=== PATIENT | female | born 1990 ===

== ENCOUNTER 2023-10-09 22:31 | Emergency (ER) | payer SELFPAY ==
--- OUTSIDE RECORDS SUMMARY | 2023-10-09 22:49 | XMS REPORT | Continuity of Care Document ---
:1990 Author Organization [facility] t Address [address] [place] [address] Care Team Providers Name Role Phone Ava Barba Primary Care Physician [phone] ROSE OSHEA Attending Clinician Unavailable TAD BARROW Attending Clinician Unavailable Pushpa Tad GARAY Attending Clinician [phone] CJ LEOEN Attending Clinician Unavailable CJ LEONE Attending Clinician Unavailable Visit, [facility] Nurse Attending Clinician Unavailable Ashleigh Yee MD Attending Clinician ASHLEIGH YEE Attending Clinician Unavailable ASHLEIGH YEE Attending Clinician Unavailable Corona Jack MD Attending Clinician HAWA ANG Attending Clinician Unavailable Yo Ott MD Attending Clinician Yudelka Campo MD Attending Clinician Nhi Chew MD Attending Clinician Abhijit Perez MD Attending Clinician Rose Oshea CNM Attending Clinician Masoud COUCH Attending Clinician Unavailable Elsy PACMasoud Attending Clinician Doctor Unassigned, [place] Attending Clinician Unavailable [facility] Unavailable Clyde RAMOS, Sonia Rushing Attending Clinician Provider, Marisa Temp Attending Clinician Unavailable CONNOR RODRIGUEZ Attending Clinician Unavailable Connor Rodriguez MD Attending Clinician Ultrasound, Nikimike Attending Clinician Unavailable Pcp, Patient Does Not Have A Attending Clinician [phone] LORNA JOAQUIN Attending Clinician Unavailable Joaquin PAC, Lorna S Attending Clinician BOBBY TREADWELL Attending Clinician Unavailable URBANO ALCARAZ Attending Clinician Unavailable VIDHI JENKINS Attending Clinician Unavailable CONNOR RODRIGUEZ Admitting Clinician Unavailable Ashleigh Yee MD Admitting Clinician ASHLEIGH YEE Admitting Clinician Unavailable Connor Rodriguez MD Admitting Clinician LORNA JOAQUIN Admitting Clinician Unavailable Payers Payer Name Policy Type Policy Number Effective Date Expiration Date [facility] [id number] 2022 MOM CHIP JENNY LOW 00:00:00 [employer]PL MEDICAID ALIEN PENDING 2023 2023 PENDING 00:00:00 00:00:00 FAMILY PLANNING [id number] 2022 [place] 0-100% 00:00:00 [facility] [id number] 2023 2023 EMERGENCY MEDICAID 00:00:00 00:00:00 [place] [facility] [id number] 2012 2013 HEALTH PLAN MOM 00:00:00 00:00:00 CHIP LOW [employer] Problems Condition Condition Condition Status Onset Resolution Last Treating Co mments Source Name Details Category Date Date Treatment Clinician Date 39 weeks 39 weeks Disease Active Unive rs gestation gestation 7-18 ity of of of 00:00: [place] 00 [facility] Branch Positive Positive Disease Active Unive rs GBS test GBS test 7-03 ity of 00:00: [address] Branch GBS (group GBS (group Disease Active U nivers B B 6-09 ity of streptococ streptococ [place] cus[place] UTI cus) UTI 00 Medica l complicati complicati Br anch ng ng BV BV Disease Active Univers (bacterial (bacterial 6-09 it y of vaginosis) vaginosis) [place] Yeast Yeast Disease Active Univers vaginitis vaginitis 6-09 ity of 00:00: [place] [facility] Branch Tubal Tubal Disease Active Univers ligation ligation 5-05 ity of status status 00:00: [place] [facility] Branch Anemia of Anemia of Disease Active Uni vers mother in mother in 4-18 ity of , , [place] antepartum antepartum 00 [facility] Branch Anemia of Anemia of Disease Active Uni vers mother in mother in 4-18 ity of , , 00:[place] antepartum antepartum 00 [facility] Branch Multiparit Multiparit Disease Active U nivers y y 4-14 ity of 00:00: [place] [facility] Branch Alcohol Alcohol Disease Active Overview: Univ ers use use 3-28 Formattin ity of affecting affecting 00:00: [place] of this [place] 00 note [facility] might be Branch different from the original. 3 drinks 3 beers occasiona l weekends with last this past weekend Vaginal Vaginal Disease Active Univers bleeding bleeding 3-27 ity of during during 00:00: [place] , , 00 Me dical antepartum antepartum Br anch 22 weeks 22 weeks Disease Active Unive rs gestation gestation 3-27 ity of of of 00:00: [place] 00 [facility] Branch Trichomona Trichomona Disease Active U nivers s s 3-27 ity of vaginitis vaginitis 00:[place] [facility] [place] BV BV Disease Active Univers (bacterial (bacterial 3-27 it y of vaginosis) vaginosis) [place] [facility] High-risk High-risk Disease Active Uni vers 3-27 ity of in second in second 00:[place] trimester trimester 00 [facility] Overweight Overweight Disease Active U nivers (BMI (BMI 1-17 ity of 25.0-29.9) 25.0-29.9) 00:[place] Obesity Obesity Disease Active Univers affecting affecting 1-17 [place] of [place] [facility] UTI UTI Disease Active 2021-11 Univers (urinary (urinary 2-06 ity of tract tract 00:00: [place] infection) infection) 00 Me dical during during Branch Nausea and Nausea and Disease Active 2021-11 U nivers vomiting vomiting 2-06 ity of during during 00:00: [place] 00 [facility] Subchorion Subchorion Disease Active 2021-11 U nivers ic ic 2-06 ity of hemorrhage hemorrhage 00:00[place] [facility] Subchorion Subchorion Disease Active 2021-11 U nivers ic ic 2-06 ity of hemorrhage hemorrhage [place] Well woman Well woman Disease Active 2015-11 U nivers exam exam 2-23 ity of 00:00: [place] 00 Medical Branch Obese Obese Disease Active 2015-11 Univers 2-23 ity of 00:00: [place] 00 [facility] Branch Irregular Irregular Disease Active 2014-11 Uni vers menstrual menstrual 1-13 ity of cycle cycle 00:00: [place] 00 [facility] Branch ADD ADD Disease Active 2014-11 Univers (attention (attention 1-13 it y of deficit deficit 00:00: [place] disorder) disorder) 00 [facility] Other Other Disease Active 2012-11 Univers general general 0-01 ity of counseling counseling 00:00: [place] and advice and advice 00 Me dical for for Branch contracept contracept clarke clarke management management Presence Presence Disease Active Overview: Un ronnie of of 8-26 Formattin ity of intrauteri intrauteri 00:00: g of this [place] ne ne 00 note Medical contracept contracept might be Branch clarke device clarke device different from the original. Exp. 3 Threatened Threatened Disease Active U nivers 6-12 ity of labor, labor, 00:00: [place] second second 00 Medical trimester trimester Bran ch History of History of Disease Active 2013-0 U nivers pre-eclamp pre-eclamp 4-22 it y of fidel in fidel in 00:00: [place] prior prior 00 Medical , , Br anch currently currently Allergies, Adverse Reactions, Alerts Allergy Allergy Status Severity Reaction(s) Onset Inactive Treating Comm ents Source Name Type Date Date Clinician cefTRIAX Propensi Active one ty to 07-08 Sodium - adverse 00:00: Injectio reaction 00 n to drug Rocephin Propensi Active ty to 12-28 adverse 00:00: reaction 00 to drug CEFTRIAX DRUG Active Swelling Univer s ONE INGREDI 03-10 ity of 00:00: [place] 00 Medical Branch Ceftriax Propensi Active Swelling Univ ers one ty to 03-10 ity of adverse 00:00: [place] reaction 00 [facility] Branch Social History Social Habit Start Date Stop Date Quantity Comments Source ASSERTION 2022-09-07 University 00:00:00 [facility] Gender identity Universit y of [facility] Sexual orientation Univer sity of [facility] Exposure to 2023-03-19 2023-03-29 Not sure [facility] SARS-CoV-2 (event) 00:00:00 09:49:00 [facility] Alcohol intake 2022-10-12 2022-10-12 Current University of 00:00:00 00:00:00 non-drinker of [facility] alcohol [place] (finding) History of Social 2022-10-12 2022-10-12 Univers ity of function 00:00:00 00:00:00 [facility] Tobacco use and 2013-01-03 2013-01-03 Smokeless Universit y of exposure 00:00:00 00:00:00 tobacco non-user [facility] Sex [birth year] Universit y of 00:00:00 00:00:00 [facility] Smoking Status Start Date Stop Date Source Never smoked tobacco [facility] Medications Ordered Filled Start Stop Current Ordering Indication Dosage Frequency Signature Comments Components Source Medication Medication Date Date Medication? Clinician (SIG) Name Name Yes [id number] 1{tbl} Take 1 Univers [id number] 7-19 tablet by ity of fum-folic 00:00: [place] 27 [place] iron- 00 the Medical 1 mg folic morning. Branc h tablet docusate 0 Yes [id number] 200mg Take 2 U nivers 100 mg 7-19 capsules ity of capsule 00:00: by mouth [place] 00 once daily Medical as needed Branch for Constipati on. ferrous 2022-0 Yes [id number] 325mg Take 1 Un ronnie sulfate 325 7-19 tablet by ity of mg (65 mg 00:00: [place] iron) 00 the Medical tablet morning Branch and 1 tablet in the evening. ibuprofen 2022-0 Yes [id number] 600mg Take 1 Univers 600 mg 7-19 tablet by ity of tablet 00:00: mouth [place] 00 every 6 Medical (six) Branch hours as needed (Pain). Take with food or milk. 0 Yes [id number] 1{tbl} Take 1 Univers [id number] 7-19 tablet by ity of fum-folic 00:00: [place] 27 mg iron- 00 the Medical 1 mg folic morning. Branc h tablet docusate 0 Yes [id number] 200mg Take 2 U nivers 100 mg 7-19 capsules ity of capsule 00:00: by mouth [place] 00 once daily Medical as needed Branch for Constipati on. ferrous 0 Yes [id number] 325mg Take 1 Un ronnie sulfate 325 7-19 tablet by ity of mg (65 mg 00:00: [place] iron) 00 the Medical tablet morning Branch and 1 tablet in the evening. ibuprofen 2022-0 Yes [id number] 600mg Take 1 Univers 600 mg 7-19 tablet by ity of tablet 00:00: mouth [place] 00 every 6 Medical (six) Branch hours as needed (Pain). Take with food or milk. 2022-0 Yes [id number] 1{tbl} Take 1 Univers [id number] 7-19 tablet by ity of fum-folic 00:00: [place] 27 mg iron- 00 the Medical 1 mg folic morning. Branc h tablet docusate 0 Yes [id number] 200mg Take 2 U nivers 100 mg 7-19 capsules ity of capsule 00:00: by mouth [place] 00 once daily Medical as needed Branch for Constipati on. ferrous 2022-0 Yes [id number] 325mg Take 1 Un ronnie sulfate 325 7-19 tablet by ity of mg (65 mg 00:00: [place] iron) 00 the Medical tablet morning Branch and 1 tablet in the evening. ibuprofen 2022-0 Yes [id number] 600mg Take 1 Univers 600 mg 7-19 tablet by ity of tablet 00:00: mouth [place] 00 every 6 Medical (six) Branch hours as needed (Pain). Take with food or milk. 2022-0 Yes [id number] 1{tbl} Take 1 Univers [id number] 7-19 tablet by ity of fum-folic 00:00: [place] 27 mg iron- 00 the Medical 1 mg folic morning. Branc h tablet docusate 2022-0 Yes [id number] 200mg Take 2 U nivers 100 mg 7-19 capsules ity of capsule 00:00: by mouth [place] 00 once daily Medical as needed Branch for Constipati on. ferrous 2022-0 Yes [id number] 325mg Take 1 Un ronnie sulfate 325 7-19 tablet by ity of mg (65 mg 00:00: [place] iron) 00 the Medical tablet morning Branch and 1 tablet in the evening. ibuprofen 2022-0 Yes [id number] 600mg Take 1 Univers 600 mg 7-19 tablet by ity of tablet 00:00: mouth [place] 00 every 6 Medical (six) Branch hours as needed (Pain). Take with food or milk. 2022-0 Yes [id number] 1{tbl} Take 1 Univers [id number] 7-19 tablet by ity of fum-folic 00:00: [place] 27 mg iron- 00 the Medical 1 mg folic morning. Branc h tablet docusate 2022-0 Yes [id number] 200mg Take 2 U nivers 100 mg 7-19 capsules ity of capsule 00:00: by mouth [place] 00 once daily Medical as needed Branch for Constipati on. ferrous 2022-0 Yes [id number] 325mg Take 1 Un ronnie sulfate 325 7-19 tablet by ity of mg (65 mg 00:00: [place] iron) 00 the Medical tablet morning Branch and 1 tablet in the evening. ibuprofen 2022-0 Yes [id number] 600mg Take 1 Univers 600 mg 7-19 tablet by ity of tablet 00:00: mouth [place] 00 every 6 Medical (six) Branch hours as needed (Pain). Take with food or milk. 0 Yes [id number] 1{tbl} Take 1 Univers [id number] 7-19 tablet by ity of fum-folic 00:00: [place] 27 mg iron- 00 the Medical 1 mg folic morning. Branc h tablet docusate 0 Yes [id number] 200mg Take 2 U nivers 100 mg 7-19 capsules ity of capsule 00:00: by mouth [place] 00 once daily Medical as needed Branch for Constipati on. ferrous 0 Yes [id number] 325mg Take 1 Un ronnie sulfate 325 7-19 tablet by ity of mg (65 mg 00:00: [place] iron) 00 the Medical tablet morning Branch and 1 tablet in the evening. ibuprofen 0 Yes [id number] 600mg Take 1 Univers 600 mg 7-19 tablet by ity of tablet 00:00: mouth [place] 00 every 6 Medical (six) Branch hours as needed (Pain). Take with food or milk. 0 Yes [id number] 1{tbl} Take 1 Univers [id number] 7-19 tablet by ity of fum-folic 00:00: [place] 27 mg iron- 00 the Medical 1 mg folic morning. Branc h tablet docusate 0 Yes [id number] 200mg Take 2 U nivers 100 mg 7-19 capsules ity of capsule 00:00: by mouth [place] 00 once daily Medical as needed Branch for Constipati on. ferrous 2022-0 Yes [id number] 325mg Take 1 Un ronnie sulfate 325 7-19 tablet by ity of mg (65 mg 00:00: [place] iron) 00 the Medical tablet morning Branch and 1 tablet in the evening. ibuprofen 2022-0 Yes [id number] 600mg Take 1 Univers 600 mg 7-19 tablet by ity of tablet 00:00: mouth [place] 00 every 6 Medical (six) Branch hours as needed (Pain). Take with food or milk. HYDROcodone 0 2022- No [id number] 1{tbl} Take 1 U nivers -acetaminop 7-19 -27 tablet by it y of hen 5-325 00:00: 04:59 mouth [place] mg tablet 00 :00 every 6 Medical (six) Branch hours as needed (Pain scale above 4) for up to 7 days. Do not exceed 3 grams of acetaminop hen in 24 hours. Indication s: acute pain HYDROcodone 2022- No [id number] 1{tbl} Take 1 U nivers -acetaminop 7-19 07-27 tablet by it y of hen 5-325 00:00: 04:59 mouth [place] mg tablet 00 :00 every 6 Medical (six) Branch hours as needed (Pain scale above 4) for up to 7 days. Do not exceed 3 grams of acetaminop hen in 24 hours. Indication s: acute pain HYDROcodone 2022- No [id number] 1{tbl} Take 1 U nivers -acetaminop 7-19 07-27 tablet by it y of hen 5-325 00:00: 04:59 mouth [place] mg tablet 00 :00 every 6 Medical (six) Branch hours as needed (Pain scale above 4) for up to 7 days. Do not exceed 3 grams of acetaminop hen in 24 hours. Indication s: acute pain HYDROcodone 2022- No [id number] 1{tbl} Take 1 U nivers -acetaminop 7-19 07-27 tablet by it y of hen 5-325 00:00: 04:59 mouth [place] mg tablet 00 :00 every 6 Medical (six) Branch hours as needed (Pain scale above 4) for up to 7 days. Do not exceed 3 grams of acetaminop hen in 24 hours. Indication s: acute pain hydrocortis Yes Topical Uni vers one 05-24 (Apply To ity of 1%-nystatin 20:57: Affected [place] -zinc oxide 44 Areas), Medic al ointment PRN, Branch (COMPOUNDED Starting ) on Tue05/24/23 at 1557, Until Discontinu ed, Routine, Dermatitis /Rash hydrocortis Yes Topical Uni vers one 05-24 (Apply To ity of 1%-nystatin 20:57: [place]ffected [place] -zinc oxide 44 Areas), Medic al ointment PRN, Branch (COMPOUNDED Starting ) on Tue05/24/23 at 1557, Until Discontinu ed, Routine, Dermatitis /Rash rho(D) Yes 300ug 300 mcg, Univer s immune 7-18 Intramuscu ity of globulin 15:43: lar, ONCE, [place] (RHOGAM) 40 For 1 Medical syringe 300 dose, Branch mcg Conditiona l, Routine rho(D) 2022-0 Yes 300ug 300 mcg, Univer s immune 7-18 Intramuscu ity of globulin 15:43: lar, ONCE, [place] (RHOGAM) 40 For 1 Medical syringe 300 dose, Branch mcg Conditiona l, Routine HYDROcodone 2022-0 Yes 2{tbl} 2 tablet, Univers -acetaminop 7-18 Oral, ity of hen (NORCO 15:43: Q6HPRN, [place] 5) 5-325 mg 31 Starting Medi gloria tablet 2 on Tue [place] tablet 05/24/23 at 1043, Until Discontinu ed, Routine, Pain (scale 7-10), Alternate with Ibuprofen HYDROcodone 2022-0 Yes 1{tbl} 1 tablet, Univers -acetaminop 7-18 Oral, ity of hen (NORCO 15:43: Q6HPRN, [place] 5) 5-325 mg 31 Starting Medi gloria tablet 1 on Tue [place] tablet 05/24/23 at 1043, Until Discontinu ed, Routine, Pain (scale 4-6), Alternate with Ibuprofen ibuprofen 2022-0 Yes 600mg 600 mg, [facility] ers (IBU) 718 Oral, ity of tablet 600 15:43: Q6HPRN, [place] mg 31 Starting Medical on Tue Branch 05/24/23 at 1043, Until Discontinu ed, Routine, Pain (scale 1-3) diphenhydrA 2022-0 Yes 25mg 25 mg, [facility] MINE 05-24 Slow IV ity of (BENADRYL) 15:43: Push, [place] injection 31 Q6HPRN, Medical 25 mg Starting Branch on Tue05/24/23 at 1043, Until Discontinu ed, Routine, Itching diphenhydrA 2023-0 Yes 25mg 25 mg, [facility] MINE - Oral, ity of (BENADRYL) 15:43: Q6HPRN, [place] tablet 25 31 Starting Medica l mg on Tue Branch 05/24/23 at 1043, Until Discontinu ed, Routine, Sleep, Itching ondansetron 2023-0 Yes 4mg 4 mg, Slow Univers (ZOFRAN 7-18 IV Push, ity of (PF)) 15:43: Q8HPRN, [place] injection 4 31 Starting Medi gloria mg on Tue05/24/23 at 1043, Until Discontinu ed, Routine, Nausea and Vomiting (N/V) bisacodyL 2022-0 Yes 10mg 10 mg, Univer s (DULCOLAX) 7-18 Rectal, ity of suppository 15:43: QDAILYPRN, [place] 10 mg 31 Starting Medical on Tue Branch 05/24/23 at 1043, Until Discontinu ed, Routine, Constipati on simethicone 2022-0 Yes 160mg 160 mg, Un ronnie (GAS RELIEF - Oral, ity of (SIMETHICON 15:43: PC+HSPRN, [place] E)) 31 Starting Medical chewable on Tue tablet 160 05/24/23 at mg 1043, Until Discontinu ed, Routine, Gas docusate 2022-0 Yes 200mg 200 mg, Unive rs (COLACE) - Oral, ity of capsule 200 15:43: QDAILYPRN, [place] mg 31 Starting Medical on Tue Branch 05/24/23 at 1043, Until Discontinu ed, Routine, Constipati on magnesium 2022-0 Yes 30mL 30 mL, Univer s hydroxide 18 Oral, ity of (MILK OF 15:43: QDAILYPRN, [place] MAGNESIA) 31 Starting Medica l 400 mg/5 mL on Tue suspension 05/24/23 at 30 mL 1043, Until Discontinu ed, Routine, Constipati on lactated 2022-0 Yes 1000mL at 125 Unive rs ringers IV 7-18 mL/hr, ity of infusion 15:43: 1,000 mL, [place] 1,000 mL 31 IV Medical Infusion, Branch PRN, 1 dose, Starting on Tue05/24/23 at 1043, Until Discontinu ed, Routine HYDROcodone 2022-0 Yes 2{tbl} 2 tablet, Univers -acetaminop - Oral, ity of hen (NORCO 15:43: Q6HPRN, [place] 5) 5-325 mg 31 Starting Medi gloria tablet 2 on Tue tablet 05/24/23 at 1043, Until Discontinu ed, Routine, Pain (scale 7-10), Alternate with Ibuprofen HYDROcodone 2023-0 Yes 1{tbl} 1 tablet, Univers -acetaminop 05-24 Oral, ity of hen (NORCO 15:43: Q6HPRN, [place] 5) 5-325 mg 31 Starting Medi gloria tablet 1 on [facility] tablet 05/24/23 at 1043, Until Discontinu ed, Routine, Pain (scale 4-6), Alternate with Ibuprofen ibuprofen 2023-0 Yes 600mg 600 mg, Univ ers (IBU) 7-18 Oral, ity of tablet 600 15:43: Q6HPRN, [place] mg 31 Starting Medical on Branch 05/24/23 at 1043, Until Discontinu ed, Routine, Pain (scale 1-3) diphenhydrA 2023-0 Yes 25mg 25 mg, Univ ers MINE 7 Slow IV ity of (BENADRYL) 15:43: Push, [place] injection 31 Q6HPRN, Medical 25 mg Starting Branch on Tue05/24/23 at 1043, Until Discontinu ed, Routine, Itching diphenhydrA 2023-0 Yes 25mg 25 mg, Univ ers MINE 18 Oral, ity of (BENADRYL) 15:43: Q6HPRN, [place] tablet 25 31 Starting Medica l mg on Branch 05/24/23 at 1043, Until Discontinu ed, Routine, Sleep, Itching ondansetron 2023-0 Yes 4mg 4 mg, Slow Univers (ZOFRAN 18 IV Push, ity of (PF)) 15:43: Q8HPRN, [place] injection 4 31 Starting Medi gloria mg on [facility] Branch 05/24/23 at 1043, Until Discontinu ed, Routine, Nausea and Vomiting (N/V) bisacodyL 2023-0 Yes 10mg 10 mg, Univer s (DULCOLAX) 18 Rectal, ity of suppository 15:43: QDAILYPRN, [place] 10 mg 31 Starting Medical on [facility] Branch 05/24/23 at 1043, Until Discontinu ed, Routine, Constipati on simethicone 2023-0 Yes 160mg 160 mg, Un ronnie (GAS RELIEF -18 Oral, ity of (SIMETHICON 15:43: PC+HSPRN, [place] E)) 31 Starting Medical chewable on Tue tablet 160 05/24/23 at mg 1043, Until Discontinu ed, Routine, Gas docusate 3-0 Yes 200mg 200 mg, Unive rs (COLACE) -18 Oral, ity of capsule 200 15:43: QDAILYPRN, [place] mg 31 Starting Medical on Tue Branch 05/24/23 at 1043, Until Discontinu ed, Routine, Constipati on magnesium 2022-0 Yes 30mL 30 mL, Univer s hydroxide 05-24 Oral, ity of (MILK OF 15:43: QDAILYPRN, [place] MAGNESIA) 31 Starting Medica l 400 mg/5 mL on Tue Branch suspension 05/24/23 at 30 mL 1043, Until Discontinu ed, Routine, Constipati on lactated 2022-0 Yes 1000mL at 125 Unive rs ringers IV 7-18 mL/hr, ity of infusion 15:43: 1,000 mL, [place] 1,000 mL 31 IV Medical Infusion, Branch PRN, 1 dose, Starting on Tue05/24/23 at 1043, Until Discontinu ed, Routine oxytocin 2022-0 Yes 600mL/h 600 mL/hr, Univers (PITOCIN) 7-18 IV ity of 30 units in 15:02: Infusion, [place] NS 500 mL 05 PRN, For Medica l IV infusion post Branch delivery uterine atony., Starting on Tue05/24/23 at 1002<br&gt ;Start at 600 mL/hr for 1 hr then 150 mL/hr for 1 hr.
oxytocin 2022-0 Yes 300mL/h 300 mL/hr, Univers (PITOCIN) 7-18 IV ity of 30 units in 15:02: Infusion, [place] NS 500 mL 05 SEE-INSTRU Medi gloria IV infusion CTIONS, Branc h Starting on Tue05/24/[address] at 300 mL/hr for 1 hr then 150 mL/hr for 1 hr. For post delivery uterotonic .
oxytocin 2022-0 Yes 600mL/h 600 mL/hr, Univers (PITOCIN) 7-18 IV ity of 30 units in 15:02: Infusion, [place] NS 500 mL 05 PRN, For Medica l IV infusion post Branch delivery uterine atony., Starting on Tue05/24/23 at 1002<br&gt ;Start at 600 mL/hr for 1 hr then 150 mL/hr for 1 hr.
oxytocin Yes 300mL/h 300 mL/hr, Univers (PITOCIN) 05-24 IV ity of 30 units in 15:02: Infusion, [place] NS 500 mL 05 SEE-INSTRU Medi gloria IV infusion CTIONS, Branc h Starting on Tue05/24/[address] at 300 mL/hr for 1 hr then 150 mL/hr for 1 hr. For post delivery uterotonic .
ePHEDrine 2022- No Intramuscu U nivers injection 05-24 lar, ONCE ity of 14:54: 14:58 INTRA [place] 00 :39 PROCEDURE, Medical Starting Branch on Tue05/24/23 at 0954, Until Tue05/24/23 at 0958, Routine, Intra-op ePHEDrine 2022- No Intramuscu U nivers injection 05-24 lar, ONCE ity of 14:54: 14:58 INTRA [place] 00 :39 PROCEDURE, Medical Starting Branch on Tue05/24/23 at 0954, Until Tue05/24/23 at 0958, Routine, Intra-op ketorolac 2022- No 30mg 30 mg, Unive rs (TORADOL) 05-24 Slow IV ity of injection 14:50: 04:59 [place], PRN, [place] 30 mg 01 :00 1 dose, Medical Starting Branch on Tue05/24/23 at 0950, Until [place] 05/26/23 at 2359, Routine, Pain (scale 4-6) ketorolac 2022- No 30mg 30 mg, Unive rs (TORADOL) 05-24 Slow IV ity of injection 14:50: 04:59 [place], PRN, [place] 30 mg 01 :00 1 dose, Medical Starting Branch on Tue05/24/23 at 0950, Until Tue05/26/23 at 2359, Routine, Pain (scale 4-6) naloxone 2022- No .4mg 0.4 mg, Unive rs (NARCAN) 05-24 Slow IV ity of injection 14:50: 23:14 [place], PRN [place] 0.4 mg 01 :19 - SEE [facility], Starting on Tue05/24/23 at 0950, Until Tue05/26/23 at 1814, Routine, Analgesia Recovery naloxone 2022- No .4mg 0.4 mg, Unive rs (NARCAN) 05-24 Slow IV ity of injection 14:50: 23:14 [place], PRN [place] 0.4 mg 01 :19 - SEE [facility], Starting on Tue05/24/23 at 0950, Until Tue05/26/23 at 1814, Routine, Analgesia Recovery diphenhydrA 2022- No 25mg 25 mg, Uni vers MINE 05-24 Slow IV ity of (BENADRYL) 14:50: 23:55 [place], [place] injection 01 :37 Q4HPRN, Medical 25 mg Starting Branch on Tue05/24/23 at 0950, Until Tue05/25/23 at 1855, Routine, Itching diphenhydrA 2022- No 25mg 25 mg, Uni vers MINE 05-24 Slow IV ity of (BENADRYL) 14:50: 23:55 [place], [place] injection 01 :37 Q4HPRN, Medical 25 mg Starting Branch on Tue05/24/23 at 0950, Until Tue05/25/23 at 1855, Routine, Itching ondansetron 2022- No Slow IV Un ronnie (ZOFRAN 05-24 [place], ONCE ity o f (PF)) 14:49: 14:58 INTRA [place] injection 00 :39 PROCEDURE, Medi gloria Starting Branch on Tue05/24/23 at 0949, Until Tue05/24/23 at 0958, Routine, Intra-op ondansetron 0 2022- No Slow IV Un ronnie (ZOFRAN 7-18 07-18 Push, ONCE ity o f (PF)) 14:49: 14:58 INTRA [place] injection 00 :39 PROCEDURE, [facility] gloria Starting Branch on e 05/24/23 at 0949, Until Tue05/24/23 at 0958, Routine, Intra-op morpHINE PF 2022-2022- No Epidural, Univers (DURAMORPH- 05-24 ONCE INTRA i ty of PF) 14:26: 14:58 PROCEDURE, [place] injection 00 :39 Starting Medica l on Tue Branch 05/24/23 at 0926, Until 05/24/23 at 0958, Routine, Intra-op morpHINE PF 2022-2022- No Epidural, Univers (DURAMORPH- 05-24 ONCE INTRA i ty of PF) 14:26: 14:58 PROCEDURE, [place] injection 00 :39 Starting Medica l on Tue Branch 05/24/23 at 0926, Until e 05/24/23 at 0958, Routine, Intra-op lidocaine-e 2022-0 2022- No Epidural, Univers pinephrine 05-2418 ONCE INTRA it y of (XYLOCAINE 14:18: 14:58 PROCEDURE, [place] W/EPINEPHRI 00 :39 Starting [facility] [place]) 2 on [facility] Branch %-1:200,000 05/24/23 at injection 0918, Until Tue05/24/23 at 0958, Routine, Intra-op lidocaine-e 2022-0 2022- No Epidural, Univers pinephrine 05-2418 ONCE INTRA it y of (XYLOCAINE 14:18: 14:58 PROCEDURE, [place] W/EPINEPHRI 00 :39 Starting [facility] [place]) 2 on [facility] Branch %-1:200,000 05/24/23 at injection 0918, Until 05/24/23 at 0958, Routine, Intra-op lactated 3-0 Yes 1000mL at 125 Unive rs ringers IV 7-18 mL/hr, ity of infusion 14:15: 1,000 mL, [place] 1,000 mL 00 IV Medical Infusion, Branch CONTINUOUS , Starting on e 05/24/23 at 0915, Until Discontinu ed, Routine lactated 3-0 Yes 1000mL at 125 Unive rs ringers IV 7-18 mL/hr, ity of infusion 14:15: 1,000 mL, [place] 1,000 mL 00 IV Medical Infusion, Branch CONTINUOUS , Starting on Tue05/24/23 at 0915, Until Discontinu ed, Routine phenylephri 2022- No Slow IV Un ronnie ne 05-24 Push, ONCE ity of (VAZCULEP) 13:55: 14:58 INTRA [place] injection 00 :39 PROCEDURE, Medi gloria Starting Branch on Tue05/24/23 at 0855, Until Tue05/24/23 at 0958, Routine, Intra-op phenylephri 2022- No Slow IV Un ronnie ne 05-24 Push, ONCE ity of (VAZCULEP) 13:55: 14:58 INTRA [place] injection 00 :39 PROCEDURE, Medi gloria Starting Branch on Tue05/24/23 at 0855, Until Tue05/24/23 at 0958, Routine, Intra-op terbutaline 2022- No Intravenou Univers (BRETHINE) 05-24 s, ONCE ity o f injection 13:49: 14:58 INTRA [place] 00 :39 PROCEDURE, Medical Starting Branch on Tue05/24/23 at 0849, Until Tue05/24/23 at 0958, Routine, Intra-op terbutaline 2022- No Intravenou Univers (BRETHINE) 05-24 s, ONCE ity o f injection 13:49: 14:58 INTRA [place] 00 :39 PROCEDURE, Medical Starting Branch on Tue05/24/23 at 0849, Until Tue05/24/23 at 0958, Routine, Intra-op bupivacaine 2022- No Retrobulba Univers (preserv 05-24 r - Right ity o f free) 13:46: 14:58 Eye, ONCE [place] (MARCAINE 00 :39 INTRA Medical (PF)) 0.75 PROCEDURE, Bra nch % (7.5 Starting mg/mL) on Tue injection 05/24/23 at 0846, Until 05/24/23 at 0958, Routine, Intra-op bupivacaine 2022-0 2022- No Retrobulba Univers (preserv 05-24 r - Right ity o f free) 13:46: 14:58 Eye, ONCE [place] (MARCAINE 00 :39 INTRA Medical (PF)) 0.75 PROCEDURE, Bra nch % (7.5 Starting mg/mL) on Tue injection 05/24/23 at 0846, Until e 05/24/23 at 0958, Routine, Intra-op phenylephri 2022- No Intravenou Univers ne 05-24 s, ity of (VAZCULEP) 13:35: 14:58 CONTINUOUS [place] injection 00 :39 PRN, Medical Starting Branch on Tue05/24/23 at 0835, Until e 05/24/23 at 0958, Routine, Intra-op phenylephri 2022- No Intravenou Univers ne 05-24 s, ity of (VAZCULEP) 13:35: 14:58 CONTINUOUS [place] injection 00 :39 PRN, Medical Starting Branch on Tue05/24/23 at 0835, Until Tue05/24/23 at 0958, Routine, Intra-op FENTanyl PF 2022- No Intratheca Univers (SUBLIMAZE 05-24 l, ONCE ity o f (PF)) 13:34: 14:58 INTRA [place] injection 00 :39 PROCEDURE, Medi gloria Starting Branch on Tue05/24/23 at 0834, Until Tue05/24/23 at 0958, Routine, Intra-op FENTanyl PF 2022- No Intratheca Univers (SUBLIMAZE 05-24 l, ONCE ity o f (PF)) 13:34: 14:58 INTRA [place] injection 00 :39 PROCEDURE, Medi gloria Starting Branch on Tue05/24/23 at 0834, Until Tue05/24/23 at 0958, Routine, Intra-op lidocaine 2022-2022- No Subcutaneo U nivers 2% 05-24 us, ONCE ity of (XYLOCAINE) 13:30: 14:58 INTRA [place] 20 mg/mL (2 00 :39 PROCEDURE, Me dical %) Starting Branch injection on Tue05/24/23 at 0830, Until Tue05/24/23 at 0958, Routine, Intra-op lidocaine 2022- No Subcutaneo U nivers 2% 05-24 us, ONCE ity of (XYLOCAINE) 13:30: 14:58 INTRA [place] 20 mg/mL (2 00 :39 PROCEDURE, Me dical %) Starting Branch injection on Tue05/24/23 at 0830, Until Tue05/24/23 at 0958, Routine, Intra-op lactated 2022- No Intravenou Un ronnie ringers IV 05-24 s, ity of infusion 13:14: 14:58 CONTINUOUS [place] 00 :[place] PRN, Medical Starting Branch on Tue05/24/23 at 0814, Until Tue05/24/23 at 0958, Routine, Intra-op lactated 2022- No Intravenou Un ronnie ringers IV 05-24 s, ity of infusion 13:14: 14:58 CONTINUOUS [place] 00 :39 PRN, Medical Starting Branch on Tue05/24/23 at 0814, Until Tue05/24/23 at 0958, Routine, Intra-op terbutaline No .25mg 0.25 mg, Univers (BRETHINE) 05-24 Subcutaneo it y of injection 08:45: 08:10 us, ONCE, [place] 0.25 mg 00 :00 1 dose, On Medica l [facility] 05/24/23 at 0345, Routine lactated 2022-0 Yes 500mL at 999 Univer s ringers IV 7-18 mL/hr, 500 ity of infusion 08:03: mL, IV [place] 500 mL 58 Infusion, Medical PRN - SEE Branch INSTRUCTIO NS, 1 dose, Starting on Tue05/24/23 at 0303, Until Discontinu ed, Routine lactated 2022-0 Yes 500mL at 999 Univer s ringers IV 7-18 mL/hr, 500 ity of infusion 08:03: mL, IV [place] 500 mL 58 Infusion, Medical PRN - SEE Branch INSTRUCTIO NS, 1 dose, Starting on Tue05/24/23 at 0303, Until Discontinu ed, Routine sodium 2022- No 30mL 30 mL, Univers citrate-cit 7-18 07-18 Oral, ity of sylwia acid 08:03: 13:05 PRE-PROCED [place] (BICITRA) 58 :00 URE ONCE, Medic al 500-334 1 dose, Branch mg/5 mL Starting solution 30 on Tue mL 05/24/23 at 0303, Until Discontinu ed, Routine, Surgery/Pr ocedure oxytocin 2023-0 Yes 2mU/min at 2-40 Uni vers (PITOCIN) 7-18 mL/hr, IV ity o f 30 units in 07:56: Infusion, [place] 500 mL 20 TITRATE, Medica l IV infusion Starting Bran ch on e 05/24/23 at 0256, Until Discontinu ed, RAM[place] oxytocin 2023-0 Yes 2mU/min at 2-40 Uni vers (PITOCIN) 7-18 mL/hr, IV ity o f 30 units in 07:56: Infusion, [place] NS 500 mL 20 TITRATE, Medica l IV infusion Starting Bran ch on e 05/24/23 at 0256, Until Discontinu ed, [place] oxytocin 2023-0 Yes 2mU/min at 2-40 Uni vers (PITOCIN) 7-18 mL/hr, IV ity o f 30 units in 07:56: Infusion, [place] NS 500 mL 20 TITRATE, Medica l IV infusion Starting Bran ch on Tue05/24/23 at 0256, Until Discontinu ed, RAM[place] oxytocin 2023-0 2023- No 2mU/min at 2-40 Un ronnie (PITOCIN) 05-24 07-19 mL/hr, IV ity of 30 units in 07:56: 22:40 Infusion, [place] NS 500 mL 20 :02 TITRATE, Medica l IV infusion Starting Bran ch on Tue05/24/23 at 0256, Until Tue05/25/23 at 1740, RAMONA sodium 2023-0 Yes 30mL 30 mL, Univers citrate-cit 05-24 Oral, ity of sylwia acid 06:53: PRE-PROCED [place] (BICITRA) 29 URE ONCE, Medic al 500-334 1 dose, Branch mg/5 mL Starting solution 30 on Tue mL 05/24/23 at 0153, Until Discontinu ed, Routine, Surgery/Pr ocedure lidocaine 2023-0 Yes 50mL 50 mL, Univer s 1% 7-18 Infiltrati ity of (XYLOCAINE) 06:53: on, PRN - [place] 10 mg/mL (1 29 SEE Medical %) INSTRUCTIO Branch injection NS, 50 mL Starting on Tue05/24/23 at 0153, Until Discontinu ed, Routine, Local anesthesia , For laceration repair only as a local anesthetic as indicated. lidocaine 2023-0 Yes .3mL 0.3 mL, Unive rs 1% (PF) 7-18 Infiltrati ity of (XYLOCAINE) 06:53: on, PRN - [place] injection 29 SEE Medical 0.3 mL INSTRUCTIO Branch NS, Starting on Tue05/24/23 at 0153, Until Discontinu ed, Routine, Local anesthesia , For IV line placement only as a local anesthetic . lactated 2023-0 Yes 500mL at 999 Univer s ringers IV 7-18 mL/hr, 500 ity of infusion 06:53: mL, IV [place] 500 mL 29 Infusion, Medical PRN - SEE Branch INSTRUCTIO NS, Starting on Tue05/24/23 at 0153, Until Discontinu ed, Routine D5W-LR IV 3-0 Yes 1000mL at 1-125 Un ronnie infusion 7-18 mL/hr, IV ity of 1,000 mL 06:53: Infusion, [place] 29 TITRATE, Medical Starting Branch on Tue05/24/23 at 0153, Until Discontinu ed, Routine sodium 2023-0 Yes 30mL 30 mL, Univers citrate-cit 718 Oral, ity of sylwia acid 06:53: PRE-PROCED [place] (BICITRA) 29 URE ONCE, Medic al 500-334 1 dose, Branch mg/5 mL Starting solution 30 on Tue mL 05/24/23 at 0153, Until Discontinu ed, Routine, Surgery/Pr ocedure lidocaine 2023-0 Yes 50mL 50 mL, Univer s 1% 7-18 Infiltrati ity of (XYLOCAINE) 06:53: on, PRN - [place] 10 mg/mL (1 29 SEE Medical %) INSTRUCTIO Branch injection NS, 50 mL Starting on Tue05/24/23 at 0153, Until Discontinu ed, Routine, Local anesthesia , For laceration repair only as a local anesthetic as indicated. lidocaine 2023-0 Yes .3mL 0.3 mL, Unive rs 1% (PF) 7-18 Infiltrati ity of (XYLOCAINE) 06:53: on, PRN - [place] injection 29 SEE Medical 0.3 mL INSTRUCTIO Branch NS, Starting on Tue05/24/23 at 0153, Until Discontinu ed, Routine, Local anesthesia , For IV line placement only as a local anesthetic . lactated 3-0 Yes 500mL at 999 Univer s ringers IV 7-18 mL/hr, 500 ity of infusion 06:53: mL, IV [place] 500 mL 29 Infusion, Medical PRN - SEE Branch INSTRUCTIO NS, Starting on Tue05/24/23 at 0153, Until Discontinu ed, Routine D5W-LR IV 3-0 Yes 1000mL at 1-125 Un ronnie infusion 7-18 mL/hr, IV ity of 1,000 mL 06:53: Infusion, [place] 29 TITRATE, Medical Starting Branch on Tue05/24/23 at 0153, Until Discontinu ed, Routine metroNIDAZO 3-0 Yes [id number] 500mg Take 1 Univers LE 500 mg 6-09 tablet by ity o f tablet 00:00: mouth in [place] [address] the [facility] morning [place] and 1 tablet in the evening. metroNIDAZO 2023-0 Yes [id number] 500mg Take 1 Univers LE 500 mg 6-09 tablet by ity o f tablet 00:00: mouth in [address] morning [place] and 1 tablet in the evening. metroNIDAZO 2023-0 Yes [id number] 500mg Take 1 Univers LE 500 mg 6-09 tablet by ity o f tablet 00:00: mouth in [address] morning [place] and 1 tablet in the evening. metroNIDAZO 2023-0 Yes [id number] 500mg Take 1 Univers LE 500 mg 6-09 tablet by ity o f tablet 00:00: mouth in [address] morning [place] and 1 tablet in the evening. metroNIDAZO 2023-0 Yes [id number] 500mg Take 1 Univers LE 500 mg 6-09 tablet by ity o f tablet 00:00: mouth in [address] morning [place] and 1 tablet in the evening. metroNIDAZO 2023-0 Yes [id number] 500mg Take 1 [facility] LE 500 mg 6-09 tablet by ity o f tablet 00:00: mouth in [place] 00 the Medical morning Branch and 1 tablet in the evening. metroNIDAZO 3-0 Yes [id number] 500mg Take 1 Univers LE 500 mg 6-09 tablet by ity o f tablet 00:00: mouth in [place] 00 the Medical morning Branch and 1 tablet in the evening. metroNIDAZO 2022-0 Yes [id number] 500mg Take 1 Univers LE 500 mg 6-09 tablet by ity o f tablet 00:00: mouth in [place] 00 the Medical morning Branch and 1 tablet in the evening. metroNIDAZO 2022-0 Yes [id number] 500mg Take 1 Univers LE 500 mg 6-09 tablet by ity o f tablet 00:00: mouth in [place] 00 the Medical morning Branch and 1 tablet in the evening. metroNIDAZO 2022-0 Yes [id number] 500mg Take 1 Univers LE 500 mg 6-09 tablet by ity o f tablet 00:00: mouth in [place] 00 the Medical morning Branch and 1 tablet in the evening. metroNIDAZO 2022-0 Yes [id number] 500mg Take 1 Univers LE 500 mg 6-09 tablet by ity o f tablet 00:00: mouth in [place] 00 the Medical morning Branch and 1 tablet in the evening. metroNIDAZO 2022-0 2022- No [id number] 500mg Take 1 Univers LE 500 mg 6-07 14- tablet by ity of tablet 00:00: 00:00 mouth in [place] 00 :00 the Medical morning Branch and 1 tablet in the evening. metroNIDAZO 2022-0 2022- No [id number] 500mg Take 1 Univers LE 500 mg 6-07 14- tablet by ity of tablet 00:00: 00:00 mouth in [place] 00 :00 the Medical morning Branch and 1 tablet in the evening. metroNIDAZO 2022-0 2022- No [id number] 500mg Take 1 Univers LE 500 mg 6-07 14-19 tablet by ity of tablet 00:00: 00:00 mouth in [place] 00 :00 the Medical morning Branch and 1 tablet in the evening. ampicillin 2022-2022- No [id number] 500mg Take 1 Univers 500 mg 6- 06-20 capsule by ity of capsule 00:00: 04:59 mouth 4 [place] 00 :00 (four) Medical times Branch daily for 10 days. ampicillin 2022- No [id number] 500mg Take 1 Univers 500 mg 04-15 capsule by ity of capsule 00:00: 04:59 mouth 4 [place] 00 :00 (four) Medical times Branch daily for 10 days. fluconazole 2022- No [id number] 150mg Take 1 Univers (DIFLUCAN) 04-15-10 tablet by ity of 150 mg 00:00: 04:59 mouth [place] tablet 00 :00 now for 1 Medical dose. Branch fluconazole 2022- No [id number] 150mg Take 1 Univers (DIFLUCAN) 04-15-10 tablet by ity of 150 mg 00:00: 04:59 mouth [place] tablet 00 :00 now for 1 Medical dose. Branch Iron-Vitami 2022- No [id number] 1{tbl} Take 1 Univers n C 4-18 10-16 tablet by ity of (ICAR-C) 00:00: 04:59 mouth in [place] 100-250 mg 00 :00 the Medical Tab morning Branch for 180 days. Iron-Vitami 2022- No [id number] 1{tbl} Take 1 Univers n C 4-18 10-16 tablet by ity of (ICAR-C) 00:00: 04:59 mouth in [place] 100-250 mg 00 :00 the Medical Tab morning Branch for 180 days. Iron-Vitami 2022- No [id number] 1{tbl} Take 1 Univers n C 4-18 10-16 tablet by ity of (ICAR-C) 00:00: 04:59 mouth in [place] 100-250 mg 00 :00 the Medical Tab morning Branch for 180 days. Iron-Vitami 2022- No [id number] 1{tbl} Take 1 Univers n C 4-18 10-16 tablet by ity of (ICAR-C) 00:00: 04:59 mouth in [place] 100-250 mg 00 :00 the Medical Tab morning Branch for 180 days. Iron-Vitami 2022- No [id number] 1{tbl} Take 1 Univers n C 4-18 10-16 tablet by ity of (ICAR-C) 00:00: 04:59 mouth in [place] 100-250 mg 00 :00 the Medical Tab morning Branch for 180 days. Iron-Vitami 2022- No [id number] 1{tbl} Take 1 Univers n C 4-18 10-16 tablet by ity of (ICAR-C) 00:00: 04:59 mouth in [place] 100-250 mg 00 :00 the Medical Tab morning Branch for 180 days. Iron-Vitami No [id number] 1{tbl} Take 1 Univers n C 4-18 10-16 tablet by ity of (ICAR-C) 00:00: 04:59 mouth in [place] 100-250 mg 00 :00 the Medical Tab morning Branch for 180 days. Iron-Vitami No [id number] 1{tbl} Take 1 Univers n C 4-18 10-16 tablet by ity of (ICAR-C) 00:00: 04:59 mouth in [place] 100-250 mg 00 :00 the Medical Tab morning Branch for 180 days. Iron-Vitami No [id number] 1{tbl} Take 1 Univers n C 4-18 10-16 tablet by ity of (ICAR-C) 00:00: 04:59 mouth in [place] 100-250 mg 00 :00 the Medical Tab morning Branch for 180 days. Iron-Vitami No [id number] 1{tbl} Take 1 Univers n C 4-18 10-16 tablet by ity of (ICAR-C) 00:00: 04:59 mouth in [place] 100-250 mg 00 :00 the Medical Tab morning Branch for 180 days. Iron-Vitami No [id number] 1{tbl} Take 1 Univers n C 4-18 10-16 tablet by ity of (ICAR-C) 00:00: 04:59 mouth in [place] 100-250 mg 00 :00 the Medical Tab morning Branch for 180 days. Iron-Vitami No [id number] 1{tbl} Take 1 Univers n C 4-18 10-16 tablet by ity of (ICAR-C) 00:00: 04:59 mouth in [place] 100-250 mg 00 :00 the Medical Tab morning Branch for 180 days. Iron-Vitami No [id number] 1{tbl} Take 1 Univers n C 4-18 10-16 tablet by ity of (ICAR-C) 00:00: 04:59 mouth in [place] 100-250 mg 00 :00 the Medical Tab morning Branch for 180 days. Iron-Vitami 2022- No [id number] 1{tbl} Take 1 Univers n C 4-18 10-16 tablet by ity of (ICAR-C) 00:00: 04:59 mouth in [place] 100-250 mg 00 :00 the Medical Tab morning Branch for 180 days. Iron-Vitami 2022- No [id number] 1{tbl} Take 1 Univers n C 4-18 10-16 tablet by ity of (ICAR-C) 00:00: 04:59 mouth in [place] 100-250 mg 00 :00 the Medical Tab morning Branch for 180 days. Iron-Vitami No [id number] 1{tbl} Take 1 Univers n C 4-18 10-16 tablet by ity of (ICAR-C) 00:00: 04:59 mouth in [place] 100-250 mg 00 :00 the Medical Tab morning Branch for 180 days. Iron-Vitami No [id number] 1{tbl} Take 1 Univers n C 4-18 10-16 tablet by ity of (ICAR-C) 00:00: 04:59 mouth in [place] 100-250 mg 00 :00 the Medical Tab morning Branch for 180 days. Iron-Vitami No [id number] 1{tbl} Take 1 Univers n C 4-18 10-16 tablet by ity of (ICAR-C) 00:00: 04:59 mouth in [place] 100-250 mg 00 :00 the Medical Tab morning Branch for 180 days. Iron-Vitami No [id number] 1{tbl} Take 1 Univers n C 4-18 10-16 tablet by ity of (ICAR-C) 00:00: 04:59 mouth in [place] 100-250 mg 00 :00 the Medical Tab morning Branch for 180 days. Iron-Vitami 2022-2022- No [id number] 1{tbl} Take 1 Univers n C 4-18 10-16 tablet by ity of (ICAR-C) 00:00: 04:59 mouth in [place] 100-250 mg 00 :00 the Medical Tab morning Branch for 180 days. Iron-Vitami 2022-0 2022- No [id number] 1{tbl} Take 1 Univers n C 4-18 07-19 tablet by ity of (ICAR-C) 00:00: 00:00 mouth in [place] 100-250 mg 00 :00 the Medical Tab morning Branch for 180 days. Iron-Vitami 2022-0 2022- No [id number] 1{tbl} Take 1 Univers n C 4-18 07-19 tablet by ity of (ICAR-C) 00:00: 00:00 mouth in [place] 100-250 mg 00 :00 the Medical Tab morning Branch for 180 days. Iron-Vitami 2022-2022- No [id number] 1{tbl} Take 1 Univers n C 4-18 07-19 tablet by ity of (ICAR-C) 00:00: 00:00 mouth in [place] 100-250 mg 00 :00 the Medical Tab morning Branch for 180 days. metroNIDAZO 2022- No 500mg 500 mg, U nivers LE (FLAGYL) 01-31 Oral, ity of tablet 500 11:00: 00:59 Q12H, 4 [place] mg 00 :00 doses, Medical First dose Branch on Tue01/31/23 at 0600, Last dose on Tue02/01/23 at 0800, Routine
Reason for Anti-Infec tive: Documented Infection< br>Documen sathya Infection Site: Pelvic
Duration of Therapy: 7 days metroNIDAZO 3-0 3- No [id number] 500mg Take 1 [facility] LE 500 mg 01-3103 tablet by ity of tablet 00:00: 04:59 mouth [place] 00 :00 every 12 Medical (twelve) Branch hours for 6 days. metroNIDAZO 3-0 3- No [id number] 500mg Take 1 Univers LE 500 mg 01-31-03 tablet by ity of tablet 00:00: 04:59 mouth [place] 00 :00 every 12 Medical (twelve) Branch hours for 6 days. metroNIDAZO 2022- No [id number] 500mg Take 1 [facility] LE 500 mg 01-31 tablet by ity of tablet 00:00: 04:59 mouth [place] 00 :00 every 12 Medical (twelve) Branch hours for 6 days. metroNIDAZO 0 2022- No [id number] 500mg Take 1 Univers LE 500 mg 01-31 tablet by ity of tablet 00:00: 04:59 mouth [place] 00 :00 every 12 Medical (twelve) Branch hours for 6 days. D5W-LR IV Yes 1000mL at 200 Univ ers infusion 3-26 mL/hr, IV ity of 1,000 mL 23:45: Infusion, [place] 00 CONTINUOUS Medical , Starting Branch on [place] 01/30/23 at 1845, Until Discontinu ed, Routine lactated 2022- No 1000mL at 999 Univ ers ringers IV 01-30 mL/hr, ity of infusion 23:45: 00:50 1,000 mL, [place] 1,000 mL 00 :36 IV Medical Infusion, Branch ONCE, 1 dose, On [place] 01/30/23 at 1845, STAT terbutaline 2022- No .25mg 0.25 mg, Univers (BRETHINE) 01-30 Subcutaneo it y of injection 23:45: 23:39 [place], ONCE, [place] 0.25 mg 00 :00 1 dose, On Medica l [place] Branch 01/30/23 at 1845, Routine metroNIDAZO 2022- No 500mg 500 mg, U nivers LE (FLAGYL) 01-30 Oral, ity of tablet 500 23:45: 23:39 ONCE, 1 [place] mg 00 :00 dose, On Medical [place] Branch 01/30/23 at 1845, Routine
Reason for Anti-Infec tive: Documented Infection< br>Documen sathya Infection Site: Pelvic
Duration of Therapy: Other (see Comments) aspirin 81 2022-0 Yes [id number] 81mg Take 1 Univers mg EC 2 9100 tablet by ity of tablet 00:00: mouth in [place] 00 the Medical morning. Branch aspirin 81 3-0 Yes [id number] 81mg Take 1 Univers mg EC 2-28 9100 tablet by ity of tablet 00:00: mouth in [place] the Medical morning. Branch aspirin 81 2023-0 Yes [id number] 81mg Take 1 Univers mg EC 2-28 9100 tablet by ity of tablet 00:00: mouth in [place] 00 the Medical morning. Branch aspirin 81 2023-0 Yes [id number] 81mg Take 1 Univers mg EC 2-28 9100 tablet by ity of tablet 00:00: mouth in [place] 00 the Medical morning. Branch aspirin 81 3-0 Yes [id number] 81mg Take 1 Univers mg EC 2-28 9100 tablet by ity of tablet 00:00: mouth in [place] 00 the Medical morning. Branch aspirin 81 2023-0 Yes [id number] 81mg Take 1 Univers mg EC 2-28 9100 tablet by ity of tablet 00:00: mouth in [place] the Medical morning. Branch aspirin 81 3-0 Yes [id number] 81mg Take 1 Univers mg EC 2-28 9100 tablet by ity of tablet 00:00: mouth in [place] the Medical morning. Branch aspirin 81 3-0 Yes [id number] 81mg Take 1 Univers mg EC 2-28 9100 tablet by ity of tablet 00:00: mouth in [place] the Medical morning. Branch aspirin 81 3-0 Yes [id number] 81mg Take 1 Univers mg EC 2-28 9100 tablet by ity of tablet 00:00: mouth in [place] the Medical morning. Branch aspirin 81 3-0 Yes [id number] 81mg Take 1 Univers mg EC 2-28 9100 tablet by ity of tablet 00:00: mouth in [place] 00 the Medical morning. Branch aspirin 81 3-0 Yes [id number] 81mg Take 1 Univers mg EC 2-28 9100 tablet by ity of tablet 00:00: mouth in [place] 00 the Medical morning. Branch aspirin 81 2023-0 Yes [id number] 81mg Take 1 Univers mg EC 2-28 9100 tablet by ity of tablet 00:00: mouth in [place] 00 the Medical morning. Branch aspirin 81 2023-0 Yes [id number] 81mg Take 1 Univers mg EC 2-28 9100 tablet by ity of tablet 00:00: mouth in [place] 00 the Medical morning. Branch aspirin 81 3-0 Yes [id number] 81mg Take 1 Univers mg EC 2-28 9100 tablet by ity of tablet 00:00: mouth in [place] the Medical morning. Branch aspirin 81 2023-0 Yes [id number] 81mg Take 1 Univers mg EC 2-28 9100 tablet by ity of tablet 00:00: mouth in [place] 00 the Medical morning. Branch aspirin 81 2023-0 Yes [id number] 81mg Take 1 Univers mg EC 2-28 9100 tablet by ity of tablet 00:00: mouth in [place] 00 the Medical morning. Branch aspirin 81 2023-0 Yes [id number] 81mg Take 1 Univers mg EC 2-28 9100 tablet by ity of tablet 00:00: mouth in [place] 00 the Medical morning. Branch aspirin 81 2023-0 Yes [id number] 81mg Take 1 Univers mg EC 2-28 9100 tablet by ity of tablet 00:00: mouth in [place] 00 the Medical morning. Branch aspirin 81 3-0 Yes [id number] 81mg Take 1 Univers mg EC 2-28 9100 tablet by ity of tablet 00:00: mouth in [place] the Medical morning. Branch aspirin 81 3-0 Yes [id number] 81mg Take 1 Univers mg EC 2-28 9100 tablet by ity of tablet 00:00: mouth in [place] the Medical morning. Branch aspirin 81 3-0 Yes [id number] 81mg Take 1 Univers mg EC 2-28 9100 tablet by ity of tablet 00:00: mouth in [place] 00 the Medical morning. Branch aspirin 81 3-0 Yes [id number] 81mg Take 1 Univers mg EC 2-28 9100 tablet by ity of tablet 00:00: mouth in [place] 00 the Medical morning. Branch aspirin 81 2023-0 Yes [id number] 81mg Take 1 Univers mg EC 2-28 9100 tablet by ity of tablet 00:00: mouth in [place] 00 the Medical morning. Branch aspirin 81 2023-0 Yes [id number] 81mg Take 1 Univers mg EC 2-28 9100 tablet by ity of tablet 00:00: mouth in [place] 00 the Medical morning. Branch aspirin 81 2023-0 Yes [id number] 81mg Take 1 Univers mg EC 2-28 9100 tablet by ity of tablet 00:00: mouth in [place] 00 the Medical morning. Branch aspirin 81 3-0 Yes [id number] 81mg Take 1 Univers mg EC 2-28 9100 tablet by ity of tablet 00:00: mouth in [place] 00 the Medical morning. Branch aspirin 81 2023-0 Yes [id number] 81mg Take 1 Univers mg EC 2-28 9100 tablet by ity of tablet 00:00: mouth in [place] 00 the Medical morning. Branch aspirin 81 2023-0 Yes [id number] 81mg Take 1 [facility] mg EC 2-28 9100 tablet by ity of tablet 00:00: mouth in [place] 00 the Medical morning. Branch aspirin 81 3-0 Yes [id number] 81mg Take 1 Univers mg EC 2-28 9100 tablet by ity of tablet 00:00: mouth in [place] 00 the Medical morning. Branch aspirin 81 3-0 Yes [id number] 81mg Take 1 Univers mg EC 2-28 9100 tablet by ity of tablet 00:00: mouth in [place] 00 the Medical morning. Branch aspirin 81 2022-0 Yes [id number] 81mg Take 1 Univers mg EC 2-28 9100 tablet by ity of tablet 00:00: mouth in [place] 00 the Medical morning. Branch aspirin 81 2022-0 Yes [id number] 81mg Take 1 Univers mg EC 2-28 9100 tablet by ity of tablet 00:00: mouth in [place] 00 the Medical morning. Branch aspirin 81 3-0 3- No [id number] 81mg Take 1 Univers mg EC 2-28 - 9100 tablet by ity of tablet 00:00: 00:00 mouth in [place] 00 :00 the Medical morning. Branch aspirin 81 3-0 3- No [id number] 81mg Take 1 Univers mg EC 2-28 - 9100 tablet by ity of tablet 00:00: 00:00 mouth in [place] 00 :00 the Medical morning. Branch aspirin 81 2023-0 3- No [id number] 81mg Take 1 Univers mg EC 2-28 - 9100 tablet by ity of tablet 00:00: 00:00 mouth in [place] 00 :00 the Medical morning. Branch aspirin 81 3-0 Yes [id number] 81mg Take 1 [facility] mg EC 1-17 9100 tablet by [facility] tablet 00:00: mouth in [place] 00 the Medical morning. Branch aspirin 81 2022-0 Yes [id number] 81mg Take 1 [facility] mg EC 1-17 9100 tablet by [facility] of tablet 00:00: mouth in [place] 00 the Medical morning. Branch aspirin 81 2022-0 Yes [id number] 81mg Take 1 [facility] mg EC 1-17 9100 tablet by [facility] tablet 00:00: mouth in [place] 00 the Medical morning. Branch aspirin 81 2022-0 Yes [id number] 81mg Take 1 [facility] mg EC 1-17 9100 tablet by [facility] of tablet 00:00: mouth in [place] 00 the Medical morning. Branch aspirin 81 2022-0 2023- No [id number] 81mg Take 1 [facility] mg EC 1-17 - 9100 tablet by [facility] of tablet 00:00: 00:00 mouth in [place] 00 :00 the Medical morning. Branch intrauterin 2021-11- No 1{IUD} 1 Intra [facility] e device 206 Uterine [facility] of IUD 09:52: 00:00 Device by [place] 57 :00 Intrauteri Medical ne route Branch once now. proMETHazin 2021-11 Yes [id number] 25mg Take 1 [facility] e 25 mg 2-06 tablet by [facility] of tablet 00:00: mouth [place] 00 every 4 Medical (four) Branch hours as needed for Nausea and Vomiting (N/V). proMETHazin 2021-11 Yes [id number] 25mg Take 1 [facility] e 25 mg 2-06 tablet by [facility] of tablet 00:00: mouth [place] 00 every 4 Medical (four) Branch hours as needed for Nausea and Vomiting (N/V). proMETHazin 2021-11 Yes [id number] 25mg Take 1 [facility] e 25 mg 2-06 tablet by [facility] of tablet 00:00: mouth [place] 00 every 4 Medical (four) Branch hours as needed for Nausea and Vomiting (N/V). proMETHazin 2021-11 Yes [id number] 25mg Take 1 [facility] e 25 mg 2-06 tablet by [facility] of tablet 00:00: mouth [place] 00 every 4 Medical (four) Branch hours as needed for Nausea and Vomiting (N/V). proMETHazin 2021-11 Yes [id number] 25mg Take 1 [facility] e 25 mg 2-06 tablet by [facility] of tablet 00:00: mouth [place] 00 every 4 Medical (four) Branch hours as needed for Nausea and Vomiting (N/V). proMETHazin 2021-11 Yes [id number] 25mg Take 1 [facility] e 25 mg 2-06 tablet by ity of tablet 00:00: mouth [place] 00 every 4 Medical (four) Branch hours as needed for Nausea and Vomiting (N/V). proMETHazin 2021-11 Yes [id number] 25mg Take 1 [facility] e 25 mg 2-06 tablet by ity of tablet 00:00: mouth [place] 00 every 4 Medical (four) Branch hours as needed for Nausea and Vomiting (N/V). proMETHazin 2021-11 Yes [id number] 25mg Take 1 [facility] e 25 mg 2-06 tablet by it[facility] of tablet 00:00: mouth [place] 00 every 4 Medical (four) Branch hours as needed for Nausea and Vomiting (N/V). proMETHazin 2021-11 Yes [id number] 25mg Take 1 [facility] e 25 mg 2-06 tablet by [facility] of tablet 00:00: mouth [place] 00 every 4 Medical (four) Branch hours as needed for Nausea and Vomiting (N/V). proMETHazin 2021-11 Yes [id number] 25mg Take 1 [facility] e 25 mg 2-06 tablet by [facility] of tablet 00:00: mouth [place] 00 every 4 Medical (four) Branch hours as needed for Nausea and Vomiting (N/V). proMETHazin 2021-11 Yes [id number] 25mg Take 1 [facility] e 25 mg 2-06 tablet by [facility] of tablet 00:00: mouth [place] 00 every 4 Medical (four) Branch hours as needed for Nausea and Vomiting (N/V). proMETHazin 2021-11 Yes [id number] 25mg Take 1 [facility] e 25 mg 2-06 tablet by [facility] of tablet 00:00: mouth [place] 00 every 4 Medical (four) Branch hours as needed for Nausea and Vomiting (N/V). proMETHazin 2021-11 Yes [id number] 25mg Take 1 [facility] e 25 mg 2-06 tablet by [facility]y of tablet 00:00: mouth [place] 00 every 4 Medical (four) Branch hours as needed for Nausea and Vomiting (N/V). proMETHazin 2021-11 Yes [id number] 25mg Take 1 [facility] e 25 mg 2-06 tablet by [facility] of tablet 00:00: mouth [place] 00 every 4 Medical (four) Branch hours as needed for Nausea and Vomiting (N/V). proMETHazin 2021-11 Yes [id number] 25mg Take 1 [facility] e 25 mg 2-06 tablet by [facility] of tablet 00:00: mouth [place] 00 every 4 Medical (four) Branch hours as needed for Nausea and Vomiting (N/V). proMETHazin 2021-11 Yes [id number] 25mg Take 1 [facility] e 25 mg 2-06 tablet by [facility] of tablet 00:00: mouth [place] 00 every 4 Medical (four) Branch hours as needed for Nausea and Vomiting (N/V). proMETHazin 2021-11 Yes [id number] 25mg Take 1 [facility] e 25 mg 2-06 tablet by [facility] of tablet 00:00: mouth [place] 00 every 4 Medical (four) Branch hours as needed for Nausea and Vomiting (N/V). proMETHazin 2021-11 Yes [id number] 25mg Take 1 [facility] e 25 mg 2-06 tablet by [facility] of tablet 00:00: mouth [place] 00 every 4 Medical (four) Branch hours as needed for Nausea and Vomiting (N/V). proMETHazin 2021-11 Yes [id number] 25mg Take 1 [facility] e 25 mg 2-06 tablet by ity of tablet 00:00: mouth [place] 00 every 4 Medical (four) Branch hours as needed for Nausea and Vomiting (N/V). proMETHazin 2021-11 Yes [id number] 25mg Take 1 [facility] e 25 mg 2-06 tablet by [facility] of tablet 00:00: mouth [place] 00 every 4 Medical (four) Branch hours as needed for Nausea and Vomiting (N/V). proMETHazin 2021-11 Yes [id number] 25mg Take 1 [facility] e 25 mg 2-06 tablet by [facility] of tablet 00:00: mouth [place] 00 every 4 Medical (four) Branch hours as needed for Nausea and Vomiting (N/V). proMETHazin 2021-11 Yes [id number] 25mg Take 1 [facility] e 25 mg 2-06 tablet by [facility] of tablet 00:00: mouth [place] 00 every 4 Medical (four) Branch hours as needed for Nausea and Vomiting (N/V). proMETHazin 2021-11 Yes [id number] 25mg Take 1 [facility] e 25 mg 2-06 tablet by [facility] of tablet 00:00: mouth [place] 00 every 4 Medical (four) Branch hours as needed for Nausea and Vomiting (N/V). proMETHazin 2021-11 Yes [id number] 25mg Take 1 [facility] e 25 mg 2-06 tablet by [facility] of tablet 00:00: mouth [place] 00 every 4 Medical (four) Branch hours as needed for Nausea and Vomiting (N/V). proMETHazin 2021-11 Yes [id number] 25mg Take 1 [facility] e 25 mg 2-06 tablet by [facility] of tablet 00:00: mouth [place] 00 every 4 Medical (four) Branch hours as needed for Nausea and Vomiting (N/V). proMETHazin 2021-11 Yes [id number] 25mg Take 1 [facility] e 25 mg 2-06 tablet by ity of tablet 00:00: mouth [place] 00 every 4 Medical (four) Branch hours as needed for Nausea and Vomiting (N/V). proMETHazin 2021-11 Yes [id number] 25mg Take 1 [facility] e 25 mg 2-06 tablet by ity of tablet 00:00: mouth [place] 00 every 4 Medical (four) Branch hours as needed for Nausea and Vomiting (N/V). proMETHazin 2021-11 Yes [id number] 25mg Take 1 [facility] e 25 mg 2-06 tablet by it[facility] of tablet 00:00: mouth [place] 00 every 4 Medical (four) Branch hours as needed for Nausea and Vomiting (N/V). proMETHazin 2021-11 Yes [id number] 25mg Take 1 [facility] e 25 mg 2-06 tablet by [facility] of tablet 00:00: mouth [place] 00 every 4 Medical (four) Branch hours as needed for Nausea and Vomiting (N/V). proMETHazin 2021-11 Yes [id number] 25mg Take 1 [facility] e 25 mg 2-06 tablet by [facility] of tablet 00:00: mouth [place] 00 every 4 Medical (four) Branch hours as needed for Nausea and Vomiting (N/V). proMETHazin 2021-11 Yes [id number] 25mg Take 1 [facility] e 25 mg 2-06 tablet by [facility] of tablet 00:00: mouth [place] 00 every 4 Medical (four) Branch hours as needed for Nausea and Vomiting (N/V). proMETHazin 2021-11 Yes [id number] 25mg Take 1 [facility] e 25 mg 2-06 tablet by it[facility] of tablet 00:00: mouth [place] 00 every 4 Medical (four) Branch hours as needed for Nausea and Vomiting (N/V). proMETHazin 2021-11 Yes [id number] 25mg Take 1 [facility] e 25 mg 2-06 tablet by ity of tablet 00:00: mouth [place] 00 every 4 Medical (four) Branch hours as needed for Nausea and Vomiting (N/V). proMETHazin 2021-11 Yes [id number] 25mg Take 1 [facility] e 25 mg 2-06 tablet by [facility] of tablet 00:00: mouth [place] 00 every 4 Medical (four) Branch hours as needed for Nausea and Vomiting (N/V). proMETHazin 2021-11 Yes [id number] 25mg Take 1 [facility] e 25 mg 2-06 tablet by [facility] of tablet 00:00: mouth [place] 00 every 4 Medical (four) Branch hours as needed for Nausea and Vomiting (N/V). proMETHazin 2021-11 Yes [id number] 25mg Take 1 [facility] e 25 mg 2-06 tablet by it[facility] of tablet 00:00: mouth [place] 00 every 4 Medical (four) Branch hours as needed for Nausea and Vomiting (N/V). proMETHazin 2021-11 Yes [id number] 25mg Take 1 [facility] e 25 mg 2-06 tablet by [facility] of tablet 00:00: mouth [place] 00 every 4 Medical (four) Branch hours as needed for Nausea and Vomiting (N/V). proMETHazin 2021-11 Yes [id number] 25mg Take 1 [facility] e 25 mg 2-06 tablet by [facility] of tablet 00:00: mouth [place] 00 every 4 Medical (four) Branch hours as needed for Nausea and Vomiting (N/V). proMETHazin 2021-11 Yes [id number] 25mg Take 1 [facility] e 25 mg 2-06 tablet by [facility] of tablet 00:00: mouth [place] 00 every 4 Medical (four) Branch hours as needed for Nausea and Vomiting (N/V). proMETHazin 2021-11 Yes [id number] 25mg Take 1 [facility] e 25 mg 2-06 tablet by ity of tablet 00:00: mouth [place] 00 every 4 Medical (four) Branch hours as needed for Nausea and Vomiting (N/V). proMETHazin 2021-11- No [id number] 25mg Take 1 [facility] e 25 mg 2-06 07-19 tablet by ity of tablet 00:00: 00:00 mouth [place] 00 :00 every 4 Medical (four) Branch hours as needed for Nausea and Vomiting (N/V). proMETHazin 2021-11- No [id number] 25mg Take 1 [facility] e 25 mg 12-13 tablet by ity of tablet 00:00: 00:00 mouth [place] 00 :00 every 4 Medical (four) Branch hours as needed for Nausea and Vomiting (N/V). proMETHazin 2021-11- No [id number] 25mg Take 1 [facility] e 25 mg 12-13 tablet by ity of tablet 00:00: 00:00 mouth [place] 00 :00 every 4 Medical (four) Branch hours as needed for Nausea and Vomiting (N/V). acetaminoph 2021-11- No 1000mg 1,000 mg, Univers en 12-12 Oral, ity of (TYLENOL) 08:30: 07:33 ONCE, 1 [place] :[place] dose, On Medical 1,000 mg [facility] 10/11/22 at 0230, Routine ondansetron 2021-11- No 4mg 4 mg, Slow Univers (ZOFRAN 12-12 IV Push, ity of (PF)) 07:30: 07:33 ONCE, 1 [place] injection 4 00 :00 dose, On Medi gloria mg [facility] 10/11/22 at 0130, [place] amoxicillin 2021-11 No [id number] 500mg Take 1 [facility] 500 mg 12-12 capsule by ity of capsule 00:00: 05:59 mouth in [place] 00 :00 the Medical morning Branch and 1 capsule in the evening. Do all this for 5 days. amoxicillin 2021-11- No [id number] 500mg Take 1 [facility] 500 mg 12-12 capsule by ity of capsule 00:00: 05:59 mouth in [place] 00 :00 the Medical morning Branch and 1 capsule in the evening. Do all this for 5 days. amoxicillin 2021-11- No [id number] 500mg Take 1 [facility] 500 mg 12-12 capsule by ity of capsule 00:00: 05:59 mouth in [place] 00 :00 the Medical morning Branch and 1 capsule in the evening. Do all this for 5 days. Dose 2021-0 No Unknown 05-28 00:00: 00 trazodone 2022-0 No 12mg 50 mg 7-22 tablet 00:00: 00 Zoloft 100 2022-0 No 1mg mg tablet 7-22 00:00: 00 trazodone 2022-0 No 12mg 50 mg 7-22 tablet 00:00: 00 Dose 2022-0 No Unknown 7-22 00:00: 00 trazodone 2022-0 No 12mg 50 mg 7-22 tablet 00:00: 00 Dose 2022-0 No Unknown 7-22 00:00: 00 trazodone 2022-0 No 12mg 50 mg 7-22 tablet 00:00: 00 amoxicillin 2022-0 No 1mg 875 7-19 mg-potassiu 00:00: m 00 clavulanate 125 mg tablet prednisone 2022-0 No mg 20 mg 7-19 tablet 00:00: 00 amoxicillin 2022-0 No 1mg 875 7-19 mg-potassiu 00:00: m 00 clavulanate 125 mg tablet prednisone 2022-0 No mg 20 mg 7-19 tablet 00:00: 00 amoxicillin 2022-0 No 1mg 875 7-19 mg-potassiu 00:00: m 00 clavulanate 125 mg tablet prednisone 2022-0 No mg 20 mg 7-19 tablet 00:00: 00 amoxicillin 2022-0 No 1mg 875 7-19 mg-potassiu 00:00: m 00 clavulanate 125 mg tablet prednisone 2022-0 No mg 20 mg 7-19 tablet 00:00: 00 Zoloft 100 2022-0 No 1mg mg tablet 4-14 00:00: 00 Dose 2022-0 No Unknown 4-14 00:00: 00 Dose 2022-0 No Unknown 4-14 00:00: 00 trazodone 2022-0 No 12mg 50 mg 4-14 tablet 00:00: 00 Zoloft 100 2022-0 No 1mg mg tablet 4-14 00:00: 00 Wellbutrin 2022-0 No 1mg XL 150 mg 4-14 24 hr 00:00: tablet, 00 extended release Wellbutrin 2022-0 No 1mg XL 300 mg 4-14 24 hr 00:00: tablet, 00 extended release trazodone 2022-0 No 12mg 50 mg 4-14 tablet 00:00: 00 Zoloft 100 2022-0 No 1mg mg tablet 4-14 00:00: 00 Wellbutrin 2022-0 No 1mg XL 150 mg 4-14 24 hr 00:00: tablet, 00 extended release Wellbutrin 2022-0 No 1mg XL 300 mg 4-14 24 hr 00:00: tablet, 00 extended release trazodone 2022-0 No 12mg 50 mg 4-14 tablet 00:00: 00 Zoloft 100 2022-0 No 1mg mg tablet 4-14 00:00: 00 Dose 2022-0 No Unknown 4-14 00:00: 00 Dose 2022-0 No Unknown 4-14 00:00: 00 trazodone 2022-0 No 12mg 50 mg 4-14 tablet 00:00: 00 Zoloft 100 2022-0 No 1mg mg tablet 4-14 00:00: 00 Dose 2022-0 No Unknown 4-14 00:00: 00 Dose 2022-0 No Unknown 4-14 00:00: 00 trazodone 2022-0 No 12mg 50 mg 4-14 tablet 00:00: 00 Dose 2022-0 No Unknown 3-15 00:00: 00 Dose 2022-0 No Unknown 3-15 00:00: 00 Dose 2022-0 No Unknown 3-15 00:00: 00 Dose 2022-0 No Unknown 3-15 00:00: 00 Dose 2022-0 No Unknown 3-15 00:00: 00 Dose 2022-0 No Unknown 3-15 00:00: 00 Dose 2022-0 No Unknown 3-15 00:00: 00 Dose 2022-0 No Unknown 3-15 00:00: 00 Dose 2022-0 No Unknown 3-15 00:00: 00 Dose 2022-0 No Unknown 3-15 00:00: 00 Dose 2022-0 No Unknown 3-15 00:00: 00 Dose 2022-0 No Unknown 3-15 00:00: 00 Dose 2022-0 No Unknown 3-15 00:00: 00 Dose 2022-0 No Unknown 3-15 00:00: 00 Dose 2022-0 No Unknown 3-15 00:00: 00 Dose 2022-0 No Unknown 3-15 00:00: 00 Dose 2022-0 No Unknown 3-15 00:00: 00 Dose 2022-0 No Unknown 3-15 00:00: 00 Dose 2022-0 No Unknown 3-15 00:00: 00 Dose 2022-0 No Unknown 3-15 00:00: 00 Dose 2022-0 No Unknown 3-15 00:00: 00 Dose 2022-0 No Unknown 3-15 00:00: 00 Dose 2022-0 No Unknown 3-15 00:00: 00 Dose 2022-0 No Unknown 3-15 00:00: 00 Dose 2022-0 No Unknown 3-15 00:00: 00 Dose 2022-0 No Unknown 3-15 00:00: 00 Dose 2022-0 No Unknown 3-15 00:00: 00 Dose 2022-0 No Unknown 3-15 00:00: 00 Dose 2022-0 No Unknown 3-15 00:00: 00 Dose 2022-0 No Unknown 3-15 00:00: 00 Dose 2022-0 No Unknown 3-15 00:00: 00 Dose 2022-0 No Unknown 3-15 00:00: 00 Dose 2022-0 No Unknown 3-15 00:00: 00 Dose 2022-0 No Unknown 3-15 00:00: 00 Dose 2022-0 No Unknown 3-15 00:00: 00 Dose 2022-0 No Unknown 3-15 00:00: 00 Dose 2022-0 No Unknown 3-15 00:00: 00 Dose 2022-0 No Unknown 3-15 00:00: 00 Dose 2022-0 No Unknown 3-15 00:00: 00 Dose 2022-0 No Unknown 3-15 00:00: 00 Dose 2022-0 No Unknown 3-15 00:00: 00 Dose 2022-0 No Unknown 3-15 00:00: 00 Dose 2022-0 No Unknown 3-15 00:00: 00 Dose 2022-0 No Unknown 3-15 00:00: 00 Dose 2022-0 No Unknown 3-15 00:00: 00 Dose 2022-0 No Unknown 3-15 00:00: 00 Dose 2022-0 No Unknown 3-15 00:00: 00 Dose 2022-0 No Unknown 3-15 00:00: 00 Dose 2022-0 No Unknown 3-15 00:00: 00 Dose 2022-0 No Unknown 3-15 00:00: 00 Dose 2022-0 No Unknown 3-15 00:00: 00 Dose 2022-0 No Unknown 3-15 00:00: 00 Dose 2022-0 No Unknown 3-15 00:00: 00 Dose 2022-0 No Unknown 3-15 00:00: 00 Dose 2022-0 No Unknown 3-15 00:00: 00 Dose 2022-0 No Unknown 3-15 00:00: 00 Dose 2022-0 No Unknown 3-15 00:00: 00 Dose 2022-0 No Unknown 3-15 00:00: 00 Dose 2022-0 No Unknown 3-15 00:00: 00 Dose 2022-0 No Unknown 3-15 00:00: 00 Dose 2022-0 No Unknown 3-15 00:00: 00 Dose 2022-0 No Unknown 3-15 00:00: 00 Dose 2022-0 No Unknown 3-15 00:00: 00 Dose 2022-0 No Unknown 3-15 00:00: 00 Dose 2022-0 No Unknown 3-15 00:00: 00 Dose 2022-0 No Unknown 3-15 00:00: 00 Dose 2022-0 No Unknown 3-15 00:00: 00 Dose 2022-0 No Unknown 3-15 00:00: 00 Dose 2022-0 No Unknown 3-15 00:00: 00 Dose 2022-0 No Unknown 3-15 00:00: 00 Dose 2022-0 No Unknown 3-15 00:00: 00 Dose 2022-0 No Unknown 3-15 00:00: 00 Dose 2022-0 No Unknown 3-15 00:00: 00 Dose 2022-0 No Unknown 3-15 00:00: 00 Dose 2022-0 No Unknown 3-15 00:00: 00 Dose 2022-0 No Unknown 3-15 00:00: 00 Dose 2022-0 No Unknown 3-15 00:00: 00 Dose 2022-0 No Unknown 3-15 00:00: 00 Dose 2022-0 No Unknown 3-15 00:00: 00 Dose 2022-0 No Unknown 3-15 00:00: 00 Dose 2022-0 No Unknown 3-15 00:00: 00 Dose 2022-0 No Unknown 3-15 00:00: 00 Dose 2022-0 No Unknown 3-15 00:00: 00 Dose 2022-0 No Unknown 3-15 00:00: 00 Dose 2022-0 No Unknown 3-15 00:00: 00 Dose 2022-0 No Unknown 3-15 00:00: 00 Dose 2022-0 No Unknown 3-15 00:00: 00 Dose 2022-0 No Unknown 3-15 00:00: 00 Dose 2022-0 No Unknown 3-15 00:00: 00 Dose 2022-0 No Unknown 3-15 00:00: 00 Dose 2022-0 No Unknown 3-15 00:00: 00 Dose 2022-0 No Unknown 3-15 00:00: 00 Dose 2022-0 No Unknown 3-15 00:00: 00 Dose 2022-0 No Unknown 3-15 00:00: 00 Dose 2022-0 No Unknown 3-15 00:00: 00 Dose 2022-0 No Unknown 3-15 00:00: 00 Dose 2022-0 No Unknown 3-15 00:00: 00 Dose 2022-0 No Unknown 3-15 00:00: 00 Dose 2022-0 No Unknown 3-15 00:00: 00 Dose 2022-0 No Unknown 3-15 00:00: 00 Dose 2022-0 No Unknown 3-15 00:00: 00 Dose 2022-0 No Unknown 3-15 00:00: 00 Dose 2022-0 No Unknown 3-15 00:00: 00 Dose 2022-0 No Unknown 3-15 00:00: 00 Dose 2022-0 No Unknown 3-15 00:00: 00 Dose 2022-0 No Unknown 3-15 00:00: 00 Dose 2022-0 No Unknown 3-15 00:00: 00 Dose 2022-0 No Unknown 3-15 00:00: 00 Dose 2022-0 No Unknown 3-15 00:00: 00 Dose 2022-0 No Unknown 3-15 00:00: 00 Dose 2022-0 No Unknown 3-15 00:00: 00 Dose 2022-0 No Unknown 3-15 00:00: 00 Dose 2022-0 No Unknown 3-15 00:00: 00 Dose 2022-0 No Unknown 3-15 00:00: 00 Dose 2022-0 No Unknown 3-15 00:00: 00 Dose 2022-0 No Unknown 3-15 00:00: 00 Dose 2022-0 No Unknown 3-15 00:00: 00 Dose 2022-0 No Unknown 3-15 00:00: 00 Dose 2022-0 No Unknown 3-15 00:00: 00 Dose 2022-0 No Unknown 3-15 00:00: 00 Dose 2022-0 No Unknown 3-15 00:00: 00 Dose 2022-0 No Unknown 3-15 00:00: 00 Dose 2022-0 No Unknown 3-15 00:00: 00 Dose 2022-0 No Unknown 3-15 00:00: 00 Dose 2022-0 No Unknown 3-15 00:00: 00 Dose 2022-0 No Unknown 3-15 00:00: 00 Dose 2022-0 No Unknown 3-15 00:00: 00 Dose 2022-0 No Unknown 3-15 00:00: 00 Dose 2022-0 No Unknown 3-15 00:00: 00 Dose 2022-0 No Unknown 3-15 00:00: 00 Dose 2022-0 No Unknown 3-15 00:00: 00 Dose 2022-0 No Unknown 3-15 00:00: 00 Dose 2022-0 No Unknown 3-15 00:00: 00 Dose 2022-0 No Unknown 3-15 00:00: 00 Dose 2022-0 No Unknown 3-15 00:00: 00 Dose 2022-0 No Unknown 3-15 00:00: 00 Dose 2022-0 No Unknown 3-15 00:00: 00 Dose 2022-0 No Unknown 3-15 00:00: 00 Dose 2022-0 No Unknown 3-15 00:00: 00 Dose 2022-0 No Unknown 3-15 00:00: 00 Dose 2022-0 No Unknown 3-15 00:00: 00 Dose 2022-0 No Unknown 3-15 00:00: 00 Dose 2022-0 No Unknown 3-15 00:00: 00 Dose 2022-0 No Unknown 3-15 00:00: 00 Dose 2022-0 No Unknown 3-15 00:00: 00 Dose 2022-0 No Unknown 3-15 00:00: 00 Dose 2022-0 No Unknown 3-15 00:00: 00 Dose 2022-0 No Unknown 3-15 00:00: 00 Dose 2022-0 No Unknown 3-15 00:00: 00 Dose 2022-0 No Unknown 3-15 00:00: 00 Dose 2022-0 No Unknown 3-15 00:00: 00 Dose 2022-0 No Unknown 3-15 00:00: 00 Dose 2022-0 No Unknown 3-15 00:00: 00 Dose 2022-0 No Unknown 3-15 00:00: 00 Dose 2022-0 No Unknown 3-15 00:00: 00 Dose 2022-0 No Unknown 3-15 00:00: 00 Dose 2022-0 No Unknown 3-15 00:00: 00 Dose 2022-0 No Unknown 3-15 00:00: 00 Dose 2022-0 No Unknown 3-15 00:00: 00 Dose 2022-0 No Unknown 3-15 00:00: 00 Dose 2022-0 No Unknown 3-15 00:00: 00 Dose 2022-0 No Unknown 3-15 00:00: 00 Dose 2022-0 No Unknown 3-15 00:00: 00 Dose 2022-0 No Unknown 3-15 00:00: 00 Dose 2022-0 No Unknown 3-15 00:00: 00 Dose 2022-0 No Unknown 3-15 00:00: 00 Dose 2022-0 No Unknown 3-15 00:00: 00 Dose 2022-0 No Unknown 3-15 00:00: 00 Dose 2022-0 No Unknown 3-15 00:00: 00 Dose 2022-0 No Unknown 3-15 00:00: 00 Dose 2022-0 No Unknown 3-15 00:00: 00 Dose 2022-0 No Unknown 3-15 00:00: 00 Dose 2022-0 No Unknown 3-15 00:00: 00 Dose 2022-0 No Unknown 3-15 00:00: 00 Dose 2022-0 No Unknown 3-15 00:00: 00 Dose 2022-0 No Unknown 3-15 00:00: 00 Dose 2022-0 No Unknown 3-15 00:00: 00 Dose 2022-0 No Unknown 3-15 00:00: 00 Dose 2022-0 No Unknown 3-15 00:00: 00 Dose 2022-0 No Unknown 3-15 00:00: 00 Dose 2022-0 No Unknown 3-15 00:00: 00 Dose 2022-0 No Unknown 3-15 00:00: 00 Dose 2022-0 No Unknown 3-15 00:00: 00 Dose 2022-0 No Unknown 3-15 00:00: 00 Dose 2022-0 No Unknown 3-15 00:00: 00 Dose 2022-0 No Unknown 3-15 00:00: 00 Dose 2022-0 No Unknown 3-15 00:00: 00 Dose 2022-0 No Unknown 3-15 00:00: 00 Dose 2022-0 No Unknown 3-15 00:00: 00 Dose 2022-0 No Unknown 3-15 00:00: 00 Dose 2022-0 No Unknown 3-15 00:00: 00 Dose 2022-0 No Unknown 3-15 00:00: 00 Dose 2022-0 No Unknown 3-15 00:00: 00 Dose 2022-0 No Unknown 3-15 00:00: 00 Dose 2022-0 No Unknown 3-15 00:00: 00 Dose 2022-0 No Unknown 3-15 00:00: 00 Dose 2022-0 No Unknown 3-15 00:00: 00 Dose 2022-0 No Unknown 3-15 00:00: 00 Dose 2022-0 No Unknown 3-15 00:00: 00 Dose 2022-0 No Unknown 3-15 00:00: 00 Dose 2022-0 No Unknown 3-15 00:00: 00 Dose 2022-0 No Unknown 3-15 00:00: 00 Dose 2022-0 No Unknown 3-15 00:00: 00 Dose 2022-0 No Unknown 3-15 00:00: 00 Dose 2022-0 No Unknown 3-15 00:00: 00 Dose 2022-0 No Unknown 3-15 00:00: 00 Dose 2022-0 No Unknown 3-15 00:00: 00 Dose 2022-0 No Unknown 3-15 00:00: 00 Dose 2022-0 No Unknown 3-15 00:00: 00 Dose 2022-0 No Unknown 3-15 00:00: 00 Dose 2022-0 No Unknown 3-15 00:00: 00 Dose 2022-0 No Unknown 3-15 00:00: 00 Dose 2022-0 No Unknown 3-15 00:00: 00 Dose 2022-0 No Unknown 3-15 00:00: 00 Dose 2022-0 No Unknown 3-15 00:00: 00 Dose 2022-0 No Unknown 3-15 00:00: 00 Dose 2022-0 No Unknown 3-15 00:00: 00 Dose 2022-0 No Unknown 3-15 00:00: 00 Dose 2022-0 No Unknown 3-15 00:00: 00 Dose 2022-0 No Unknown 3-15 00:00: 00 Dose 2022-0 No Unknown 3-15 00:00: 00 Dose 2022-0 No Unknown 3-15 00:00: 00 Dose 2022-0 No Unknown 3-15 00:00: 00 Dose 2022-0 No Unknown 3-15 00:00: 00 Dose 2022-0 No Unknown 3-15 00:00: 00 Dose 2022-0 No Unknown 3-15 00:00: 00 Dose 2022-0 No Unknown 3-15 00:00: 00 Dose 2022-0 No Unknown 3-15 00:00: 00 Dose 2022-0 No Unknown 3-15 00:00: 00 Dose 2022-0 No Unknown 3-15 00:00: 00 Dose 2022-0 No Unknown 3-14 00:00: 00 Dose 2022-0 No Unknown 3-14 00:00: 00 Dose 2022-0 No Unknown 3-14 00:00: 00 Dose 2022-0 No Unknown 3-14 00:00: 00 Dose 2022-0 No Unknown 3-14 00:00: 00 Dose 2022-0 No Unknown 3-14 00:00: 00 Dose 2022-0 No Unknown 3-14 00:00: 00 Dose 2022-0 No Unknown 3-14 00:00: 00 Dose 2022-0 No Unknown 3-14 00:00: 00 Dose 2022-0 No Unknown 3-14 00:00: 00 Dose 2022-0 No Unknown 3-14 00:00: 00 Dose 2022-0 No Unknown 3-14 00:00: 00 Dose 2022-0 No Unknown 3-14 00:00: 00 Dose 2022-0 No Unknown 3-14 00:00: 00 Dose 2022-0 No Unknown 3-14 00:00: 00 Dose 2022-0 No Unknown 3-14 00:00: 00 Dose 2022-0 No Unknown 3-14 00:00: 00 Dose 2022-0 No Unknown 3-14 00:00: 00 Dose 2022-0 No Unknown 3-14 00:00: 00 Dose 2022-0 No Unknown 3-14 00:00: 00 Dose 2022-0 No Unknown 3-14 00:00: 00 Dose 2022-0 No Unknown 3-14 00:00: 00 Dose 2022-0 No Unknown 3-14 00:00: 00 Dose 2022-0 No Unknown 3-14 00:00: 00 Dose 2022-0 No Unknown 3-14 00:00: 00 Dose 2022-0 No Unknown 3-14 00:00: 00 Dose 2022-0 No Unknown 3-14 00:00: 00 Dose 2022-0 No Unknown 3-14 00:00: 00 Dose 2022-0 No Unknown 3-14 00:00: 00 Dose 2022-0 No Unknown 3-14 00:00: 00 Dose 2022-0 No Unknown 3-14 00:00: 00 Dose 2022-0 No Unknown 3-14 00:00: 00 Dose 2022-0 No Unknown 3-14 00:00: 00 Dose 2022-0 No Unknown 3-14 00:00: 00 Dose 2022-0 No Unknown 3-14 00:00: 00 Dose 2022-0 No Unknown 3-14 00:00: 00 Dose 2022-0 No Unknown 3-14 00:00: 00 Dose 2022-0 No Unknown 3-14 00:00: 00 Dose 2022-0 No Unknown 3-14 00:00: 00 Dose 2022-0 No Unknown 3-14 00:00: 00 Dose 2022-0 No Unknown 3-14 00:00: 00 Dose 2022-0 No Unknown 3-14 00:00: 00 Dose 2022-0 No Unknown 3-14 00:00: 00 Dose 2022-0 No Unknown 3-14 00:00: 00 Dose 2022-0 No Unknown 3-14 00:00: 00 Dose 2022-0 No Unknown 3-14 00:00: 00 Dose 2022-0 No Unknown 3-14 00:00: 00 Dose 2022-0 No Unknown 3-14 00:00: 00 Dose 2022-0 No Unknown 3-14 00:00: 00 Dose 2022-0 No Unknown 3-14 00:00: 00 Dose 2022-0 No Unknown 3-14 00:00: 00 Dose 2022-0 No Unknown 3-14 00:00: 00 Dose 2022-0 No Unknown 3-14 00:00: 00 Dose 2022-0 No Unknown 3-14 00:00: 00 Dose 2022-0 No Unknown 3-14 00:00: 00 Dose 2022-0 No Unknown 3-14 00:00: 00 Dose 2022-0 No Unknown 3-14 00:00: 00 Dose 2022-0 No Unknown 3-14 00:00: 00 Dose 2022-0 No Unknown 3-14 00:00: 00 Dose 2022-0 No Unknown 3-14 00:00: 00 Dose 2022-0 No Unknown 3-14 00:00: 00 Dose 2022-0 No Unknown 3-14 00:00: 00 Dose 2022-0 No Unknown 3-14 00:00: 00 Dose 2022-0 No Unknown 3-14 00:00: 00 Dose 2022-0 No Unknown 3-14 00:00: 00 Dose 2022-0 No Unknown 3-14 00:00: 00 Dose 2022-0 No Unknown 3-14 00:00: 00 Dose 2022-0 No Unknown 3-14 00:00: 00 Dose 2022-0 No Unknown 3-14 00:00: 00 Dose 2022-0 No Unknown 3-14 00:00: 00 Dose 2022-0 No Unknown 3-14 00:00: 00 Dose 2022-0 No Unknown 3-14 00:00: 00 Dose 2022-0 No Unknown 3-14 00:00: 00 Dose 2022-0 No Unknown 3-14 00:00: 00 Dose 2022-0 No Unknown 3-14 00:00: 00 Dose 2022-0 No Unknown 3-14 00:00: 00 Dose 2022-0 No Unknown 3-14 00:00: 00 Dose 2022-0 No Unknown 3-14 00:00: 00 Dose 2022-0 No Unknown 3-14 00:00: 00 Dose 2022-0 No Unknown 3-14 00:00: 00 Dose 2022-0 No Unknown 3-14 00:00: 00 Dose 2022-0 No Unknown 3-14 00:00: 00 Dose 2022-0 No Unknown 3-14 00:00: 00 Dose 2022-0 No Unknown 3-14 00:00: 00 Dose 2022-0 No Unknown 3-14 00:00: 00 Dose 2022-0 No Unknown 3-14 00:00: 00 Dose 2022-0 No Unknown 3-14 00:00: 00 Dose 2022-0 No Unknown 3-14 00:00: 00 Dose 2022-0 No Unknown 3-14 00:00: 00 Dose 2022-0 No Unknown 3-14 00:00: 00 Dose 2022-0 No Unknown 3-14 00:00: 00 Dose 2022-0 No Unknown 3-14 00:00: 00 Dose 2022-0 No Unknown 3-14 00:00: 00 Dose 2022-0 No Unknown 3-14 00:00: 00 Dose 2022-0 No Unknown 3-14 00:00: 00 Dose 2022-0 No Unknown 3-14 00:00: 00 Dose 2022-0 No Unknown 3-14 00:00: 00 Dose 2022-0 No Unknown 3-14 00:00: 00 Dose 2022-0 No Unknown 3-14 00:00: 00 Dose 2022-0 No Unknown 3-14 00:00: 00 Dose 2022-0 No Unknown 3-14 00:00: 00 Dose 2022-0 No Unknown 3-14 00:00: 00 Dose 2022-0 No Unknown 3-14 00:00: 00 Dose 2022-0 No Unknown 3-14 00:00: 00 Dose 2022-0 No Unknown 3-14 00:00: 00 Dose 2022-0 No Unknown 3-14 00:00: 00 Dose 2022-0 No Unknown 3-14 00:00: 00 Dose 2022-0 No Unknown 3-14 00:00: 00 Dose 2022-0 No Unknown 3-14 00:00: 00 Dose 2022-0 No Unknown 3-14 00:00: 00 Dose 2022-0 No Unknown 3-14 00:00: 00 Dose 2022-0 No Unknown 3-14 00:00: 00 Dose 2022-0 No Unknown 3-14 00:00: 00 Dose 2022-0 No Unknown 3-14 00:00: 00 Dose 2022-0 No Unknown 3-14 00:00: 00 Dose 2022-0 No Unknown 3-14 00:00: 00 Dose 2022-0 No Unknown 3-14 00:00: 00 Dose 2022-0 No Unknown 3-14 00:00: 00 Dose 2022-0 No Unknown 3-14 00:00: 00 Dose 2022-0 No Unknown 3-14 00:00: 00 Dose 2022-0 No Unknown 3-14 00:00: 00 Dose 2022-0 No Unknown 3-14 00:00: 00 Dose 2022-0 No Unknown 3-14 00:00: 00 Dose 2022-0 No Unknown 3-14 00:00: 00 Dose 2022-0 No Unknown 3-14 00:00: 00 Dose 2022-0 No Unknown 3-14 00:00: 00 Dose 2022-0 No Unknown 3-14 00:00: 00 Dose 2022-0 No Unknown 3-14 00:00: 00 Dose 2022-0 No Unknown 3-14 00:00: 00 Dose 2022-0 No Unknown 3-14 00:00: 00 Dose 2022-0 No Unknown 3-14 00:00: 00 Dose 2022-0 No Unknown 3-14 00:00: 00 Dose 2022-0 No Unknown 3-14 00:00: 00 Dose 2022-0 No Unknown 3-14 00:00: 00 Dose 2022-0 No Unknown 3-14 00:00: 00 Dose 2022-0 No Unknown 3-14 00:00: 00 Dose 2022-0 No Unknown 3-14 00:00: 00 Dose 2022-0 No Unknown 3-14 00:00: 00 Dose 2022-0 No Unknown 3-14 00:00: 00 Dose 2022-0 No Unknown 3-14 00:00: 00 Dose 2022-0 No Unknown 3-14 00:00: 00 Dose 2022-0 No Unknown 3-14 00:00: 00 Dose 2022-0 No Unknown 3-14 00:00: 00 Dose 2022-0 No Unknown 3-14 00:00: 00 Dose 2022-0 No Unknown 3-14 00:00: 00 Dose 2022-0 No Unknown 3-14 00:00: 00 Dose 2022-0 No Unknown 3-14 00:00: 00 Dose 2022-0 No Unknown 3-14 00:00: 00 Dose 2022-0 No Unknown 3-14 00:00: 00 Dose 2022-0 No Unknown 3-14 00:00: 00 Dose 2022-0 No Unknown 3-14 00:00: 00 Dose 2022-0 No Unknown 3-14 00:00: 00 Dose 2022-0 No Unknown 3-14 00:00: 00 Dose 2022-0 No Unknown 3-14 00:00: 00 Dose 2022-0 No Unknown 3-14 00:00: 00 Dose 2022-0 No Unknown 3-14 00:00: 00 Dose 2022-0 No Unknown 3-14 00:00: 00 Dose 2022-0 No Unknown 3-14 00:00: 00 Dose 2022-0 No Unknown 3-14 00:00: 00 Dose 2022-0 No Unknown 3-14 00:00: 00 Dose 2022-0 No Unknown 3-14 00:00: 00 Dose 2022-0 No Unknown 3-14 00:00: 00 Dose 2022-0 No Unknown 3-14 00:00: 00 Dose 2022-0 No Unknown 3-14 00:00: 00 Dose 2022-0 No Unknown 3-14 00:00: 00 Dose 2022-0 No Unknown 3-14 00:00: 00 Dose 2022-0 No Unknown 3-14 00:00: 00 Dose 2022-0 No Unknown 3-14 00:00: 00 Dose 2022-0 No Unknown 3-14 00:00: 00 Dose 2022-0 No Unknown 3-14 00:00: 00 Dose 2022-0 No Unknown 3-14 00:00: 00 Dose 2022-0 No Unknown 3-14 00:00: 00 Dose 2022-0 No Unknown 3-14 00:00: 00 Dose 2022-0 No Unknown 3-14 00:00: 00 Dose 2022-0 No Unknown 3-14 00:00: 00 Dose 2022-0 No Unknown 3-14 00:00: 00 Dose 2022-0 No Unknown 3-14 00:00: 00 Dose 2022-0 No Unknown 3-14 00:00: 00 Dose 2022-0 No Unknown 3-14 00:00: 00 Dose 2022-0 No Unknown 3-14 00:00: 00 Wellbutrin 2022-0 No 1mg XL 150 mg 2-17 24 hr 00:00: tablet, 00 extended release Zoloft 100 2022-0 No 1mg mg tablet 2-17 00:00: 00 Wellbutrin 2022-0 No 1mg XL 300 mg 2-17 24 hr 00:00: tablet, 00 extended release trazodone 2022-0 No 12mg 50 mg 2-17 tablet 00:00: 00 Wellbutrin 2022-0 No 1mg XL 150 mg 2-17 24 hr 00:00: tablet, 00 extended release Zoloft 100 2022-0 No 1mg mg tablet 2-17 00:00: 00 Wellbutrin 2022-0 No 1mg XL 300 mg 2-17 24 hr 00:00: tablet, 00 extended release trazodone 2022-0 No 12mg 50 mg 2-17 tablet 00:00: 00 Wellbutrin 2022-0 No 1mg XL 150 mg 2-17 24 hr 00:00: tablet, 00 extended release Zoloft 100 2022-0 No 1mg mg tablet 2-17 00:00: 00 Wellbutrin 2022-0 No 1mg XL 300 mg 2-17 24 hr 00:00: tablet, 00 extended release trazodone 2022-0 No 12mg 50 mg 2-17 tablet 00:00: 00 Wellbutrin 2022-0 No 1mg XL 150 mg 2-17 24 hr 00:00: tablet, 00 extended release Zoloft 100 2022-0 No 1mg mg tablet 2-17 00:00: 00 Wellbutrin 2022-0 No 1mg XL 300 mg 2-17 24 hr 00:00: tablet, 00 extended release trazodone 2022-0 No 12mg 50 mg 2-17 tablet 00:00: 00 Wellbutrin 2022-0 No 1mg XL 150 mg 2-17 24 hr 00:00: tablet, 00 extended release Zoloft 100 2022-0 No 1mg mg tablet 2-17 00:00: 00 Wellbutrin 2022-0 No 1mg XL 300 mg 2-17 24 hr 00:00: tablet, 00 extended release trazodone 2022-0 No 12mg 50 mg 2-17 tablet 00:00: 00 Dose 2022-0 No Unknown 1-20 00:00: 00 Dose 2022-0 No Unknown 1-20 00:00: 00 Dose 2022-0 No Unknown 1-20 00:00: 00 trazodone 2022-0 No 51mg 50 mg 1-20 tablet 00:00: 00 Dose 2022-0 No Unknown 1-20 00:00: 00 Dose 2022-0 No Unknown 1-20 00:00: 00 Dose 2022-0 No Unknown 1-20 00:00: 00 trazodone 2022-0 No 51mg 50 mg 1-20 tablet 00:00: 00 Dose 2022-0 No Unknown 1-20 00:00: 00 Dose 2022-0 No Unknown 1-20 00:00: 00 Dose 2022-0 No Unknown 1-20 00:00: 00 trazodone 2022-0 No 51mg 50 mg 1-20 tablet 00:00: 00 Dose 2022-0 No Unknown 1-20 00:00: 00 Dose 2022-0 No Unknown 1-20 00:00: 00 Dose 2022-0 No Unknown 1-20 00:00: 00 trazodone 2022-0 No 51mg 50 mg 1-20 tablet 00:00: 00 Dose 2022-0 No Unknown 1-20 00:00: 00 Dose 2022-0 No Unknown 1-20 00:00: 00 Dose 2-0 No Unknown 1-20 00:00: 00 trazodone 2022-0 No 51mg 50 mg 1-20 tablet 00:00: 00 bromphenira 2020-1 No 10mg/5 mine-pseudo 2-27 mL ephedrine-D 00:00: M 2 mg-30 00 mg-10 mg/5 mL oral syrup bromphenira 2020-1 No 10mg/5 mine-pseudo 2-27 mL ephedrine-D 00:00: M 2 mg-30 00 mg-10 mg/5 mL oral syrup bromphenira 2020-1 No 10mg/5 mine-pseudo 2-27 mL ephedrine-D 00:00: M 2 mg-30 00 mg-10 mg/5 mL oral syrup bromphenira 2020-1 No 10mg/5 mine-pseudo 2-27 mL ephedrine-D 00:00: M 2 mg-30 00 mg-10 mg/5 mL oral syrup bromphenira 2020-1 No 10mg/5 mine-pseudo 2-27 mL ephedrine-D 00:00: M 2 mg-30 00 mg-10 mg/5 mL oral syrup Zoloft 100 2020-1 No 1mg mg tablet 2 00:00: 00 Wellbutrin 1-1 No 1mg XL 300 mg 2-07 24 hr 00:00: tablet, 00 extended release trazodone 2020-1 No 51mg 50 mg 2-07 tablet 00:00: 00 Zoloft 100 2020-11 No 1mg mg tablet 2- 00:00: 00 Wellbutrin 2020-11 No 1mg XL 300 mg 2-07 24 hr 00:00: tablet, 00 extended release trazodone 2020-11 No 51mg 50 mg 2-07 tablet 00:00: 00 Zoloft 100 2020-11 No 1mg mg tablet 2- 00:00: 00 Wellbutrin 2020-11 No 1mg XL 300 mg 2- 24 hr 00:00: tablet, 00 extended release trazodone 2020-11 No 51mg 50 mg 2- tablet 00:00: 00 Zoloft 100 2020-11 No 1mg mg tablet 2 00:00: 00 Wellbutrin 2020-11 No 1mg XL 300 mg 2- 24 hr 00:00: tablet, 00 extended release trazodone 2020-11 No 51mg 50 mg 2- tablet 00:00: 00 Zoloft 100 2020-11 No 1mg mg tablet 2 00:00: 00 Wellbutrin 2020-11 No 1mg XL 300 mg 2- 24 hr 00:00: tablet, 00 extended release trazodone 2020-11 No 51mg 50 mg 2- tablet 00:00: 00 Wellbutrin 2020-11 No 1mg XL 300 mg 1-09 24 hr 00:00: tablet, 00 extended release Zoloft 100 2020-11 No 1mg mg tablet 1- 00:00: 00 trazodone 2020- No 51mg 50 mg 1-09 tablet 00:00: 00 Wellbutrin 2020-11 No 1mg XL 300 mg 1-09 24 hr 00:00: tablet, 00 extended release Wellbutrin 2020-11 No 1mg XL 300 mg 1- 24 hr 00:00: tablet, 00 extended release Zoloft 100 2020-11 No 1mg mg tablet 11-15 00:00: 00 trazodone 2020- No 51mg 50 mg 1-09 tablet 00:00: 00 Zoloft 100 2020-11 No 1mg mg tablet 1 00:00: 00 trazodone 2020- No 51mg 50 mg 1-09 tablet 00:00: 00 Wellbutrin 2020- No 1mg XL 300 mg 1 24 hr 00:00: tablet, 00 extended release Zoloft 100 2020-11 No 1mg mg tablet 11-15 00:00: 00 trazodone 2020-11 No 51mg 50 mg 11-15 tablet 00:00: 00 Wellbutrin 2020-11 No 1mg XL 300 mg 11-15 24 hr 00:00: tablet, 00 extended release Zoloft 100 2020-11 No 1mg mg tablet 11-15 00:00: 00 trazodone 2020-11 No 51mg 50 mg 11-15 tablet 00:00: 00 cholecalcif 2020-11 No 2(400 joann 0-13 unit) (vitamin 00:00: D3) 10 mcg 00 (400 unit) tablet cholecalcif 2020-11 No 2(400 joann 0-13 unit) (vitamin 00:00: D3) 10 mcg 00 (400 unit) tablet cholecalcif 2020-11 No 2(400 joann 0-13 unit) (vitamin 00:00: D3) 10 mcg 00 (400 unit) tablet cholecalcif 2020-11 No 2(400 joann 0-13 unit) (vitamin 00:00: D3) 10 mcg 00 (400 unit) tablet cholecalcif 2020-11 No 2(400 joann 0-13 unit) (vitamin 00:00: D3) 10 mcg 00 (400 unit) tablet Zoloft 100 2020-11 No 1mg mg tablet 0-11 00:00: 00 Wellbutrin 2020-11 No 1mg XL 300 mg 0-11 24 hr 00:00: tablet, 00 extended release trazodone 2020-11 No 51mg 50 mg 0-11 tablet 00:00: 00 omeprazole 2020-11 No 1mg 40 mg 0-11 capsule,del 00:00: ayed 00 release Zoloft 100 2020-11 No 1mg mg tablet 0-11 00:00: 00 Wellbutrin 2020-11 No 1mg XL 300 mg 0-11 24 hr 00:00: tablet, 00 extended release trazodone 2020-11 No 51mg 50 mg 0-11 tablet 00:00: 00 omeprazole 2020-11 No 1mg 40 mg 0-11 capsule,del 00:00: ayed 00 release Zoloft 100 2021-1 No 1mg mg tablet 0-11 00:00: 00 Wellbutrin 2020-1 No 1mg XL 300 mg 0-11 24 hr 00:00: tablet, 00 extended release trazodone 2020-1 No 51mg 50 mg 0-11 tablet 00:00: 00 omeprazole 2020-1 No 1mg 40 mg 0-11 capsule,del 00:00: ayed 00 release Zoloft 100 2020-1 No 1mg mg tablet 0-11 00:00: 00 Wellbutrin 2020-1 No 1mg XL 300 mg 0-11 24 hr 00:00: tablet, 00 extended release trazodone 2020-1 No 51mg 50 mg 0-11 tablet 00:00: 00 omeprazole 2020-1 No 1mg 40 mg 0-11 capsule,del 00:00: ayed 00 release Zoloft 100 2020-1 No 1mg mg tablet 0-11 00:00: 00 Wellbutrin 2020-1 No 1mg XL 300 mg 0-11 24 hr 00:00: tablet, 00 extended release trazodone 2020-1 No 51mg 50 mg 0-11 tablet 00:00: 00 omeprazole 2020-1 No 1mg 40 mg 0-11 capsule,del 00:00: ayed 00 release ondansetron 2020-1 No 1mg 4 mg 0-07 disintegrat 00:00: ing tablet 00 ondansetron 2020-1 No 1mg 4 mg 0-07 disintegrat 00:00: ing tablet 00 ondansetron 2020-1 No 1mg 4 mg 0-07 disintegrat 00:00: ing tablet 00 ondansetron 2020-1 No 1mg 4 mg 0-07 disintegrat 00:00: ing tablet 00 ondansetron 2020-1 No 1mg 4 mg 0-07 disintegrat 00:00: ing tablet 00 Wellbutrin 1-0 No 1mg XL 300 mg 07-09 24 hr 00:00: tablet, 00 extended release Zoloft 100 1-0 No 1mg mg tablet 07-09 00:00: 00 prazosin 1 1-0 No 12mg mg capsule 07-09 00:00: 00 Wellbutrin 1-0 No 1mg XL 300 mg 07-09 24 hr 00:00: tablet, 00 extended release Zoloft 100 1-0 No 1mg mg tablet 07-09 00:00: 00 prazosin 1 2021-0 No 12mg mg capsule 07-09 00:00: 00 Wellbutrin 2021-0 No 1mg XL 300 mg 07-09 24 hr 00:00: tablet, 00 extended release Zoloft 100 1-0 No 1mg mg tablet 07-09 00:00: 00 prazosin 1 2021-0 No 12mg mg capsule 07-09 00:00: 00 Wellbutrin 2021-0 No 1mg XL 300 mg 07-09 24 hr 00:00: tablet, 00 extended release Zoloft 100 1-0 No 1mg mg tablet 07-09 00:00: 00 prazosin 1 1-0 No 12mg mg capsule 07-09 00:00: 00 Wellbutrin 2021-0 No 1mg XL 300 mg 07-09 24 hr 00:00: tablet, 00 extended release Zoloft 100 1-0 No 1mg mg tablet 07-09 00:00: 00 prazosin 1 1-0 No 12mg mg capsule 07-09 00:00: 00 Zoloft 100 1-0 No 1mg mg tablet 06-15 00:00: 00 Dose 2021-0 No Unknown 06-15 00:00: 00 clonidine 2021-0 No 1mg HCl 0.1 mg 06-15 tablet 00:00: 00 Zoloft 100 1-0 No 1mg mg tablet 06-15 00:00: 00 Wellbutrin 2021-0 No 1mg XL 150 mg 06-15 24 hr 00:00: tablet, 00 extended release clonidine 2021-0 No 1mg HCl 0.1 mg 06-15 tablet 00:00: 00 Zoloft 100 1-0 No 1mg mg tablet 06-15 00:00: 00 Wellbutrin 2021-0 No 1mg XL 150 mg 06-15 24 hr 00:00: tablet, 00 extended release clonidine 2021-0 No 1mg HCl 0.1 mg 06-15 tablet 00:00: 00 Zoloft 100 2021-0 No 1mg mg tablet 06-15 00:00: 00 Dose 2021-0 No Unknown 06-15 00:00: 00 clonidine 2021-0 No 1mg HCl 0.1 mg 06-15 tablet 00:00: 00 Zoloft 100 2021-0 No 1mg mg tablet 8- 00:00: 00 Dose 2021-0 No Unknown 8-09 00:00: 00 clonidine 2021-0 No 1mg HCl 0.1 mg 8-09 tablet 00:00: 00 Zoloft 100 2021-0 No 1mg mg tablet 7-12 00:00: 00 clonidine 2021-0 No 1mg HCl 0.1 mg 7-12 tablet 00:00: 00 Zoloft 100 2021-0 No 1mg mg tablet 7-12 00:00: 00 clonidine 2021-0 No 1mg HCl 0.1 mg 7-12 tablet 00:00: 00 Zoloft 100 2021-0 No 1mg mg tablet 7-12 00:00: 00 clonidine 2021-0 No 1mg HCl 0.1 mg 7-12 tablet 00:00: 00 Zoloft 100 2021-0 No 1mg mg tablet 7-12 00:00: 00 clonidine 2021-0 No 1mg HCl 0.1 mg 7-12 tablet 00:00: 00 Zoloft 100 2021-0 No 1mg mg tablet 7-12 00:00: 00 clonidine 2021-0 No 1mg HCl 0.1 mg 7-12 tablet 00:00: 00 Zoloft 100 2021-0 No 1mg mg tablet 6-14 00:00: 00 hydroxyzine 2021-0 No 51mg HCl 50 mg 6-14 tablet 00:00: 00 Zoloft 100 2021-0 No 1mg mg tablet 6-14 00:00: 00 hydroxyzine 2021-0 No 51mg HCl 50 mg 6-14 tablet 00:00: 00 Zoloft 100 2021-0 No 1mg mg tablet 6-14 00:00: 00 hydroxyzine 2021-0 No 51mg HCl 50 mg 6-14 tablet 00:00: 00 Zoloft 100 2021-0 No 1mg mg tablet 6-14 00:00: 00 hydroxyzine 2021-0 No 51mg HCl 50 mg 6-14 tablet 00:00: 00 Zoloft 100 2021-0 No 1mg mg tablet 6-14 00:00: 00 hydroxyzine 2021-0 No 51mg HCl 50 mg 6-14 tablet 00:00: 00 Dose 2021-0 No Unknown 5-18 00:00: 00 hydroxyzine 2021-0 No 51mg HCl 50 mg 5-18 tablet 00:00: 00 Zoloft 50 2021-0 No 1mg mg tablet 5-18 00:00: 00 hydroxyzine 2021-0 No 51mg HCl 50 mg 5-18 tablet 00:00: 00 Zoloft 50 2021-0 No 1mg mg tablet 5-18 00:00: 00 hydroxyzine 2021-0 No 51mg HCl 50 mg 5-18 tablet 00:00: 00 Dose 2021-0 No Unknown 5-18 00:00: 00 hydroxyzine 2021-0 No 51mg HCl 50 mg 5-18 tablet 00:00: 00 Dose 2021-0 No Unknown 5-18 00:00: 00 hydroxyzine 2021-0 No 51mg HCl 50 mg 5-18 tablet 00:00: 00 hydroxyzine 2021-0 No 51mg HCl 50 mg 4-27 tablet 00:00: 00 thiamine 2021-0 No 1mg HCl 4-27 (vitamin 00:00: B1) 500 mg 00 tablet Dose 1-0 No Unknown 4-27 00:00: 00 hydroxyzine 2021-0 No 51mg HCl 50 mg 4-27 tablet 00:00: 00 thiamine 2021-0 No 1mg HCl 4-27 (vitamin 00:00: B1) 500 mg 00 tablet biotin 1-0 No 1mcg 10,000 mcg 4-27 capsule 00:00: 00 biotin 2021-0 No 1mcg 10,000 mcg 4-27 capsule 00:00: 00 Zoloft 50 2021-0 No 1mg mg tablet 4-27 00:00: 00 hydroxyzine 2021-0 No 51mg HCl 50 mg 4-27 tablet 00:00: 00 thiamine 2021-0 No 1mg HCl 4-27 (vitamin 00:00: B1) 500 mg 00 tablet biotin 1-0 No 1mcg 10,000 mcg 4-27 capsule 00:00: 00 Dose 2021-0 No Unknown 4-27 00:00: 00 hydroxyzine 2021-0 No 51mg HCl 50 mg 4-27 tablet 00:00: 00 thiamine 2021-0 No 1mg HCl 4-27 (vitamin 00:00: B1) 500 mg 00 tablet biotin 2021-0 No 1mcg 10,000 mcg 4-27 capsule 00:00: 00 Dose 1-0 No Unknown 4-27 00:00: 00 hydroxyzine 1-0 No 51mg HCl 50 mg 4-27 tablet 00:00: 00 thiamine 1-0 No 1mg HCl 4-27 (vitamin 00:00: B1) 500 mg 00 tablet biotin 2020-0 No 1mcg 10,000 mcg 4-27 capsule 00:00: 00 Zoloft 50 1-0 No 1mg mg tablet -27 00:00: 00 omeprazole 1-0 No 1mg 40 mg 3-24 capsule,del 00:00: ayed 00 release omeprazole 2021-0 No 1mg 40 mg 3-24 capsule,del 00:00: ayed 00 release omeprazole 2021-0 No 1mg 40 mg 3-24 capsule,del 00:00: ayed 00 release omeprazole 2021-0 No 1mg 40 mg 3-24 capsule,del 00:00: ayed 00 release omeprazole 1-0 No 1mg 40 mg 3-24 capsule,del 00:00: ayed 00 release pantoprazol 2020-0 No 1mg e 40 mg 8-04 tablet,rola 00:00: yed release 00 pantoprazol 2020-0 No 1mg e 40 mg 8-04 tablet,rola 00:00: yed release 00 pantoprazol 2020-0 No 1mg e 40 mg 8-04 tablet,rola 00:00: yed release 00 pantoprazol 2020-0 No 1mg e 40 mg 8-04 tablet,rola 00:00: yed release 00 pantoprazol 2020-0 No 1mg e 40 mg 8-04 tablet,rola 00:00: yed release 00 pantoprazol 2020-0 No 1mg e 40 mg 1-29 tablet,rola 00:00: yed release 00 pantoprazol 2020-0 No 1mg e 40 mg 1-29 tablet,rola 00:00: yed release 00 pantoprazol 2020-0 No 1mg e 40 mg 1-29 tablet,rola 00:00: yed release 00 pantoprazol 2020-0 No 1mg e 40 mg 1-29 tablet,rola 00:00: yed release 00 pantoprazol 2020-0 No 1mg e 40 mg 1-29 tablet,rola 00:00: yed release 00 pantoprazol 2020-0 No 1mg e 40 mg 1-29 tablet,rola 00:00: yed release 00 pantoprazol 2020-0 No 1mg e 40 mg 1-29 tablet,rola 00:00: yed release 00 pantoprazol 2020-0 No 1mg e 40 mg 1-29 tablet,rola 00:00: yed release 00 pantoprazol 2020-0 No 1mg e 40 mg 1-29 tablet,rola 00:00: yed release 00 pantoprazol 2020-0 No 1mg e 40 mg 1-29 tablet,rola 00:00: yed release 00 omeprazole 2019-0 No 1mg 20 mg 3-08 tablet,rola 00:00: yed release 00 omeprazole 2019-0 No 1mg 20 mg 3-08 tablet,rola 00:00: yed release 00 omeprazole 2019-0 No 1mg 20 mg 3-08 tablet,rola 00:00: yed release 00 omeprazole 2019-0 No 1mg 20 mg 3-08 tablet,rola 00:00: yed release 00 omeprazole 2019-0 No 1mg 20 mg 3-08 tablet,rola 00:00: yed release 00 intrauterin 2014-11 Yes 1{IUD} 1 Intra U nivers e device 1-13 Uterine ity of (PARAGARD T 09:27: Device by Leesa verma [id number]) IUD 36 Intrauteri Medi gloria ne route Branch once now. norgestimat 2014-11 Yes [id number] 1{tbl} Take 1 Tab [facility] e-ethinyl 1-13 by mouth ity of estradiol 00:00: daily. [place] ([facility] 00 [facility]-CYCLEN, [facility] 28,) 0.18/0.215/ 0.25 mg-35 mcg (28) tablet norgestimat 2014-11- No [id number] 1{tbl} Take 1 Tab Univers e-ethinyl 1-13 12-06 by mouth ity o f estradiol 00:00: 00:00 daily. [place] ([facility]THO 00 :00 [facility]-CYCLEN, [facility] 28,) 0.18/0.215/ 0.25 mg-35 mcg (28) tablet Immunizations Ordered Filled Date Status Comments Source Immunization Name Immunization Name TDAP 2023-03-29 Completed [facility] 00:00[facility]00 [facility] TDAP 2023-03-29 Completed [facility] 00:00:00 [facility] TDAP 2023-03-29 Completed [facility] 00:00:00 [facility] [place] TDAP 2023-03-29 Completed [facility] 00:00:00 [facility] TDAP 2023-03-29 Completed [facility] 00:00:00 [facility] TDAP 2023-03-29 Completed [facility] 00:00:00 [facility] [place] TDAP 2023-03-29 Completed [facility] 00:00:00 [facility] TDAP 2023-03-29 Completed [facility] 00:00:00 [facility] TDAP 2023-03-29 Completed [facility] 00:00:00 [facility] TDAP 2023-03-29 Completed [facility] 00:00:00 [facility] TDAP 2023-03-29 Completed [facility] 00:00:00 [facility] TDAP 2023-03-29 Completed [facility] 00:00:00 [facility] TDAP 2023-03-29 Completed [facility] 00:00:00 [facility] TDAP 2023-03-29 Completed [facility] 00:00:00 [facility] TDAP 2023-03-29 Completed [facility] 00:00:00 [facility] TDAP 2023-03-29 Completed [facility] 00:00:00 [facility] TDAP 2023-03-29 Completed [facility] 00:00:00 [facility] TDAP 2023-03-29 Completed [facility] 00:00:00 [facility] TDAP 2023-03-29 Completed [facility] 00:00:00 [facility] SARS-COV-2 COVID-19 2021-02-14 Completed Unive rsity of PFIZER VACCINE 00:00:00 [facility] SARS-COV-2 COVID-19 2021-02-14 Completed Unive rsity of PFIZER VACCINE 00:00:00 [facility] SARS-COV-2 COVID-19 2021-02-14 Completed Unive rsity of PFIZER VACCINE 00:00:00 [facility] SARS-COV-2 COVID-19 2021-02-14 Completed Unive rsity of PFIZER VACCINE 00:00:00 [facility] SARS-COV-2 COVID-19 2021-02-14 Completed Unive rsity of PFIZER VACCINE 00:00:00 [facility] SARS-COV-2 COVID-19 2021-02-14 Completed Unive rsity of PFIZER VACCINE 00:00:00 [facility] SARS-COV-2 COVID-19 2021-02-14 Completed Unive rsity of PFIZER VACCINE 00:00:00 [facility] SARS-COV-2 COVID-19 2021-02-14 Completed Unive rsity of PFIZER VACCINE 00:00:00 [facility] SARS-COV-2 COVID-19 2021-02-14 Completed Unive rs[facility] of PFIZER VACCINE 00:00:00 [facility] SARS-COV-2 COVID-19 2021-02-14 Completed Unive rsity of PFIZER VACCINE 00:00:00 [facility] SARS-COV-2 COVID-19 2021-02-14 Completed Unive rsity of PFIZER VACCINE 00:00:00 [facility] SARS-COV-2 COVID-19 2021-02-14 Completed Unive rsity of PFIZER VACCINE 00:00:00 [facility] SARS-COV-2 COVID-19 2021-02-14 Completed Unive rsity of PFIZER VACCINE 00:00:00 [facility] SARS-COV-2 COVID-19 2021-02-14 Completed Unive rsity of PFIZER VACCINE 00:00:00 [facility] SARS-COV-2 COVID-19 2021-02-14 Completed Unive rsity of PFIZER VACCINE 00:00:00 [facility] SARS-COV-2 COVID-19 2021-02-14 Completed Unive rsity of PFIZER VACCINE 00:00:00 [facility] SARS-COV-2 COVID-19 2021-02-14 Completed Unive rsity of PFIZER VACCINE 00:00:00 [facility] SARS-COV-2 COVID-19 2021-02-14 Completed Unive rsity of PFIZER VACCINE 00:00:00 [facility] SARS-COV-2 COVID-19 2021-02-14 Completed Unive rsity of PFIZER VACCINE 00:00:00 [facility] SARS-COV-2 COVID-19 2021-02-14 Completed Unive rsity of PFIZER VACCINE 00:00:00 [facility] SARS-COV-2 COVID-19 2021-02-14 Completed Unive rsity of PFIZER VACCINE 00:00:00 [facility] SARS-COV-2 COVID-19 2021-02-14 Completed Unive rsity of PFIZER VACCINE 00:00:00 [facility] SARS-COV-2 COVID-19 2021-02-14 Completed Unive rsity of PFIZER VACCINE 00:00:00 [facility] SARS-COV-2 COVID-19 2021-02-14 Completed Unive rsity of PFIZER VACCINE 00:00:00 [facility] SARS-COV-2 COVID-19 2021-02-14 Completed Unive rsity of PFIZER VACCINE 00:00:00 [facility] SARS-COV-2 COVID-19 2021-02-14 Completed Unive rsity of PFIZER VACCINE 00:00:00 [facility] SARS-COV-2 COVID-19 2021-02-14 Completed [facility] PFIZER VACCINE 00:00:00 [facility] SARS-COV-2 COVID-19 2021-02-14 Completed [facility] PFIZER VACCINE 00:00:00 [facility] SARS-COV-2 COVID-19 2021-02-14 Completed [facility] PFIZER VACCINE 00:00:00 [facility] SARS-COV-2 COVID-19 2021-02-14 Completed [facility] PFIZER VACCINE 00:00:00 [facility] SARS-COV-2 COVID-19 2021-02-14 Completed [facility] PFIZER VACCINE 00:00:00 [facility] SARS-COV-2 COVID-19 2021-02-14 Completed [facility] PFIZER VACCINE 00:00:00 [facility] SARS-COV-2 COVID-19 2021-02-14 Completed [facility] PFIZER VACCINE 00:00:00 [facility] SARS-COV-2 COVID-19 2021-02-14 Completed [facility] PFIZER VACCINE 00:00:00 [facility] SARS-COV-2 COVID-19 2021-02-14 Completed [facility] PFIZER VACCINE 00:00:00 [facility] SARS-COV-2 COVID-19 2021-02-14 Completed [facility] PFIZER VACCINE 00:00:00 [facility] SARS-COV-2 COVID-19 2021-02-14 Completed [facility] PFIZER VACCINE 00:00:00 [facility] SARS-COV-2 COVID-19 2021-02-14 Completed [facility] PFIZER VACCINE 00:00:00 [facility] SARS-COV-2 COVID-19 2021-02-14 Completed [facility] PFIZER VACCINE 00:00:00 [facility] SARS-COV-2 COVID-19 2021-02-14 Completed [facility] PFIZER VACCINE 00:00:00 [facility] SARS-COV-2 COVID-19 2021-02-14 Completed [facility] PFIZER VACCINE 00:00:00 [facility] SARS-COV-2 COVID-19 2021-02-14 Completed [facility] PFIZER VACCINE 00:00:00 [facility] SARS-COV-2 COVID-19 2021-02-14 Completed [facility] PFIZER VACCINE 00:00:00 [facility] SARS-COV-2 COVID-19 2021-02-14 Completed [facility] PFIZER VACCINE 00:00:00 [facility] SARS-COV-2 COVID-19 2021-02-14 Completed [facility] PFIZER VACCINE 00:00:00 [facility] SARS-COV-2 COVID-19 2021-02-14 Completed [facility] PFIZER VACCINE 00:00:00 [facility] SARS-COV-2 COVID-19 2021-02-14 Completed [facility]ive [facility] of PFIZER VACCINE 00:00:00 [facility] SARS-COV-2 COVID-19 2021-01-24 Completed [facility] of PFIZER VACCINE 00:00:00 [facility] SARS-COV-2 COVID-19 2021-01-24 Completed [facility] of PFIZER VACCINE 00:00:00 [facility] SARS-COV-2 COVID-19 2021-01-24 Completed [facility] of PFIZER VACCINE 00:00:00 [facility] SARS-COV-2 COVID-19 2021-01-24 Completed [facility] of PFIZER VACCINE 00:00:00 [facility] SARS-COV-2 COVID-19 2021-01-24 Completed [facility] of PFIZER VACCINE 00:00:00 [facility] SARS-COV-2 COVID-19 2021-01-24 Completed [facility] of PFIZER VACCINE 00:00:00 [facility] SARS-COV-2 COVID-19 2021-01-24 Completed [facility] of PFIZER VACCINE 00:00:00 [facility] SARS-COV-2 COVID-19 2021-01-24 Completed [facility] of PFIZER VACCINE 00:00:00 [facility] SARS-COV-2 COVID-19 2021-01-24 Completed [facility] of PFIZER VACCINE 00:00:00 [facility] SARS-COV-2 COVID-19 2021-01-24 Completed [facility] of PFIZER VACCINE 00:00:00 [facility] SARS-COV-2 COVID-19 2021-01-24 Completed [facility] of PFIZER VACCINE 00:00:00 [facility] SARS-COV-2 COVID-19 2021-01-24 Completed [facility] of PFIZER VACCINE 00:00:00 [facility] SARS-COV-2 COVID-19 2021-01-24 Completed [facility] of PFIZER VACCINE 00:00:00 [facility] SARS-COV-2 COVID-19 2021-01-24 Completed [facility] of PFIZER VACCINE 00:00:00 [facility] SARS-COV-2 COVID-19 2021-01-24 Completed [facility] of PFIZER VACCINE 00:00:00 [facility] SARS-COV-2 COVID-19 2021-01-24 Completed [facility] of PFIZER VACCINE 00:00:00 [facility] SARS-COV-2 COVID-19 2021-01-24 Completed [facility] of PFIZER VACCINE 00:00:00 [facility] SARS-COV-2 COVID-19 2021-01-24 Completed [facility] of PFIZER VACCINE 00:00:00 [facility] SARS-COV-2 COVID-19 2021-01-24 Completed [facility] of PFIZER VACCINE 00:00:00 [facility] SARS-COV-2 COVID-19 2021-01-24 Completed [facility] of PFIZER VACCINE 00:00:00 [facility] SARS-COV-2 COVID-19 2021-01-24 Completed [facility] of PFIZER VACCINE 00:00:00 [facility] SARS-COV-2 COVID-19 2021-01-24 Completed [facility] of PFIZER VACCINE 00:00:00 [facility] SARS-COV-2 COVID-19 2021-01-24 Completed [facility] of PFIZER VACCINE 00:00:00 [facility] SARS-COV-2 COVID-19 2021-01-24 Completed [facility] of PFIZER VACCINE 00:00:00 [facility] SARS-COV-2 COVID-19 2021-01-24 Completed [facility] of PFIZER VACCINE 00:00:00 [facility] SARS-COV-2 COVID-19 2021-01-24 Completed [facility] of PFIZER VACCINE 00:00:00 [facility] SARS-COV-2 COVID-19 2021-01-24 Completed [facility] of PFIZER VACCINE 00:00:00 [facility] SARS-COV-2 COVID-19 2021-01-24 Completed [facility] of PFIZER VACCINE 00:00:00 [facility] SARS-COV-2 COVID-19 2021-01-24 Completed [facility] of PFIZER VACCINE 00:00:00 [facility] SARS-COV-2 COVID-19 2021-01-24 Completed [facility] of PFIZER VACCINE 00:00:00 [facility] SARS-COV-2 COVID-19 2021-01-24 Completed [facility] of PFIZER VACCINE 00:00:00 [facility] SARS-COV-2 COVID-19 2021-01-24 Completed [facility] of PFIZER VACCINE 00:00:00 [facility] SARS-COV-2 COVID-19 2021-01-24 Completed [facility] of PFIZER VACCINE 00:00:00 [facility] SARS-COV-2 COVID-19 2021-01-24 Completed [facility] of PFIZER VACCINE 00:00:00 [facility] SARS-COV-2 COVID-19 2021-01-24 Completed [facility] of PFIZER VACCINE 00:00:00 [facility] SARS-COV-2 COVID-19 2021-01-24 Completed [facility] PFIZER VACCINE 00:00:00 [facility] SARS-COV-2 COVID-19 2021-01-24 Completed [facility] of PFIZER VACCINE 00:00:00 [facility] SARS-COV-2 COVID-19 2021-01-24 Completed [facility] of PFIZER VACCINE 00:00:00 [facility] SARS-COV-2 COVID-19 2021-01-24 Completed [facility] of PFIZER VACCINE 00:00:00 [facility] SARS-COV-2 COVID-19 2021-01-24 Completed [facility] of PFIZER VACCINE 00:00:00 [facility] SARS-COV-2 COVID-19 2021-01-24 Completed [facility] of PFIZER VACCINE 00:00:00 [facility] SARS-COV-2 COVID-19 2021-01-24 Completed [facility] of PFIZER VACCINE 00:00:00 [facility] SARS-COV-2 COVID-19 2021-01-24 Completed [facility] of PFIZER VACCINE 00:00:00 [facility] SARS-COV-2 COVID-19 2021-01-24 Completed [facility] of PFIZER VACCINE 00:00:00 [facility] SARS-COV-2 COVID-19 2021-01-24 Completed [facility] of PFIZER VACCINE 00:00:00 [facility] SARS-COV-2 COVID-19 2021-01-24 Completed [facility] of PFIZER VACCINE 00:00:00 [facility] SARS-COV-2 COVID-19 2021-01-24 Completed [facility] of PFIZER VACCINE 00:00:00 [facility] Influenza, 2018-09-08 Completed seasonal, inj 00:00:00 Influenza, 2018-09-08 Completed seasonal, inj 00:00:00 Influenza, 2018-09-08 Completed seasonal, inj 00:00:00 Influenza, 2018-09-08 Completed seasonal, inj 00:00:00 Influenza, 2018-09-08 Completed seasonal, inj 00:00:00 TDAP 2013-03-19 Completed [facility] 00:00:00 [facility] TDAP 2013-03-19 Completed University of 00:00:00 [facility] TDAP 2013-03-19 Completed University of 00:00:00 [facility] TDAP 2013-03-19 Completed University [facility] 00:00:00 [facility] TDAP 2013-03-19 Completed University of 00:00:00 [facility] TDAP 2013-03-19 Completed University of 00:00:00 [facility] TDAP 2013-03-19 Completed University of 00:00:00 [facility] TDAP 2013-03-19 Completed [facility] of 00:00:00 [facility] TDAP 2013-03-19 Completed [facility] of 00:00:00 [facility] TDAP 2013-03-19 Completed University of 00:00:00 [facility] TDAP 2013-03-19 Completed [facility] 00:00:00 [facility] TDAP 2013-03-19 Completed University of 00:00:00 [facility] TDAP 2013-03-19 Completed [facility] of 00:00:00 [facility] TDAP 2013-03-19 Completed [facility] of 00:00:00 [facility] TDAP 2013-03-19 Completed [facility] of 00:00:00 [facility] TDAP 2013-03-19 Completed University of 00:00:00 [facility] TDAP 2013-03-19 Completed [facility] of 00:00:00 [facility] TDAP 2013-03-19 Completed [facility] of 00:00:00 [facility] TDAP 2013-03-19 Completed [facility] of 00:00:00 [facility] TDAP 2013-03-19 Completed [facility] of 00:00:00 [facility] TDAP 2013-03-19 Completed [facility] of 00:00:00 [facility] TDAP 2013-03-19 Completed University of 00:00:00 [facility] TDAP 2013-03-19 Completed [facility] of 00:00:00 [facility] TDAP 2013-03-19 Completed University of 00:00:00 [facility] TDAP 2013-03-19 Completed University of 00:00:00 [facility] TDAP 2013-03-19 Completed University of 00:00:00 [facility] TDAP 2013-03-19 Completed University of 00:00:00 [facility] TDAP 2013-03-19 Completed [facility] 00:00:00 [facility] TDAP 2013-03-19 Completed [facility] of 00:00:00 [facility] TDAP 2013-03-19 Completed [facility] of 00:00:00 [facility] TDAP 2013-03-19 Completed [facility] 00:00:00 [facility] TDAP 2013-03-19 Completed [facility] of 00:00:00 [facility] TDAP 2013-03-19 Completed [facility] of 00:00:00 [facility] TDAP 2013-03-19 Completed [facility] of 00:00:00 [facility] TDAP 2013-03-19 Completed [facility] of 00:00:00 [facility] TDAP 2013-03-19 Completed [facility] of 00:00:00 [facility] TDAP 2013-03-19 Completed [facility] of 00:00:00 [facility] TDAP 2013-03-19 Completed [facility] of 00:00:00 [facility] TDAP 2013-03-19 Completed [facility] of 00:00:00 [facility] TDAP 2013-03-19 Completed [facility] of 00:00:00 [facility] TDAP 2013-03-19 Completed [facility] of 00:00:00 [facility] TDAP 2013-03-19 Completed [facility] of 00:00:00 [facility] TDAP 2013-03-19 Completed University of 00:00:00 [facility] TDAP 2013-03-19 Completed University of 00:00:00 [facility] TDAP 2013-03-19 Completed University of 00:00:00 [facility] TDAP 2013-03-19 Completed [facility] of 00:00:00 [facility] TDAP 2013-03-19 Completed [facility] of 00:00:00 [facility] Influenza Virus 2012-10-13 Completed Universit y of Vaccine - Whole 00:00:00 [facility] Influenza Virus 2012-10-13 Completed [facility]it y of Vaccine - Whole 00:00:00 [facility] Influenza Virus 2012-10-13 Completed [facility]it y of Vaccine - Whole 00:00:00 [facility] Influenza Virus 2012-10-13 Completed [facility]it y of Vaccine - Whole 00:00:00 [facility] Influenza Virus 2012-10-13 Completed [facility] of Vaccine - Whole 00:00:00 [facility] Influenza Virus 2012-10-13 Completed [facility]it y of Vaccine - Whole 00:00:00 [facility] Influenza Virus 2012-10-13 Completed [facility] of Vaccine - Whole 00:00:00 [facility] Influenza Virus 2012-10-13 Completed [facility] y of Vaccine - Whole 00:00:00 [facility] Influenza Virus 2012-10-13 Completed [facility] y of Vaccine - Whole 00:00:00 [facility] Influenza Virus 2012-10-13 Completed [facility] y of Vaccine - Whole 00:00:00 [facility] Influenza Virus 2012-10-13 Completed [facility] y of Vaccine - Whole 00:00:00 [facility] Influenza Virus 2012-10-13 Completed [facility] of Vaccine - Whole 00:00:00 [facility] Influenza Virus 2012-10-13 Completed [facility]it y of Vaccine - Whole 00:00:00 [facility] Influenza Virus 2012-10-13 Completed [facility] of Vaccine - Whole 00:00:00 [facility] Influenza Virus 2012-10-13 Completed [facility] of Vaccine - Whole 00:00:00 [facility] Influenza Virus 2012-10-13 Completed [facility] of Vaccine - Whole 00:00:00 [facility] Influenza Virus 2012-10-13 Completed [facility] of Vaccine - Whole 00:00:00 [facility] Influenza Virus 2012-10-13 Completed [facility] y of Vaccine - Whole 00:00:00 [facility] Influenza Virus 2012-10-13 Completed [facility] y of Vaccine - Whole 00:00:00 [facility] Influenza Virus 2012-10-13 Completed [facility] y of Vaccine - Whole 00:00:00 [facility] Influenza Virus 2012-10-13 Completed Universit y of Vaccine - Whole 00:00:00 [facility] Influenza Virus 2012-10-13 Completed [facility] y of Vaccine - Whole 00:00:00 [facility] Influenza Virus 2012-10-13 Completed Universit y of Vaccine - Whole 00:00:00 [facility] Influenza Virus 2012-10-13 Completed [facility] y of Vaccine - Whole 00:00:00 [facility] Influenza Virus 2012-10-13 Completed [facility] of Vaccine - Whole 00:00:00 [facility] Influenza Virus 2012-10-13 Completed [facility] y of Vaccine - Whole 00:00:00 [facility] Influenza Virus 2012-10-13 Completed [facility] y of Vaccine - Whole 00:00:00 [facility] Influenza Virus 2012-10-13 Completed [facility] y of Vaccine - Whole 00:00:00 [facility] Influenza Virus 2012-10-13 Completed [facility] y of Vaccine - Whole 00:00:00 [facility] Influenza Virus 2012-10-13 Completed [facility] y of Vaccine - Whole 00:00:00 [facility] Influenza Virus 2012-10-13 Completed [facility] y of Vaccine - Whole 00:00:00 [facility] Influenza Virus 2012-10-13 Completed [facility] y of Vaccine - Whole 00:00:00 [facility] Influenza Virus 2012-10-13 Completed [facility] y of Vaccine - Whole 00:00:00 [facility] Influenza Virus 2012-10-13 Completed [facility] y of Vaccine - Whole 00:00:00 [facility] Influenza Virus 2012-10-13 Completed [facility] y of Vaccine - Whole 00:00:00 [facility] Influenza Virus 2012-10-13 Completed [facility] y of Vaccine - Whole 00:00:00 [facility] Influenza Virus 2012-10-13 Completed [facility] y of Vaccine - Whole 00:00:00 [facility] Influenza Virus 2012-10-13 Completed Universit y of Vaccine - Whole 00:00:00 [facility] Influenza Virus 2012-10-13 Completed [facility] y of Vaccine - Whole 00:00:00 [facility] Influenza Virus 2012-10-13 Completed Universit y of Vaccine - Whole 00:00:00 [facility] Influenza Virus 2012-10-13 Completed Universit y of Vaccine - Whole 00:00:00 [facility] Influenza Virus 2012-10-13 Completed [facility] y of Vaccine - Whole 00:00:00 [facility] Influenza Virus 2012-10-13 Completed [facility] y of Vaccine - Whole 00:00:00 [facility] Influenza Virus 2012-10-13 Completed [facility] y of Vaccine - Whole 00:00:00 [facility] Influenza Virus 2012-10-13 Completed [facility] y of Vaccine - Whole 00:00:00 [facility] Influenza Virus 2012-10-13 Completed Universit y of Vaccine - Whole 00:00:00 [facility] Influenza Virus 2012-10-13 Completed Universit y of Vaccine - Whole 00:00:00 [facility] Rubella 2012-07-18 Completed University of 00:00:00 [facility] Varicella 2012-07-18 Completed University of (varivax)(chicken 00:00:00 [facility] edical pox) Branch Rubella 2012-07-18 Completed [facility] of 00:00:00 [facility] Varicella 2012-07-18 Completed [facility] (varivax)(chicken 00:00:00 [facility] Rubella 2012-07-18 Completed [facility] 00:00:00 [facility] Varicella 2012-07-18 Completed [facility] (varivax)(chicken 00:00:00 [facility]ox[facility] Rubella 2012-07-18 Completed [facility] 00:00:00 [facility] Varicella 2012-07-18 Completed [facility] of (varivax)(chicken 00:00:00 [facility] pox[facility] Rubella 2012-07-18 Completed [facility] 00:00:00 [facility] Varicella 2012-07-18 Completed [facility] of (varivax)(chicken 00:00:00 [facility] pox[facility] Rubella 2012-07-18 Completed [facility] of 00:00:00 [facility] Rubella 2012-07-18 Completed [facility] of 00:00:00 [facility] Varicella 2012-07-18 Completed [facility] (varivax)(chicken 00:00:00 [facility]ox[facility] Varicella 2012-07-18 Completed [facility] (varivax)(chicken 00:00:00 [facility] pox[facility] Rubella 2012-07-18 Completed [facility] 00:00:00 [facility] Varicella 2012-07-18 Completed [facility] of (varivax)(chicken 00:00:00 [facility] pox[facility] Rubella 2012-07-18 Completed [facility] of 00:00:00 [facility] Varicella 2012-07-18 Completed [facility] of (varivax)(chicken 00:00:00 [facility]ox[facility] Rubella 2012-07-18 Completed [facility] of 00:00:00 [facility] Varicella 2012-07-18 Completed [facility] (varivax)(chicken 00:00:00 [facility] pox[facility] Rubella 2012-07-18 Completed [facility] 00:00:00 [facility] Varicella 2012-07-18 Completed [facility] of (varivax)(chicken 00:00:00 [facility] pox[facility] Rubella 2012-07-18 Completed [facility] 00:00:00 [facility] Varicella 2012-07-18 Completed [facility] (varivax)(chicken 00:00:00 [facility]ox[facility] Rubella 2012-07-18 Completed [facility] 00:00:00 [facility] Varicella 2012-07-18 Completed [facility] of (varivax)(chicken 00:00:00 [facility]ox[facility] Rubella 2012-07-18 Completed [facility] 00:00:00 [facility] Varicella 2012-07-18 Completed [facility] of (varivax)(chicken 00:00:00 [facility]ox[facility] Rubella 2012-07-18 Completed [facility] 00:00:00 [facility] Varicella 2012-07-18 Completed [facility] of (varivax)(chicken 00:00:00 [facility] Rubella 2012-07-18 Completed [facility] 00:00:00 [facility] Varicella 2012-07-18 Completed [facility] of (varivax)(chicken 00:00:00 [facility] Rubella 2012-07-18 Completed [facility] 00:00:00 [facility] Varicella 2012-07-18 Completed [facility] of (varivax)(chicken 00:00:00 [facility] Rubella 2012-07-18 Completed [facility] of 00:00:00 [facility] Varicella 2012-07-18 Completed [facility] of (varivax)(chicken 00:00:00 [facility]ox[facility] Rubella 2012-07-18 Completed [facility] of 00:00:00 [facility] Varicella 2012-07-18 Completed [facility] of (varivax)(chicken 00:00:00 [facility] Rubella 2012-07-18 Completed [facility] of 00:00:00 [facility] Varicella 2012-07-18 Completed [facility] of (varivax)(chicken 00:00:00 [facility] Rubella 2012-07-18 Completed [facility] of 00:00:00 [facility] Varicella 2012-07-18 Completed [facility] of (varivax)(chicken 00:00:00 [facility] Rubella 2012-07-18 Completed [facility] of 00:00:00 [facility] Varicella 2012-07-18 Completed [facility] of (varivax)(chicken 00:00:00 [facility] Rubella 2012-07-18 Completed [facility] of 00:00:00 [facility] Varicella 2012-07-18 Completed [facility] of (varivax)(chicken 00:00:00 [facility] Rubella 2012-07-18 Completed [facility] of 00:00:00 [facility] Varicella 2012-07-18 Completed [facility] of (varivax)(chicken 00:00:00 [facility] Rubella 2012-07-18 Completed [facility] of 00:00:00 [facility] Varicella 2012-07-18 Completed [facility] of (varivax)(chicken 00:00:00 [facility] Rubella 2012-07-18 Completed [facility] of 00:00:00 [facility] Varicella 2012-07-18 Completed [facility] of (varivax)(chicken 00:00:00 [facility] Rubella 2012-07-18 Completed [facility] of 00:00:00 [facility] Varicella 2012-07-18 Completed [facility] of (varivax)(chicken 00:00:00 [facility] Rubella 2012-07-18 Completed [facility] of 00:00:00 [facility] Varicella 2012-07-18 Completed [facility] of (varivax)(chicken 00:00:00 [facility] Rubella 2012-07-18 Completed [facility] of 00:00:00 [facility] Varicella 2012-07-18 Completed [facility] of (varivax)(chicken 00:00:00 [facility] Rubella 2012-07-18 Completed [facility] of 00:00:00 [facility] Varicella 2012-07-18 Completed [facility] of (varivax)(chicken 00:00:00 [facility] Rubella 2012-07-18 Completed [facility] of 00:00:00 [facility] Varicella 2012-07-18 Completed [facility] (varivax)(chicken 00:00:00 [facility] Rubella 2012-07-18 Completed [facility] of 00:00:00 [facility] Varicella 2012-07-18 Completed [facility] (varivax)(chicken 00:00:00 [facility] Rubella 2012-07-18 Completed [facility] of 00:00:00 [facility] Rubella 2012-07-18 Completed [facility] of 00:00:00 [facility] Varicella 2012-07-18 Completed [facility] (varivax)(chicken 00:00:00 [facility] Varicella 2012-07-18 Completed [facility] (varivax)(chicken 00:00:00 [facility] Rubella 2012-07-18 Completed [facility] of 00:00:00 [facility] Varicella 2012-07-18 Completed [facility] of (varivax)(chicken 00:00:00 [facility] Rubella 2012-07-18 Completed [facility] of 00:00:00 [facility] Varicella 2012-07-18 Completed [facility] of (varivax)(chicken 00:00:00 [facility] Rubella 2012-07-18 Completed [facility] of 00:00:00 [facility] Varicella 2012-07-18 Completed [facility] of (varivax)(chicken 00:00:00 [facility] Rubella 2012-07-18 Completed [facility] of 00:00:00 [facility] Varicella 2012-07-18 Completed [facility] of (varivax)(chicken 00:00:00 [facility] Rubella 2012-07-18 Completed [facility] of 00:00:00 [facility] Varicella 2012-07-18 Completed [facility] of (varivax)(chicken 00:00:00 [facility] Rubella 2012-07-18 Completed [facility] of 00:00:00 [facility] Varicella 2012-07-18 Completed [facility] of (varivax)(chicken 00:00:00 [facility] Rubella 2012-07-18 Completed [facility] of 00:00:00 [facility] Varicella 2012-07-18 Completed [facility] of (varivax)(chicken 00:00:00 [facility] Rubella 2012-07-18 Completed [facility] of 00:00:00 [facility] Varicella 2012-07-18 Completed [facility] of (varivax)(chicken 00:00:00 [facility] Rubella 2012-07-18 Completed [facility] of 00:00:00 [facility] Varicella 2012-07-18 Completed [facility] of (varivax)(chicken 00:00:00 [facility] Rubella 2012-07-18 Completed [facility] of 00:00:00 [facility] Varicella 2012-07-18 Completed [facility] of (varivax)(chicken 00:00:00 [facility] Rubella 2012-07-18 Completed [facility] of 00:00:00 [facility] Varicella 2012-07-18 Completed [facility] of (varivax)(chicken 00:00:00 [facility] Rubella 2012-07-18 Completed [facility] of 00:00:00 [facility] Varicella 2012-07-18 Completed [facility] (varivax)(chicken 00:00:00 [facility] Rubella 2012-07-18 Completed [facility] of 00:00:00 [facility] Varicella 2012-07-18 Completed [facility] of (varivax)(chicken 00:00:00 [facility] edical pox) Branch TD, NOS 2002-11-07 Completed [facility] of 00:00:00 [facility] TD, NOS 2002-11-07 Completed [facility] of 00:00:00 [facility] TD, NOS 2002-11-07 Completed [facility] 00:00:00 [facility] TD, NOS 2002-11-07 Completed [facility] of 00:00:00 [facility] TD, NOS 2002-11-07 Completed [facility] 00:00:00 [facility] Td 2002-11-07 Completed [facility] 00:00:00 [facility] TD, NOS 2002-11-07 Completed [facility] 00:00:00 [facility] TD, NOS 2002-11-07 Completed [facility] 00:00:00 [facility] TD, NOS 2002-11-07 Completed [facility] 00:00:00 [facility] TD, NOS 2002-11-07 Completed [facility] 00:00:00 [facility] Td 2002-11-07 Completed [facility] 00:00:00 [facility] Td 2002-11-07 Completed [facility] 00:00:00 [facility] TD, NOS 2002-11-07 Completed [facility] 00:00:00 [facility] TD, NOS 2002-11-07 Completed [facility] 00:00:00 [facility] TD, NOS 2002-11-07 Completed [facility] 00:00:00 [facility] TD, NOS 2002-11-07 Completed [facility] 00:00:00 [facility] TD, NOS 2002-11-07 Completed [facility] 00:00:00 [facility] TD, NOS 2002-11-07 Completed [facility] 00:00:00 [facility] TD, NOS 2002-11-07 Completed [facility] 00:00:00 [facility] TD, NOS 2002-11-07 Completed [facility] 00:00:00 [facility] TD, NOS 2002-11-07 Completed [facility] 00:00:00 [facility] TD, NOS 2002-11-07 Completed [facility] 00:00:00 [facility] TD, NOS 2002-11-07 Completed [facility] 00:00:00 [facility] TD, NOS 2002-11-07 Completed [facility] 00:00:00 [facility] TD, NOS 2002-11-07 Completed [facility] 00:00:00 [facility] TD, NOS 2002-11-07 Completed [facility] 00:00:00 [facility] TD, NOS 2002-11-07 Completed [facility] 00:00:00 [facility] TD, NOS 2002-11-07 Completed [facility] 00:00:00 [facility] TD, NOS 2002-11-07 Completed [facility] 00:00:00 [facility] TD, NOS 2002-11-07 Completed [facility] 00:00:00 [facility] TD, NOS 2002-11-07 Completed [facility] 00:00:00 [facility] TD, NOS 2002-11-07 Completed [facility] 00:00:00 [facility] TD, NOS 2002-11-07 Completed [facility] 00:00:00 [facility] Td 2002-11-07 Completed [facility] 00:00:00 [facility] TD, NOS 2002-11-07 Completed [facility] 00:00:00 [facility] TD, NOS 2002-11-07 Completed [facility] 00:00:00 [facility] TD, NOS 2002-11-07 Completed [facility] 00:00:00 [facility] TD, NOS 2002-11-07 Completed [facility] 00:00:00 [facility] TD, NOS 2002-11-07 Completed [facility] 00:00:00 [facility] TD, NOS 2002-11-07 Completed [facility] 00:00:00 [facility] TD, NOS 2002-11-07 Completed [facility] 00:00:00 [facility] TD, NOS 2002-11-07 Completed [facility] 00:00:00 [facility] TD, NOS 2002-11-07 Completed [facility] 00:00:00 [facility] TD, NOS 2002-11-07 Completed [facility] 00:00:00 [facility] TD, NOS 2002-11-07 Completed [facility] 00:00:00 [facility] TD, NOS 2002-11-07 Completed [facility] 00:00:00 [facility] TD, NOS 2002-11-07 Completed [facility] 00:00:00 [facility] Influenza Virus Unknown Completed Universit y of Vaccine - Whole [facility] ical Branch Rubella Unknown Completed [facility] TD, NOS Unknown Completed [facility] Varicella Unknown Completed [facility] (varivax[facility]chicken [facility] TDAP Unknown Completed [facility] SARS-COV-2 COVID-19 Unknown Completed Unive rsity of PFIZER VACCINE [facility] SARS-COV-2 COVID-19 Unknown Completed Unive rsity of PFIZER VACCINE [facility] TDAP Unknown Completed [facility] Influenza Virus Unknown Completed [facility] of Vaccine - Whole [facility] Rubella Unknown Completed [facility] TD, NOS Unknown Completed [facility] Varicella Unknown Completed [facility] (varivax[facility]icken [facility] TDAP Unknown Completed [facility] SARS-COV-2 COVID-19 Unknown Completed Unive rsity of PFIZER VACCINE [facility] SARS-COV-2 COVID-19 Unknown Completed Unive rsity of PFIZER VACCINE [facility] TDAP Unknown Completed [facility] Influenza Virus Unknown Completed [facility]it [facility] of Vaccine - Whole [facility] Rubella Unknown Completed [facility] TD, NOS Unknown Completed [facility] Varicella Unknown Completed [facility] (varivax[facility]icken [facility] TDAP Unknown Completed [facility] SARS-COV-2 COVID-19 Unknown Completed Unive rsity of PFIZER VACCINE [facility] SARS-COV-2 COVID-19 Unknown Completed Unive rsity of PFIZER VACCINE [facility] TDAP Unknown Completed [facility] Influenza Virus Unknown Completed [facility] Vacc[facility] Whole [facility] Rubella Unknown Completed [facility] TD, NOS Unknown Completed [facility] Varicella Unknown Completed [facility] (varivax[facility]icken [facility] TDAP Unknown Completed [facility] SARS-COV-2 COVID-19 Unknown Completed Unive rsity of PFIZER VACCINE [facility] SARS-COV-2 COVID-19 Unknown Completed Unive rsity of PFIZER VACCINE [facility] TDAP Unknown Completed [facility] Influenza Virus Unknown Completed [facility] Vacc[facility] Whole [facility] Rubella Unknown Completed [facility] TD, NOS Unknown Completed [facility] Varicella Unknown Completed [facility] (varivax[facility]icken [place] [facility] TDAP Unknown Completed [facility] SARS-COV-2 COVID-19 Unknown Completed Unive rsity of PFIZER VACCINE [facility] SARS-COV-2 COVID-19 Unknown Completed Unive rsity of PFIZER VACCINE [facility] Influenza Virus Unknown Completed [facility] of Vaccine - Whole [facility] Rubella Unknown Completed [facility] TD, NOS Unknown Completed [facility] Varicella Unknown Completed [facility] (varivax[facility]icken [facility] TDAP Unknown Completed [facility] SARS-COV-2 COVID-19 Unknown Completed Unive rsity of PFIZER VACCINE [facility] SARS-COV-2 COVID-19 Unknown Completed Unive rsity of PFIZER VACCINE [facility] Influenza Virus Unknown Completed [facility]it y of Vaccine - Whole [facility] Branch Rubella Unknown Completed [facility] TD, NOS Unknown Completed [facility] Varicella Unknown Completed [facility] (varivax[facility]icken [facility] TDAP Unknown Completed [facility] SARS-COV-2 COVID-19 Unknown Completed Unive rsity of PFIZER VACCINE [facility] SARS-COV-2 COVID-19 Unknown Completed Unive rsity of PFIZER VACCINE [facility] Influenza Virus Unknown Completed [facility] y of Vaccine - Whole [facility] Rubella Unknown Completed [facility] TD, NOS Unknown Completed [facility] Varicella Unknown Completed [facility] (varivax[facility]icken [place] [facility] TDAP Unknown Completed [facility] SARS-COV-2 COVID-19 Unknown Completed Unive rsity of PFIZER VACCINE [facility] SARS-COV-2 COVID-19 Unknown Completed Unive rsity of PFIZER VACCINE [facility] Vital Signs Vital Name Observation Time Observation Value Comments Source Systolic blood 2023-06-03 15:39:00 130 mm[Hg] Univer sity of pressure [facility] Diastolic blood 2023-06-03 15:39:00 90 mm[Hg] Unive rsity of pressure [facility] Heart rate 2023-06-03 15:39:00 106 /min [facility] Body temperature 2023-06-03 15:39:00 36.44 Sharri [facility] ersity of [facility] Respiratory rate 2023-06-03 15:39:00 18 /min Univ ersity of [facility] Body height 2023-06-03 15:39:00 157.5 cm [facility] Body weight 2023-06-03 15:39:00 72.576 kg Universi ty of [facility] BMI 2023-06-03 15:39:00 29.26 kg/m2 [facility]i ty of [facility] Systolic blood 2023-05-31 15:16:00 117 mm[Hg] Univer sity of pressure [facility] Diastolic blood 2023-05-31 15:16:00 72 mm[Hg] Unive rsity of pressure [facility] Heart rate 2023-05-31 15:16:00 61 /min [facility]i ty of [facility] Body temperature 2023-05-31 15:16:00 36.56 Sharri [facility] Respiratory rate 2023-05-31 15:16:00 20 /min Univ ersity of [facility] Body height 2023-05-31 15:16:00 157.5 cm [facility]i [facility] of [facility] Body weight 2023-05-31 15:16:00 75.932 kg [facility]i [facility] of [facility] BMI 2023-05-31 15:16:00 30.62 kg/m2 [facility] Systolic blood 2023-05-25 16:39:00 108 mm[Hg] Univer sity of pressure [facility] Diastolic blood 2023-05-25 16:39:00 61 mm[Hg] Unive rsity of pressure [facility] Heart rate 2023-05-25 16:39:00 70 /min [facility] Body temperature 2023-05-25 16:39:00 36.72 Sharri [facility] Respiratory rate 2023-05-25 16:39:00 17 /min Univ ersity of [facility] Oxygen saturation in 2023-05-25 16:39:00 96 /min University of Arterial blood by [facility] Pulse oximetry Branch Body height 2023-05-24 06:56:00 157.5 cm Universi ty of [facility] Body weight 2023-05-24 06:56:00 80.74 kg [facility] BMI 2023-05-24 06:56:00 32.56 kg/m2 [facility] Systolic blood 2023-05-24 15:15:00 105 mm[Hg] Univer sity of pressure [facility] Diastolic blood 2023-05-24 15:15:00 67 mm[Hg] Unive rsity of pressure [facility] Heart rate 2023-05-24 15:15:00 71 /min [facility]i ty of [facility] Respiratory rate 2023-05-24 15:15:00 30 /min Univ ersity of [facility] Oxygen saturation in 2023-05-24 15:15:00 100 /min [facility] of Arterial blood by [facility] Pulse oximetry Branch Body temperature 2023-05-24 14:55:00 36.56 Sharri [facility] ers[facility] of [facility] Body height 2023-05-24 06:56:00 157.5 cm [facility]i ty of [facility] Body weight 2023-05-24 06:56:00 80.74 kg [facility]i ty of [facility] BMI 2023-05-24 06:56:00 32.56 kg/m2 [facility] Systolic blood 2023-05-17 20:47:00 115 mm[Hg] Univer sity of pressure [facility] Diastolic blood 2023-05-17 20:47:00 74 mm[Hg] Unive rsity of pressure [facility] Heart rate 2023-05-17 20:47:00 72 /min [facility] of [facility] Body temperature 2023-05-17 20:47:00 36.78 Sharri [facility] Respiratory rate 2023-05-17 20:47:00 18 /min Univ ersity of [facility] Body height 2023-05-17 20:47:00 160 cm [facility] Body weight 2023-05-17 20:47:00 80.468 kg [facility] of [facility] BMI 2023-05-17 20:47:00 31.42 kg/m2 [facility] of [facility] Systolic blood 2023-05-09 18:40:00 108 mm[Hg] Univer sity of pressure [facility] Diastolic blood 2023-05-09 18:40:00 73 mm[Hg] Unive rsity of pressure [facility] Heart rate 2023-05-09 18:40:00 81 /min [facility] Body temperature 2023-05-09 18:40:00 36.56 Sharri [facility] Respiratory rate 2023-05-09 18:40:00 18 /min Univ ers[facility] of [facility] Body height 2023-05-09 18:40:00 160 cm [facility] Body weight 2023-05-09 18:40:00 78.971 kg [facility] BMI 2023-05-09 18:40:00 30.84 kg/m2 [facility] Systolic blood 2023-05-04 20:02:00 113 mm[Hg] Univer sity of pressure [facility] Diastolic blood 2023-05-04 20:02:00 71 mm[Hg] Unive rsity of pressure [facility] Heart rate 2023-05-04 20:02:00 84 /min [facility] Body temperature 2023-05-04 20:02:00 36.61 Sharri [facility] Respiratory rate 2023-05-04 20:02:00 18 /min Univ ers[facility] of [facility] Body height 2023-05-04 20:02:00 157.5 cm [facility] Body weight 2023-05-04 20:02:00 79.289 kg [facility] BMI 2023-05-04 20:02:00 31.97 kg/m2 [facility] Systolic blood 2023-04-26 20:32:00 96 mm[Hg] Univer sity of pressure [facility] Diastolic blood 2023-04-26 20:32:00 57 mm[Hg] Unive rsity of pressure [facility] Heart rate 2023-04-26 20:32:00 60 /min [facility] Body temperature 2023-04-26 20:32:00 36.5 Sharri [facility] Respiratory rate 2023-04-26 20:32:00 20 /min Univ ers[facility] of [facility] Body height 2023-04-26 20:32:00 157.5 cm [facility] Body weight 2023-04-26 20:32:00 79.652 kg [facility] BMI 2023-04-26 20:32:00 32.12 kg/m2 [facility] Systolic blood 2023-04-12 13:07:00 110 mm[Hg] Univer [facility]ity of pressure [facility] Diastolic blood 2023-04-12 13:07:00 62 mm[Hg] Unive rsity of pressure [facility] Heart rate 2023-04-12 13:07:00 87 /min [facility] Body temperature 2023-04-12 13:07:00 36 Sharri [facility] Respiratory rate 2023-04-12 13:07:00 18 /min Univ [facility] Body height 2023-04-12 13:07:00 157.5 cm [facility] Body weight 2023-04-12 13:07:00 78.881 kg [facility] BMI 2023-04-12 13:07:00 31.81 kg/m2 [facility] Systolic blood 2023-03-29 14:59:00 102 mm[Hg] Univer [facility]ity of pressure [facility] Diastolic blood 2023-03-29 14:59:00 64 mm[Hg] Unive rsity of pressure [facility] Heart rate 2023-03-29 14:59:00 94 /min [facility] Body temperature 2023-03-29 14:59:00 37 Sharri [facility] Respiratory rate 2023-03-29 14:59:00 18 /min Univ [facility] of [facility] Body height 2023-03-29 14:59:00 157.5 cm [facility] Body weight 2023-03-29 14:59:00 77.282 kg [facility] BMI 2023-03-29 14:59:00 31.16 kg/m2 [facility] Systolic blood 2023-03-14 21:49:00 115 mm[Hg] Univer sity of pressure [facility] Diastolic blood 2023-03-14 21:49:00 56 mm[Hg] Unive rsity of pressure [facility] Heart rate 2023-03-14 21:49:00 100 /min [facility] Body temperature 2023-03-14 21:49:00 37.11 Sharri [facility] Respiratory rate 2023-03-14 21:49:00 18 /min Univ [facility] Body weight 2023-03-14 21:49:00 76.658 kg [facility] BMI 2023-03-14 21:49:00 30.91 kg/m2 [facility] Oxygen saturation in 2023-03-14 21:49:00 99 /min University of Arterial blood by [facility] Pulse oximetry Branch Systolic blood 2023-03-11 14:42:00 117 mm[Hg] Univer sity of pressure [facility] Diastolic blood 2023-03-11 14:42:00 66 mm[Hg] Unive rsity of pressure [facility] Heart rate 2023-03-11 14:42:00 105 /min [facility] Body temperature 2023-03-11 14:42:00 36.5 Sharri [facility] Respiratory rate 2023-03-11 14:42:00 20 /min Univ [facility] of [facility] Body height 2023-03-11 14:42:00 157.5 cm [facility] Body weight 2023-03-11 14:42:00 76.658 kg [facility] BMI 2023-03-11 14:42:00 30.91 kg/m2 [facility] Systolic blood 2023-02-18 13:17:00 98 mm[Hg] Univer sity of pressure [facility] Diastolic blood 2023-02-18 13:17:00 55 mm[Hg] Unive rsity of pressure [facility] Heart rate 2023-02-18 13:17:00 92 /min [facility] Body temperature 2023-02-18 13:17:00 36.06 Sharri [facility] Respiratory rate 2023-02-18 13:17:00 18 /min Univ [facility] Body height 2023-02-18 13:17:00 157.5 cm [facility] Body weight 2023-02-18 13:17:00 75.07 kg [facility] BMI 2023-02-18 13:17:00 30.27 kg/m2 [facility] ty of [facility] Systolic blood 2023-02-01 17:59:00 98 mm[Hg] Univer sity of pressure [facility] Diastolic blood 2023-02-01 17:59:00 46 mm[Hg] Unive rsity of pressure [facility] Heart rate 2023-02-01 17:59:00 72 /min [facility] of [facility] Body temperature 2023-02-01 17:59:00 36.61 Sharri [facility] Respiratory rate 2023-02-01 17:59:00 18 /min Univ ersity of [facility] Body height 2023-02-01 17:59:00 157.5 cm [facility] of [facility] Body weight 2023-02-01 17:59:00 75.66 kg [facility]i ty of [facility] BMI 2023-02-01 17:59:00 30.51 kg/m2 [facility] of [facility] Heart rate 2023-01-31 12:45:00 60 /min [facility] of [facility] Body temperature 2023-01-31 12:45:00 36.28 Sharri [facility] Respiratory rate 2023-01-31 12:45:00 19 /min Univ ersity of [facility] Oxygen saturation in 2023-01-31 12:45:00 100 /min [facility] Arterial blood by [facility] Pulse oximetry Branch Systolic blood 2023-01-31 11:22:00 97 mm[Hg] Univer sity of pressure [facility] Diastolic blood 2023-01-31 11:22:00 51 mm[Hg] Unive rsity of pressure [facility] Body weight 2023-01-30 20:52:00 69.854 kg [facility] of [facility] BMI 2023-01-30 20:52:00 28.17 kg/m2 [facility] Systolic blood 2023-01-04 13:55:00 96 mm[Hg] Univer sity of pressure [facility] Diastolic blood 2023-01-04 13:55:00 60 mm[Hg] Unive rsity of pressure [facility] Heart rate 2023-01-04 13:55:00 71 /min [facility] Body temperature 2023-01-04 13:55:00 36.72 Sharri [facility] Respiratory rate 2023-01-04 13:55:00 18 /min Univ [facility] Body height 2023-01-04 13:55:00 157.5 cm [facility] Body weight 2023-01-04 13:55:00 69.899 kg [facility] BMI 2023-01-04 13:55:00 28.19 kg/m2 [facility] Systolic blood 2022-12-07 17:20:00 103 mm[Hg] Univer sity of pressure [facility] Diastolic blood 2022-12-07 17:20:00 54 mm[Hg] Unive rsity of pressure [facility] Heart rate 2022-12-07 17:20:00 84 /min [facility] Body temperature 2022-12-07 17:20:00 37.06 Sharri [facility] Respiratory rate 2022-12-07 17:20:00 16 /min Univ [facility] Body height 2022-12-07 17:20:00 157.5 cm [facility] Body weight 2022-12-07 17:20:00 72.666 kg [facility] BMI 2022-12-07 17:20:00 29.30 kg/m2 [facility] Systolic blood 2022-11-23 16:37:00 102 mm[Hg] Univer sity of pressure [facility] Diastolic blood 2022-11-23 16:37:00 71 mm[Hg] Unive rsity of pressure [facility] Heart rate 2022-11-23 16:37:00 77 /min [facility] Body temperature 2022-11-23 16:37:00 36.94 [facility]ri [facility] Respiratory rate 2022-11-23 16:37:00 16 /min Univ [facility] Body height 2022-11-23 16:37:00 157.5 cm [facility] Body weight 2022-11-23 16:37:00 71.759 kg [facility] BMI 2022-11-23 16:37:00 28.94 kg/m2 [facility] Systolic blood 2022-10-12 15:23:00 93 mm[Hg] Univer sity of pressure [facility] Diastolic blood 2022-10-12 15:23:00 41 mm[Hg] Unive rsity of pressure [facility] Heart rate 2022-10-12 15:23:00 68 /min [facility] Body temperature 2022-10-12 15:23:00 36.78 [facility]ri [facility] Respiratory rate 2022-10-12 15:23:00 16 /min [facility] Body height 2022-10-12 15:23:00 157.5 cm [facility] Body weight 2022-10-12 15:23:00 74.163 kg [facility] BMI 2022-10-12 15:23:00 29.90 kg/m2 [facility] Systolic blood 2022-10-11 06:57:00 103 mm[Hg] Univer sity of pressure [facility] Diastolic blood 2022-10-11 06:57:00 55 mm[Hg] Unive rsity of pressure [facility] Heart rate 2022-10-11 06:57:00 67 /min [facility] Body temperature 2022-10-11 06:57:00 36.61 [facility]ri [facility] Respiratory rate 2022-10-11 06:57:00 18 /min [facility] Body height 2022-10-11 06:57:00 157.5 cm [facility] Body weight 2022-10-11 06:57:00 74.844 kg [facility] BMI 2022-10-11 06:57:00 30.18 kg/m2 [facility] Oxygen saturation in 2022-10-11 06:57:00 100 /min [facility] Arterial blood by [facility] Pulse oximetry Branch BP Systolic 2022-07-21 14:17:00 89 mm[Hg] BP Diastolic 2022-07-21 14:17:00 61 mm[Hg] Weight Measured 2022-07-21 14:17:00 165.20 pounds Height Measured 2022-07-21 14:17:00 61.81 inches Body Temperature 2022-07-21 14:17:00 97.60 degrees Heart Rate 2022-07-21 14:17:00 84.00 /min Respiratory Rate 2022-07-21 14:17:00 BP Systolic 2022-07-08 11:10:00 109 mm[Hg] BP Diastolic 2022-07-08 11:10:00 76 mm[Hg] Weight Measured 2022-07-08 11:10:00 164.40 pounds Height Measured 2022-07-08 11:10:00 61.81 inches Body Temperature 2022-07-08 11:10:00 98.40 degrees Heart Rate 2022-07-08 11:10:00 63.00 /min Respiratory Rate 2022-07-08 11:10:00 18.00 /min BP Systolic 2022-06-25 13:41:00 BP Diastolic 2022-06-25 13:41:00 Weight Measured 2022-06-25 13:41:00 165.40 pounds Height Measured 2022-06-25 13:41:00 61.81 inches Body Temperature 2022-06-25 13:41:00 98.70 degrees Heart Rate 2022-06-25 13:41:00 90.00 /min Respiratory Rate 2022-06-25 13:41:00 BP Systolic 2022-05-24 14:55:00 101 mm[Hg] BP Diastolic 2022-05-24 14:55:00 69 mm[Hg] Weight Measured 2022-05-24 14:55:00 165.80 pounds Height Measured 2022-05-24 14:55:00 61.81 inches Body Temperature 2022-05-24 14:55:00 98.10 degrees Heart Rate 2022-05-24 14:55:00 97.00 /min Respiratory Rate 2022-05-24 14:55:00 17.00 /min BP Systolic 2021-09-25 09:46:00 101 mm[Hg] BP Diastolic 2021-09-25 09:46:00 70 mm[Hg] Weight Measured 2021-09-25 09:46:00 167.20 pounds Height Measured 2021-09-25 09:46:00 61.81 inches Body Temperature 2021-09-25 09:46:00 98.10 degrees Heart Rate 2021-09-25 09:46:00 82.00 /min Respiratory Rate 2021-09-25 09:46:00 16.00 /min BP Systolic 2021-08-15 16:31:00 BP Diastolic 2021-08-15 16:31:00 Weight Measured 2021-08-15 16:31:00 168.00 pounds Height Measured 2021-08-15 16:31:00 61.81 inches Body Temperature 2021-08-15 16:31:00 Heart Rate 2021-08-15 16:31:00 Respiratory Rate 2021-08-15 16:31:00 BP Systolic 2021-07-07 14:44:00 114 mm[Hg] BP Diastolic 2021-07-07 14:44:00 75 mm[Hg] Weight Measured 2021-07-07 14:44:00 170.00 pounds Height Measured 2021-07-07 14:44:00 61.81 inches Body Temperature 2021-07-07 14:44:00 99.00 degrees Heart Rate 2021-07-07 14:44:00 81.00 /min Respiratory Rate 2021-07-07 14:44:00 16.00 /min BP Systolic 2021-03-03 14:01:00 BP Diastolic 2021-03-03 14:01:00 Weight Measured 2021-03-03 14:01:00 167.00 pounds Height Measured 2021-03-03 14:01:00 61.81 inches Body Temperature 2021-03-03 14:01:00 Heart Rate 2021-03-03 14:01:00 Respiratory Rate 2021-03-03 14:01:00 BP Systolic 2021-01-27 10:01:00 90 mm[Hg] BP Diastolic 2021-01-27 10:01:00 60 mm[Hg] Weight Measured 2021-01-27 10:01:00 169.40 pounds Height Measured 2021-01-27 10:01:00 61.81 inches Body Temperature 2021-01-27 10:01:00 98.80 degrees Heart Rate 2021-01-27 10:01:00 66.00 /min Respiratory Rate 2021-01-27 10:01:00 17.00 /min BP Systolic 2021-01-26 09:59:00 92 mm[Hg] BP Diastolic 2021-01-26 09:59:00 57 mm[Hg] Weight Measured 2021-01-26 09:59:00 170.80 pounds Height Measured 2021-01-26 09:59:00 61.81 inches Body Temperature 2021-01-26 09:59:00 98.20 degrees Heart Rate 2021-01-26 09:59:00 69.00 /min Respiratory Rate 2021-01-26 09:59:00 18.00 /min BP Systolic 2019-12-27 16:52:00 113 mm[Hg] BP Diastolic 2019-12-27 16:52:00 73 mm[Hg] Weight Measured 2019-12-27 16:52:00 194.40 pounds Height Measured 2019-12-27 16:52:00 61.50 inches Body Temperature 2019-12-27 16:52:00 98.70 degrees Heart Rate 2019-12-27 16:52:00 95.00 /min Respiratory Rate 2019-12-27 16:52:00 16.00 /min BP Systolic 2019-12-05 10:30:00 104 mm[Hg] BP Diastolic 2019-12-05 10:30:00 72 mm[Hg] Weight Measured 2019-12-05 10:30:00 196.80 pounds Height Measured 2019-12-05 10:30:00 61.50 inches Body Temperature 2019-12-05 10:30:00 98.70 degrees Heart Rate 2019-12-05 10:30:00 81.00 /min Respiratory Rate 2019-12-05 10:30:00 16.00 /min BP Systolic 2019-03-07 10:08:00 92 mm[Hg] BP Diastolic 2019-03-07 10:08:00 64 mm[Hg] Weight Measured 2019-03-07 10:08:00 181.10 pounds Height Measured 2019-03-07 10:08:00 61.50 inches Body Temperature 2019-03-07 10:08:00 98.11 degrees Heart Rate 2019-03-07 10:08:00 67.00 /min Respiratory Rate 2019-03-07 10:08:00 17.00 /min Procedures Procedure Date / Time Performing Clinician Source Performed CBC WITH DIFF 2023-05-25 08:18[facility] 2023-05-25 08:18:00 Vega [facility] VENOUS CORD GAS 2023-05-24 14:15:00 Michelle Mchugh [facility] [place] VENOUS CORD GAS 2023-05-24 14:15:00 Michelle Mchugh [facility] [place] CENTRAL NEURAXIAL BLOCK 2023-05-24 13:07:00 Yo Ott [facility] EXTERNAL CEPHALIC 2023-05-24 [facility]-05-24 13:01:00 [facility] EXTERNAL CEPHALIC 2023-05-24 [facility] 2023-05-24 13:01:00 [facility] CBC WITH DIFF 2023-05-24 08:39:[address] [facility] CBC WITH DIFF 2023-05-24 08:39:[address] [facility] HEPATITIS B SURFACE 2023-05-24 07:07:00 Michelle Mchugh [facility] ANTIGEN [facility] HCV ANTIBODY 2023-05-24 07:07:00 Stephanie [facility] HB ABO GROUPING 2023-05-24 07:07:00 Michelle Mchugh [facility] [place] RHO (D) IMMUNE GLOBULIN 2023-05-24 07:07:00 Maggie [facility] HIV 1/2 AG-AB WITH 2023-05-24 07:07:00 [facility] SYPHILIS IGG/IGM 2023-05-24 07:07:00 Stephanie [facility] HEPATITIS B SURFACE 2023-05-24 07:07:00 Michelle Mcuhgh [facility] ANTIGEN [facility] HCV ANTIBODY 2023-05-24 07:07:00 Stephanie [facility] HB ABO GROUPING 2023-05-24 07:07:00 Michelle Mchugh [facility] [place] RHO (D) IMMUNE GLOBULIN 2023-05-24 07:07:00 Maggie [facility] HIV 1/2 AG-AB WITH 2023-05-24 07:07:00 Stephanie [facility] SYPHILIS IGG/IGM 2023-05-24 07:07:00 Stephanie [facility] POCT URINALYSIS 2023-05-17 20:50:00 Rose Oshea [facility] POCT URINALYSIS 2023-05-09 18:41:00 Rose Oshea [facility] POCT URINALYSIS 2023-05-04 20:05:00 Rose Oshea [facility] POCT URINALYSIS 2023-04-26 00:00:00 Rose Oshea [facility] TDAP VACCINE, >11 YRS, 2023-03-29 15:18:58 Rose Oshea [facility] POCT URINALYSIS 2023-03-29 15:00:00 Rose Oshea [facility] COVID-19 (ID NOW RAPID 2023-03-14 22:33:00 Masoud [facility] TESTING) [facility] ASSIGNMENT OF BENEFITS 2023-03-14 21:58:14 Doctor Unassigned, No [facility] CONSENT/REFUSAL FOR 2023-03-14 21:39:38 Doctor Unassigned, No [facility] DIAGNOSIS AND TREATMENT [facility] POCT MOLECULAR FLU 2023-03-11 15:06:00 Rose Oshea [facility] POCT MOLECULAR STREP 2023-03-11 15:04:00 Rose Oshea Uni [facility] POCT URINALYSIS 2023-03-11 00:00:00 Rose Oshea [facility] 3 HR GLUCOSE TOLERANCE 2023-02-25 15:56:00 [facility] GLUCOSE TOLERANCE 2023-02-25 14:56:00 [facility] TRICHOMONAS AMPLIFIED 2023-02-25 14:23:00 Tad Barrow [facility] 1 HR GLUCOSE TOLERANCE 2023-02-25 13:56:00 [facility] GLUCOSE FASTING 2023-02-25 12:51:00 Sonia Tang [facility] 3 HR GLUCOSE TOLERANCE 2023-02-25 12:51:00 Sonia Tang Un [facility] POCT URINALYSIS 2023-02-18 13:18:00 Rose Oshea [facility] STERILIZATION CONSENT 2023-02-18 05:01:00 Doctor Unassigned, No [facility] POCT URINALYSIS 2023-02-01 17:59:00 Rose Oshea [facility] URINALYSIS 2023-01-30 22:00:00 Connor Rodriguez [place] [facility] ADC CLC OR [facility] ONLY - 2023-01-30 22:00:00 Connor Rodriguez [facility] ASSIGNMENT OF BENEFITS 2023-01-30 20:53:27 Doctor Unassigned, No [facility] EXTERNAL PROVIDER 2023-01-28 05:01:00 Doctor Unassigned, No [facility] SECOND AND THIRD 2023-01-12 15:20:00 Rose Oshea [facility] ULTRASOUND [facility] POCT URINALYSIS 2023-01-04 13:58:00 Rose Oshea [facility] COMP. METABOLIC PANEL 2022-12-07 17:44:00 Rose Oshea [facility] ([id number]) [facility] POCT URINALYSIS 2022-12-07 00:00:00 Rose Oshea [facility] POCT URINALYSIS 2022-11-23 00:00:00 Rose Oshea [facility] POCT TEST 2022-10-12 00:00:00 Rose Oshea [facility] POCT URINALYSIS W/O 2022-10-12 00:00:00 Rose Oshea [facility] SPECIFIC GRAVITY [facility] US FIRST 2022-10-11 08:43:00 Lorna Joaquin [facility] TRIMESTER LESS THAN 14 [facility] WEEKS COMP. METABOLIC PANEL 2022-10-11 07:15:00 Lorna Joaquin [facility] ([id number]) [facility] TOTAL BETA HCG ASSAY 2022-10-11 07:15:[address] [facility] CBC WITH DIFF 2022-10-11 07:15:00 Lorna Joaquin [facility] URINALYSIS 2022-10-11 07:09:00 Lorna Joaquin [facility] POCT TEST 2022-10-11 07:06:00 Lorna Joaquin [facility] NOTICE OF PRIVACY 2022-10-11 06:51:30 Doctor Unassigned, No [facility] PRACTICES Name [facility] CONSENT/REFUSAL FOR 2022-10-11 06:50:38 Doctor Unassigned, No [facility] DIAGNOSIS AND TREATMENT Name [facility] Plan of Care Planned Activity Planned Date Details Comments Source Goal Plan of Care Note [code = 65899-1] Goal Plan of Care Note [code = 46660-1] Goal Plan of Care Note [code = 70589-1] Goal Plan of Care Note [code = 77505-1] Goal Plan of Care Note [code = 07804-4] Goal Plan of Care Note [code = 05956-5] Goal Plan of Care Note [code = 13746-4] Goal Plan of Care Note [code = 66209-1] Goal Plan of Care Note [code = 28801-1] Goal Plan of Care Note [code = 78854-4] Goal Plan of Care Note [code = 62463-6] Goal Plan of Care Note [code = 05818-5] Goal Plan of Care Note [code = 09328-1] Goal Plan of Care Note [code = 57694-7] Goal Plan of Care Note [code = 22172-1] Goal Plan of Care Note [code = 29566-2] Goal Plan of Care Note [code = 15552-5] Goal Plan of Care Note [code = 94161-8] Goal Plan of Care Note [code = 29045-8] Goal Plan of Care Note [code = 53485-6] Goal Plan of Care Note [code = 55948-6] Goal Plan of Care Note [code = 33547-7] Goal Plan of Care Note [code = 71686-5] Goal Plan of Care Note [code = 20484-6] Goal Plan of Care Note [code = 00678-1] Goal Plan of Care Note [code = 30225-8] Goal Plan of Care Note [code = 18302-6] Goal Plan of Care Note [code = 40177-9] Goal Plan of Care Note [code = 14925-9] Goal Plan of Care Note [code = 98604-9] Goal Plan of Care Note [code = 70774-7] Goal Plan of Care Note [code = 77462-2] Goal Plan of Care Note [code = 54379-2] Goal Plan of Care Note [code = 79060-7] Goal Plan of Care Note [code = 77522-5] Goal Plan of Care Note [code = 78252-1] Goal Plan of Care Note [code = 77470-4] Goal Plan of Care Note [code = 77804-0] Goal Plan of Care Note [code = 73715-6] Goal Plan of Care Note [code = 13014-4] Goal Plan of Care Note [code = 23560-8] Goal Plan of Care Note [code = 77868-8] Goal Plan of Care Note [code = 80339-0] Goal Plan of Care Note [code = 31789-0] Goal Plan of Care Note [code = 63610-4] Goal Plan of Care Note [code = 45930-9] Goal Plan of Care Note [code = 98376-7] Goal Plan of Care Note [code = 58473-2] Goal Plan of Care Note [code = 80531-3] Goal Plan of Care Note [code = 47227-8] Goal Plan of Care Note [code = 85738-8] Goal Plan of Care Note [code = 20017-7] Goal Plan of Care Note [code = 39750-4] Goal Plan of Care Note [code = 80253-5] Goal Plan of Care Note [code = 90455-7] Goal Plan of Care Note [code = 53567-6] Goal Plan of Care Note [code = 06447-1] Goal Plan of Care Note [code = 11159-7] Goal Plan of Care Note [code = 63071-4] Goal Plan of Care Note [code = 76124-7] Goal Plan of Care Note [code = 16550-0] Goal Plan of Care Note [code = 30643-6] Goal Plan of Care Note [code = 79387-3] Goal Plan of Care Note [code = 08362-3] Goal Plan of Care Note [code = 69103-4] Goal Plan of Care Note [code = 07050-6] Goal Plan of Care Note [code = 81832-4] Goal Plan of Care Note [code = 65465-9] Goal Plan of Care Note [code = 72757-6] Goal Plan of Care Note [code = 94155-3] Goal Plan of Care Note [code = 50204-6] Goal Plan of Care Note [code = 04795-4] Goal Plan of Care Note [code = 14530-7] Goal Plan of Care Note [code = 32179-2] Goal Plan of Care Note [code = 08769-3] Goal Plan of Care Note [code = 79872-3] Goal Plan of Care Note [code = 45960-6] Goal Plan of Care Note [code = 69067-7] Goal Plan of Care Note [code = 14723-1] Goal Plan of Care Note [code = 39633-3] Goal Plan of Care Note [code = 10060-2] Goal Plan of Care Note [code = 83640-7] Goal Plan of Care Note [code = 11977-0] Goal Plan of Care Note [code = 16222-4] Goal Plan of Care Note [code = 71146-5] Goal Plan of Care Note [code = 33436-6] Goal Plan of Care Note [code = 48148-5] Goal Plan of Care Note [code = 82880-2] Goal Plan of Care Note [code = 03880-1] Goal Plan of Care Note [code = 63196-6] Goal Plan of Care Note [code = 33247-9] Goal Plan of Care Note [code = 34350-7] Goal Plan of Care Note [code = 89604-8] Goal Plan of Care Note [code = 95009-3] Goal Plan of Care Note [code = 89308-7] Goal Plan of Care Note [code = 62228-1] Goal Plan of Care Note [code = 10630-5] Goal Plan of Care Note [code = 92078-3] Goal Plan of Care Note [code = 29310-0] Goal Plan of Care Note [code = 54859-7] Goal Plan of Care Note [code = 30154-1] Goal Plan of Care Note [code = 66483-2] Goal Plan of Care Note [code = 28086-9] Goal Plan of Care Note [code = 36275-0] Goal Plan of Care Note [code = 73860-4] Goal Plan of Care Note [code = 90063-0] Goal Plan of Care Note [code = 65726-7] Goal Plan of Care Note [code = 10096-4] Goal Plan of Care Note [code = 87683-2] Goal Plan of Care Note [code = 61638-6] Goal Plan of Care Note [code = 30504-2] Goal Plan of Care Note [code = 01009-9] Goal Plan of Care Note [code = 34818-8] Goal Plan of Care Note [code = 03367-5] Goal Plan of Care Note [code = 50868-0] Goal Plan of Care Note [code = 31844-3] Goal Plan of Care Note [code = 07027-0] Goal Plan of Care Note [code = 04803-4] Goal Plan of Care Note [code = 89496-9] Goal Plan of Care Note [code = 62402-8] Goal Plan of Care Note [code = 07592-4] Goal Plan of Care Note [code = 88411-6] Goal Plan of Care Note [code = 31383-4] Goal Plan of Care Note [code = 50931-4] Goal Plan of Care Note [code = 64343-1] Goal Plan of Care Note [code = 28791-2] Goal Plan of Care Note [code = 44674-5] Goal Plan of Care Note [code = 94882-9] Goal Plan of Care Note [code = 37320-1] Goal Plan of Care Note [code = 71550-9] Goal Plan of Care Note [code = 09684-9] Goal Plan of Care Note [code = 67886-4] Goal Plan of Care Note [code = 19634-5] Goal Plan of Care Note [code = 34432-2] Goal Plan of Care Note [code = 14538-8] Goal Plan of Care Note [code = 70776-5] Goal Plan of Care Note [code = 65429-3] Goal Plan of Care Note [code = 75470-2] Goal Plan of Care Note [code = 11209-1] Goal Plan of Care Note [code = 34871-4] Goal Plan of Care Note [code = 15079-3] Goal Plan of Care Note [code = 40391-2] Goal Plan of Care Note [code = 42802-8] Goal Plan of Care Note [code = 92119-6] Goal Plan of Care Note [code = 89310-8] Goal Plan of Care Note [code = 03686-9] Goal Plan of Care Note [code = 58252-1] Goal Plan of Care Note [code = 58459-7] Goal Plan of Care Note [code = 99964-7] Goal Plan of Care Note [code = 06382-3] Goal Plan of Care Note [code = 30466-1] Goal Plan of Care Note [code = 44412-9] Goal Plan of Care Note [code = 25239-8] Goal Plan of Care Note [code = 46445-8] Goal Plan of Care Note [code = 48033-3] Goal Plan of Care Note [code = 32645-3] Goal Plan of Care Note [code = 33437-3] Goal Plan of Care Note [code = 57724-5] Goal Plan of Care Note [code = 94850-3] Goal Plan of Care Note [code = 11349-2] Goal Plan of Care Note [code = 99894-2] Goal Plan of Care Note [code = 15342-3] Goal Plan of Care Note [code = 80555-9] Goal Plan of Care Note [code = 59288-5] Goal Plan of Care Note [code = 31601-8] Goal Plan of Care Note [code = 24560-3] Goal Plan of Care Note [code = 42365-5] Goal Plan of Care Note [code = 76844-7] Goal Plan of Care Note [code = 78275-6] Goal Plan of Care Note [code = 04279-6] Goal Plan of Care Note [code = 59535-8] Encounters Start End Encounter Admission Attending Care Care Encounter Source Date/Time Date/Time Type Type Clinicians Facility Department ID 2023-01-31 Outpatient X [facility] CEFERINO [id number] Univers 08:11:27 ity [facility] 2023-07-28 2023-07-28 Outpatient R MARIA ISABEL, [facility] [id number] Univers 14:30:00 14:30:00 ROSE [facility] 2023-06-03 2023-06-03 Outpatient R AKINSIPE, [facility] [id number] Univers 10:30:00 10:57:21 TAD mitchell o f [facility] 2023-06-03 2023-06-03 Routine Akinsipe, [facility] [id number] Univers 10:30:00 10:57:21 Tad Vazquez [facility] 350.1.13.10 ity of Visit REGIONAL 4.2.7.2.686 Cassius as MATERNAL [id number] [facility] ical & CHILD [address] [place] [address] 2023-06-02 2023-06-02 Outpatient R AKINSIPE, [facility] [id number] Univers 11:15:00 11:15:00 TAD mitchell o f [facility] 2023-06-02 2023-06-02 Patient Akinsipe, [facility] 1.2.372.646 [id number] Univers 00:00:00 00:00:00 Secure Msg Tad Vazquez [facility] 350.1.13.10 ity of REGIONAL 4.2.7.2.686 Cassius as MATERNAL [id number] [facility] & CHILD [address] [place] [address] 2023-06-01 2023-06-01 Patient Pushpa [facility] 1.2.407.148 [id number] Univers 00:00:00 00:00:00 Secure Msg Tad Vazquez [facility] 350.1.13.[address]2.7.2.686 Cassius as MATERNAL [id number] [address] 2023-05-24 2023-05-31 Outpatient R CJ LEONE [facility] [id number] Univers 09:30:00 14:42:35 CJ LEONE [facility] 2023-05-31 2023-05-31 Outpatient R PUSHPA [facility] [id number] Univers 10:00:00 10:34:49 TAD mitchell o f [facility] 2023-05-31 2023-05-31 [facility] 1.2 .840.114 [id number] Univers 10:00:00 10:34:49 Visit Tad Barrow [facility] 350.1.13. 10 ity [place] [address]..2.686 Cassius as MATERNAL [id number] [address] 2023-05-23 2023-05-25 Hospital [facility] Yee 1.2.840.114 [id number] Univers 23:38:00 15:39:00 Encounter Ashleigh STERN 350.1.13.10 ity [place] [address].7.2.686 Cassius as [id number] [address] 2023-05-23 2023-05-25 Inpatient P ASHLEIGH YEE [facility] [id number] Univers 23:38:00 15:39:00 ASHLEIGH YEE [facility] 2023-05-25 2023-05-25 Anesthesia HAWA Jack 1.2.840.114 [id number] Univers 06:48:14 06:48:14 Event Corona STERN 350.1.13.10 it y of [facility] 4.2.7.2.686 Cassius as [id number] [facility] [address] 2023-05-24 2023-05-24 Surgery HAWA Leone 1.2.530.718 [id number] Univers 08:05:00 10:24:00 Cj LEENA 350.1.13.10 it y of [facility] 4.2.7.2.686 Cassius as [id number] [facility] [address] 2023-05-24 2023-05-24 Anesthesia Yo Ott 1.2.840 .114 [id number] Univers 08:14:00 09:58:00 Event Yudelka Campo LEENA 350.1.13.10 ity of HOSPITAL .2.7.2.686 Cassius as [id number] [facility] [address] 2023-05-24 2023-05-24 Anesthesia HAWA Chew 1.2.840.114 [id number] Univers 07:41:43 07:41:43 Event Nhi LEENA 350.1.13.10 it y of [facility] 4.2.7.2.686 Cassius as [id number] [facility] [address] 2023-05-24 2023-05-24 Anesthesia HAWA Perez 1.2.840.114 [id number] Univers 07:32:06 07:32:06 Event Abhijit LEENA 350.1.13.10 it y of [facility] 4.2.7.2.686 Cassius as [id number] [facility] [address] 2023-05-17 2023-05-17 Outpatient R PUSHPA [facility] [id number] Univers 15:45:00 16:08:33 TAD mitchell o f [facility] 2023-05-17 2023-05-17 Routine Akindeniz, [facility] 1.2.389.174 [id number] Univers 15:45:00 16:08:33 Tad Vazquez [facility] 350.1.13.10 ity of Visit [employer] 4.2.7.2.686 Cassius as MATERNAL [id number] [facility] ical & CHILD [address] [place] [address] 2023-05-15 2023-05-15 Patient Pushpa, [facility] 1.2.463.752 [id number] Univers 00:00:00 00:00:00 Secure Msg Tad C [facility] 350.1.13.10 ity of REGIONAL 4.2.7.2.686 Cassius as MATERNAL [id number] [facility] & CHILD [address] [place] [address] 2023-05-09 2023-05-09 [facility] [id number] Univers 13:30:00 13:57:03 TAD ity o f [facility] 2023-05-09 2023-05-[address] [facility], [facility] 1.2.860.814 [id number] Univers 13:30:00 13:57:03 Tad C [facility] 350.1.13.10 ity of Visit REGIONAL 4.2.7.2.686 Cassius as MATERNAL [id number] [facility] & [address] 2023-05-09 2023-05-09 Letter [facility] 1.2.362.150 [id number] Univers 00:00:00 00:00:00 (Out) Tad C [facility] 350.1.13.10 ity of REGIONAL 4.2.7.2.686 Cassius as MATERNAL [id number] [facility] & [address] 2023-05-06 2023-05-06 Patient [facility] 1.2.637.079 [id number] Univers 00:00:00 00:00:00 Secure Msg Tad C [facility] 350.1.13.10 ity of REGIONAL 4.2.7.2.686 Cassius as MATERNAL [id number] [facility] & [address] 2023-05-04 2023-05-04 Outpatient R AKINSIPE, [facility] [id number] Univers 15:00:00 15:30:07 TAD ity o [facility] 2023-05-04 2023-05-04 Routine [facility] 1.2.430.450 [id number] Univers 15:00:00 15:30:07 Tad C [facility] 350.1.13.10 ity of Visit REGIONAL 4.2.7.2.686 Cassius as MATERNAL [id number] [facility] & CHILD [address] [place] [address] 2023-04-26 2023-04-26 Routine [facility] 1.2.535.637 [id number] Univers 15:15:00 15:30:00 Tad C [facility] 350.1.13.10 ity of Visit REGIONAL 4.2.7.2.686 Cassius as MATERNAL [id number] [facility] & [address] 2023-04-26 2023-04-26 [facility], [facility] [id number] Univers 15:15:00 15:15:00 TAD ity o f [facility] 2023-04-15 2023-04-15 Telephone [facility] 1.2.840.114 [id number] Univers 00:00:00 00:00:00 Tad C [facility] 350.1.13.10 ity of REGIONAL 4.2.7.2.686 Cassius as MATERNAL [id number] [address] 2023-04-12 2023-04-12 [facility], [facility] [id number] Univers 08:00:00 08:38:07 TAD ity o f [facility] 2023-04-12 2023-04-12 Routine [facility] 1.2.435.983 [id number] Univers 08:00:00 08:38:07 Tad C [facility] 350.1.13.10 ity of Visit REGIONAL 4.2.7.2.686 Cassius as MATERNAL [id number] [address] 2023-03-29 2023-03-29 [id number] Univers 09:45:00 10:40:03 ROSE ity of [facility] 2023-03-29 2023-03-29 [facility] 1.2.840.114 [id number] Univers 09:45:00 10:40:03 Rose A [facility] 350.1.13.10 ity of Visit REGIONAL 4.2.7.2.686 Cassius as MATERNAL [id number] [facility] & CHILD [address] [place] [address] 2023-03-14 2023-03-14 Emergency X Masoud COUCH [facility] ERT [id number] Univers 16:50:00 18:51:00 ity of [facility] 2023-03-14 2023-03-14 Emergency Masoud Couch [facility] 1.2.840.114 [id number] Univers 16:50:00 18:51:00 Rhianna [place] 350.1.13.10 i ty [facility] 4.2.7.2.[place] [id number] [facility] [address] [place] 2023-03-14 2023-03-14 Patient Maria Isabel [facility] 1.2.840.114 [id number] Univers 00:00:00 00:00:00 Secure Msg Rose A ORCHARD PRUNER 350.1.13.10 ity of [employer] 4.2.7.2.686 Cassius as MATERNAL [id number] [facility] & CHILD [address] [place] [address] 2023-03-14 2023-03-14 Orders Doctor HAWA 1.2.840.114 [id number] Univers 00:00:00 00:00:00 Only Unassigned, LEENA 350.1.13.10 ity of [place] [facility] 4.2.7.2.686 Cassius as [phone] [facility] [address] [place] 2023-03-11 2023-03-11 Outpatient R MARIA ISABEL [facility] [id number] Univers 09:30:00 10:22:34 ROSE ity of [facility] 2023-03-11 2023-03-11 [facility]ine [facility] 1.2.840.114 [id number] Univers 09:30:00 10:22:34 Rose A ORCHARD PRUNER 350.1.13.10 ity of Visit [employer] 4.2.7.2.686 Cassius as MATERNAL [phone] [facility] & CHILD [address] [place] [address] 2023-03-10 2023-03-10 Telephone Maria Isabel DCSINAN 1.2.840.114 1 [id number] Univers 00:00:00 00:00:00 Rose A ORCHARD PRUNER 350.1.13.10 i ty of [employer] 4.2.7.2.686 Cassius as MATERNAL [id number] [facility] & CHILD [address] [place] [address] 2023-02-25 2023-02-25 Blurb Writer Lab, Ang-Rmchp [facility] 1.2.840. 114 [id number] Univers 07:45:00 08:26:44 Visit Tad Barrow [facility] 350.1.13. 10 ity of [address]686 [place] as MATERNAL [id number] [facility] & CHILD [address] [place] [address] 2023-02-25 2023-02-25 Outpatient R PUSHPA [facility] [id number] Univers 07:45:00 07:45:00 TAD morataya [facility] 2023-02-24 2023-02-24 Outpatient R PUSHPA [facility] [id number] Univers 08:00:00 08:00:00 TAD morataya [facility] 2023-02-23 2023-02-23 Outpatient R MARIA ISABEL [facility] [id number] Univers 07:45:00 07:45:00 ROSE mitchell [facility] 2023-02-22 2023-02-22 Case [facility] 1.2.840.114 [id number] Univers 00:00:00 00:00:00 Management Sonia Rushing [facility] [employer] 350.1.13.10 ity of [place] [address].7.2.686 Cassius as MATERNAL [id number] [facility] & CHILD [address] [place] [address] 2023-02-22 2023-02-22 James [facility] 1.2.840.114 1 [id number] Univers 00:00:00 00:00:00 Rose Rushing [employer] [employer] 350.1.13.10 i ty of [employer] 42.7.2.686 Cassius as MATERNAL [id number] [facility] & CHILD [address] [place] [address] 2023-02-18 2023-02-18 Outpatient R PUSHPA [facility] [id number] Univers 07:45:00 08:56:21 TAD ity o f [facility] 2023-02-18 2023-02-18 Routine [facility] 1.2.348.362 [id number] Univers 07:45:00 08:56:21 Tad C [facility] [employer] 350.1.13.10 ity of Visit REGIONAL 4.2.7.2.686 [place]ius as MATERNAL [id number] Med ical & CHILD [address] [place] [address] 2023-02-18 2023-02-18 Orders Doctor HAWA 1.2.840.114 [id number] Univers 00:00:00 00:00:00 Only Unassigned, LEENA 350.1.13.10 ity of [place] [facility] 4.2.7.2.686 Cassius as [id number] [address] 2023-02-10 2023-02-10 [facility] [id number] Univers 16:00:00 16:00:00 [facility] 2023-02-08 Outpatient R ABELINOFORMERLY [facility] [id number] Univers 15:15:00 15:15:00 [facility] 2023-02-04 2023-02-04 [facility] [id number] Univers 12:45:00 12:45:00 [facility] 2023-02-04 2023-02-04 Telephone [facility] 1.2.840.114 [id number] Univers 00:00:00 00:00:00 Tad Vazquez [employer] 350.1.13.10 ity of REGIONAL 4.2.7.2.686 [place] as MATERNAL [id number] [facility] & CHILD [address] [place] [address] 2023-02-03 2023-02-03 Patient [facility] 1.2.840.114 [id number] Univers 00:00:00 00:00:00 Secure Msg Rose A [employer] 350.1.13.10 ity of REGIONAL 4.2.7.2.686 [place]ius as MATERNAL [id number] Med ical & CHILD [address] [place] [address] 2023-02-01 2023-02-01 Outpatient R MARIA ISABEL [facility] [id number] Univers 12:45:00 13:32:13 [facility]-01 2023-02-01 Routine Provider, Marisa Jauregui [facility] 1 .2.840.114 [id number] Univers 12:45:00 13:32:13 Rose Oshea [employer] 350.1.13. 10 ity of Visit [employer] 4.2.7.2.686 Cassius as MATERNAL [id number] [facility] & [address] 2023-02-01 2023-02-01 Telephone Maria Isabel [facility] 1.2.840.114 1 [id number] Univers 00:00:00 00:00:00 Rose Rushing [employer] 350.1.13.10 i ty of [employer] 4.2.7.2.686 Cassius as MATERNAL [id number] [facility] & [address] 2023-02-01 2023-02-01 Letter Maria Isabel [facility] 1.2.840.114 [id number] Univers 00:00:00 00:00:00 (Out) Rose Rushing [employer] 350.1.13.10 i ty of [employer] 4.2.7.2.686 Cassius as MATERNAL [id number] [facility] & [address] 2023-01-30 2023-01-31 Outpatient X CONNOR RODRIGUEZ [facility] CEFERINO [id number] Univers 15:54:00 08:10:00 ity [facility] 2023-01-30 2023-01-31 Emergency Connor Rodriguez [facility] 1.2.840.114 10 [id number] Univers 15:54:00 08:10:00 [facility] 350.1.13.10 i [place] 4.2.7.2.686 [id number] [address] 2023-01-28 2023-01-28 Orders Doctor SHAIKH 1.2.840.114 [id number] Univers 00:00:00 00:00:00 Only Unassigned, LEENA 350.1.13.10 ity of [place] [facility] 4.2.7.2.686 Cassius as [id number] [address] 2023-01-13 2023-01-13 Case Maria Isabel [facility] 1.2.840.114 [id number] Univers 00:00:00 00:00:00 Management Rose A [employer] 350.1.13.10 ity of [employer] 4.2.7.2.686 Cassius as MATERNAL [id number] [facility] CHILD [address] [place] [address] 2023-01-12 2023-01-12 Blurb Writer Ultrasound, [facility] 1.2 .840.114 [id number] Univers 09:00:00 09:53:44 Visit Ashleigh Yee [employer] [employer] 350.1.13.10 ity of [employer] 4.2.7.2.686 Cassius as MATERNAL [id number] [facility] & CHILD [address] [place] [address] 2023-01-12 2023-01-12 Outpatient P ASHLEIGH YEE [facility] [id number] Univers 09:00:00 09:00:00 ASHLEIGH YEE [facility] 2023-01-12 2023-01-12 Letter [facility] 1.2.840.114 [id number] Univers 00:00:00 00:00:00 (Out) Rose A [employer] 350.1.13.10 i ty of [employer] 4.2.7.2.686 Cassius as MATERNAL [id number] [facility] & CHILD [address] [place] [address] 2023-01-10 2023-01-10 Patient Maria Isabel [facility] 1.2.840.114 [id number] Univers 00:00:00 00:00:00 Secure Msg Rose A [employer] 350.1.13.10 ity of [employer] 4.7.2.686 Cassius as MATERNAL [id number] [facility] & CHILD [address] [place] [address] 2023-01-04 2023-01-04 Outpatient R MARIA ISABEL [facility] [id number] Univers 07:45:00 08:25:54 ROSE ity [facility] 2023-01-04 2023-01-04 [facility] 1 .2.840.114 [id number] Univers 07:45:00 08:25:54 Rose Oshea [employer] 350.1.13. 10 ity of Visit REGIONAL 4.2.7.2.686 Cassius as MATERNAL [id number] [facility] & [address] 2022-12-07 2022-12-07 [facility] [id number] Univers 10:45:00 11:43:41 ROSE [facility] 2022-12-07 2022-12-07 Routine Provider, [facility] 1 .2.840.114 [id number] Univers 10:45:00 11:43:41 Rose Oshea [employer] 350.1.13. 10 ity of Visit REGIONAL 4.2.7.2.686 [place]ius as MATERNAL [id number] [address] 2022-11-30 2022-11-30 [facility] [id number] Univers 09:30:00 09:30:00 TAD morataya [facility] 2022-11-29 2022-11-29 Outpatient R [facility] [id number] Univers 10:30:00 10[facility]-29 2022-11-29 Telephone [facility] 1.2.840.114 1 [id number] Univers 00:00:00 00:00:00 Rose Rushing [employer] 350.1.13.10 i ty of REGIONAL 4.2.7.2.686 [place]ius as MATERNAL [id number] [address] 2022-11-25 2022-11-25 Out[facility] [id number] Univers 13:00:00 13:00:00 TAD morataya [facility] 2022-11-23 2022-11-23 Outpatient [facility] [id number] Univers 10:45:00 11:26:29 ROSE mitchell [facility] 2022-11-23 2022-11-23 Routine Provider, [email or web address] 1 .2.840.114 [id number] Univers 10:45:00 11:26:29 Rose Oshea [employer] 350.1.13. 10 ity of Visit [employer] 4.2.7.2.686 Cassius as MATERNAL [id number] [facility] & CHILD [address] [place] [address] 2022-11-09 2022-11-09 Outpatient R AKINPE, [facility] [id number] Univers 10:30:00 10:30:00 TAD lerma [facility] 2022-11-09 2022-11-09 Outpatient R AKINSIPE, [facility] [id number] Univers 10:30:00 10:30:00 TAD lerma [facility] 2022-11-05 2022-11-05 Outpatient P [facility] [id number] Univers 08:00:00 08:00:00 ity of [facility] 2022-11-01 2022-11-01 Jluis [facility] 1.2.840.114 [id number] Univers 00:00:00 00:00:00 Rose Rushing [employer] 350.1.13.10 i ty of [employer] 4.2.7.2.686 Cassius as MATERNAL [id number] [facility] & [address] 2022-10-25 2022-10-25 Jluis [facility] 1.2.840.114 [id number] Univers 00:00:00 00:00:00 Rose Rushing [employer] 350.1.13.10 i ty of [employer] 4.2.7.2.686 Cassius as MATERNAL [id number] [facility] & [address] 2022-10-12 2022-10-12 Initial Provider, [email or web address] 1 .2.840.114 [id number] Univers 09:15:00 10:13:15 Rose Oshea [employer] 350.1.13. 10 ity of Visit REGIONAL 4.2.7.2.686 Cassius as MATERNAL [id number] [facility] & CHILD [address] [place] [address] 2022-10-12 2022-10-12 Outpatient R MARIA ISABEL [facility] [id number] Univers 09:15:00 10:13:15 ROSE [facility] 2022-10-12 2022-10-12 Patient Doctor HAWA 1.2.840.114 [id number] Univers 00:00:00 00:00:00 Secure Msg Unassigned, LEENA 350.1.13.10 ity of [place] [facility] 4.2.7.2.686 Cassius as [id number] [facility] [address] [place] 2022-10-12 2022-10-12 Telephone Pcp, [facility] 1.2.328.318 [id number] Univers 00:00:00 00:00:00 Patient [facility]ER 350.1.13.10 it y of Does Not [place] 4.2.[place].2.686 [place] MATERNAL [id number] [facility] & CHILD [address] [place] [address] 2022-10-11 2022-10-11 Emergency X [facility] ERT [id number] Univers 01:01:00 04:19:00 [facility]22-10-11 2022-10-11 Emergency [facility] 1.2.687.051 [id number] Univers 01:01:00 04:19:00 Lorna Contreras [place] 350.1.13.10 i ty [facility] 4.2.7.2.[place] [id number] [facility] [address] [place] 2022-07-21 2022-07-21 Outpatient [id number]- [id number] e326jh-[id number] 00:00:00 00:00:00 Visit q94c-675h 15c-486b-b -c6o4-l32 9l2-q32500 992f62fh7 f56ef5 2022-07-21 2022-07-21 Outpatient [id number]- [id number] e5 413q99-c 00:00:00 00:00:00 Visit h3w0-4923 8p7-5186-o -x295-54w 328-03bc2d t3zlr273v zy756l 2022-06-25 2022-06-25 Outpatient [id number]- [id number] f4 08bbff-f 00:00:00 00:00:00 Visit a113-5t26 424-4f73-b -je32-068 u60-4818qd [id number] m40876 2022-05-25 2022-05-25 Outpatient [id number] 00:00:00 00:00:00 Visit 16e8-4n95 4j0-8i00-w -qs8w-8x5 u0j-9c563w [id number] 3899-07-18 2022-05-24 Outpatient [id number] [id number] 00:00:00 00:00:00 Visit 38b7-1z80 0s7-1b25-d -l43e-l29 59c-d134b1 [id number] 143e49 2021-12-09 2021-12-09 Outpatient Devon TREADWELL [facility] [id number] Univers 00:00:00 00:00:00 BOBBY [id number] [facility] 2021-12-09 2021-12-09 Outpatient Devon TREADWELL [facility] [id number] Univers 00:00:00 00:00:00 BOBBY [facility] 2021-02-14 2021-02-14 Outpatient Devon ALCARAZ [facility] [id number] Univers 16:10:00 14:08:48 URBANO [facility] 2021-01-24 2021-01-24 Outpatient Devon ALCARAZ [facility] [id number] Univers 16:15:00 16:15:00 URBANO [facility] 2013-04-03 2013-04-03 Outpatient Devon [facility] [id number] Univers 17:00:00 18:54:47 VIDHI [facility] Results Test Description Test Time Test Comments Results Result Comments Source SYPHILIS IGG/IGM 2023-05-25 17:31:57 Test Item Value Reference Range Interpretation Comme nts Syphilis IgG/IgM (test code = Non-reactive Non-reactive 41996-0) FELIX (test code = FELIX) Non-reactive - No serologic evidence of T. pallidum infection. Cannot exclude incubating or early syphilis. Submit a second specimen in 2-4 weeks if syphilis is clinically suspected. Equivocal - Further testing to follow. Reactive - Further testing to follow. Lab Interpretation (test code = Normal 23028-6) [id number] 17:31:57 Test Item Value Reference Range Interpretation Comments Syphilis IgG/IgM (test Non-reactive Non-reactive code = 62002-6) FELIX (test code = FELIX) Non-reactive - No serologic evidence of T. pallidum infection. Cannot exclude incubating or early syphilis. Submit a second specimen in 2-4 weeks if syphilis is clinically suspected. Equivocal - Further testing to follow. Reactive - Further testing to follow. Lab Interpretation (test Normal code = 47197-2) [facility] 1/2 AG-AB WITH [id number] 17:42:23 Test Item Value Reference Range Interpretation Comments HIV 0.10 Negative Semi-quantitative (test code = 11209-3) FELIX (test code = Non-reactive for HIV-1 FELIX) antigen and HIV-1/HIV-2 antibodies. ?No laboratory evidence of HIV infection. ?Repeat in 2-4 weeks if acute HIV infection is suspected. [facility] [id number] 17:42:23 Test Item Value Reference Range Interpretation Comments HCV Ab (test code = 36296-5) Negative HCV Semi-Quantitative (test code = 0.01 66069-5) [facility] 1/2 AG-AB WITH [id number] 17:42:23 Test Item Value Reference Range Interpretation Comments HIV 0.10 Negative Semi-quantitative (test code = 77222-6) FELIX (test code = Non-reactive for HIV-1 FELIX) antigen and HIV-1/HIV-2 antibodies. ?No laboratory evidence of HIV infection. ?Repeat in 2-4 weeks if acute HIV infection is suspected. [facility] [id number] 17:42:23 Test Item Value Reference Range Interpretation Comments HCV Ab (test code = 67035-5) Negative HCV Semi-Quantitative (test code = 0.01 76882-3) [facility] (D) IMMUNE [id number] 16:14:34 Test Item Value Reference Range Interpretation Comments RHIG CANDIDATE? No- see comment Patient i s not a (test code = candidate for R hIg- 5188) Patient is Rh Positive.Perfor [facility] at [facility] Laboratory Services - [facility] Blood [address] Free: [phone] A No. [id number] [facility] (D) IMMUNE [id number] 16:14:34 Test Item Value Reference Range Interpretation Comments RHIG CANDIDATE? No- see comment Patient i s not a (test code = candidate for R hIg- 5188) Patient is Rh Positive.Perfor med at [facility] Laboratory Services - [facility] Blood [address] Free: [phone] A No. [id number] [facility] ONLY - SYPHILIS [id number] 15:20:42 Test Item Value Reference Range Interpretation Comments Syphilis IgG/IgM (test Non-reactive Non-reactive code = 79579-9) FELIX (test code = FELIX) Non-reactive - No serologic evidence of T. pallidum infection. Cannot exclude incubating or early syphilis. Submit a second specimen in 2-4 weeks if syphilis is clinically suspected. Equivocal - Further testing to follow. Reactive - Further testing to follow. Lab Interpretation (test Normal code = 81810-6) [facility] ONLY - SYPHILIS [id number] 15:20:42 Test Item Value Reference Range Interpretation Comments Syphilis IgG/IgM (test Non-reactive Non-reactive code = 57800-2) FELIX (test code = FELIX) Non-reactive - No serologic evidence of T. pallidum infection. Cannot exclude incubating or early syphilis. Submit a second specimen in 2-4 weeks if syphilis is clinically suspected. Equivocal - Further testing to follow. Reactive - Further testing to follow. Lab Interpretation (test Normal code = 77575-5) [facility] Cord [id number] 15:02:53 Test Item Value Reference Range Interpretation Comments VENOUS BASE EXCESS, -3.7 mEq/L CORD (test code = 6225421719) VENOUS PH, CORD (test 7.31 7.25-7.45 code = 2072779470) VENOUS PC02, CORD 46 See_Comment [Automate d message] The (test code = system which ge nerated 9512359756) this result tra nsmitted reference range : 27 - 49 mmHg. The refer ence range was not used to interpret this result as normal/abnormal . VENOUS PO2, CORD (test 31 See_Comment [Aut omated message] The code = 7198796972) system [facility] generated this result tra nsmitted reference range : 17 - 41 mmHg. The refer ence range was not used to interpret this result as normal/abnormal . VENOUS BICARBONATE, 23 See_Comment [Automa sathya message] The CORD (test code = system [facility] generated 6768730668) this result tra nsmitted reference range : 12 - 29 mEq/L. The refe rence range was not used to interpret this result as normal/abnormal . [facility] Cord [id number] 15:02:53 Test Item Value Reference Range Interpretation Comments VENOUS BASE EXCESS, -3.7 mEq/L CORD (test code = 3886007736) VENOUS PH, CORD (test 7.31 7.25-7.45 code = 3488166468) VENOUS PC02, CORD 46 See_Comment [Automate d message] The (test code = system which ge nerated 8083583433) this result tra nsmitted reference range : 27 - 49 mmHg. The refer ence range was not used to interpret this result as normal/abnormal . VENOUS PO2, CORD (test 31 See_Comment [Aut omated message] The code = 8621543461) system [facility] generated this result tra nsmitted reference range : 17 - 41 mmHg. The refer ence range was not used to interpret this result as normal/abnormal . VENOUS BICARBONATE, 23 See_Comment [Automa sathya message] The CORD (test code = system [facility] generated 5074784977) this result tra nsmitted reference range : 12 - 29 mEq/L. The refe rence range was not used to interpret this result as normal/abnormal . [facility] Cord [id number] 15:00:27 Test Item Value Reference Range Interpretation Comments BASE EXCESS, CORD -3.8 mEq/L (test code = 2680431306) AC PH, CORD (BEAKER) 7.24 7.18-7.38 (test code = 2069212358) PC02, CORD (test code 59 See_Comment [Auto mated message] The = 8821549929) system which g enerated this result transmit sathya reference range : 32 - 66 mmHg. The refer ence range was not used to interpret this result as normal/abnormal . PO2, CORD (test code 15 See_Comment [Autom ated message] The = ) system which g enerated this result transmit sathya reference range : 10 - 30 mmHg. The refer ence range was not used to interpret this result as normal/abnormal . BICARBONATE, CORD 25 See_Comment [Automate d message] The (test code = system which ge nerated this 0250196711) result transmit sathya reference range : 17 - 27 mEq/L. The refe rence range was not used to interpret this result as normal/abnormal . [facility] [id number] 15:00:27 Test Item Value Reference Range Interpretation Comments BASE EXCESS, CORD -3.8 mEq/L (test code = 9193565168) AC PH, CORD (BEAKER) 7.24 7.18-7.38 (test code = 4577536680) PC02, CORD (test code 59 See_Comment [Auto mated message] The = 0285439291) system which g enerated this result transmit sathya reference range : 32 - 66 mmHg. The refer ence range was not used to interpret this result as normal/abnormal . PO2, CORD (test code 15 See_Comment [Autom ated message] The = ) system which g enerated this result transmit sathya reference range : 10 - 30 mmHg. The refer ence range was not used to interpret this result as normal/abnormal . BICARBONATE, CORD 25 See_Comment [Automate d message] The (test code = system which ge nerated this 1561516771) result transmit sathya reference range : 17 - 27 mEq/L. The refe rence range was not used to interpret this result as normal/abnormal . [facility] [id number] 14:08:49 Test Item Value Reference Range Interpretation Comments HBsAg Semi-Quantitative (test code = 0.08 Negative 5195-3) [facility] [id number] 14:08:49 Test Item Value Reference Range Interpretation Comments HBsAg Semi-Quantitative (test code = 0.08 Negative 5195-3) [facility] WITH [id number] 09:18:40 Test Item Value Reference Range Interpretation Comments WBC (test code = 9.38 See_Comment [Automated 6690-2) message] The sy stem which generated this result transmitted reference range : 4.30 - 11.10 10*3/?L. The reference range was not used to interpret this result as normal/abnormal . RBC (test code = 3.53 See_Comment L [Automated 789-8) message] The sy stem which generated this result transmitted reference range : 3.93 - 5.25 10*6/?L. The reference range was not used to interpret this result as normal/abnormal . HGB (test code = 9.6 g/dL 11.6-15.0 L 718-7) HCT (test code = 28.9 % 35.7-45.2 L 4544-3) MCV (test code = 81.9 fL 80.6-95.5 787-2) MCH (test code = 27.2 pg 25.9-32.8 785-6) MCHC (test code = 33.2 g/dL 31.6-35.1 786-4) RDW-SD (test code = 46.5 fL 39.0-49.9 63217-2) RDW-CV (test code = 15.9 % 12.0-15.5 H 788-0) PLT (test code = 237 See_Comment [Automated 777-3) message] The sy stem which generated this result transmitted reference range : 166 - 358 10*3/ ?L. The reference r manju was not used to interpret this result as normal/abnormal . MPV (test code = 11.9 fL 9.5-12.9 97961-4) NRBC/100 WBC (test 0.0 See_Comment [Automat ed code = 1294250234) message] The system which generated this result transmitted reference range : 0.0 - 10.0 /100 WBCs. The refer ence range was not u sed to interpret th is result as normal/abnormal . NRBC x10^3 (test code See_Comment [Auto mated = 1798165975) message] The s ystem which generated this result transmitted reference range : 10*3/?L. The reference range was not used to interpret this result as normal/abnormal . GRAN MAT (NEUT) % 76.1 % (test code = 770-8) IMM GRAN % (test code 0.40 % = 6007969641) LYMPH % (test code = 17.1 % 736-9) MONO % (test code = 5.8 % 5905-5) EOS % (test code = 0.4 % 713-8) BASO % (test code = 0.2 % 706-2) GRAN MAT x10^3(ANC) 7.14 10*3/uL 1.88-7.09 H (test code = 6601779512) IMM GRAN x10^3 (test 0.04 10*3/uL 0.00-0.06 code = 2218101997) LYMPH x10^3 (test code 1.60 10*3/uL 1.32-3.29 = 731-0) MONO x10^3 (test code 0.54 10*3/uL 0.33-0.92 = 742-7) EOS x10^3 (test code = 0.04 10*3/uL 0.03-0.39 711-2) BASO x10^3 (test code 0.01-0.07 = 704-7) Lab Interpretation Abnormal (test code = 63094-0) [facility] WITH [id number] 09:18:40 Test Item Value Reference Range Interpretation Comments WBC (test code = 9.38 See_Comment [Automated 1190-2) message] The sy stem which generated this result transmitted reference range : 4.30 - 11.10 10*3/?L. The reference range was not used to interpret this result as normal/abnormal . RBC (test code = 3.53 See_Comment L [Automated 110-8) message] The sy stem which generated this result transmitted reference range : 3.93 - 5.25 10*6/?L. The reference range was not used to interpret this result as normal/abnormal . HGB (test code = 9.6 g/dL 11.6-15.0 L 718-7) HCT (test code = 28.9 % 35.7-45.2 L 4544-3) MCV (test code = 81.9 fL 80.6-95.5 787-2) MCH (test code = 27.2 pg 25.9-32.8 785-6) MCHC (test code = 33.2 g/dL 31.6-35.1 786-4) RDW-SD (test code = 46.5 fL 39.0-49.9 18549-9) RDW-CV (test code = 15.9 % 12.0-15.5 H 788-0) PLT (test code = 237 See_Comment [Automated 777-3) message] The sy stem which generated this result transmitted reference range : 166 - 358 10*3/ ?L. The reference r manju was not used to interpret this result as normal/abnormal . MPV (test code = 11.9 fL 9.5-12.9 23088-7) NRBC/100 WBC (test 0.0 See_Comment [Automat ed code = [id number]) message] The system which generated this result transmitted reference range : 0.0 - 10.0 /100 WBCs. The refer ence range was not u sed to interpret th is result as normal/abnormal . NRBC x10^3 (test code See_Comment [Auto mated = [id number]) message] The s ystem which generated this result transmitted reference range : 10*3/?L. The reference range was not used to interpret this result as normal/abnormal . GRAN MAT (NEUT) % 76.1 % (test code = 770-8) IMM GRAN % (test code 0.40 % = 9706970205) LYMPH % (test code = 17.1 % 736-9) MONO % (test code = 5.8 % 5905-5) EOS % (test code = 0.4 % 713-8) BASO % (test code = 0.2 % 706-2) GRAN MAT x10^3(ANC) 7.14 10*3/uL 1.88-7.09 H (test code = 5427962989) IMM GRAN x10^3 (test 0.04 10*3/uL 0.00-0.06 code = 1703617629) LYMPH x10^3 (test code 1.60 10*3/uL 1.32-3.29 = 731-0) MONO x10^3 (test code 0.54 10*3/uL 0.33-0.92 = 742-7) EOS x10^3 (test code = 0.04 10*3/uL 0.03-0.39 711-2) BASO x10^3 (test code 0.01-0.07 = 704-7) Lab Interpretation Abnormal (test code = 99117-7) [facility] [id number] 07:26:00 Test Item Value Reference Range Interpretation Comments ABO & RH (test code = 20) B POSITIVE IAT (test code = 1185) Negative [facility] and Screen - ONCE [id number] 07:26:00 Test Item Value Reference Range Interpretation Comments ABO & RH (test code = 20) B POSITIVE IAT (test code = 1185) Negative [facility] URINALYSIS W SPECIFIC [id number] 20:50:00 Test Item Value Reference Range Interpretation Comments POCT U SP GRAV (test code = 3255) . 1.005-1.025 POCT PH U (test code = 3254) . 5-8 POCT U LEUK EST (test code = 3263) . Negative - Negative POCT U NIT (test code = 3262) . Negative - Negative POCT U PROT (test code = 3259) trace Negative - Negative POCT U GLU (test code = 3256) neg Negative - Negative POCT U KETONE (test code = 3258) . Negative - Negative POCT U UROBILI (test code = 3260) . 0.2-1 POCT U BILI (test code = 3261) . Negative - Negative POCT U BLD (test code = 3257) . Negative - Negative POCT U COLOR (test code = 3266) . POCT U APPEAR (test code = 3267) . [facility] URINALYSIS W SPECIFIC [id number] 18:42:00 Test Item Value Reference Range Interpretation Comments POCT U SP GRAV (test code = 3255) . 1.005-1.025 POCT PH U (test code = 3254) . 5-8 POCT U LEUK EST (test code = 3263) . Negative - Negative POCT U NIT (test code = 3262) . Negative - Negative POCT U PROT (test code = 3259) trace Negative - Negative POCT U GLU (test code = 3256) neg Negative - Negative POCT U KETONE (test code = 3258) . Negative - Negative POCT U UROBILI (test code = 3260) . 0.2-1 POCT U BILI (test code = 3261) . Negative - Negative POCT U BLD (test code = 3257) . Negative - Negative POCT U COLOR (test code = 3266) . POCT U APPEAR (test code = 3267) . [facility] URINALYSIS W SPECIFIC [id number] 18:42:00 Test Item Value Reference Range Interpretation Comments POCT U SP GRAV (test code = 3255) . 1.005-1.025 POCT PH U (test code = 3254) . 5-8 POCT U LEUK EST (test code = 3263) . Negative - Negative POCT U NIT (test code = 3262) . Negative - Negative POCT U PROT (test code = 3259) trace Negative - Negative POCT U GLU (test code = 3256) neg Negative - Negative POCT U KETONE (test code = 3258) . Negative - Negative POCT U UROBILI (test code = 3260) . 0.2-1 POCT U BILI (test code = 3261) . Negative - Negative POCT U BLD (test code = 3257) . Negative - Negative POCT U COLOR (test code = 3266) . POCT U APPEAR (test code = 3267) . [facility] URINALYSIS W SPECIFIC [id number] 20:05:00 Test Item Value Reference Range Interpretation Comments POCT U SP GRAV (test code = 3255) . 1.005-1.025 POCT PH U (test code = 3254) . 5-8 POCT U LEUK EST (test code = 3263) . Negative - Negative POCT U NIT (test code = 3262) . Negative - Negative POCT U PROT (test code = 3259) TRACE Negative - Negative POCT U GLU (test code = 3256) NEG Negative - Negative POCT U KETONE (test code = 3258) . Negative - Negative POCT U UROBILI (test code = 3260) . 0.2-1 POCT U BILI (test code = 3261) . Negative - Negative POCT U BLD (test code = 3257) . Negative - Negative POCT U COLOR (test code = 3266) . POCT U APPEAR (test code = 3267) . [facility] URINALYSIS W SPECIFIC [id number] 20:33:00 Test Item Value Reference Range Interpretation Comments POCT U SP GRAV (test code = . 1.005-1.025 3255) POCT PH U (test code = 3254) . 5-8 POCT U LEUK EST (test code = . Negative - Negative 3263) POCT U NIT (test code = 3262) . Negative - Negative POCT U PROT (test code = 3259) trace Negative - Negative POCT U GLU (test code = 3256) negative Negative - Negative POCT U KETONE (test code = 3258) . Negative - Negative POCT U UROBILI (test code = . 0.2-1 3260) POCT U BILI (test code = 3261) . Negative - Negative POCT U BLD (test code = 3257) . Negative - Negative POCT U COLOR (test code = 3266) . POCT U APPEAR (test code = 3267) . [facility] URINALYSIS W SPECIFIC [id number] 15:00:00 Test Item Value Reference Range Interpretation Comments POCT U SP GRAV (test code = 3255) .. 1.005-1.025 POCT PH U (test code = 3254) 7 mg/dl 5-8 POCT U LEUK EST (test code = Trace Negative - Negative 3263) POCT U NIT (test code = 3262) Neg Negative - Negative POCT U PROT (test code = 3259) Trace Negative - Negative POCT U GLU (test code = 3256) Neg Negative - Negative POCT U KETONE (test code = 3258) None Negative - Negative POCT U UROBILI (test code = 3260) . 0.2-1 POCT U BILI (test code = 3261) . Negative - Negative POCT U BLD (test code = 3257) Neg Negative - Negative POCT U COLOR (test code = 3266) . POCT U APPEAR (test code = 3267) [facility] MOLECULAR [id number] 15:17:52 Test Item Value Reference Range Interpretation Comments POCT Molecular FluA (test code = Negative Negative 68085-5) POCT Molecular FluB (test code = Negative Negative 17076-4) Lab Interpretation (test code = Normal 38757-8) [facility] MOLECULAR [id number] 15:11:49 Test Item Value Reference Range Interpretation Comments POCT Molecular Strep (test code = Negative Negative 27334-2) Lab Interpretation (test code = Normal 76824-8) [facility] URINALYSIS W SPECIFIC [id number] 14:43:00 Test Item Value Reference Range Interpretation Comments POCT U SP GRAV (test code = . 1.005-1.025 3255) POCT PH U (test code = 3254) . 5-8 POCT U LEUK EST (test code = . Negative - Negative 3263) POCT U NIT (test code = 3262) . Negative - Negative POCT U PROT (test code = 3259) trace Negative - Negative POCT U GLU (test code = 3256) negative Negative - Negative POCT U KETONE (test code = 3258) . Negative - Negative POCT U UROBILI (test code = . 0.2-1 3260) POCT U BILI (test code = 3261) . Negative - Negative POCT U BLD (test code = 3257) . Negative - Negative POCT U COLOR (test code = 3266) . POCT U APPEAR (test code = 3267) . [place] [address] HR GLUCOSE TOLERANCE [id number] 05:55:42 Test Item Value Reference Range Interpretation Comments GLUC 1 HR (test code = 2764354269) 224 mg/dL 120-170 H Lab Interpretation (test code = Abnormal 60784-9) [facility] URINALYSIS W SPECIFIC [id number] 13:19:00 Test Item Value Reference Range Interpretation Comments POCT U SP GRAV (test code = 3255) . 1.005-1.025 POCT PH U (test code = 3254) . 5-8 POCT U LEUK EST (test code = 3263) . Negative - Negative POCT U NIT (test code = 3262) . Negative - Negative POCT U PROT (test code = 3259) trace Negative - Negative POCT U GLU (test code = 3256) neg Negative - Negative POCT U KETONE (test code = 3258) . Negative - Negative POCT U UROBILI (test code = 3260) . 0.2-1 POCT U BILI (test code = 3261) . Negative - Negative POCT U BLD (test code = 3257) . Negative - Negative POCT U COLOR (test code = 3266) . POCT U APPEAR (test code = 3267) . [facility] URINALYSIS W SPECIFIC [id number] 18:00:00 Test Item Value Reference Range Interpretation Comments POCT U SP GRAV (test code = 3255) . 1.005-1.025 POCT PH U (test code = 3254) 6 mg/dl 5-8 POCT U LEUK EST (test code = 1+ Negative - Negative 3) POCT U NIT (test code = 3262) Neg Negative - Negative POCT U PROT (test code = 3259) Trace Negative - Negative POCT U GLU (test code = 3256) Neg Negative - Negative POCT U KETONE (test code = 3258) None Negative - Negative POCT U UROBILI (test code = 3260) . 0.2-1 POCT U BILI (test code = 3261) . Negative - Negative POCT U BLD (test code = 3257) Trace Negative - Negative POCT U COLOR (test code = 3266) POCT U APPEAR (test code = 3267) [facility] [id number] 13:59:00 Test Item Value Reference Range Interpretation Comments POCT U SP GRAV (test code = 3255) . 1.005-1.025 POCT PH U (test code = 3254) . 5-8 POCT U LEUK EST (test code = 3263) . Negative - Negative POCT U NIT (test code = 3262) . Negative - Negative POCT U PROT (test code = 3259) Trace Negative - Negative POCT U GLU (test code = 3256) Neg Negative - Negative POCT U KETONE (test code = 3258) . Negative - Negative POCT U UROBILI (test code = 3260) . 0.2-1 POCT U BILI (test code = 3261) . Negative - Negative POCT U BLD (test code = 3257) . Negative - Negative POCT U COLOR (test code = 3266) . POCT U APPEAR (test code = 3267) . [facility] URINALYSIS W SPECIFIC [id number] 17:22:00 Test Item Value Reference Range Interpretation Comments POCT U SP GRAV (test code = . 1.005-1.025 3255) POCT PH U (test code = 3254) . 5-8 POCT U LEUK EST (test code = . Negative - Negative 3263) POCT U NIT (test code = 3262) . Negative - Negative POCT U PROT (test code = 3259) trace Negative - Negative POCT U GLU (test code = 3256) negative Negative - Negative POCT U KETONE (test code = 3258) . Negative - Negative POCT U UROBILI (test code = . 0.2-1 3260) POCT U BILI (test code = 3261) . Negative - Negative POCT U BLD (test code = 3257) . Negative - Negative POCT U COLOR (test code = 3266) . POCT U APPEAR (test code = 3267) . [facility] URINALYSIS W SPECIFIC [id number] 16:56:00 Test Item Value Reference Range Interpretation Comments POCT U SP GRAV (test code = . 1.005-1.025 3255) POCT PH U (test code = 3254) . 5-8 POCT U LEUK EST (test code = . Negative - Negative 3263) POCT U NIT (test code = 3262) . Negative - Negative POCT U PROT (test code = 3259) 1+ Negative - Negative POCT U GLU (test code = 3256) negative Negative - Negative POCT U KETONE (test code = 3258) . Negative - Negative POCT U UROBILI (test code = . 0.2-1 3260) POCT U BILI (test code = 3261) . Negative - Negative POCT U BLD (test code = 3257) . Negative - Negative POCT U COLOR (test code = 3266) . POCT U APPEAR (test code = 3267) . [facility] URINALYSIS W SPECIFIC [id number] 16:56:00 Test Item Value Reference Range Interpretation Comments POCT U SP GRAV (test code = . 1.005-1.025 3255) POCT PH U (test code = 3254) . 5-8 POCT U LEUK EST (test code = . Negative - Negative 3263) POCT U NIT (test code = 3262) . Negative - Negative POCT U PROT (test code = 3259) 1+ Negative - Negative POCT U GLU (test code = 3256) negative Negative - Negative POCT U KETONE (test code = 3258) . Negative - Negative POCT U UROBILI (test code = . 0.2-1 3260) POCT U BILI (test code = 3261) . Negative - Negative POCT U BLD (test code = 3257) . Negative - Negative POCT U COLOR (test code = 3266) . POCT U APPEAR (test code = 3267) . [facility] [id number] 15:29:00 Test Item Value Reference Range Interpretation Comments POCT PREG (test code = 1605) Positive On board controls acceptable with C Yes Line (test code = 3574) POCT PREG LOT # (test code = 3575) POCT PREG TEST DATE (test code = 3576) [facility] URINALYSIS W/O SPECIFIC [id number] 15:29:00 Test Item Value Reference Range Interpretation Comments POCT PH U (test code = 3254) 6 mg/dl 5-8 POCT U LEUK EST (test code = negative Negative - Negative 3263) POCT U NIT (test code = 3262) negative Negative - Negative POCT U PROT (test code = 3259) trace Negative - Negative POCT U GLU (test code = 3256) negative Negative - Negative POCT U KETONE (test code = 3258) negative Negative - Negative POCT U BLD (test code = 3257) trace Negative - Negative [facility] BHCG (QUANTITATIVE)2022-10-11 08:25:45 Test Item Value Reference Range Interpretation Comments BETA HCG (test See_Comment [Automated m essage] code = The system Ingresse [id number]) generated this result transmit sathya reference range : Non- fe male and male patien ts: <5 mIU/mL. The reference range was not used to interpret this result as normal/abnormal . FELIX (test code Gestational Age ? ? = FELIX) ?Range (mIU/mL) 1-10 ?Weeks ?76-78112545-31 Weeks ?91074-20233368-29 Weeks ?0051-18890508-41 Weeks ?6308-705649 Biotin has been reported to cause a negative bias, interpret results relative to patient's use of biotin. [facility]. METABOLIC PANEL (01170)2022-10-11 07:43:03 Test Item Value Reference Range Interpretation Comments NA (test code = 135 mmol/L 135-145 9495948522) K (test code = 4.1 mmol/L 3.5-5.0 0892438743) CL (test code = 105 mmol/L 98-108 5048856168) CO2 TOTAL (test code 23 mmol/L 23-31 = 2162223277) AGAP (test code = 2-16 5242089368) BUN (test code = 8 mg/dL 7-23 9299912793) GLUCOSE (test code = 97 mg/dL 70-110 7299434070) CREATININE (test code 0.52 mg/dL 0.50-1.04 = 0264733816) TOTAL BILI (test code 0.6 mg/dL 0.1-1.1 = 8999964483) CALCIUM (test code = 9.0 mg/dL 8.6-10.6 4515056359) T PROTEIN (test code 7.0 g/dL 6.3-8.2 = 7534532601) ALBUMIN (test code = 4.3 g/dL 3.5-5.0 4388019514) ALK PHOS (test code = 48 U/L 34-122 9111457438) ALTv (test code = 17 U/L 5-35 1742-6) AST(SGOT) (test code 26 U/L 13-40 = 4753960455) eGFR (test code = mL/min/1.73m2 0188563426) FELIX (test code = FELIX) Association of Glomerular Filtration Rate (GFR) and Staging of Kidney Disease* + + +- +| GFR (mL/min/1.73 m2) ?| With Kidney Damage ?| ?Without Kidney Damage+ ------+ ----+ ------+| ?>90 ?| ?Stage one ?| ? Normal ?+ -+ + -+| ?60-89 ?| ?Stage two ?| ? Decreased GFR ? + + +- +| ?30-59 ?| ?Stage three ?| ? Stage three ? + + +- +| ?15-29 ?| ?Stage four ? | ? Stage four ?+ -+ + -+| ?<15 (or dialysis) ? ?| ?Stage five ? | ? Stage five ?+ -+ + -+ *Each stage assumes the associated GFR level has been in effect for at least three months. ?Stages 1 to 5, with or without kidney disease, indicate chronic kidney disease. Notes: Determination of stages one and two (with eGFR >59mL/min/1.73 m2) requires estimation of kidney damage for at least three months as defined by structural or functional abnormalities of the kidney, manifested by either:Pathological abnormalities or Markers of kidney damage (including abnormalities in the composition of the blood or urine or abnormalities in imaging tests). [facility] WITH [id number] 07:25:41 Test Item Value Reference Range Interpretation Comments WBC (test code = See_Comment [Automated 9808-2) message] The sy stem which generated this result transmitted reference range : 4.30 - 11.10 10*3/?L. The reference range was not used to interpret this result as normal/abnormal . RBC (test code = See_Comment L [Automated 716-8) message] The sy stem which generated this result transmitted reference range : 3.93 - 5.25 10*6/?L. The reference range was not used to interpret this result as normal/abnormal . HGB (test code = 11.2 g/dL 11.6-15.0 L 718-7) HCT (test code = 34.0 % 35.7-45.2 L 4544-3) MCV (test code = 89.5 fL 80.6-95.5 787-2) MCH (test code = 29.5 pg 25.9-32.8 785-6) MCHC (test code = 32.9 g/dL 31.6-35.1 786-4) RDW-SD (test code = 47.8 fL 39.0-49.9 25764-8) RDW-CV (test code = 14.5 % 12.0-15.5 788-0) PLT (test code = See_Comment [Automated 777-3) message] The sy stem which generated this result transmitted reference range : 166 - 358 10*3/ ?L. The reference r manju was not used to interpret this result as normal/abnormal . MPV (test code = 10.8 fL 9.5-12.9 47299-3) NRBC/100 WBC (test See_Comment [Automat ed code = 4050618936) message] The system which generated this result transmitted reference range : 0.0 - 10.0 /100 WBCs. The refer ence range was not u sed to interpret th is result as normal/abnormal . NRBC x10^3 (test code See_Comment [Auto mated = 2890946606) message] The s ystem which generated this result transmitted reference range : 10*3/?L. The reference range was not used to interpret this result as normal/abnormal . GRAN MAT (NEUT) % 75.2 % (test code = 770-8) IMM GRAN % (test code 0.30 % = 6364987922) LYMPH % (test code = 18.5 % 736-9) MONO % (test code = 5.1 % 5905-5) EOS % (test code = 0.5 % 713-8) BASO % (test code = 0.4 % 706-2) GRAN MAT x10^3(ANC) 7.58 10*3/uL 1.88-7.09 H (test code = 7586881348) IMM GRAN x10^3 (test 0.03 10*3/uL 0.00-0.06 code = 5621527337) LYMPH x10^3 (test code 1.86 10*3/uL 1.32-3.29 = 731-0) MONO x10^3 (test code 0.51 10*3/uL 0.33-0.92 = 742-7) EOS x10^3 (test code = 0.05 10*3/uL 0.03-0.39 711-2) BASO x10^3 (test code 0.04 10*3/uL 0.01-0.07 = 704-7) Lab Interpretation Abnormal (test code = 64266-2) [id number] Test Item Value Reference Range Interpretation Comments POCT PREG (test code = 1605) positive On board controls acceptable with present C Line (test code = 3574) POCT PREG LOT # (test code = 3575) [id number] POCT PREG TEST DATE (test 02/05/2024 code = 3576) Lab Interpretation (test code = Normal 64889-4) [facility], [id number] 09:48:26 Test Item Value Reference Range Interpretation Comments HCG, QUANTITATIVE <5 MIU/ML SEE BELOW E XPECTED (test code = 2506) VALUES FO R HCG GST.AGE UNITS RANGE GST. AGE UNITS RANGE3 WEEKS DC U/ML 6-71 10 WEEKS M IU/ML 46,509-186,9774 WEEKS MIU/ML 10-750 1 2 WEEKS MIU/ML 27,832-210,6125 WEEKS MIU/ML 217-7,13 8 14 WEEKS MIU/ML 13,950-62,5306 WEEKS MIU/ML 158-31,7 95 15 WEEKS MIU/ML 12,039-70,9717 WEEKS MIU/ML 3,697-16 3,563 16 WEEKS MIU/ML 9,040-56,4518 W EEKS MIU/ML 32,065-1 49,571 17 WEEKS MIU/ML 8,175-55,8689 W EEKS MIU/ML 63,803-1 51,410 18 WEEKS MIU/ML 8,099-58,176MAL ES and NON- FE MALES . . . . . . . . M IU/ML 2-0FTVA-NDWNRBM MILES FEMALES . . . . . . . . . . . . MIU/M L <=7 UNLESS OTHERWIS E INDICATED, ALL TESTING PERFORMED [facility], [facility]. [address] [place] [address] VINNIE LYLES DIRECTOR: SEFERINO ROTH M.D. CLIA NUMBER [id number] CAP ACCREDITATION N O. [id number] HCG, [id number] 00:00:00 Test Item Value Reference Range Interpretation Comments HCG, QUANTITATIVE (test code = <5 MIU/ML 2506) HCG, [id number] 00:00:00 Test Item Value Reference Range Interpretation Comments HCG, QUANTITATIVE (test code = <5 MIU/ML 2506) HCG, [id number] 00:00:00 Test Item Value Reference Range Interpretation Comments HCG, QUANTITATIVE (test code = <5 MIU/ML 2506) HCG, [id number] 00:00:00 Test Item Value Reference Range Interpretation Comments HCG, QUANTITATIVE (test code = <5 MIU/ML 2506) HCG, [id number] 00:00:00 Test Item Value Reference Range Interpretation Comments HCG, QUANTITATIVE (test code = <5 MIU/ML 2506) HCG, [id number] 00:00:00 Test Item Value Reference Range Interpretation Comments HCG, QUANTITATIVE (test code = <5 MIU/ML 2506) CT/NG, NAAT, [id number] 09:51:02 Test Item Value Reference Range Interpretation Comments GONORRHEA, NAAT NEGATIVE NEGATIVE IMPORTA NT NOTICE: SEE (test code = [place] [address]) [email or web address] Note: Assay methodology is nucleic acid amplification b y autocad detailer m ediated amplification ( TMA) utilizing the A ptima Combo 2 Assay. CHLAMYDIA, NAAT NEGATIVE NEGATIVE IMPORTA NT NOTICE: SEE (test code = [place] [address]) [email or web address] Note: Assay methodology is nucleic acid amplification b y autocad detailer m ediated amplification ( TMA) utilizing the A ptima Combo 2 Assay. UNLESS OTHERWISE INDICATED, ALL TESTING PERFORMED [facility] [address] [place] [address] KELSIE DASHA DIRECTOR: SEFERINO ROTH M.D. [place] NUMBER [id number] CAP ACCREDITATION N O. [id number] CT/NG, TMA, [id number] 00:00:00 Test Item Value Reference Range Interpretation Comments GONORRHEA, NAAT (test code = 80406) NEGATIVE CHLAMYDIA, NAAT (test code = 58440) NEGATIVE CT/NG, TMA, [id number] 00:00:00 Test Item Value Reference Range Interpretation Comments GONORRHEA, NAAT (test code = 09137) NEGATIVE CHLAMYDIA, NAAT (test code = 15147) NEGATIVE CT/NG, TMA, [id number] 00:00:00 Test Item Value Reference Range Interpretation Comments GONORRHEA, NAAT (test code = 84847) NEGATIVE CHLAMYDIA, NAAT (test code = 07817) NEGATIVE CT/NG, TMA, [id number] 00:00:00 Test Item Value Reference Range Interpretation Comments GONORRHEA, NAAT (test code = 88081) NEGATIVE CHLAMYDIA, NAAT (test code = 05057) NEGATIVE CT/NG, TMA, [id number] 00:00:00 Test Item Value Reference Range Interpretation Comments GONORRHEA, NAAT (test code = 61542) NEGATIVE CHLAMYDIA, NAAT (test code = 88338) NEGATIVE CT/NG, TMA, [id number] 00:00:00 Test Item Value Reference Range Interpretation Comments GONORRHEA, NAAT (test code = 40599) NEGATIVE CHLAMYDIA, NAAT (test code = 30486) NEGATIVE VAGINAL PATHOGENS DNA [id number] 13:43:08 Test Item Value Reference Range Interpretation Comments KEENAN SPECIES (test code = 32692) NEGATIVE NEGATIVE G. VAGINALIS (test code = ) POSITIVE NEGATIVE A T. VAGINALIS (test code = ) NEGATIVE NEGATIVE HEPATITIS PANEL, [id number] 03:25:22 Test Item Value Reference Range Interpretation Comments HEPATITIS A IgM (test NON-REACTIVE NON-REACTIVE code = 42676) HEPATITIS B CORE IgM NON-REACTIVE NON-REACTIVE (test code = 4644) HEPATITIS B SURF AG NON-REACTIVE NON-REACTIVE (test code = 2739) HEPATITIS C ANTIBODY NON-REACTIVE NON-REACTIVE (test code = 4675) INTERPRETATION (NOTE) Hepatitis A HEPATITIS A: (test code sero logy shows no = 2552) evidence of acu te hepatitis A. INTERPRETATION (NOTE) Hepatitis B HEPATITIS B: (test code sero logy shows no = 12882) evidence of acu te hepatitis B and no indication of exposure to hepatitis B vir us in the previous sahil eight months. INTERPRETATION (NOTE) Hepatitis C HEPATITIS C: (test code sero logy shows no = 42797) evidence of exposure to hepatitisC viru s at this time. I t can take up to 12 months after exposure tothe hepatitis C vir us for antibodies to become detectab le in the blood in certain patient s. HIV 1/2 4TH GEN, RFLX [id number] 03:25:22 Test Item Value Reference Range Interpretation Comments HIV 1/2 4TH GEN, RFLX CONF (test NON-REACTIVE NON-REACTIVE code = 3514) [id number] 02:47:10 Test Item Value Reference Range Interpretation Comments RPR RESULT (test code = NON-REACTIVE NON-REACTIVE 3501) RPR TITER (test code = 3500) NOT INDIC. TITER NOT INDIC. VAGINAL PATHOGENS DNA [id number] 00:00:00 Test Item Value Reference Range Interpretation Comments KEENAN SPECIES (test code = ) NEGATIVE G. VAGINALIS (test code = 27451) POSITIVE T. VAGINALIS (test code = 14730) NEGATIVE VAGINAL PATHOGENS DNA [id number] 00:00:00 Test Item Value Reference Range Interpretation Comments KEENAN SPECIES (test code = ) NEGATIVE G. VAGINALIS (test code = 57536) POSITIVE T. VAGINALIS (test code = 26074) NEGATIVE [id number] 00:00:00 Test Item Value Reference Range Interpretation Comments RPR RESULT (test code = NON-REACTIVE 3501) RPR TITER (test code = 3500) NOT INDIC. TITER [id number] 00:00:00 Test Item Value Reference Range Interpretation Comments RPR RESULT (test code = NON-REACTIVE 3501) RPR TITER (test code = 3500) NOT INDIC. TITER [id number] 00:00:00 Test Item Value Reference Range Interpretation Comments RPR RESULT (test code = NON-REACTIVE 3501) RPR TITER (test code = 3500) NOT INDIC. TITER ACUTE HEPATITIS [id number] 00:00:00 Test Item Value Reference Range Interpretation Comments HEPATITIS A IgM (test code = NON-REACTIVE 17589) HEPATITIS B CORE IgM (test code NON-REACTIVE = 4644) HEPATITIS B SURF AG (test code = NON-REACTIVE 2739) HEPATITIS C ANTIBODY (test code NON-REACTIVE = 4675) INTERPRETATION HEPATITIS A: (NOTE) (test code = 2552) INTERPRETATION HEPATITIS B: (NOTE) (test code = 40428) INTERPRETATION HEPATITIS C: (NOTE) (test code = 97568) ACUTE HEPATITIS [id number] 00:00:00 Test Item Value Reference Range Interpretation Comments HEPATITIS A IgM (test code = NON-REACTIVE 26372) HEPATITIS B CORE IgM (test code NON-REACTIVE = 4644) HEPATITIS B SURF AG (test code = NON-REACTIVE 2739) HEPATITIS C ANTIBODY (test code NON-REACTIVE = 4675) INTERPRETATION HEPATITIS A: (NOTE) (test code = 2552) INTERPRETATION HEPATITIS B: (NOTE) (test code = 16156) INTERPRETATION HEPATITIS C: (NOTE) (test code = 03357) HIV 1/2 4TH GEN, RFLX [id number] 00:00:00 Test Item Value Reference Range Interpretation Comments HIV 1/2 4TH GEN, RFLX CONF (test NON-REACTIVE code = 3514) HIV 1/2 4TH GEN, RFLX [id number] 00:00:00 Test Item Value Reference Range Interpretation Comments HIV 1/2 4TH GEN, RFLX CONF (test NON-REACTIVE code = 3514) VAGINAL PATHOGENS DNA [id number] 00:00:00 Test Item Value Reference Range Interpretation Comments KEENAN SPECIES (test code = ) NEGATIVE G. VAGINALIS (test code = 49712) POSITIVE T. VAGINALIS (test code = 98387) NEGATIVE VAGINAL PATHOGENS DNA [id number] 00:00:00 Test Item Value Reference Range Interpretation Comments KEENAN SPECIES (test code = ) NEGATIVE G. VAGINALIS (test code = 05889) POSITIVE T. VAGINALIS (test code = 40690) NEGATIVE [id number] 00:00:00 Test Item Value Reference Range Interpretation Comments RPR RESULT (test code = NON-REACTIVE 3501) RPR TITER (test code = 3500) NOT INDIC. TITER [id number] 00:00:00 Test Item Value Reference Range Interpretation Comments RPR RESULT (test code = NON-REACTIVE 3501) RPR TITER (test code = 3500) NOT INDIC. TITER [id number] 00:00:00 Test Item Value Reference Range Interpretation Comments RPR RESULT (test code = NON-REACTIVE 3501) RPR TITER (test code = 3500) NOT INDIC. TITER ACUTE HEPATITIS [id number] 00:00:00 Test Item Value Reference Range Interpretation Comments HEPATITIS A IgM (test code = NON-REACTIVE 08170) HEPATITIS B CORE IgM (test code NON-REACTIVE = 4644) HEPATITIS B SURF AG (test code = NON-REACTIVE 2739) HEPATITIS C ANTIBODY (test code NON-REACTIVE = 4675) INTERPRETATION HEPATITIS A: (NOTE) (test code = 2552) INTERPRETATION HEPATITIS B: (NOTE) (test code = 75749) INTERPRETATION HEPATITIS C: (NOTE) (test code = 44871) ACUTE HEPATITIS [id number] 00:00:00 Test Item Value Reference Range Interpretation Comments HEPATITIS A IgM (test code = NON-REACTIVE 63522) HEPATITIS B CORE IgM (test code NON-REACTIVE = 4644) HEPATITIS B SURF AG (test code = NON-REACTIVE 2739) HEPATITIS C ANTIBODY (test code NON-REACTIVE = 4675) INTERPRETATION HEPATITIS A: (NOTE) (test code = 2552) INTERPRETATION HEPATITIS B: (NOTE) (test code = 21559) INTERPRETATION HEPATITIS C: (NOTE) (test code = 71911) HIV 1/2 4TH GEN, RFLX [id number] 00:00:00 Test Item Value Reference Range Interpretation Comments HIV 1/2 4TH GEN, RFLX CONF (test NON-REACTIVE code = 3514) HIV 1/2 4TH GEN, RFLX [id number] 00:00:00 Test Item Value Reference Range Interpretation Comments HIV 1/2 4TH GEN, RFLX CONF (test NON-REACTIVE code = 3514) VAGINAL PATHOGENS DNA [id number] 00:00:00 Test Item Value Reference Range Interpretation Comments KEENAN SPECIES (test code = 33151) NEGATIVE G. VAGINALIS (test code = 95120) POSITIVE T. VAGINALIS (test code = 01809) NEGATIVE VAGINAL PATHOGENS DNA [id number] 00:00:00 Test Item Value Reference Range Interpretation Comments KEENAN SPECIES (test code = 55070) NEGATIVE G. VAGINALIS (test code = ) POSITIVE T. VAGINALIS (test code = 08123) NEGATIVE [id number] 00:00:00 Test Item Value Reference Range Interpretation Comments RPR RESULT (test code = NON-REACTIVE 3501) RPR TITER (test code = 3500) NOT INDIC. TITER [id number] 00:00:00 Test Item Value Reference Range Interpretation Comments RPR RESULT (test code = NON-REACTIVE 3501) RPR TITER (test code = 3500) NOT INDIC. TITER [id number] 00:00:00 Test Item Value Reference Range Interpretation Comments RPR RESULT (test code = NON-REACTIVE 3501) RPR TITER (test code = 3500) NOT INDIC. TITER ACUTE HEPATITIS [id number] 00:00:00 Test Item Value Reference Range Interpretation Comments HEPATITIS A IgM (test code = NON-REACTIVE 83473) HEPATITIS B CORE IgM (test code NON-REACTIVE = 4644) HEPATITIS B SURF AG (test code = NON-REACTIVE 2739) HEPATITIS C ANTIBODY (test code NON-REACTIVE = 4675) INTERPRETATION HEPATITIS A: (NOTE) (test code = 2552) INTERPRETATION HEPATITIS B: (NOTE) (test code = 73130) INTERPRETATION HEPATITIS C: (NOTE) (test code = 58408) ACUTE HEPATITIS [id number] 00:00:00 Test Item Value Reference Range Interpretation Comments HEPATITIS A IgM (test code = NON-REACTIVE 20750) HEPATITIS B CORE IgM (test code NON-REACTIVE = 4644) HEPATITIS B SURF AG (test code = NON-REACTIVE 2739) HEPATITIS C ANTIBODY (test code NON-REACTIVE = 4675) INTERPRETATION HEPATITIS A: (NOTE) (test code = 2552) INTERPRETATION HEPATITIS B: (NOTE) (test code = 30000) INTERPRETATION HEPATITIS C: (NOTE) (test code = 39032) HIV 1/2 4TH GEN, RFLX [id number] 00:00:00 Test Item Value Reference Range Interpretation Comments HIV 1/2 4TH GEN, RFLX CONF (test NON-REACTIVE code = 3514) HIV 1/2 4TH GEN, RFLX [id number] 00:00:00 Test Item Value Reference Range Interpretation Comments HIV 1/2 4TH GEN, RFLX CONF (test NON-REACTIVE code = 3514) COMPREHENSIVE METABOLIC [id number] 00:00:00 Test Item Value Reference Range Interpretation Comments GLUCOSE (test code = 2217) 95 MG/DL BUN (test code = 2208) 9 MG/DL CREATININE (test code = 2214) 0.77 MG/DL eGFR AMER. (test code 118 ML/MIN/1.73 = 46874) eGFR NON- AMER. (test 102 ML/MIN/1.73 code = 31270) CALC BUN/CREAT (test code = 12 RATIO 2235) SODIUM (test code = 2231) 136 MEQ/L POTASSIUM (test code = 2228) 4.3 MEQ/L CHLORIDE (test code = 2215) 98 MEQ/L CARBON DIOXIDE (test code = 25 MEQ/L 220) CALCIUM (test code = 2209) 9.9 MG/DL PROTEIN, TOTAL (test code = 7.4 G/DL 222) ALBUMIN (test code = 2201) 4.5 G/DL CALC GLOBULIN (test code = 2.9 G/DL 2240) CALC A/G RATIO (test code = 1.6 RATIO 2234) BILIRUBIN, TOTAL (test code = 0.6 MG/DL 220) ALKALINE PHOSPHATASE (test 77 U/L code = 2204) AST (test code = 2218) 22 U/L ALT (test code = 2219) 22 U/L COMPREHENSIVE METABOLIC [id number] 00:00:00 Test Item Value Reference Range Interpretation Comments GLUCOSE (test code = 2217) 95 MG/DL BUN (test code = 2208) 9 MG/DL CREATININE (test code = 2214) 0.77 MG/DL eGFR AMER. (test code 118 ML/MIN/1.73 = 14165) eGFR NON- AMER. (test 102 ML/MIN/1.73 code = 30149) CALC BUN/CREAT (test code = 12 RATIO 2235) SODIUM (test code = 2231) 136 MEQ/L POTASSIUM (test code = 2228) 4.3 MEQ/L CHLORIDE (test code = 2215) 98 MEQ/L CARBON DIOXIDE (test code = 25 MEQ/L 2206) CALCIUM (test code = 2209) 9.9 MG/DL PROTEIN, TOTAL (test code = 7.4 G/DL 2228) ALBUMIN (test code = 2201) 4.5 G/DL CALC GLOBULIN (test code = 2.9 G/DL 2240) CALC A/G RATIO (test code = 1.6 RATIO 2234) BILIRUBIN, TOTAL (test code = 0.6 MG/DL 2206) ALKALINE PHOSPHATASE (test 77 U/L code = 2204) AST (test code = 2218) 22 U/L ALT (test code = 2219) 22 U/L LIPID [id number] 00:00:00 Test Item Value Reference Range Interpretation Comments CHOLESTEROL (test code = 2210) 194 MG/DL TRIGLYCERIDES (test code = 2232) 250 MG/DL HDL CHOLESTEROL (test code = 2220) 55 MG/DL CALC LDL CHOL (test code = 2237) 103 MG/DL RISK RATIO LDL/HDL (test code = 1.87 RATIO 2238) LIPID [id number] 00:00:00 Test Item Value Reference Range Interpretation Comments CHOLESTEROL (test code = 2210) 194 MG/DL TRIGLYCERIDES (test code = 2232) 250 MG/DL HDL CHOLESTEROL (test code = 2220) 55 MG/DL CALC LDL CHOL (test code = 2237) 103 MG/DL RISK RATIO LDL/HDL (test code = 1.87 RATIO 2238) [id number] 00:00:00 Test Item Value Reference Range Interpretation Comments TSH, THIRD GENERATION (test code 1.790 UIU/ML = 2821) [id number] 00:00:00 Test Item Value Reference Range Interpretation Comments TSH, THIRD GENERATION (test code 1.790 UIU/ML = 2821) [id number] 00:00:00 Test Item Value Reference Range Interpretation Comments TSH, THIRD GENERATION (test code 1.790 UIU/ML = 2821) VITAMIN D, 25 [id number] 00:00:00 Test Item Value Reference Range Interpretation Comments VITAMIN D, 25 OH (test code = 4958) 29 NG/ML VITAMIN D, 25 [id number] 00:00:00 Test Item Value Reference Range Interpretation Comments VITAMIN D, 25 OH (test code = 4958) 29 NG/ML CBC W/AUTO [id number] 00:00:00 Test Item Value Reference Range Interpretation Comments WBC (test code = 1001) 7.3 K/UL RBC (test code = 1002) 4.13 M/UL HEMOGLOBIN (test code = 1003) 12.1 G/DL HEMATOCRIT (test code = 1004) 35.7 % MCV (test code = 1005) 86.4 fL MCH (test code = 1006) 29.3 PG MCHC (test code = 1007) 33.9 G/DL RDW (test code = 1038) 13.7 % NEUTROPHILS (test code = 1008) 68.6 % LYMPHOCYTES (test code = 1010) 23.4 % MONOCYTES (test code = 1011) 5.9 % EOSINOPHILS (test code = 1012) 1.6 % BASOPHILS (test code = 1013) 0.4 % IMMATURE GRANULOCYTES (test 0.1 % code = 1036) NUCLEATED RBCS (test code = 0.0 /100WBC'S 1065) PLATELET COUNT (test code = 314 K/UL 1015) ABSOLUTE NEUTROPHILS (test code 5.03 K/UL = 1066) ABSOLUTE LYMPHOCYTES (test code 1.72 K/UL = 1067) ABSOLUTE MONOCYTES (test code = 0.43 K/UL 1068) ABSOLUTE EOSINOPHILS (test code 0.12 K/UL = 1040) ABSOLUTE BASOPHILS (test code = 0.03 K/UL 1069) ABS IMMATURE GRANULOCYTES (test 0.01 K/UL code = 1020) ABS NUCLEATED RBCS (test code = 0.00 K/UL 40404) CBC W/AUTO [id number] 00:00:00 Test Item Value Reference Range Interpretation Comments WBC (test code = 1001) 7.3 K/UL RBC (test code = 1002) 4.13 M/UL HEMOGLOBIN (test code = 1003) 12.1 G/DL HEMATOCRIT (test code = 1004) 35.7 % MCV (test code = 1005) 86.4 fL MCH (test code = 1006) 29.3 PG MCHC (test code = 1007) 33.9 G/DL RDW (test code = 1038) 13.7 % NEUTROPHILS (test code = 1008) 68.6 % LYMPHOCYTES (test code = 1010) 23.4 % MONOCYTES (test code = 1011) 5.9 % EOSINOPHILS (test code = 1012) 1.6 % BASOPHILS (test code = 1013) 0.4 % IMMATURE GRANULOCYTES (test 0.1 % code = 1036) NUCLEATED RBCS (test code = 0.0 /100WBC'S 1065) PLATELET COUNT (test code = 314 K/UL 1015) ABSOLUTE NEUTROPHILS (test code 5.03 K/UL = 1066) ABSOLUTE LYMPHOCYTES (test code 1.72 K/UL = 1067) ABSOLUTE MONOCYTES (test code = 0.43 K/UL 1068) ABSOLUTE EOSINOPHILS (test code 0.12 K/UL = 1040) ABSOLUTE BASOPHILS (test code = 0.03 K/UL 1069) ABS IMMATURE GRANULOCYTES (test 0.01 K/UL code = 1020) ABS NUCLEATED RBCS (test code = 0.00 K/UL 41726) CBC W/AUTO [id number] 00:00:00 Test Item Value Reference Range Interpretation Comments WBC (test code = 1001) 7.3 K/UL RBC (test code = 1002) 4.13 M/UL HEMOGLOBIN (test code = 1003) 12.1 G/DL HEMATOCRIT (test code = 1004) 35.7 % MCV (test code = 1005) 86.4 fL MCH (test code = 1006) 29.3 PG MCHC (test code = 1007) 33.9 G/DL RDW (test code = 1038) 13.7 % NEUTROPHILS (test code = 1008) 68.6 % LYMPHOCYTES (test code = 1010) 23.4 % MONOCYTES (test code = 1011) 5.9 % EOSINOPHILS (test code = 1012) 1.6 % BASOPHILS (test code = 1013) 0.4 % IMMATURE GRANULOCYTES (test 0.1 % code = 1036) NUCLEATED RBCS (test code = 0.0 /100WBC'S 1065) PLATELET COUNT (test code = 314 K/UL 1015) ABSOLUTE NEUTROPHILS (test code 5.03 K/UL = 1066) ABSOLUTE LYMPHOCYTES (test code 1.72 K/UL = 1067) ABSOLUTE MONOCYTES (test code = 0.43 K/UL 1068) ABSOLUTE EOSINOPHILS (test code 0.12 K/UL = 1040) ABSOLUTE BASOPHILS (test code = 0.03 K/UL 1069) ABS IMMATURE GRANULOCYTES (test 0.01 K/UL code = 1020) ABS NUCLEATED RBCS (test code = 0.00 K/UL 24402) COMPREHENSIVE METABOLIC [id number] 00:00:00 Test Item Value Reference Range Interpretation Comments GLUCOSE (test code = 2217) 95 MG/DL BUN (test code = 2208) 9 MG/DL CREATININE (test code = 2214) 0.77 MG/DL eGFR AMER. (test code 118 ML/MIN/1.73 = 29197) eGFR NON- AMER. (test 102 ML/MIN/1.73 code = 96868) CALC BUN/CREAT (test code = 12 RATIO 2235) SODIUM (test code = 2231) 136 MEQ/L POTASSIUM (test code = 2228) 4.3 MEQ/L CHLORIDE (test code = 2215) 98 MEQ/L CARBON DIOXIDE (test code = 25 MEQ/L 220) CALCIUM (test code = 2209) 9.9 MG/DL PROTEIN, TOTAL (test code = 7.4 G/DL 2228) ALBUMIN (test code = 2201) 4.5 G/DL CALC GLOBULIN (test code = 2.9 G/DL 2240) CALC A/G RATIO (test code = 1.6 RATIO 223) BILIRUBIN, TOTAL (test code = 0.6 MG/DL 2206) ALKALINE PHOSPHATASE (test 77 U/L code = 2204) AST (test code = 2218) 22 U/L ALT (test code = 2219) 22 U/L COMPREHENSIVE METABOLIC [id number] 00:00:00 Test Item Value Reference Range Interpretation Comments GLUCOSE (test code = 2217) 95 MG/DL BUN (test code = 2208) 9 MG/DL CREATININE (test code = 2214) 0.77 MG/DL eGFR AMER. (test code 118 ML/MIN/1.73 = 49248) eGFR NON- AMER. (test 102 ML/MIN/1.73 code = 03303) CALC BUN/CREAT (test code = 12 RATIO 2235) SODIUM (test code = 2231) 136 MEQ/L POTASSIUM (test code = 2228) 4.3 MEQ/L CHLORIDE (test code = 2215) 98 MEQ/L CARBON DIOXIDE (test code = 25 MEQ/L 2206) CALCIUM (test code = 2209) 9.9 MG/DL PROTEIN, TOTAL (test code = 7.4 G/DL 2228) ALBUMIN (test code = 2201) 4.5 G/DL CALC GLOBULIN (test code = 2.9 G/DL 2240) CALC A/G RATIO (test code = 1.6 RATIO 2234) BILIRUBIN, TOTAL (test code = 0.6 MG/DL 7) ALKALINE PHOSPHATASE (test 77 U/L code = 2204) AST (test code = 2218) 22 U/L ALT (test code = 2219) 22 U/L LIPID [id number] 00:00:00 Test Item Value Reference Range Interpretation Comments CHOLESTEROL (test code = 2210) 194 MG/DL TRIGLYCERIDES (test code = 2232) 250 MG/DL HDL CHOLESTEROL (test code = 2220) 55 MG/DL CALC LDL CHOL (test code = 2237) 103 MG/DL RISK RATIO LDL/HDL (test code = 1.87 RATIO 2238) LIPID [id number] 00:00:00 Test Item Value Reference Range Interpretation Comments CHOLESTEROL (test code = 2210) 194 MG/DL TRIGLYCERIDES (test code = 2232) 250 MG/DL HDL CHOLESTEROL (test code = 2220) 55 MG/DL CALC LDL CHOL (test code = 2237) 103 MG/DL RISK RATIO LDL/HDL (test code = 1.87 RATIO 2238) [id number] 00:00:00 Test Item Value Reference Range Interpretation Comments TSH, THIRD GENERATION (test code 1.790 UIU/ML = 2821) [id number] 00:00:00 Test Item Value Reference Range Interpretation Comments TSH, THIRD GENERATION (test code 1.790 UIU/ML = 2821) [id number] 00:00:00 Test Item Value Reference Range Interpretation Comments TSH, THIRD GENERATION (test code 1.790 UIU/ML = 2821) VITAMIN D, 25 [id number] 00:00:00 Test Item Value Reference Range Interpretation Comments VITAMIN D, 25 OH (test code = 4958) 29 NG/ML VITAMIN D, 25 [id number] 00:00:00 Test Item Value Reference Range Interpretation Comments VITAMIN D, 25 OH (test code = 4958) 29 NG/ML CBC W/AUTO [id number] 00:00:00 Test Item Value Reference Range Interpretation Comments WBC (test code = 1001) 7.3 K/UL RBC (test code = 1002) 4.13 M/UL HEMOGLOBIN (test code = 1003) 12.1 G/DL HEMATOCRIT (test code = 1004) 35.7 % MCV (test code = 1005) 86.4 fL MCH (test code = 1006) 29.3 PG MCHC (test code = 1007) 33.9 G/DL RDW (test code = 1038) 13.7 % NEUTROPHILS (test code = 1008) 68.6 % LYMPHOCYTES (test code = 1010) 23.4 % MONOCYTES (test code = 1011) 5.9 % EOSINOPHILS (test code = 1012) 1.6 % BASOPHILS (test code = 1013) 0.4 % IMMATURE GRANULOCYTES (test 0.1 % code = 1036) NUCLEATED RBCS (test code = 0.0 /100WBC'S 1065) PLATELET COUNT (test code = 314 K/UL 1015) ABSOLUTE NEUTROPHILS (test code 5.03 K/UL = 1066) ABSOLUTE LYMPHOCYTES (test code 1.72 K/UL = 1067) ABSOLUTE MONOCYTES (test code = 0.43 K/UL 1068) ABSOLUTE EOSINOPHILS (test code 0.12 K/UL = 1040) ABSOLUTE BASOPHILS (test code = 0.03 K/UL 1069) ABS IMMATURE GRANULOCYTES (test 0.01 K/UL code = 1020) ABS NUCLEATED RBCS (test code = 0.00 K/UL 48098) CBC W/AUTO [id number] 00:00:00 Test Item Value Reference Range Interpretation Comments WBC (test code = 1001) 7.3 K/UL RBC (test code = 1002) 4.13 M/UL HEMOGLOBIN (test code = 1003) 12.1 G/DL HEMATOCRIT (test code = 1004) 35.7 % MCV (test code = 1005) 86.4 fL MCH (test code = 1006) 29.3 PG MCHC (test code = 1007) 33.9 G/DL RDW (test code = 1038) 13.7 % NEUTROPHILS (test code = 1008) 68.6 % LYMPHOCYTES (test code = 1010) 23.4 % MONOCYTES (test code = 1011) 5.9 % EOSINOPHILS (test code = 1012) 1.6 % BASOPHILS (test code = 1013) 0.4 % IMMATURE GRANULOCYTES (test 0.1 % code = 1036) NUCLEATED RBCS (test code = 0.0 /100WBC'S 1065) PLATELET COUNT (test code = 314 K/UL 1015) ABSOLUTE NEUTROPHILS (test code 5.03 K/UL = 1066) ABSOLUTE LYMPHOCYTES (test code 1.72 K/UL = 1067) ABSOLUTE MONOCYTES (test code = 0.43 K/UL 1068) ABSOLUTE EOSINOPHILS (test code 0.12 K/UL = 1040) ABSOLUTE BASOPHILS (test code = 0.03 K/UL 1069) ABS IMMATURE GRANULOCYTES (test 0.01 K/UL code = 1020) ABS NUCLEATED RBCS (test code = 0.00 K/UL 44823) CBC W/AUTO [id number] 00:00:00 Test Item Value Reference Range Interpretation Comments WBC (test code = 1001) 7.3 K/UL RBC (test code = 1002) 4.13 M/UL HEMOGLOBIN (test code = 1003) 12.1 G/DL HEMATOCRIT (test code = 1004) 35.7 % MCV (test code = 1005) 86.4 fL MCH (test code = 1006) 29.3 PG MCHC (test code = 1007) 33.9 G/DL RDW (test code = 1038) 13.7 % NEUTROPHILS (test code = 1008) 68.6 % LYMPHOCYTES (test code = 1010) 23.4 % MONOCYTES (test code = 1011) 5.9 % EOSINOPHILS (test code = 1012) 1.6 % BASOPHILS (test code = 1013) 0.4 % IMMATURE GRANULOCYTES (test 0.1 % code = 1036) NUCLEATED RBCS (test code = 0.0 /100WBC'S 1065) PLATELET COUNT (test code = 314 K/UL 1015) ABSOLUTE NEUTROPHILS (test code 5.03 K/UL = 1066) ABSOLUTE LYMPHOCYTES (test code 1.72 K/UL = 1067) ABSOLUTE MONOCYTES (test code = 0.43 K/UL 1068) ABSOLUTE EOSINOPHILS (test code 0.12 K/UL = 1040) ABSOLUTE BASOPHILS (test code = 0.03 K/UL 1069) ABS IMMATURE GRANULOCYTES (test 0.01 K/UL code = 1020) ABS NUCLEATED RBCS (test code = 0.00 K/UL 22923) COMPREHENSIVE METABOLIC [id number] 00:00:00 Test Item Value Reference Range Interpretation Comments GLUCOSE (test code = 2217) 95 MG/DL BUN (test code = 2208) 9 MG/DL CREATININE (test code = 2214) 0.77 MG/DL eGFR AMER. (test code 118 ML/MIN/1.73 = 86583) eGFR NON- AMER. (test 102 ML/MIN/1.73 code = 10472) CALC BUN/CREAT (test code = 12 RATIO 2235) SODIUM (test code = 2231) 136 MEQ/L POTASSIUM (test code = 2228) 4.3 MEQ/L CHLORIDE (test code = 2215) 98 MEQ/L CARBON DIOXIDE (test code = 25 MEQ/L 220) CALCIUM (test code = 2209) 9.9 MG/DL PROTEIN, TOTAL (test code = 7.4 G/DL 2228) ALBUMIN (test code = 2201) 4.5 G/DL CALC GLOBULIN (test code = 2.9 G/DL 2240) CALC A/G RATIO (test code = 1.6 RATIO 2234) BILIRUBIN, TOTAL (test code = 0.6 MG/DL 2206) ALKALINE PHOSPHATASE (test 77 U/L code = 2204) AST (test code = 2218) 22 U/L ALT (test code = 2219) 22 U/L COMPREHENSIVE METABOLIC [id number] 00:00:00 Test Item Value Reference Range Interpretation Comments GLUCOSE (test code = 2217) 95 MG/DL BUN (test code = 2208) 9 MG/DL CREATININE (test code = 2214) 0.77 MG/DL eGFR AMER. (test code 118 ML/MIN/1.73 = 86233) eGFR NON- AMER. (test 102 ML/MIN/1.73 code = 55282) CALC BUN/CREAT (test code = 12 RATIO 223) SODIUM (test code = 2231) 136 MEQ/L POTASSIUM (test code = 2228) 4.3 MEQ/L CHLORIDE (test code = 2215) 98 MEQ/L CARBON DIOXIDE (test code = 25 MEQ/L 220) CALCIUM (test code = 2209) 9.9 MG/DL PROTEIN, TOTAL (test code = 7.4 G/DL 2228) ALBUMIN (test code = 2201) 4.5 G/DL CALC GLOBULIN (test code = 2.9 G/DL 2240) CALC A/G RATIO (test code = 1.6 RATIO 2234) BILIRUBIN, TOTAL (test code = 0.6 MG/DL 2206) ALKALINE PHOSPHATASE (test 77 U/L code = 2204) AST (test code = 2218) 22 U/L ALT (test code = 2219) 22 U/L LIPID [id number] 00:00:00 Test Item Value Reference Range Interpretation Comments CHOLESTEROL (test code = 2210) 194 MG/DL TRIGLYCERIDES (test code = 2232) 250 MG/DL HDL CHOLESTEROL (test code = 2220) 55 MG/DL CALC LDL CHOL (test code = 2237) 103 MG/DL RISK RATIO LDL/HDL (test code = 1.87 RATIO 2238) LIPID [id number] 00:00:00 Test Item Value Reference Range Interpretation Comments CHOLESTEROL (test code = 2210) 194 MG/DL TRIGLYCERIDES (test code = 2232) 250 MG/DL HDL CHOLESTEROL (test code = 2220) 55 MG/DL CALC LDL CHOL (test code = 2237) 103 MG/DL RISK RATIO LDL/HDL (test code = 1.87 RATIO 2238) [id number] 00:00:00 Test Item Value Reference Range Interpretation Comments TSH, THIRD GENERATION (test code 1.790 UIU/ML = 2821) [id number] 00:00:00 Test Item Value Reference Range Interpretation Comments TSH, THIRD GENERATION (test code 1.790 UIU/ML = 2821) [id number] 00:00:00 Test Item Value Reference Range Interpretation Comments TSH, THIRD GENERATION (test code 1.790 UIU/ML = 2821) VITAMIN D, 25 [id number] 00:00:00 Test Item Value Reference Range Interpretation Comments VITAMIN D, 25 OH (test code = 4958) 29 NG/ML VITAMIN D, 25 [id number] 00:00:00 Test Item Value Reference Range Interpretation Comments VITAMIN D, 25 OH (test code = 4958) 29 NG/ML CBC W/AUTO [id number] 00:00:00 Test Item Value Reference Range Interpretation Comments WBC (test code = 1001) 7.3 K/UL RBC (test code = 1002) 4.13 M/UL HEMOGLOBIN (test code = 1003) 12.1 G/DL HEMATOCRIT (test code = 1004) 35.7 % MCV (test code = 1005) 86.4 fL MCH (test code = 1006) 29.3 PG MCHC (test code = 1007) 33.9 G/DL RDW (test code = 1038) 13.7 % NEUTROPHILS (test code = 1008) 68.6 % LYMPHOCYTES (test code = 1010) 23.4 % MONOCYTES (test code = 1011) 5.9 % EOSINOPHILS (test code = 1012) 1.6 % BASOPHILS (test code = 1013) 0.4 % IMMATURE GRANULOCYTES (test 0.1 % code = 1036) NUCLEATED RBCS (test code = 0.0 /100WBC'S 1065) PLATELET COUNT (test code = 314 K/UL 1015) ABSOLUTE NEUTROPHILS (test code 5.03 K/UL = 1066) ABSOLUTE LYMPHOCYTES (test code 1.72 K/UL = 1067) ABSOLUTE MONOCYTES (test code = 0.43 K/UL 1068) ABSOLUTE EOSINOPHILS (test code 0.12 K/UL = 1040) ABSOLUTE BASOPHILS (test code = 0.03 K/UL 1069) ABS IMMATURE GRANULOCYTES (test 0.01 K/UL code = 1020) ABS NUCLEATED RBCS (test code = 0.00 K/UL 95610) CBC W/AUTO [id number] 00:00:00 Test Item Value Reference Range Interpretation Comments WBC (test code = 1001) 7.3 K/UL RBC (test code = 1002) 4.13 M/UL HEMOGLOBIN (test code = 1003) 12.1 G/DL HEMATOCRIT (test code = 1004) 35.7 % MCV (test code = 1005) 86.4 fL MCH (test code = 1006) 29.3 PG MCHC (test code = 1007) 33.9 G/DL RDW (test code = 1038) 13.7 % NEUTROPHILS (test code = 1008) 68.6 % LYMPHOCYTES (test code = 1010) 23.4 % MONOCYTES (test code = 1011) 5.9 % EOSINOPHILS (test code = 1012) 1.6 % BASOPHILS (test code = 1013) 0.4 % IMMATURE GRANULOCYTES (test 0.1 % code = 1036) NUCLEATED RBCS (test code = 0.0 /100WBC'S 1065) PLATELET COUNT (test code = 314 K/UL 1015) ABSOLUTE NEUTROPHILS (test code 5.03 K/UL = 1066) ABSOLUTE LYMPHOCYTES (test code 1.72 K/UL = 1067) ABSOLUTE MONOCYTES (test code = 0.43 K/UL 1068) ABSOLUTE EOSINOPHILS (test code 0.12 K/UL = 1040) ABSOLUTE BASOPHILS (test code = 0.03 K/UL 1069) ABS IMMATURE GRANULOCYTES (test 0.01 K/UL code = 1020) ABS NUCLEATED RBCS (test code = 0.00 K/UL 76427) CBC W/AUTO [id number] 00:00:00 Test Item Value Reference Range Interpretation Comments WBC (test code = 1001) 7.3 K/UL RBC (test code = 1002) 4.13 M/UL HEMOGLOBIN (test code = 1003) 12.1 G/DL HEMATOCRIT (test code = 1004) 35.7 % MCV (test code = 1005) 86.4 fL MCH (test code = 1006) 29.3 PG MCHC (test code = 1007) 33.9 G/DL RDW (test code = 1038) 13.7 % NEUTROPHILS (test code = 1008) 68.6 % LYMPHOCYTES (test code = 1010) 23.4 % MONOCYTES (test code = 1011) 5.9 % EOSINOPHILS (test code = 1012) 1.6 % BASOPHILS (test code = 1013) 0.4 % IMMATURE GRANULOCYTES (test 0.1 % code = 1036) NUCLEATED RBCS (test code = 0.0 /100WBC'S 1065) PLATELET COUNT (test code = 314 K/UL 1015) ABSOLUTE NEUTROPHILS (test code 5.03 K/UL = 1066) ABSOLUTE LYMPHOCYTES (test code 1.72 K/UL = 1067) ABSOLUTE MONOCYTES (test code = 0.43 K/UL 1068) ABSOLUTE EOSINOPHILS (test code 0.12 K/UL = 1040) ABSOLUTE BASOPHILS (test code = 0.03 K/UL 1069) ABS IMMATURE GRANULOCYTES (test 0.01 K/UL code = 1020) ABS NUCLEATED RBCS (test code = 0.00 K/UL 36691) COMPREHENSIVE METABOLIC [id number] 00:00:00 Test Item Value Reference Range Interpretation Comments GLUCOSE (test code = 2217) 95 MG/DL BUN (test code = 2208) 9 MG/DL CREATININE (test code = 2214) 0.77 MG/DL eGFR AMER. (test code 118 ML/MIN/1.73 = 61273) eGFR NON- AMER. (test 102 ML/MIN/1.73 code = 72258) CALC BUN/CREAT (test code = 12 RATIO 2235) SODIUM (test code = 2231) 136 MEQ/L POTASSIUM (test code = 2228) 4.3 MEQ/L CHLORIDE (test code = 2215) 98 MEQ/L CARBON DIOXIDE (test code = 25 MEQ/L 2205) CALCIUM (test code = 2209) 9.9 MG/DL PROTEIN, TOTAL (test code = 7.4 G/DL 2228) ALBUMIN (test code = 2201) 4.5 G/DL CALC GLOBULIN (test code = 2.9 G/DL 2239) CALC A/G RATIO (test code = 1.6 RATIO 2233) BILIRUBIN, TOTAL (test code = 0.6 MG/DL 2206) ALKALINE PHOSPHATASE (test 77 U/L code = 2204) AST (test code = 2218) 22 U/L ALT (test code = 2219) 22 U/L LIPID [id number] 00:00:00 Test Item Value Reference Range Interpretation Comments CHOLESTEROL (test code = 2210) 194 MG/DL TRIGLYCERIDES (test code = 2232) 250 MG/DL HDL CHOLESTEROL (test code = 2220) 55 MG/DL CALC LDL CHOL (test code = 2237) 103 MG/DL RISK RATIO LDL/HDL (test code = 1.87 RATIO 2238) [id number] 00:00:00 Test Item Value Reference Range Interpretation Comments TSH, THIRD GENERATION (test code 1.790 UIU/ML = 2821) [id number] 00:00:00 Test Item Value Reference Range Interpretation Comments TSH, THIRD GENERATION (test code 1.790 UIU/ML = 2821) VITAMIN D, 25 [id number] 00:00:00 Test Item Value Reference Range Interpretation Comments VITAMIN D, 25 OH (test code = 4958) 29 NG/ML CBC W/AUTO [id number] 00:00:00 Test Item Value Reference Range Interpretation Comments WBC (test code = 1001) 7.3 K/UL RBC (test code = 1002) 4.13 M/UL HEMOGLOBIN (test code = 1003) 12.1 G/DL HEMATOCRIT (test code = 1004) 35.7 % MCV (test code = 1005) 86.4 fL MCH (test code = 1006) 29.3 PG MCHC (test code = 1007) 33.9 G/DL RDW (test code = 1038) 13.7 % NEUTROPHILS (test code = 1008) 68.6 % LYMPHOCYTES (test code = 1010) 23.4 % MONOCYTES (test code = 1011) 5.9 % EOSINOPHILS (test code = 1012) 1.6 % BASOPHILS (test code = 1013) 0.4 % IMMATURE GRANULOCYTES (test 0.1 % code = 1036) NUCLEATED RBCS (test code = 0.0 /100WBC'S 1065) PLATELET COUNT (test code = 314 K/UL 1015) ABSOLUTE NEUTROPHILS (test code 5.03 K/UL = 1066) ABSOLUTE LYMPHOCYTES (test code 1.72 K/UL = 1067) ABSOLUTE MONOCYTES (test code = 0.43 K/UL 1068) ABSOLUTE EOSINOPHILS (test code 0.12 K/UL = 1040) ABSOLUTE BASOPHILS (test code = 0.03 K/UL 1069) ABS IMMATURE GRANULOCYTES (test 0.01 K/UL code = 1020) ABS NUCLEATED RBCS (test code = 0.00 K/UL 15375) CBC W/AUTO [id number] 00:00:00 Test Item Value Reference Range Interpretation Comments WBC (test code = 1001) 7.3 K/UL RBC (test code = 1002) 4.13 M/UL HEMOGLOBIN (test code = 1003) 12.1 G/DL HEMATOCRIT (test code = 1004) 35.7 % MCV (test code = 1005) 86.4 fL MCH (test code = 1006) 29.3 PG MCHC (test code = 1007) 33.9 G/DL RDW (test code = 1038) 13.7 % NEUTROPHILS (test code = 1008) 68.6 % LYMPHOCYTES (test code = 1010) 23.4 % MONOCYTES (test code = 1011) 5.9 % EOSINOPHILS (test code = 1012) 1.6 % BASOPHILS (test code = 1013) 0.4 % IMMATURE GRANULOCYTES (test 0.1 % code = 1036) NUCLEATED RBCS (test code = 0.0 /100WBC'S 1065) PLATELET COUNT (test code = 314 K/UL 1015) ABSOLUTE NEUTROPHILS (test code 5.03 K/UL = 1066) ABSOLUTE LYMPHOCYTES (test code 1.72 K/UL = 1067) ABSOLUTE MONOCYTES (test code = 0.43 K/UL 1068) ABSOLUTE EOSINOPHILS (test code 0.12 K/UL = 1040) ABSOLUTE BASOPHILS (test code = 0.03 K/UL 1069) ABS IMMATURE GRANULOCYTES (test 0.01 K/UL code = 1020) ABS NUCLEATED RBCS (test code = 0.00 K/UL 88484) COMPREHENSIVE METABOLIC [id number] 00:00:00 Test Item Value Reference Range Interpretation Comments GLUCOSE (test code = 2217) 95 MG/DL BUN (test code = 2208) 9 MG/DL CREATININE (test code = 2214) 0.77 MG/DL eGFR AMER. (test code 118 ML/MIN/1.73 = 61739) eGFR NON- AMER. (test 102 ML/MIN/1.73 code = 03425) CALC BUN/CREAT (test code = 12 RATIO 2235) SODIUM (test code = 2231) 136 MEQ/L POTASSIUM (test code = 2228) 4.3 MEQ/L CHLORIDE (test code = 2215) 98 MEQ/L CARBON DIOXIDE (test code = 25 MEQ/L 2205) CALCIUM (test code = 2209) 9.9 MG/DL PROTEIN, TOTAL (test code = 7.4 G/DL 222) ALBUMIN (test code = 2201) 4.5 G/DL CALC GLOBULIN (test code = 2.9 G/DL 2240) CALC A/G RATIO (test code = 1.6 RATIO 2234) BILIRUBIN, TOTAL (test code = 0.6 MG/DL 220) ALKALINE PHOSPHATASE (test 77 U/L code = 2204) AST (test code = 2218) 22 U/L ALT (test code = 2219) 22 U/L COMPREHENSIVE METABOLIC [id number] 00:00:00 Test Item Value Reference Range Interpretation Comments GLUCOSE (test code = 2217) 95 MG/DL BUN (test code = 2208) 9 MG/DL CREATININE (test code = 2214) 0.77 MG/DL eGFR AMER. (test code 118 ML/MIN/1.73 = 73558) eGFR NON- AMER. (test 102 ML/MIN/1.73 code = 67400) CALC BUN/CREAT (test code = 12 RATIO 2235) SODIUM (test code = 2231) 136 MEQ/L POTASSIUM (test code = 2228) 4.3 MEQ/L CHLORIDE (test code = 2215) 98 MEQ/L CARBON DIOXIDE (test code = 25 MEQ/L 2205) CALCIUM (test code = 2209) 9.9 MG/DL PROTEIN, TOTAL (test code = 7.4 G/DL 2228) ALBUMIN (test code = 2201) 4.5 G/DL CALC GLOBULIN (test code = 2.9 G/DL 2239) CALC A/G RATIO (test code = 1.6 RATIO 4) BILIRUBIN, TOTAL (test code = 0.6 MG/DL 2206) ALKALINE PHOSPHATASE (test 77 U/L code = 2204) AST (test code = 2218) 22 U/L ALT (test code = 2219) 22 U/L LIPID [id number] 00:00:00 Test Item Value Reference Range Interpretation Comments CHOLESTEROL (test code = 2210) 194 MG/DL TRIGLYCERIDES (test code = 2232) 250 MG/DL HDL CHOLESTEROL (test code = 2220) 55 MG/DL CALC LDL CHOL (test code = 2237) 103 MG/DL RISK RATIO LDL/HDL (test code = 1.87 RATIO 2238) LIPID [id number] 00:00:00 Test Item Value Reference Range Interpretation Comments CHOLESTEROL (test code = 2210) 194 MG/DL TRIGLYCERIDES (test code = 2232) 250 MG/DL HDL CHOLESTEROL (test code = 2220) 55 MG/DL CALC LDL CHOL (test code = 2237) 103 MG/DL RISK RATIO LDL/HDL (test code = 1.87 RATIO 2238) [id number] 00:00:00 Test Item Value Reference Range Interpretation Comments TSH, THIRD GENERATION (test code 1.790 UIU/ML = 2821) [id number] 00:00:00 Test Item Value Reference Range Interpretation Comments TSH, THIRD GENERATION (test code 1.790 UIU/ML = 2821) [id number] 00:00:00 Test Item Value Reference Range Interpretation Comments TSH, THIRD GENERATION (test code 1.790 UIU/ML = 2821) VITAMIN D, 25 [id number] 00:00:00 Test Item Value Reference Range Interpretation Comments VITAMIN D, 25 OH (test code = 4958) 29 NG/ML VITAMIN D, 25 [id number] 00:00:00 Test Item Value Reference Range Interpretation Comments VITAMIN D, 25 OH (test code = 4958) 29 NG/ML CBC W/AUTO [id number] 00:00:00 Test Item Value Reference Range Interpretation Comments WBC (test code = 1001) 7.3 K/UL RBC (test code = 1002) 4.13 M/UL HEMOGLOBIN (test code = 1003) 12.1 G/DL HEMATOCRIT (test code = 1004) 35.7 % MCV (test code = 1005) 86.4 fL MCH (test code = 1006) 29.3 PG MCHC (test code = 1007) 33.9 G/DL RDW (test code = 1038) 13.7 % NEUTROPHILS (test code = 1008) 68.6 % LYMPHOCYTES (test code = 1010) 23.4 % MONOCYTES (test code = 1011) 5.9 % EOSINOPHILS (test code = 1012) 1.6 % BASOPHILS (test code = 1013) 0.4 % IMMATURE GRANULOCYTES (test 0.1 % code = 1036) NUCLEATED RBCS (test code = 0.0 /100WBC'S 1065) PLATELET COUNT (test code = 314 K/UL 1015) ABSOLUTE NEUTROPHILS (test code 5.03 K/UL = 1066) ABSOLUTE LYMPHOCYTES (test code 1.72 K/UL = 1067) ABSOLUTE MONOCYTES (test code = 0.43 K/UL 1068) ABSOLUTE EOSINOPHILS (test code 0.12 K/UL = 1040) ABSOLUTE BASOPHILS (test code = 0.03 K/UL 1069) ABS IMMATURE GRANULOCYTES (test 0.01 K/UL code = 1020) ABS NUCLEATED RBCS (test code = 0.00 K/UL 87337) CBC W/AUTO [id number] 00:00:00 Test Item Value Reference Range Interpretation Comments WBC (test code = 1001) 7.3 K/UL RBC (test code = 1002) 4.13 M/UL HEMOGLOBIN (test code = 1003) 12.1 G/DL HEMATOCRIT (test code = 1004) 35.7 % MCV (test code = 1005) 86.4 fL MCH (test code = 1006) 29.3 PG MCHC (test code = 1007) 33.9 G/DL RDW (test code = 1038) 13.7 % NEUTROPHILS (test code = 1008) 68.6 % LYMPHOCYTES (test code = 1010) 23.4 % MONOCYTES (test code = 1011) 5.9 % EOSINOPHILS (test code = 1012) 1.6 % BASOPHILS (test code = 1013) 0.4 % IMMATURE GRANULOCYTES (test 0.1 % code = 1036) NUCLEATED RBCS (test code = 0.0 /100WBC'S 1065) PLATELET COUNT (test code = 314 K/UL 1015) ABSOLUTE NEUTROPHILS (test code 5.03 K/UL = 1066) ABSOLUTE LYMPHOCYTES (test code 1.72 K/UL = 1067) ABSOLUTE MONOCYTES (test code = 0.43 K/UL 1068) ABSOLUTE EOSINOPHILS (test code 0.12 K/UL = 1040) ABSOLUTE BASOPHILS (test code = 0.03 K/UL 1069) ABS IMMATURE GRANULOCYTES (test 0.01 K/UL code = 1020) ABS NUCLEATED RBCS (test code = 0.00 K/UL 67831) CBC W/AUTO [id number] 00:00:00 Test Item Value Reference Range Interpretation Comments WBC (test code = 1001) 7.3 K/UL RBC (test code = 1002) 4.13 M/UL HEMOGLOBIN (test code = 1003) 12.1 G/DL HEMATOCRIT (test code = 1004) 35.7 % MCV (test code = 1005) 86.4 fL MCH (test code = 1006) 29.3 PG MCHC (test code = 1007) 33.9 G/DL RDW (test code = 1038) 13.7 % NEUTROPHILS (test code = 1008) 68.6 % LYMPHOCYTES (test code = 1010) 23.4 % MONOCYTES (test code = 1011) 5.9 % EOSINOPHILS (test code = 1012) 1.6 % BASOPHILS (test code = 1013) 0.4 % IMMATURE GRANULOCYTES (test 0.1 % code = 1036) NUCLEATED RBCS (test code = 0.0 /100WBC'S 1065) PLATELET COUNT (test code = 314 K/UL 1015) ABSOLUTE NEUTROPHILS (test code 5.03 K/UL = 1066) ABSOLUTE LYMPHOCYTES (test code 1.72 K/UL = 1067) ABSOLUTE MONOCYTES (test code = 0.43 K/UL 1068) ABSOLUTE EOSINOPHILS (test code 0.12 K/UL = 1040) ABSOLUTE BASOPHILS (test code = 0.03 K/UL 1069) ABS IMMATURE GRANULOCYTES (test 0.01 K/UL code = 1020) ABS NUCLEATED RBCS (test code = 0.00 K/UL 91568) COMPREHENSIVE METABOLIC [id number] 00:00:00 Test Item Value Reference Range Interpretation Comments GLUCOSE (test code = 2217) 91 MG/DL BUN (test code = 2208) 11 MG/DL CREATININE (test code = 2214) 0.71 MG/DL eGFR AMER. (test code 131 ML/MIN/1.73 = 58224) eGFR NON- AMER. (test 113 ML/MIN/1.73 code = 37998) CALC BUN/CREAT (test code = 15 RATIO 2235) SODIUM (test code = 2231) 137 MEQ/L POTASSIUM (test code = 2228) 4.6 MEQ/L CHLORIDE (test code = 2215) 99 MEQ/L CARBON DIOXIDE (test code = 24 MEQ/L 2206) CALCIUM (test code = 2209) 10.2 MG/DL PROTEIN, TOTAL (test code = 7.5 G/DL 2228) ALBUMIN (test code = 2201) 4.5 G/DL CALC GLOBULIN (test code = 3.0 G/DL 2240) CALC A/G RATIO (test code = 1.5 RATIO 2234) BILIRUBIN, TOTAL (test code = 0.5 MG/DL 2206) ALKALINE PHOSPHATASE (test 81 U/L code = 2204) AST (test code = 2218) 25 U/L ALT (test code = 2219) 20 U/L COMPREHENSIVE METABOLIC [id number] 00:00:00 Test Item Value Reference Range Interpretation Comments GLUCOSE (test code = 2217) 91 MG/DL BUN (test code = 2208) 11 MG/DL CREATININE (test code = 2214) 0.71 MG/DL eGFR AMER. (test code 131 ML/MIN/1.73 = 10773) eGFR NON- AMER. (test 113 ML/MIN/1.73 code = 74431) CALC BUN/CREAT (test code = 15 RATIO 2235) SODIUM (test code = 2231) 137 MEQ/L POTASSIUM (test code = 2228) 4.6 MEQ/L CHLORIDE (test code = 2215) 99 MEQ/L CARBON DIOXIDE (test code = 24 MEQ/L 2205) CALCIUM (test code = 220) 10.2 MG/DL PROTEIN, TOTAL (test code = 7.5 G/DL 2228) ALBUMIN (test code = 2201) 4.5 G/DL CALC GLOBULIN (test code = 3.0 G/DL 2239) CALC A/G RATIO (test code = 1.5 RATIO 2234) BILIRUBIN, TOTAL (test code = 0.5 MG/DL 2206) ALKALINE PHOSPHATASE (test 81 U/L code = 220) AST (test code = 2218) 25 U/L ALT (test code = 2219) 20 U/L VITAMIN D, 25 [id number] 00:00:00 Test Item Value Reference Range Interpretation Comments VITAMIN D, 25 OH (test code = 4958) 42 NG/ML VITAMIN D, 25 [id number] 00:00:00 Test Item Value Reference Range Interpretation Comments VITAMIN D, 25 OH (test code = 4958) 42 NG/ML COMPREHENSIVE METABOLIC [id number] 00:00:00 Test Item Value Reference Range Interpretation Comments GLUCOSE (test code = 7) 91 MG/DL BUN (test code = 2208) 11 MG/DL CREATININE (test code = 2214) 0.71 MG/DL eGFR AMER. (test code 131 ML/MIN/1.73 = 46638) eGFR NON- AMER. (test 113 ML/MIN/1.73 code = 10347) CALC BUN/CREAT (test code = 15 RATIO 2235) SODIUM (test code = 2231) 137 MEQ/L POTASSIUM (test code = 2228) 4.6 MEQ/L CHLORIDE (test code = 2215) 99 MEQ/L CARBON DIOXIDE (test code = 24 MEQ/L 2205) CALCIUM (test code = 2209) 10.2 MG/DL PROTEIN, TOTAL (test code = 7.5 G/DL 2228) ALBUMIN (test code = 2201) 4.5 G/DL CALC GLOBULIN (test code = 3.0 G/DL 2239) CALC A/G RATIO (test code = 1.5 RATIO 2234) BILIRUBIN, TOTAL (test code = 0.5 MG/DL 2206) ALKALINE PHOSPHATASE (test 81 U/L code = 2204) AST (test code = 2218) 25 U/L ALT (test code = 2219) 20 U/L COMPREHENSIVE METABOLIC [id number] 00:00:00 Test Item Value Reference Range Interpretation Comments GLUCOSE (test code = 2217) 91 MG/DL BUN (test code = 2208) 11 MG/DL CREATININE (test code = 2214) 0.71 MG/DL eGFR AMER. (test code 131 ML/MIN/1.73 = 09277) eGFR NON- AMER. (test 113 ML/MIN/1.73 code = 89984) CALC BUN/CREAT (test code = 15 RATIO 2235) SODIUM (test code = 2231) 137 MEQ/L POTASSIUM (test code = 2228) 4.6 MEQ/L CHLORIDE (test code = 2215) 99 MEQ/L CARBON DIOXIDE (test code = 24 MEQ/L 2205) CALCIUM (test code = 2209) 10.2 MG/DL PROTEIN, TOTAL (test code = 7.5 G/DL 222) ALBUMIN (test code = 2201) 4.5 G/DL CALC GLOBULIN (test code = 3.0 G/DL 2240) CALC A/G RATIO (test code = 1.5 RATIO 2234) BILIRUBIN, TOTAL (test code = 0.5 MG/DL 2206) ALKALINE PHOSPHATASE (test 81 U/L code = 2204) AST (test code = 2218) 25 U/L ALT (test code = 2219) 20 U/L VITAMIN D, 25 [id number] 00:00:00 Test Item Value Reference Range Interpretation Comments VITAMIN D, 25 OH (test code = 4958) 42 NG/ML VITAMIN D, 25 [id number] 00:00:00 Test Item Value Reference Range Interpretation Comments VITAMIN D, 25 OH (test code = 4958) 42 NG/ML COMPREHENSIVE METABOLIC [id number] 00:00:00 Test Item Value Reference Range Interpretation Comments GLUCOSE (test code = 2217) 91 MG/DL BUN (test code = 2208) 11 MG/DL CREATININE (test code = 2214) 0.71 MG/DL eGFR AMER. (test code 131 ML/MIN/1.73 = 10155) eGFR NON- AMER. (test 113 ML/MIN/1.73 code = 84535) CALC BUN/CREAT (test code = 15 RATIO 2235) SODIUM (test code = 2231) 137 MEQ/L POTASSIUM (test code = 2228) 4.6 MEQ/L CHLORIDE (test code = 2215) 99 MEQ/L CARBON DIOXIDE (test code = 24 MEQ/L 220) CALCIUM (test code = 2209) 10.2 MG/DL PROTEIN, TOTAL (test code = 7.5 G/DL 222) ALBUMIN (test code = 2201) 4.5 G/DL CALC GLOBULIN (test code = 3.0 G/DL 2240) CALC A/G RATIO (test code = 1.5 RATIO 2234) BILIRUBIN, TOTAL (test code = 0.5 MG/DL 2206) ALKALINE PHOSPHATASE (test 81 U/L code = 2204) AST (test code = 2218) 25 U/L ALT (test code = 2219) 20 U/L COMPREHENSIVE METABOLIC [id number] 00:00:00 Test Item Value Reference Range Interpretation Comments GLUCOSE (test code = 2217) 91 MG/DL BUN (test code = 2208) 11 MG/DL CREATININE (test code = 2214) 0.71 MG/DL eGFR AMER. (test code 131 ML/MIN/1.73 = 12992) eGFR NON- AMER. (test 113 ML/MIN/1.73 code = 76507) CALC BUN/CREAT (test code = 15 RATIO 2235) SODIUM (test code = 2231) 137 MEQ/L POTASSIUM (test code = 2228) 4.6 MEQ/L CHLORIDE (test code = 2215) 99 MEQ/L CARBON DIOXIDE (test code = 24 MEQ/L 2205) CALCIUM (test code = 2209) 10.2 MG/DL PROTEIN, TOTAL (test code = 7.5 G/DL 2228) ALBUMIN (test code = 2201) 4.5 G/DL CALC GLOBULIN (test code = 3.0 G/DL 2240) CALC A/G RATIO (test code = 1.5 RATIO 2234) BILIRUBIN, TOTAL (test code = 0.5 MG/DL 7) ALKALINE PHOSPHATASE (test 81 U/L code = 2204) AST (test code = 2218) 25 U/L ALT (test code = 2219) 20 U/L VITAMIN D, 25 [id number] 00:00:00 Test Item Value Reference Range Interpretation Comments VITAMIN D, 25 OH (test code = 4958) 42 NG/ML VITAMIN D, 25 [id number] 00:00:00 Test Item Value Reference Range Interpretation Comments VITAMIN D, 25 OH (test code = 4958) 42 NG/ML COMPREHENSIVE METABOLIC [id number] 00:00:00 Test Item Value Reference Range Interpretation Comments GLUCOSE (test code = 2217) 91 MG/DL BUN (test code = 2208) 11 MG/DL CREATININE (test code = 2214) 0.71 MG/DL eGFR AMER. (test code 131 ML/MIN/1.73 = 35724) eGFR NON- AMER. (test 113 ML/MIN/1.73 code = 97500) CALC BUN/CREAT (test code = 15 RATIO 2235) SODIUM (test code = 2231) 137 MEQ/L POTASSIUM (test code = 2228) 4.6 MEQ/L CHLORIDE (test code = 2215) 99 MEQ/L CARBON DIOXIDE (test code = 24 MEQ/L 2205) CALCIUM (test code = 2209) 10.2 MG/DL PROTEIN, TOTAL (test code = 7.5 G/DL 2228) ALBUMIN (test code = 2201) 4.5 G/DL CALC GLOBULIN (test code = 3.0 G/DL 2240) CALC A/G RATIO (test code = 1.5 RATIO 2234) BILIRUBIN, TOTAL (test code = 0.5 MG/DL 2206) ALKALINE PHOSPHATASE (test 81 U/L code = 2204) AST (test code = 2218) 25 U/L ALT (test code = 2219) 20 U/L VITAMIN D, 25 [id number] 00:00:00 Test Item Value Reference Range Interpretation Comments VITAMIN D, 25 OH (test code = 4958) 42 NG/ML COMPREHENSIVE METABOLIC [id number] 00:00:00 Test Item Value Reference Range Interpretation Comments GLUCOSE (test code = 2217) 91 MG/DL BUN (test code = 2208) 11 MG/DL CREATININE (test code = 2214) 0.71 MG/DL eGFR AMER. (test code 131 ML/MIN/1.73 = 81765) eGFR NON- AMER. (test 113 ML/MIN/1.73 code = 48302) CALC BUN/CREAT (test code = 15 RATIO 2235) SODIUM (test code = 2231) 137 MEQ/L POTASSIUM (test code = 2228) 4.6 MEQ/L CHLORIDE (test code = 2215) 99 MEQ/L CARBON DIOXIDE (test code = 24 MEQ/L 2205) CALCIUM (test code = 2209) 10.2 MG/DL PROTEIN, TOTAL (test code = 7.5 G/DL 222) ALBUMIN (test code = 2201) 4.5 G/DL CALC GLOBULIN (test code = 3.0 G/DL 2240) CALC A/G RATIO (test code = 1.5 RATIO 2234) BILIRUBIN, TOTAL (test code = 0.5 MG/DL 2206) ALKALINE PHOSPHATASE (test 81 U/L code = 2204) AST (test code = 2218) 25 U/L ALT (test code = 2219) 20 U/L COMPREHENSIVE METABOLIC [id number] 00:00:00 Test Item Value Reference Range Interpretation Comments GLUCOSE (test code = 2217) 91 MG/DL BUN (test code = 2208) 11 MG/DL CREATININE (test code = 2214) 0.71 MG/DL eGFR AMER. (test code 131 ML/MIN/1.73 = 11272) eGFR NON- AMER. (test 113 ML/MIN/1.73 code = 01129) CALC BUN/CREAT (test code = 15 RATIO 2235) SODIUM (test code = 2231) 137 MEQ/L POTASSIUM (test code = 2228) 4.6 MEQ/L CHLORIDE (test code = 2215) 99 MEQ/L CARBON DIOXIDE (test code = 24 MEQ/L 2205) CALCIUM (test code = 2209) 10.2 MG/DL PROTEIN, TOTAL (test code = 7.5 G/DL 2228) ALBUMIN (test code = 2201) 4.5 G/DL CALC GLOBULIN (test code = 3.0 G/DL 2240) CALC A/G RATIO (test code = 1.5 RATIO 2234) BILIRUBIN, TOTAL (test code = 0.5 MG/DL 7) ALKALINE PHOSPHATASE (test 81 U/L code = 2204) AST (test code = 2218) 25 U/L ALT (test code = 2219) 20 U/L VITAMIN D, 25 [id number] 00:00:00 Test Item Value Reference Range Interpretation Comments VITAMIN D, 25 OH (test code = 4958) 42 NG/ML VITAMIN D, 25 [id number] 00:00:00 Test Item Value Reference Range Interpretation Comments VITAMIN D, 25 OH (test code = 4958) 42 NG/ML PAP TEST, THINPREP, [id number] 00:00:00 Test Item Value Reference Range Interpretation Comments SOURCE: (test code = Cervical/Endocervical 8001) SLIDES: (test code = 1 8011) LMP: (test code = 8021) 01/03/2021 SPECIMEN ADEQUACY: (test (NOTE) code = 29058) INTERPRETATION: (test NILM/NO EPITH. code = 93032) ABNORMALITY;SEE BELOW BURRER MARKER AXLE: (test Yamilet Phillips, [place] code = 8101) (ASCP) LOCATION: (test code = (NOTE) 44492) CPT: (test code = 8140) (NOTE) PAP TEST, THINPREP, [id number] 00:00:00 Test Item Value Reference Range Interpretation Comments SOURCE: (test code = Cervical/Endocervical 8001) SLIDES: (test code = 1 8011) LMP: (test code = 8021) 01/03/2021 SPECIMEN ADEQUACY: (test (NOTE) code = 60128) INTERPRETATION: (test NILM/NO EPITH. code = 97231) ABNORMALITY;SEE BELOW BURRER MARKER AXLE: (test Yamilet Phillips, CT code = 8101) (ASCP) LOCATION: (test code = (NOTE) 07723) CPT: (test code = 8140) (NOTE) HPV HIGH RISK WITH GENOTYPE, [id number] 00:00:00 Test Item Value Reference Range Interpretation Comments HPV HIGH RISK INTERP (test code = NEGATIVE 24044) HPV 16 (test code = 91170) NEGATIVE HPV 18 (test code = 62251) NEGATIVE HPV, HR, OTHER GENOTYPES (test code NEGATIVE = 66473) HPV HIGH RISK WITH GENOTYPE, [id number] 00:00:00 Test Item Value Reference Range Interpretation Comments HPV HIGH RISK INTERP (test code = NEGATIVE 47407) HPV 16 (test code = 55957) NEGATIVE HPV 18 (test code = 04607) NEGATIVE HPV, HR, OTHER GENOTYPES (test code NEGATIVE = 50193) PAP TEST, THINPREP, [id number] 00:00:00 Test Item Value Reference Range Interpretation Comments SOURCE: (test code = Cervical/Endocervical 8001) SLIDES: (test code = 1 8011) LMP: (test code = 8021) 01/03/2021 SPECIMEN ADEQUACY: (test (NOTE) code = 50124) INTERPRETATION: (test NILM/NO EPITH. code = 00009) ABNORMALITY;SEE BELOW BURRER MARKER AXLE: (test Yamilet Phillips, CT code = 8101) (ASCP) LOCATION: (test code = (NOTE) 96622) CPT: (test code = 8140) (NOTE) PAP TEST, THINPREP, [id number] 00:00:00 Test Item Value Reference Range Interpretation Comments SOURCE: (test code = Cervical/Endocervical 800) SLIDES: (test code = 1 801) LMP: (test code = 8021) 01/03/2021 SPECIMEN ADEQUACY: (test (NOTE) code = 63575) INTERPRETATION: (test NILM/NO EPITH. code = 64940) ABNORMALITY;SEE BELOW BURRER MARKER AXLE: (test Yamilet Alan, CT code = 8101) (ASCP) LOCATION: (test code = (NOTE) 59648) CPT: (test code = 8140) (NOTE) HPV HIGH RISK WITH GENOTYPE, [id number] 00:00:00 Test Item Value Reference Range Interpretation Comments HPV HIGH RISK INTERP (test code = NEGATIVE 14480) HPV 16 (test code = 82343) NEGATIVE HPV 18 (test code = 08375) NEGATIVE HPV, HR, OTHER GENOTYPES (test code NEGATIVE = 38978) HPV HIGH RISK WITH GENOTYPE, [id number] 00:00:00 Test Item Value Reference Range Interpretation Comments HPV HIGH RISK INTERP (test code = NEGATIVE 51774) HPV 16 (test code = 60823) NEGATIVE HPV 18 (test code = 96038) NEGATIVE HPV, HR, OTHER GENOTYPES (test code NEGATIVE = 12690) PAP TEST, THINPREP, [id number] 00:00:00 Test Item Value Reference Range Interpretation Comments SOURCE: (test code = Cervical/Endocervical 8001) SLIDES: (test code = 1 8011) LMP: (test code = 8021) 01/03/2021 SPECIMEN ADEQUACY: (test (NOTE) code = 70171) INTERPRETATION: (test NILM/NO EPITH. code = 84423) ABNORMALITY;SEE BELOW BURRER MARKER AXLE: (test Yamilet Phillips, CT code = 8101) (ASCP) LOCATION: (test code = (NOTE) 38724) CPT: (test code = 8140) (NOTE) PAP TEST, THINPREP, [id number] 00:00:00 Test Item Value Reference Range Interpretation Comments SOURCE: (test code = Cervical/Endocervical 8001) SLIDES: (test code = 1 8011) LMP: (test code = 8021) 01/03/2021 SPECIMEN ADEQUACY: (test (NOTE) code = 71645) INTERPRETATION: (test NILM/NO EPITH. code = 04285) ABNORMALITY;SEE BELOW BURRER MARKER AXLE: (test Yamilet Phillips, CT code = 8101) (ASCP) LOCATION: (test code = (NOTE) 71631) CPT: (test code = 8140) (NOTE) HPV HIGH RISK WITH GENOTYPE, [id number] 00:00:00 Test Item Value Reference Range Interpretation Comments HPV HIGH RISK INTERP (test code = NEGATIVE 77896) HPV 16 (test code = 91962) NEGATIVE HPV 18 (test code = 98837) NEGATIVE HPV, HR, OTHER GENOTYPES (test code NEGATIVE = 96708) HPV HIGH RISK WITH GENOTYPE, [id number] 00:00:00 Test Item Value Reference Range Interpretation Comments HPV HIGH RISK INTERP (test code = NEGATIVE 93566) HPV 16 (test code = 88599) NEGATIVE HPV 18 (test code = 80187) NEGATIVE HPV, HR, OTHER GENOTYPES (test code NEGATIVE = 86202) PAP TEST, THINPREP, [id number] 00:00:00 Test Item Value Reference Range Interpretation Comments SOURCE: (test code = Cervical/Endocervical 8001) SLIDES: (test code = 1 8011) LMP: (test code = 8021) 01/03/2021 SPECIMEN ADEQUACY: (test (NOTE) code = 65691) INTERPRETATION: (test NILM/NO EPITH. code = 61848) ABNORMALITY;SEE BELOW BURRER MARKER AXLE: (test Yamilet Phillips, CT code = 8101) (ASCP) LOCATION: (test code = (NOTE) 12965) CPT: (test code = 8140) (NOTE) HPV HIGH RISK WITH GENOTYPE, [id number] 00:00:00 Test Item Value Reference Range Interpretation Comments HPV HIGH RISK INTERP (test code = NEGATIVE 44678) HPV 16 (test code = 07276) NEGATIVE HPV 18 (test code = 09219) NEGATIVE HPV, HR, OTHER GENOTYPES (test code NEGATIVE = 49357) PAP TEST, THINPREP, [id number] 00:00:00 Test Item Value Reference Range Interpretation Comments SOURCE: (test code = Cervical/Endocervical 8001) SLIDES: (test code = 1 8011) LMP: (test code = 8021) 01/03/2021 SPECIMEN ADEQUACY: (test (NOTE) code = 63846) INTERPRETATION: (test NILM/NO EPITH. code = 95801) ABNORMALITY;SEE BELOW BURRER MARKER AXLE: (test Yamiletabbey [place], [place] code = 8101) (ASCP) LOCATION: (test code = (NOTE) 82200) CPT: (test code = 8140) (NOTE) PAP TEST, THINPREP, [id number] 00:00:00 Test Item Value Reference Range Interpretation Comments SOURCE: (test code = Cervical/Endocervical 8001) SLIDES: (test code = 1 8011) LMP: (test code = 8021) 01/03/2021 SPECIMEN ADEQUACY: (test (NOTE) code = 40685) INTERPRETATION: (test NILM/NO EPITH. code = 59164) ABNORMALITY;SEE BELOW BURRER MARKER AXLE: (test Yamilet [place], [place] code = 8101) (ASCP) LOCATION: (test code = (NOTE) 21310) CPT: (test code = 8140) (NOTE) HPV HIGH RISK WITH GENOTYPE, [id number] 00:00:00 Test Item Value Reference Range Interpretation Comments HPV HIGH RISK INTERP (test code = NEGATIVE 32046) HPV 16 (test code = 33203) NEGATIVE HPV 18 (test code = 42282) NEGATIVE HPV, HR, OTHER GENOTYPES (test code NEGATIVE = 34547) HPV HIGH RISK WITH GENOTYPE, [id number] 00:00:00 Test Item Value Reference Range Interpretation Comments HPV HIGH RISK INTERP (test code = NEGATIVE 57893) HPV 16 (test code = 83942) NEGATIVE HPV 18 (test code = 37521) NEGATIVE HPV, HR, OTHER GENOTYPES (test code NEGATIVE = 69613) CBC W/AUTO [id number] 00:00:00 Test Item Value Reference Range Interpretation Comments WBC (test code = 1001) 7.6 K/UL RBC (test code = 1002) 4.38 M/UL HEMOGLOBIN (test code = 1003) 12.9 G/DL HEMATOCRIT (test code = 1004) 38.4 % MCV (test code = 1005) 87.7 fL MCH (test code = 1006) 29.5 PG MCHC (test code = 1007) 33.6 G/DL RDW (test code = 1038) 12.7 % NEUTROPHILS (test code = 1008) 68.2 % LYMPHOCYTES (test code = 1010) 24.6 % MONOCYTES (test code = 1011) 5.4 % EOSINOPHILS (test code = 1012) 1.3 % BASOPHILS (test code = 1013) 0.5 % PLATELET COUNT (test code = 1015) 329 K/UL CBC W/AUTO [id number] 00:00:00 Test Item Value Reference Range Interpretation Comments WBC (test code = 1001) 7.6 K/UL RBC (test code = 1002) 4.38 M/UL HEMOGLOBIN (test code = 1003) 12.9 G/DL HEMATOCRIT (test code = 1004) 38.4 % MCV (test code = 1005) 87.7 fL MCH (test code = 1006) 29.5 PG MCHC (test code = 1007) 33.6 G/DL RDW (test code = 1038) 12.7 % NEUTROPHILS (test code = 1008) 68.2 % LYMPHOCYTES (test code = 1010) 24.6 % MONOCYTES (test code = 1011) 5.4 % EOSINOPHILS (test code = 1012) 1.3 % BASOPHILS (test code = 1013) 0.5 % PLATELET COUNT (test code = 1015) 329 K/UL CBC W/AUTO [id number] 00:00:00 Test Item Value Reference Range Interpretation Comments WBC (test code = 1001) 7.6 K/UL RBC (test code = 1002) 4.38 M/UL HEMOGLOBIN (test code = 1003) 12.9 G/DL HEMATOCRIT (test code = 1004) 38.4 % MCV (test code = 1005) 87.7 fL MCH (test code = 1006) 29.5 PG MCHC (test code = 1007) 33.6 G/DL RDW (test code = 1038) 12.7 % NEUTROPHILS (test code = 1008) 68.2 % LYMPHOCYTES (test code = 1010) 24.6 % MONOCYTES (test code = 1011) 5.4 % EOSINOPHILS (test code = 1012) 1.3 % BASOPHILS (test code = 1013) 0.5 % PLATELET COUNT (test code = 1015) 329 K/UL COMPREHENSIVE METABOLIC [id number] 00:00:00 Test Item Value Reference Range Interpretation Comments GLUCOSE (test code = 2217) 95 MG/DL BUN (test code = 2208) 10 MG/DL CREATININE (test code = 2214) 0.71 MG/DL eGFR AMER. (test code 131 ML/MIN/1.73 = 61822) eGFR NON- AMER. (test 113 ML/MIN/1.73 code = 84904) CALC BUN/CREAT (test code = 14 RATIO 2235) SODIUM (test code = 2231) 138 MEQ/L POTASSIUM (test code = 2228) 4.4 MEQ/L CHLORIDE (test code = 2215) 102 MEQ/L CARBON DIOXIDE (test code = 27 MEQ/L 2206) CALCIUM (test code = 2209) 9.9 MG/DL PROTEIN, TOTAL (test code = 7.6 G/DL 2228) ALBUMIN (test code = 2201) 4.4 G/DL CALC GLOBULIN (test code = 3.2 G/DL 2240) CALC A/G RATIO (test code = 1.4 RATIO 2234) BILIRUBIN, TOTAL (test code = 0.8 MG/DL 2206) ALKALINE PHOSPHATASE (test 78 U/L code = 2204) AST (test code = 2218) 19 U/L ALT (test code = 2219) 20 U/L COMPREHENSIVE METABOLIC [id number] 00:00:00 Test Item Value Reference Range Interpretation Comments GLUCOSE (test code = 2217) 95 MG/DL BUN (test code = 2208) 10 MG/DL CREATININE (test code = 2214) 0.71 MG/DL eGFR AMER. (test code 131 ML/MIN/1.73 = 36155) eGFR NON- AMER. (test 113 ML/MIN/1.73 code = 15213) CALC BUN/CREAT (test code = 14 RATIO 2235) SODIUM (test code = 2231) 138 MEQ/L POTASSIUM (test code = 2228) 4.4 MEQ/L CHLORIDE (test code = 2215) 102 MEQ/L CARBON DIOXIDE (test code = 27 MEQ/L 2205) CALCIUM (test code = 2209) 9.9 MG/DL PROTEIN, TOTAL (test code = 7.6 G/DL 2228) ALBUMIN (test code = 2201) 4.4 G/DL CALC GLOBULIN (test code = 3.2 G/DL 2239) CALC A/G RATIO (test code = 1.4 RATIO 2233) BILIRUBIN, TOTAL (test code = 0.8 MG/DL 2206) ALKALINE PHOSPHATASE (test 78 U/L code = 220) AST (test code = 2218) 19 U/L ALT (test code = 2219) 20 U/L [id number] 00:00:00 Test Item Value Reference Range Interpretation Comments TSH, THIRD GENERATION (test code 2.590 UIU/ML = 2821) [id number] 00:00:00 Test Item Value Reference Range Interpretation Comments TSH, THIRD GENERATION (test code 2.590 UIU/ML = 2821) [id number] 00:00:00 Test Item Value Reference Range Interpretation Comments TSH, THIRD GENERATION (test code 2.590 UIU/ML = 2821) VITAMIN D, 25 [id number] 00:00:00 Test Item Value Reference Range Interpretation Comments VITAMIN D, 25 OH (test code = 4958) 29 NG/ML VITAMIN D, 25 [id number] 00:00:00 Test Item Value Reference Range Interpretation Comments VITAMIN D, 25 OH (test code = 4958) 29 NG/ML VITAMIN [id number] 00:00:00 Test Item Value Reference Range Interpretation Comments VITAMIN B-12 (test code = 2840) 873 PG/ML VITAMIN [id number] 00:00:00 Test Item Value Reference Range Interpretation Comments VITAMIN B-12 (test code = 2840) 873 PG/ML VITAMIN [id number] 00:00:00 Test Item Value Reference Range Interpretation Comments VITAMIN B-12 (test code = 2840) 873 PG/ML CBC W/AUTO [id number] 00:00:00 Test Item Value Reference Range Interpretation Comments WBC (test code = 1001) 7.6 K/UL RBC (test code = 1002) 4.38 M/UL HEMOGLOBIN (test code = 1003) 12.9 G/DL HEMATOCRIT (test code = 1004) 38.4 % MCV (test code = 1005) 87.7 fL MCH (test code = 1006) 29.5 PG MCHC (test code = 1007) 33.6 G/DL RDW (test code = 1038) 12.7 % NEUTROPHILS (test code = 1008) 68.2 % LYMPHOCYTES (test code = 1010) 24.6 % MONOCYTES (test code = 1011) 5.4 % EOSINOPHILS (test code = 1012) 1.3 % BASOPHILS (test code = 1013) 0.5 % PLATELET COUNT (test code = 1015) 329 K/UL CBC W/AUTO [id number] 00:00:00 Test Item Value Reference Range Interpretation Comments WBC (test code = 1001) 7.6 K/UL RBC (test code = 1002) 4.38 M/UL HEMOGLOBIN (test code = 1003) 12.9 G/DL HEMATOCRIT (test code = 1004) 38.4 % MCV (test code = 1005) 87.7 fL MCH (test code = 1006) 29.5 PG MCHC (test code = 1007) 33.6 G/DL RDW (test code = 1038) 12.7 % NEUTROPHILS (test code = 1008) 68.2 % LYMPHOCYTES (test code = 1010) 24.6 % MONOCYTES (test code = 1011) 5.4 % EOSINOPHILS (test code = 1012) 1.3 % BASOPHILS (test code = 1013) 0.5 % PLATELET COUNT (test code = 1015) 329 K/UL CBC W/AUTO [id number] 00:00:00 Test Item Value Reference Range Interpretation Comments WBC (test code = 1001) 7.6 K/UL RBC (test code = 1002) 4.38 M/UL HEMOGLOBIN (test code = 1003) 12.9 G/DL HEMATOCRIT (test code = 1004) 38.4 % MCV (test code = 1005) 87.7 fL MCH (test code = 1006) 29.5 PG MCHC (test code = 1007) 33.6 G/DL RDW (test code = 1038) 12.7 % NEUTROPHILS (test code = 1008) 68.2 % LYMPHOCYTES (test code = 1010) 24.6 % MONOCYTES (test code = 1011) 5.4 % EOSINOPHILS (test code = 1012) 1.3 % BASOPHILS (test code = 1013) 0.5 % PLATELET COUNT (test code = 1015) 329 K/UL COMPREHENSIVE METABOLIC [id number] 00:00:00 Test Item Value Reference Range Interpretation Comments GLUCOSE (test code = 2217) 95 MG/DL BUN (test code = 2208) 10 MG/DL CREATININE (test code = 2214) 0.71 MG/DL eGFR AMER. (test code 131 ML/MIN/1.73 = 65168) eGFR NON- AMER. (test 113 ML/MIN/1.73 code = 00589) CALC BUN/CREAT (test code = 14 RATIO 2235) SODIUM (test code = 2231) 138 MEQ/L POTASSIUM (test code = 2228) 4.4 MEQ/L CHLORIDE (test code = 2215) 102 MEQ/L CARBON DIOXIDE (test code = 27 MEQ/L 2205) CALCIUM (test code = 2209) 9.9 MG/DL PROTEIN, TOTAL (test code = 7.6 G/DL 222) ALBUMIN (test code = 2201) 4.4 G/DL CALC GLOBULIN (test code = 3.2 G/DL 2240) CALC A/G RATIO (test code = 1.4 RATIO 2234) BILIRUBIN, TOTAL (test code = 0.8 MG/DL 220) ALKALINE PHOSPHATASE (test 78 U/L code = 2204) AST (test code = 2218) 19 U/L ALT (test code = 2219) 20 U/L COMPREHENSIVE METABOLIC [id number] 00:00:00 Test Item Value Reference Range Interpretation Comments GLUCOSE (test code = 2217) 95 MG/DL BUN (test code = 2208) 10 MG/DL CREATININE (test code = 2214) 0.71 MG/DL eGFR AMER. (test code 131 ML/MIN/1.73 = 97783) eGFR NON- AMER. (test 113 ML/MIN/1.73 code = 47592) CALC BUN/CREAT (test code = 14 RATIO 2235) SODIUM (test code = 2231) 138 MEQ/L POTASSIUM (test code = 2228) 4.4 MEQ/L CHLORIDE (test code = 2215) 102 MEQ/L CARBON DIOXIDE (test code = 27 MEQ/L 2205) CALCIUM (test code = 2209) 9.9 MG/DL PROTEIN, TOTAL (test code = 7.6 G/DL 2228) ALBUMIN (test code = 2201) 4.4 G/DL CALC GLOBULIN (test code = 3.2 G/DL 2239) CALC A/G RATIO (test code = 1.4 RATIO 2233) BILIRUBIN, TOTAL (test code = 0.8 MG/DL 2206) ALKALINE PHOSPHATASE (test 78 U/L code = 220) AST (test code = 2218) 19 U/L ALT (test code = 2219) 20 U/L [id number] 00:00:00 Test Item Value Reference Range Interpretation Comments TSH, THIRD GENERATION (test code 2.590 UIU/ML = 2821) [id number] 00:00:00 Test Item Value Reference Range Interpretation Comments TSH, THIRD GENERATION (test code 2.590 UIU/ML = 2821) [id number] 00:00:00 Test Item Value Reference Range Interpretation Comments TSH, THIRD GENERATION (test code 2.590 UIU/ML = 2821) VITAMIN D, 25 [id number] 00:00:00 Test Item Value Reference Range Interpretation Comments VITAMIN D, 25 OH (test code = 4958) 29 NG/ML VITAMIN D, 25 [id number] 00:00:00 Test Item Value Reference Range Interpretation Comments VITAMIN D, 25 OH (test code = 4958) 29 NG/ML VITAMIN [id number] 00:00:00 Test Item Value Reference Range Interpretation Comments VITAMIN B-12 (test code = 2840) 873 PG/ML VITAMIN [id number] 00:00:00 Test Item Value Reference Range Interpretation Comments VITAMIN B-12 (test code = 2840) 873 PG/ML VITAMIN [id number] 00:00:00 Test Item Value Reference Range Interpretation Comments VITAMIN B-12 (test code = 2840) 873 PG/ML CBC W/AUTO [id number] 00:00:00 Test Item Value Reference Range Interpretation Comments WBC (test code = 1001) 7.6 K/UL RBC (test code = 1002) 4.38 M/UL HEMOGLOBIN (test code = 1003) 12.9 G/DL HEMATOCRIT (test code = 1004) 38.4 % MCV (test code = 1005) 87.7 fL MCH (test code = 1006) 29.5 PG MCHC (test code = 1007) 33.6 G/DL RDW (test code = 1038) 12.7 % NEUTROPHILS (test code = 1008) 68.2 % LYMPHOCYTES (test code = 1010) 24.6 % MONOCYTES (test code = 1011) 5.4 % EOSINOPHILS (test code = 1012) 1.3 % BASOPHILS (test code = 1013) 0.5 % PLATELET COUNT (test code = 1015) 329 K/UL CBC W/AUTO [id number] 00:00:00 Test Item Value Reference Range Interpretation Comments WBC (test code = 1001) 7.6 K/UL RBC (test code = 1002) 4.38 M/UL HEMOGLOBIN (test code = 1003) 12.9 G/DL HEMATOCRIT (test code = 1004) 38.4 % MCV (test code = 1005) 87.7 fL MCH (test code = 1006) 29.5 PG MCHC (test code = 1007) 33.6 G/DL RDW (test code = 1038) 12.7 % NEUTROPHILS (test code = 1008) 68.2 % LYMPHOCYTES (test code = 1010) 24.6 % MONOCYTES (test code = 1011) 5.4 % EOSINOPHILS (test code = 1012) 1.3 % BASOPHILS (test code = 1013) 0.5 % PLATELET COUNT (test code = 1015) 329 K/UL CBC W/AUTO [id number] 00:00:00 Test Item Value Reference Range Interpretation Comments WBC (test code = 1001) 7.6 K/UL RBC (test code = 1002) 4.38 M/UL HEMOGLOBIN (test code = 1003) 12.9 G/DL HEMATOCRIT (test code = 1004) 38.4 % MCV (test code = 1005) 87.7 fL MCH (test code = 1006) 29.5 PG MCHC (test code = 1007) 33.6 G/DL RDW (test code = 1038) 12.7 % NEUTROPHILS (test code = 1008) 68.2 % LYMPHOCYTES (test code = 1010) 24.6 % MONOCYTES (test code = 1011) 5.4 % EOSINOPHILS (test code = 1012) 1.3 % BASOPHILS (test code = 1013) 0.5 % PLATELET COUNT (test code = 1015) 329 K/UL COMPREHENSIVE METABOLIC [id number] 00:00:00 Test Item Value Reference Range Interpretation Comments GLUCOSE (test code = 2217) 95 MG/DL BUN (test code = 2208) 10 MG/DL CREATININE (test code = 2214) 0.71 MG/DL eGFR AMER. (test code 131 ML/MIN/1.73 = 38875) eGFR NON- AMER. (test 113 ML/MIN/1.73 code = 47677) CALC BUN/CREAT (test code = 14 RATIO 2235) SODIUM (test code = 2231) 138 MEQ/L POTASSIUM (test code = 2228) 4.4 MEQ/L CHLORIDE (test code = 2215) 102 MEQ/L CARBON DIOXIDE (test code = 27 MEQ/L 2205) CALCIUM (test code = 2209) 9.9 MG/DL PROTEIN, TOTAL (test code = 7.6 G/DL 2228) ALBUMIN (test code = 2201) 4.4 G/DL CALC GLOBULIN (test code = 3.2 G/DL 2240) CALC A/G RATIO (test code = 1.4 RATIO 2234) BILIRUBIN, TOTAL (test code = 0.8 MG/DL 2206) ALKALINE PHOSPHATASE (test 78 U/L code = 2204) AST (test code = 2218) 19 U/L ALT (test code = 2219) 20 U/L COMPREHENSIVE METABOLIC [id number] 00:00:00 Test Item Value Reference Range Interpretation Comments GLUCOSE (test code = 2217) 95 MG/DL BUN (test code = 2208) 10 MG/DL CREATININE (test code = 2214) 0.71 MG/DL eGFR AMER. (test code 131 ML/MIN/1.73 = 76911) eGFR NON- AMER. (test 113 ML/MIN/1.73 code = 99069) CALC BUN/CREAT (test code = 14 RATIO 2235) SODIUM (test code = 2231) 138 MEQ/L POTASSIUM (test code = 2228) 4.4 MEQ/L CHLORIDE (test code = 2215) 102 MEQ/L CARBON DIOXIDE (test code = 27 MEQ/L 2205) CALCIUM (test code = 2209) 9.9 MG/DL PROTEIN, TOTAL (test code = 7.6 G/DL 2228) ALBUMIN (test code = 2201) 4.4 G/DL CALC GLOBULIN (test code = 3.2 G/DL 2239) CALC A/G RATIO (test code = 1.4 RATIO 2233) BILIRUBIN, TOTAL (test code = 0.8 MG/DL 2206) ALKALINE PHOSPHATASE (test 78 U/L code = 2204) AST (test code = 2218) 19 U/L ALT (test code = 2219) 20 U/L [id number] 00:00:00 Test Item Value Reference Range Interpretation Comments TSH, THIRD GENERATION (test code 2.590 UIU/ML = 2821) [id number] 00:00:00 Test Item Value Reference Range Interpretation Comments TSH, THIRD GENERATION (test code 2.590 UIU/ML = 2821) [id number] 00:00:00 Test Item Value Reference Range Interpretation Comments TSH, THIRD GENERATION (test code 2.590 UIU/ML = 2821) VITAMIN D, 25 [id number] 00:00:00 Test Item Value Reference Range Interpretation Comments VITAMIN D, 25 OH (test code = 4958) 29 NG/ML VITAMIN D, 25 [id number] 00:00:00 Test Item Value Reference Range Interpretation Comments VITAMIN D, 25 OH (test code = 4958) 29 NG/ML VITAMIN [id number] 00:00:00 Test Item Value Reference Range Interpretation Comments VITAMIN B-12 (test code = 2840) 873 PG/ML VITAMIN [id number] 00:00:00 Test Item Value Reference Range Interpretation Comments VITAMIN B-12 (test code = 2840) 873 PG/ML VITAMIN [id number] 00:00:00 Test Item Value Reference Range Interpretation Comments VITAMIN B-12 (test code = 2840) 873 PG/ML CBC W/AUTO [id number] 00:00:00 Test Item Value Reference Range Interpretation Comments WBC (test code = 1001) 7.6 K/UL RBC (test code = 1002) 4.38 M/UL HEMOGLOBIN (test code = 1003) 12.9 G/DL HEMATOCRIT (test code = 1004) 38.4 % MCV (test code = 1005) 87.7 fL MCH (test code = 1006) 29.5 PG MCHC (test code = 1007) 33.6 G/DL RDW (test code = 1038) 12.7 % NEUTROPHILS (test code = 1008) 68.2 % LYMPHOCYTES (test code = 1010) 24.6 % MONOCYTES (test code = 1011) 5.4 % EOSINOPHILS (test code = 1012) 1.3 % BASOPHILS (test code = 1013) 0.5 % PLATELET COUNT (test code = 1015) 329 K/UL CBC W/AUTO [id number] 00:00:00 Test Item Value Reference Range Interpretation Comments WBC (test code = 1001) 7.6 K/UL RBC (test code = 1002) 4.38 M/UL HEMOGLOBIN (test code = 1003) 12.9 G/DL HEMATOCRIT (test code = 1004) 38.4 % MCV (test code = 1005) 87.7 fL MCH (test code = 1006) 29.5 PG MCHC (test code = 1007) 33.6 G/DL RDW (test code = 1038) 12.7 % NEUTROPHILS (test code = 1008) 68.2 % LYMPHOCYTES (test code = 1010) 24.6 % MONOCYTES (test code = 1011) 5.4 % EOSINOPHILS (test code = 1012) 1.3 % BASOPHILS (test code = 1013) 0.5 % PLATELET COUNT (test code = 1015) 329 K/UL COMPREHENSIVE METABOLIC [id number] 00:00:00 Test Item Value Reference Range Interpretation Comments GLUCOSE (test code = 2217) 95 MG/DL BUN (test code = 2208) 10 MG/DL CREATININE (test code = 2214) 0.71 MG/DL eGFR AMER. (test code 131 ML/MIN/1.73 = 34295) eGFR NON- AMER. (test 113 ML/MIN/1.73 code = 69717) CALC BUN/CREAT (test code = 14 RATIO 2235) SODIUM (test code = 2231) 138 MEQ/L POTASSIUM (test code = 2228) 4.4 MEQ/L CHLORIDE (test code = 2215) 102 MEQ/L CARBON DIOXIDE (test code = 27 MEQ/L 2205) CALCIUM (test code = 2209) 9.9 MG/DL PROTEIN, TOTAL (test code = 7.6 G/DL 2228) ALBUMIN (test code = 2201) 4.4 G/DL CALC GLOBULIN (test code = 3.2 G/DL 2239) CALC A/G RATIO (test code = 1.4 RATIO 2233) BILIRUBIN, TOTAL (test code = 0.8 MG/DL 2206) ALKALINE PHOSPHATASE (test 78 U/L code = 2204) AST (test code = 2218) 19 U/L ALT (test code = 2219) 20 U/L [id number] 00:00:00 Test Item Value Reference Range Interpretation Comments TSH, THIRD GENERATION (test code 2.590 UIU/ML = 2821) [id number] 00:00:00 Test Item Value Reference Range Interpretation Comments TSH, THIRD GENERATION (test code 2.590 UIU/ML = 2821) VITAMIN D, 25 [id number] 00:00:00 Test Item Value Reference Range Interpretation Comments VITAMIN D, 25 OH (test code = 4958) 29 NG/ML VITAMIN [id number] 00:00:00 Test Item Value Reference Range Interpretation Comments VITAMIN B-12 (test code = 2840) 873 PG/ML VITAMIN [id number] 00:00:00 Test Item Value Reference Range Interpretation Comments VITAMIN B-12 (test code = 2840) 873 PG/ML CBC W/AUTO [id number] 00:00:00 Test Item Value Reference Range Interpretation Comments WBC (test code = 1001) 7.6 K/UL RBC (test code = 1002) 4.38 M/UL HEMOGLOBIN (test code = 1003) 12.9 G/DL HEMATOCRIT (test code = 1004) 38.4 % MCV (test code = 1005) 87.7 fL MCH (test code = 1006) 29.5 PG MCHC (test code = 1007) 33.6 G/DL RDW (test code = 1038) 12.7 % NEUTROPHILS (test code = 1008) 68.2 % LYMPHOCYTES (test code = 1010) 24.6 % MONOCYTES (test code = 1011) 5.4 % EOSINOPHILS (test code = 1012) 1.3 % BASOPHILS (test code = 1013) 0.5 % PLATELET COUNT (test code = 1015) 329 K/UL CBC W/AUTO [id number] 00:00:00 Test Item Value Reference Range Interpretation Comments WBC (test code = 1001) 7.6 K/UL RBC (test code = 1002) 4.38 M/UL HEMOGLOBIN (test code = 1003) 12.9 G/DL HEMATOCRIT (test code = 1004) 38.4 % MCV (test code = 1005) 87.7 fL MCH (test code = 1006) 29.5 PG MCHC (test code = 1007) 33.6 G/DL RDW (test code = 1038) 12.7 % NEUTROPHILS (test code = 1008) 68.2 % LYMPHOCYTES (test code = 1010) 24.6 % MONOCYTES (test code = 1011) 5.4 % EOSINOPHILS (test code = 1012) 1.3 % BASOPHILS (test code = 1013) 0.5 % PLATELET COUNT (test code = 1015) 329 K/UL CBC W/AUTO [id number] 00:00:00 Test Item Value Reference Range Interpretation Comments WBC (test code = 1001) 7.6 K/UL RBC (test code = 1002) 4.38 M/UL HEMOGLOBIN (test code = 1003) 12.9 G/DL HEMATOCRIT (test code = 1004) 38.4 % MCV (test code = 1005) 87.7 fL MCH (test code = 1006) 29.5 PG MCHC (test code = 1007) 33.6 G/DL RDW (test code = 1038) 12.7 % NEUTROPHILS (test code = 1008) 68.2 % LYMPHOCYTES (test code = 1010) 24.6 % MONOCYTES (test code = 1011) 5.4 % EOSINOPHILS (test code = 1012) 1.3 % BASOPHILS (test code = 1013) 0.5 % PLATELET COUNT (test code = 1015) 329 K/UL COMPREHENSIVE METABOLIC [id number] 00:00:00 Test Item Value Reference Range Interpretation Comments GLUCOSE (test code = 2217) 95 MG/DL BUN (test code = 2208) 10 MG/DL CREATININE (test code = 2214) 0.71 MG/DL eGFR AMER. (test code 131 ML/MIN/1.73 = 84715) eGFR NON- AMER. (test 113 ML/MIN/1.73 code = 34017) CALC BUN/CREAT (test code = 14 RATIO 2235) SODIUM (test code = 2231) 138 MEQ/L POTASSIUM (test code = 2228) 4.4 MEQ/L CHLORIDE (test code = 2215) 102 MEQ/L CARBON DIOXIDE (test code = 27 MEQ/L 2205) CALCIUM (test code = 2209) 9.9 MG/DL PROTEIN, TOTAL (test code = 7.6 G/DL 2228) ALBUMIN (test code = 2201) 4.4 G/DL CALC GLOBULIN (test code = 3.2 G/DL 2240) CALC A/G RATIO (test code = 1.4 RATIO 2234) BILIRUBIN, TOTAL (test code = 0.8 MG/DL 2206) ALKALINE PHOSPHATASE (test 78 U/L code = 2204) AST (test code = 2218) 19 U/L ALT (test code = 2219) 20 U/L COMPREHENSIVE METABOLIC [id number] 00:00:00 Test Item Value Reference Range Interpretation Comments GLUCOSE (test code = 2217) 95 MG/DL BUN (test code = 2208) 10 MG/DL CREATININE (test code = 2214) 0.71 MG/DL eGFR AMER. (test code 131 ML/MIN/1.73 = 41425) eGFR NON- AMER. (test 113 ML/MIN/1.73 code = 75633) CALC BUN/CREAT (test code = 14 RATIO 2235) SODIUM (test code = 2231) 138 MEQ/L POTASSIUM (test code = 2228) 4.4 MEQ/L CHLORIDE (test code = 2215) 102 MEQ/L CARBON DIOXIDE (test code = 27 MEQ/L 220) CALCIUM (test code = 2209) 9.9 MG/DL PROTEIN, TOTAL (test code = 7.6 G/DL 2228) ALBUMIN (test code = 2201) 4.4 G/DL CALC GLOBULIN (test code = 3.2 G/DL 2240) CALC A/G RATIO (test code = 1.4 RATIO 2234) BILIRUBIN, TOTAL (test code = 0.8 MG/DL 2206) ALKALINE PHOSPHATASE (test 78 U/L code = 2204) AST (test code = 2218) 19 U/L ALT (test code = 2219) 20 U/L [id number] 00:00:00 Test Item Value Reference Range Interpretation Comments TSH, THIRD GENERATION (test code 2.590 UIU/ML = 2821) [id number] 00:00:00 Test Item Value Reference Range Interpretation Comments TSH, THIRD GENERATION (test code 2.590 UIU/ML = 2821) [id number] 00:00:00 Test Item Value Reference Range Interpretation Comments TSH, THIRD GENERATION (test code 2.590 UIU/ML = 2821) VITAMIN D, 25 [id number] 00:00:00 Test Item Value Reference Range Interpretation Comments VITAMIN D, 25 OH (test code = 4958) 29 NG/ML VITAMIN D, 25 [id number] 00:00:00 Test Item Value Reference Range Interpretation Comments VITAMIN D, 25 OH (test code = 4958) 29 NG/ML VITAMIN [id number] 00:00:00 Test Item Value Reference Range Interpretation Comments VITAMIN B-12 (test code = 2840) 873 PG/ML VITAMIN [id number] 00:00:00 Test Item Value Reference Range Interpretation Comments VITAMIN B-12 (test code = 2840) 873 PG/ML VITAMIN [id number] 00:00:00 Test Item Value Reference Range Interpretation Comments VITAMIN B-12 (test code = 2840) 873 PG/ML CULTURE, [id number] 00:00:00 Test Item Value Reference Range Interpretation Comments CULTURE, URINE (test SPECIMEN NUMBER: code = 55976) [id number] CULTURE, [id number] 00:00:00 Test Item Value Reference Range Interpretation Comments CULTURE, URINE (test SPECIMEN NUMBER: code = 07605) [id number] CULTURE, [id number] 00:00:00 Test Item Value Reference Range Interpretation Comments CULTURE, URINE (test SPECIMEN NUMBER: code = 11661) [id number] CULTURE, [id number] 00:00:00 Test Item Value Reference Range Interpretation Comments CULTURE, URINE (test SPECIMEN NUMBER: code = 17815) [id number] CULTURE, [id number] 00:00:00 Test Item Value Reference Range Interpretation Comments CULTURE, URINE (test SPECIMEN NUMBER: code = 69053) [id number] CULTURE, [id number] 00:00:00 Test Item Value Reference Range Interpretation Comments CULTURE, URINE (test SPECIMEN NUMBER: code = 28656) [id number] CULTURE, [id number] 00:00:00 Test Item Value Reference Range Interpretation Comments CULTURE, URINE (test SPECIMEN NUMBER: code = 54062) [id number] CULTURE, [id number] 00:00:00 Test Item Value Reference Range Interpretation Comments CULTURE, URINE (test SPECIMEN NUMBER: code = 96390) [id number] CULTURE, [id number] 00:00:00 Test Item Value Reference Range Interpretation Comments CULTURE, URINE (test SPECIMEN NUMBER: code = 46315) [id number] HIV AB/AG COMBO RFLX [id number] 00:00:00 Test Item Value Reference Range Interpretation Comments HIV 1/2 4TH GEN, RFLX CONF (test NON-REACTIVE code = 3514) HIV AB/AG COMBO RFLX [id number] 00:00:00 Test Item Value Reference Range Interpretation Comments HIV 1/2 4TH GEN, RFLX CONF (test NON-REACTIVE code = 3514) [id number] 00:00:00 Test Item Value Reference Range Interpretation Comments RPR RESULT (test code = NON-REACTIVE 3501) RPR TITER (test code = 3500) NOT INDIC. TITER [id number] 00:00:00 Test Item Value Reference Range Interpretation Comments RPR RESULT (test code = NON-REACTIVE 3501) RPR TITER (test code = 3500) NOT INDIC. TITER [id number] 00:00:00 Test Item Value Reference Range Interpretation Comments RPR RESULT (test code = NON-REACTIVE 3501) RPR TITER (test code = 3500) NOT INDIC. TITER HEPATITIS PROFILE (A,B,C)2020-01-03 00:00:00 Test Item Value Reference Range Interpretation Comments HEPATITIS A TOTAL AB (test code REACTIVE = 2725) HEPATITIS B SURF AG (test code = NON-REACTIVE 2739) HEP B CORE TOTAL AB (test code = NON-REACTIVE 9) HEPATITIS B SURFACE AB (test REACTIVE code = 2737) HEPATITIS C ANTIBODY (test code NON-REACTIVE = 4675) INTERPRETATION HEPATITIS A: (NOTE) (test code = 2552) INTERPRETATION HEPATITIS B: (NOTE) (test code = 81568) INTERPRETATION HEPATITIS C: (NOTE) (test code = 41230) HEPATITIS PROFILE (A,B,C)2020-01-03 00:00:00 Test Item Value Reference Range Interpretation Comments HEPATITIS A TOTAL AB (test code REACTIVE = 2725) HEPATITIS B SURF AG (test code = NON-REACTIVE 2739) HEP B CORE TOTAL AB (test code = NON-REACTIVE 2729) HEPATITIS B SURFACE AB (test REACTIVE code = 2737) HEPATITIS C ANTIBODY (test code NON-REACTIVE = 4675) INTERPRETATION HEPATITIS A: (NOTE) (test code = 2552) INTERPRETATION HEPATITIS B: (NOTE) (test code = 28209) INTERPRETATION HEPATITIS C: (NOTE) (test code = 72126) CHLAMYDIA, AMPLIFIED, [id number] 00:00:00 Test Item Value Reference Range Interpretation Comments CHLAMYDIA, TMA (test code = 83046) NEGATIVE CHLAMYDIA, AMPLIFIED, [id number] 00:00:00 Test Item Value Reference Range Interpretation Comments CHLAMYDIA, TMA (test code = 14170) NEGATIVE GC, AMPLIFIED, [id number] 00:00:00 Test Item Value Reference Range Interpretation Comments GONORRHEA, TMA (test code = 34111) NEGATIVE GC, AMPLIFIED, [id number] 00:00:00 Test Item Value Reference Range Interpretation Comments GONORRHEA, TMA (test code = 68566) NEGATIVE TRICHOMONAS, URINE, [id number] 00:00:00 Test Item Value Reference Range Interpretation Comments TRICHOMONAS, URINE, AMP (test code = NEGATIVE 37727) TRICHOMONAS, URINE, [id number] 00:00:00 Test Item Value Reference Range Interpretation Comments TRICHOMONAS, URINE, AMP (test code = NEGATIVE 86374) HEPATITIS A IgM [REFLEX]2020-01-03 00:00:00 Test Item Value Reference Range Interpretation Comments HEPATITIS A IgM (test code = NON-REACTIVE 2727) HIV AB/AG COMBO RFLX [id number] 00:00:00 Test Item Value Reference Range Interpretation Comments HIV 1/2 4TH GEN, RFLX CONF (test NON-REACTIVE code = 3514) HIV AB/AG COMBO RFLX [id number] 00:00:00 Test Item Value Reference Range Interpretation Comments HIV 1/2 4TH GEN, RFLX CONF (test NON-REACTIVE code = 3514) [id number] 00:00:00 Test Item Value Reference Range Interpretation Comments RPR RESULT (test code = NON-REACTIVE 3501) RPR TITER (test code = 3500) NOT INDIC. TITER [id number] 00:00:00 Test Item Value Reference Range Interpretation Comments RPR RESULT (test code = NON-REACTIVE 3501) RPR TITER (test code = 3500) NOT INDIC. TITER [id number] 00:00:00 Test Item Value Reference Range Interpretation Comments RPR RESULT (test code = NON-REACTIVE 3501) RPR TITER (test code = 3500) NOT INDIC. TITER HEPATITIS PROFILE (A,B,C)2020-01-03 00:00:00 Test Item Value Reference Range Interpretation Comments HEPATITIS A TOTAL AB (test code REACTIVE = 2725) HEPATITIS B SURF AG (test code = NON-REACTIVE 2739) HEP B CORE TOTAL AB (test code = NON-REACTIVE 2729) HEPATITIS B SURFACE AB (test REACTIVE code = 2737) HEPATITIS C ANTIBODY (test code NON-REACTIVE = 4675) INTERPRETATION HEPATITIS A: (NOTE) (test code = 2552) INTERPRETATION HEPATITIS B: (NOTE) (test code = 18860) INTERPRETATION HEPATITIS C: (NOTE) (test code = 75469) HEPATITIS PROFILE (A,B,C)2020-01-03 00:00:00 Test Item Value Reference Range Interpretation Comments HEPATITIS A TOTAL AB (test code REACTIVE = 2725) HEPATITIS B SURF AG (test code = NON-REACTIVE 2739) HEP B CORE TOTAL AB (test code = NON-REACTIVE 2729) HEPATITIS B SURFACE AB (test REACTIVE code = 2737) HEPATITIS C ANTIBODY (test code NON-REACTIVE = 4675) INTERPRETATION HEPATITIS A: (NOTE) (test code = 2552) INTERPRETATION HEPATITIS B: (NOTE) (test code = 51364) INTERPRETATION HEPATITIS C: (NOTE) (test code = 59796) CHLAMYDIA, AMPLIFIED, [id number] 00:00:00 Test Item Value Reference Range Interpretation Comments CHLAMYDIA, TMA (test code = 42599) NEGATIVE CHLAMYDIA, AMPLIFIED, [id number] 00:00:00 Test Item Value Reference Range Interpretation Comments CHLAMYDIA, TMA (test code = 97029) NEGATIVE GC, AMPLIFIED, [id number] 00:00:00 Test Item Value Reference Range Interpretation Comments GONORRHEA, TMA (test code = 54609) NEGATIVE GC, AMPLIFIED, [id number] 00:00:00 Test Item Value Reference Range Interpretation Comments GONORRHEA, TMA (test code = 59529) NEGATIVE TRICHOMONAS, URINE, [id number] 00:00:00 Test Item Value Reference Range Interpretation Comments TRICHOMONAS, URINE, AMP (test code = NEGATIVE 53012) TRICHOMONAS, URINE, [id number] 00:00:00 Test Item Value Reference Range Interpretation Comments TRICHOMONAS, URINE, AMP (test code = NEGATIVE 22714) HEPATITIS A IgM [REFLEX]2020-01-03 00:00:00 Test Item Value Reference Range Interpretation Comments HEPATITIS A IgM (test code = NON-REACTIVE 2727) HIV AB/AG COMBO RFLX [id number] 00:00:00 Test Item Value Reference Range Interpretation Comments HIV 1/2 4TH GEN, RFLX CONF (test NON-REACTIVE code = 3514) HIV AB/AG COMBO RFLX [id number] 00:00:00 Test Item Value Reference Range Interpretation Comments HIV 1/2 4TH GEN, RFLX CONF (test NON-REACTIVE code = 3514) [id number] 00:00:00 Test Item Value Reference Range Interpretation Comments RPR RESULT (test code = NON-REACTIVE 3501) RPR TITER (test code = 3500) NOT INDIC. TITER [id number] 00:00:00 Test Item Value Reference Range Interpretation Comments RPR RESULT (test code = NON-REACTIVE 3501) RPR TITER (test code = 3500) NOT INDIC. TITER [id number] 00:00:00 Test Item Value Reference Range Interpretation Comments RPR RESULT (test code = NON-REACTIVE 3501) RPR TITER (test code = 3500) NOT INDIC. TITER HEPATITIS PROFILE (A,B,C)2020-01-03 00:00:00 Test Item Value Reference Range Interpretation Comments HEPATITIS A TOTAL AB (test code REACTIVE = 2725) HEPATITIS B SURF AG (test code = NON-REACTIVE 2739) HEP B CORE TOTAL AB (test code = NON-REACTIVE 2729) HEPATITIS B SURFACE AB (test REACTIVE code = 2737) HEPATITIS C ANTIBODY (test code NON-REACTIVE = 4675) INTERPRETATION HEPATITIS A: (NOTE) (test code = 2552) INTERPRETATION HEPATITIS B: (NOTE) (test code = 55757) INTERPRETATION HEPATITIS C: (NOTE) (test code = 19703) HEPATITIS PROFILE (A,B,C)2020-01-03 00:00:00 Test Item Value Reference Range Interpretation Comments HEPATITIS A TOTAL AB (test code REACTIVE = 2725) HEPATITIS B SURF AG (test code = NON-REACTIVE 2738) HEP B CORE TOTAL AB (test code = NON-REACTIVE 2728) HEPATITIS B SURFACE AB (test REACTIVE code = 2737) HEPATITIS C ANTIBODY (test code NON-REACTIVE = 4675) INTERPRETATION HEPATITIS A: (NOTE) (test code = 2552) INTERPRETATION HEPATITIS B: (NOTE) (test code = 76940) INTERPRETATION HEPATITIS C: (NOTE) (test code = 75766) CHLAMYDIA, AMPLIFIED, [id number] 00:00:00 Test Item Value Reference Range Interpretation Comments CHLAMYDIA, TMA (test code = 32052) NEGATIVE CHLAMYDIA, AMPLIFIED, [id number] 00:00:00 Test Item Value Reference Range Interpretation Comments CHLAMYDIA, TMA (test code = 12536) NEGATIVE GC, AMPLIFIED, [id number] 00:00:00 Test Item Value Reference Range Interpretation Comments GONORRHEA, TMA (test code = 10468) NEGATIVE GC, AMPLIFIED, [id number] 00:00:00 Test Item Value Reference Range Interpretation Comments GONORRHEA, TMA (test code = 95292) NEGATIVE TRICHOMONAS, URINE, [id number] 00:00:00 Test Item Value Reference Range Interpretation Comments TRICHOMONAS, URINE, AMP (test code = NEGATIVE 76397) TRICHOMONAS, URINE, [id number] 00:00:00 Test Item Value Reference Range Interpretation Comments TRICHOMONAS, URINE, AMP (test code = NEGATIVE 01162) HEPATITIS A IgM [REFLEX]2020-01-03 00:00:00 Test Item Value Reference Range Interpretation Comments HEPATITIS A IgM (test code = NON-REACTIVE 2727) HIV AB/AG COMBO RFLX [id number] 00:00:00 Test Item Value Reference Range Interpretation Comments HIV 1/2 4TH GEN, RFLX CONF (test NON-REACTIVE code = 3514) [id number] 00:00:00 Test Item Value Reference Range Interpretation Comments RPR RESULT (test code = NON-REACTIVE 3501) RPR TITER (test code = 3500) NOT INDIC. TITER [id number] 00:00:00 Test Item Value Reference Range Interpretation Comments RPR RESULT (test code = NON-REACTIVE 3501) RPR TITER (test code = 3500) NOT INDIC. TITER HEPATITIS PROFILE (A,B,C)2020-01-03 00:00:00 Test Item Value Reference Range Interpretation Comments HEPATITIS A TOTAL AB (test code REACTIVE = 2725) HEPATITIS B SURF AG (test code = NON-REACTIVE 9) HEP B CORE TOTAL AB (test code = NON-REACTIVE 9) HEPATITIS B SURFACE AB (test REACTIVE code = 2737) HEPATITIS C ANTIBODY (test code NON-REACTIVE = 4675) INTERPRETATION HEPATITIS A: (NOTE) (test code = 2552) INTERPRETATION HEPATITIS B: (NOTE) (test code = 11647) INTERPRETATION HEPATITIS C: (NOTE) (test code = 36750) CHLAMYDIA, AMPLIFIED, [id number] 00:00:00 Test Item Value Reference Range Interpretation Comments CHLAMYDIA, TMA (test code = 48370) NEGATIVE GC, AMPLIFIED, [id number] 00:00:00 Test Item Value Reference Range Interpretation Comments GONORRHEA, TMA (test code = 97340) NEGATIVE TRICHOMONAS, URINE, [id number] 00:00:00 Test Item Value Reference Range Interpretation Comments TRICHOMONAS, URINE, AMP (test code = NEGATIVE 60514) HEPATITIS A IgM [REFLEX]2020-01-03 00:00:00 Test Item Value Reference Range Interpretation Comments HEPATITIS A IgM (test code = NON-REACTIVE 2727) HIV AB/AG COMBO RFLX [id number] 00:00:00 Test Item Value Reference Range Interpretation Comments HIV 1/2 4TH GEN, RFLX CONF (test NON-REACTIVE code = 3514) HIV AB/AG COMBO RFLX [id number] 00:00:00 Test Item Value Reference Range Interpretation Comments HIV 1/2 4TH GEN, RFLX CONF (test NON-REACTIVE code = 3514) [id number] 00:00:00 Test Item Value Reference Range Interpretation Comments RPR RESULT (test code = NON-REACTIVE 3501) RPR TITER (test code = 3500) NOT INDIC. TITER [id number] 00:00:00 Test Item Value Reference Range Interpretation Comments RPR RESULT (test code = NON-REACTIVE 3501) RPR TITER (test code = 3500) NOT INDIC. TITER [id number] 00:00:00 Test Item Value Reference Range Interpretation Comments RPR RESULT (test code = NON-REACTIVE 3501) RPR TITER (test code = 3500) NOT INDIC. TITER HEPATITIS PROFILE (A,B,C)2020-01-03 00:00:00 Test Item Value Reference Range Interpretation Comments HEPATITIS A TOTAL AB (test code REACTIVE = 2725) HEPATITIS B SURF AG (test code = NON-REACTIVE 2739) HEP B CORE TOTAL AB (test code = NON-REACTIVE 2729) HEPATITIS B SURFACE AB (test REACTIVE code = 2737) HEPATITIS C ANTIBODY (test code NON-REACTIVE = 4675) INTERPRETATION HEPATITIS A: (NOTE) (test code = 2552) INTERPRETATION HEPATITIS B: (NOTE) (test code = 02129) INTERPRETATION HEPATITIS C: (NOTE) (test code = 74983) HEPATITIS PROFILE (A,B,C)2020-01-03 00:00:00 Test Item Value Reference Range Interpretation Comments HEPATITIS A TOTAL AB (test code REACTIVE = 2725) HEPATITIS B SURF AG (test code = NON-REACTIVE 2739) HEP B CORE TOTAL AB (test code = NON-REACTIVE 2729) HEPATITIS B SURFACE AB (test REACTIVE code = 2737) HEPATITIS C ANTIBODY (test code NON-REACTIVE = 4675) INTERPRETATION HEPATITIS A: (NOTE) (test code = 2552) INTERPRETATION HEPATITIS B: (NOTE) (test code = 10297) INTERPRETATION HEPATITIS C: (NOTE) (test code = 33115) CHLAMYDIA, AMPLIFIED, [id number] 00:00:00 Test Item Value Reference Range Interpretation Comments CHLAMYDIA, TMA (test code = 32084) NEGATIVE CHLAMYDIA, AMPLIFIED, [id number] 00:00:00 Test Item Value Reference Range Interpretation Comments CHLAMYDIA, TMA (test code = 78770) NEGATIVE GC, AMPLIFIED, [id number] 00:00:00 Test Item Value Reference Range Interpretation Comments GONORRHEA, TMA (test code = 32797) NEGATIVE GC, AMPLIFIED, [id number] 00:00:00 Test Item Value Reference Range Interpretation Comments GONORRHEA, TMA (test code = 08214) NEGATIVE TRICHOMONAS, URINE, [id number] 00:00:00 Test Item Value Reference Range Interpretation Comments TRICHOMONAS, URINE, AMP (test code = NEGATIVE 16257) TRICHOMONAS, URINE, [id number] 00:00:00 Test Item Value Reference Range Interpretation Comments TRICHOMONAS, URINE, AMP (test code = NEGATIVE 74709) HEPATITIS A IgM [REFLEX]2020-01-03 00:00:00 Test Item Value Reference Range Interpretation Comments HEPATITIS A IgM (test code = NON-REACTIVE 434) COMPREHENSIVE METABOLIC [id number] 00:00:00 Test Item Value Reference Range Interpretation Comments GLUCOSE (test code = 2217) 108 MG/DL BUN (test code = 2208) 9 MG/DL CREATININE (test code = 2214) 0.63 MG/DL eGFR AMER. (test code 139 ML/MIN/1.73 = 14080) eGFR NON- AMER. (test 120 ML/MIN/1.73 code = 61954) CALC BUN/CREAT (test code = 14 RATIO 2235) SODIUM (test code = 2231) 141 MEQ/L POTASSIUM (test code = 2228) 4.5 MEQ/L CHLORIDE (test code = 2215) 103 MEQ/L CARBON DIOXIDE (test code = 25 MEQ/L 2205) CALCIUM (test code = 2209) 9.6 MG/DL PROTEIN, TOTAL (test code = 7.6 G/DL 2228) ALBUMIN (test code = 2201) 4.4 G/DL CALC GLOBULIN (test code = 3.2 G/DL 2240) CALC A/G RATIO (test code = 1.4 RATIO 2234) BILIRUBIN, TOTAL (test code = 0.4 MG/DL 220) ALKALINE PHOSPHATASE (test 96 U/L code = 2204) AST (test code = 2218) 130 U/L ALT (test code = 2219) 167 U/L COMPREHENSIVE METABOLIC [id number] 00:00:00 Test Item Value Reference Range Interpretation Comments GLUCOSE (test code = 2217) 108 MG/DL BUN (test code = 2208) 9 MG/DL CREATININE (test code = 2214) 0.63 MG/DL eGFR AMER. (test code 139 ML/MIN/1.73 = 30589) eGFR NON- AMER. (test 120 ML/MIN/1.73 code = 08296) CALC BUN/CREAT (test code = 14 RATIO 2235) SODIUM (test code = 2231) 141 MEQ/L POTASSIUM (test code = 2228) 4.5 MEQ/L CHLORIDE (test code = 2215) 103 MEQ/L CARBON DIOXIDE (test code = 25 MEQ/L 2206) CALCIUM (test code = 2209) 9.6 MG/DL PROTEIN, TOTAL (test code = 7.6 G/DL 2228) ALBUMIN (test code = 2201) 4.4 G/DL CALC GLOBULIN (test code = 3.2 G/DL 2240) CALC A/G RATIO (test code = 1.4 RATIO 2234) BILIRUBIN, TOTAL (test code = 0.4 MG/DL 2206) ALKALINE PHOSPHATASE (test 96 U/L code = 220) AST (test code = 2218) 130 U/L ALT (test code = 2219) 167 U/L COMPREHENSIVE METABOLIC [id number] 00:00:00 Test Item Value Reference Range Interpretation Comments GLUCOSE (test code = 2217) 108 MG/DL BUN (test code = 2208) 9 MG/DL CREATININE (test code = 2214) 0.63 MG/DL eGFR AMER. (test code 139 ML/MIN/1.73 = 63263) eGFR NON- AMER. (test 120 ML/MIN/1.73 code = 65943) CALC BUN/CREAT (test code = 14 RATIO 2235) SODIUM (test code = 2231) 141 MEQ/L POTASSIUM (test code = 2228) 4.5 MEQ/L CHLORIDE (test code = 2215) 103 MEQ/L CARBON DIOXIDE (test code = 25 MEQ/L 2206) CALCIUM (test code = 2209) 9.6 MG/DL PROTEIN, TOTAL (test code = 7.6 G/DL 2228) ALBUMIN (test code = 2201) 4.4 G/DL CALC GLOBULIN (test code = 3.2 G/DL 2240) CALC A/G RATIO (test code = 1.4 RATIO 2234) BILIRUBIN, TOTAL (test code = 0.4 MG/DL 2206) ALKALINE PHOSPHATASE (test 96 U/L code = 2204) AST (test code = 2218) 130 U/L ALT (test code = 2219) 167 U/L COMPREHENSIVE METABOLIC [id number] 00:00:00 Test Item Value Reference Range Interpretation Comments GLUCOSE (test code = 2217) 108 MG/DL BUN (test code = 2208) 9 MG/DL CREATININE (test code = 2214) 0.63 MG/DL eGFR AMER. (test code 139 ML/MIN/1.73 = 64666) eGFR NON- AMER. (test 120 ML/MIN/1.73 code = 98061) CALC BUN/CREAT (test code = 14 RATIO 2235) SODIUM (test code = 2231) 141 MEQ/L POTASSIUM (test code = 2228) 4.5 MEQ/L CHLORIDE (test code = 2215) 103 MEQ/L CARBON DIOXIDE (test code = 25 MEQ/L 2205) CALCIUM (test code = 2209) 9.6 MG/DL PROTEIN, TOTAL (test code = 7.6 G/DL 2228) ALBUMIN (test code = 2201) 4.4 G/DL CALC GLOBULIN (test code = 3.2 G/DL 2239) CALC A/G RATIO (test code = 1.4 RATIO 2233) BILIRUBIN, TOTAL (test code = 0.4 MG/DL 2206) ALKALINE PHOSPHATASE (test 96 U/L code = 2204) AST (test code = 2218) 130 U/L ALT (test code = 2219) 167 U/L COMPREHENSIVE METABOLIC [id number] 00:00:00 Test Item Value Reference Range Interpretation Comments GLUCOSE (test code = 2217) 108 MG/DL BUN (test code = 2208) 9 MG/DL CREATININE (test code = 2214) 0.63 MG/DL eGFR AMER. (test code 139 ML/MIN/1.73 = 83831) eGFR NON- AMER. (test 120 ML/MIN/1.73 code = 29873) CALC BUN/CREAT (test code = 14 RATIO 2235) SODIUM (test code = 2231) 141 MEQ/L POTASSIUM (test code = 2228) 4.5 MEQ/L CHLORIDE (test code = 2215) 103 MEQ/L CARBON DIOXIDE (test code = 25 MEQ/L 220) CALCIUM (test code = 2209) 9.6 MG/DL PROTEIN, TOTAL (test code = 7.6 G/DL 2228) ALBUMIN (test code = 2201) 4.4 G/DL CALC GLOBULIN (test code = 3.2 G/DL 2240) CALC A/G RATIO (test code = 1.4 RATIO 2234) BILIRUBIN, TOTAL (test code = 0.4 MG/DL 2206) ALKALINE PHOSPHATASE (test 96 U/L code = 2204) AST (test code = 2218) 130 U/L ALT (test code = 2219) 167 U/L COMPREHENSIVE METABOLIC [id number] 00:00:00 Test Item Value Reference Range Interpretation Comments GLUCOSE (test code = 2217) 108 MG/DL BUN (test code = 2208) 9 MG/DL CREATININE (test code = 2214) 0.63 MG/DL eGFR AMER. (test code 139 ML/MIN/1.73 = 55330) eGFR NON- AMER. (test 120 ML/MIN/1.73 code = 15209) CALC BUN/CREAT (test code = 14 RATIO 2235) SODIUM (test code = 2231) 141 MEQ/L POTASSIUM (test code = 2228) 4.5 MEQ/L CHLORIDE (test code = 2215) 103 MEQ/L CARBON DIOXIDE (test code = 25 MEQ/L 2205) CALCIUM (test code = 2209) 9.6 MG/DL PROTEIN, TOTAL (test code = 7.6 G/DL 2228) ALBUMIN (test code = 2201) 4.4 G/DL CALC GLOBULIN (test code = 3.2 G/DL 2240) CALC A/G RATIO (test code = 1.4 RATIO 2234) BILIRUBIN, TOTAL (test code = 0.4 MG/DL 2206) ALKALINE PHOSPHATASE (test 96 U/L code = 2204) AST (test code = 2218) 130 U/L ALT (test code = 2219) 167 U/L COMPREHENSIVE METABOLIC [id number] 00:00:00 Test Item Value Reference Range Interpretation Comments GLUCOSE (test code = 2217) 108 MG/DL BUN (test code = 2208) 9 MG/DL CREATININE (test code = 2214) 0.63 MG/DL eGFR AMER. (test code 139 ML/MIN/1.73 = 72058) eGFR NON- AMER. (test 120 ML/MIN/1.73 code = 01674) CALC BUN/CREAT (test code = 14 RATIO 2235) SODIUM (test code = 2231) 141 MEQ/L POTASSIUM (test code = 2228) 4.5 MEQ/L CHLORIDE (test code = 2215) 103 MEQ/L CARBON DIOXIDE (test code = 25 MEQ/L 2205) CALCIUM (test code = 2209) 9.6 MG/DL PROTEIN, TOTAL (test code = 7.6 G/DL 222) ALBUMIN (test code = 2201) 4.4 G/DL CALC GLOBULIN (test code = 3.2 G/DL 2240) CALC A/G RATIO (test code = 1.4 RATIO 2234) BILIRUBIN, TOTAL (test code = 0.4 MG/DL 2206) ALKALINE PHOSPHATASE (test 96 U/L code = 2204) AST (test code = 2218) 130 U/L ALT (test code = 2219) 167 U/L COMPREHENSIVE METABOLIC [id number] 00:00:00 Test Item Value Reference Range Interpretation Comments GLUCOSE (test code = 2217) 108 MG/DL BUN (test code = 2208) 9 MG/DL CREATININE (test code = 2214) 0.63 MG/DL eGFR AMER. (test code 139 ML/MIN/1.73 = 55210) eGFR NON- AMER. (test 120 ML/MIN/1.73 code = 61432) CALC BUN/CREAT (test code = 14 RATIO 2235) SODIUM (test code = 2231) 141 MEQ/L POTASSIUM (test code = 2228) 4.5 MEQ/L CHLORIDE (test code = 2215) 103 MEQ/L CARBON DIOXIDE (test code = 25 MEQ/L 2205) CALCIUM (test code = 2209) 9.6 MG/DL PROTEIN, TOTAL (test code = 7.6 G/DL 2228) ALBUMIN (test code = 2201) 4.4 G/DL CALC GLOBULIN (test code = 3.2 G/DL 2240) CALC A/G RATIO (test code = 1.4 RATIO 2234) BILIRUBIN, TOTAL (test code = 0.4 MG/DL 2206) ALKALINE PHOSPHATASE (test 96 U/L code = 2204) AST (test code = 2218) 130 U/L ALT (test code = 2219) 167 U/L COMPREHENSIVE METABOLIC [id number] 00:00:00 Test Item Value Reference Range Interpretation Comments GLUCOSE (test code = 2217) 108 MG/DL BUN (test code = 2208) 9 MG/DL CREATININE (test code = 2214) 0.63 MG/DL eGFR AMER. (test code 139 ML/MIN/1.73 = 40865) eGFR NON- AMER. (test 120 ML/MIN/1.73 code = 66413) CALC BUN/CREAT (test code = 14 RATIO 2235) SODIUM (test code = 2231) 141 MEQ/L POTASSIUM (test code = 2228) 4.5 MEQ/L CHLORIDE (test code = 2215) 103 MEQ/L CARBON DIOXIDE (test code = 25 MEQ/L 2205) CALCIUM (test code = 2209) 9.6 MG/DL PROTEIN, TOTAL (test code = 7.6 G/DL 2228) ALBUMIN (test code = 2201) 4.4 G/DL CALC GLOBULIN (test code = 3.2 G/DL 2240) CALC A/G RATIO (test code = 1.4 RATIO 223) BILIRUBIN, TOTAL (test code = 0.4 MG/DL 2206) ALKALINE PHOSPHATASE (test 96 U/L code = 2204) AST (test code = 2218) 130 U/L ALT (test code = 2219) 167 U/L COMPREHENSIVE METABOLIC [id number] 00:00:00 Test Item Value Reference Range Interpretation Comments GLUCOSE (test code = 2217) 106 MG/DL BUN (test code = 2208) 11 MG/DL CREATININE (test code = 2214) 0.64 MG/DL eGFR AMER. (test code 139 ML/MIN/1.73 = 20276) eGFR NON- AMER. (test 120 ML/MIN/1.73 code = 01265) CALC BUN/CREAT (test code = 17 RATIO 2235) SODIUM (test code = 2231) 138 MEQ/L POTASSIUM (test code = 2228) 4.3 MEQ/L CHLORIDE (test code = 2215) 101 MEQ/L CARBON DIOXIDE (test code = 26 MEQ/L 220) CALCIUM (test code = 2209) 9.7 MG/DL PROTEIN, TOTAL (test code = 7.5 G/DL 2228) ALBUMIN (test code = 2201) 4.5 G/DL CALC GLOBULIN (test code = 3.0 G/DL 2240) CALC A/G RATIO (test code = 1.5 RATIO 2234) BILIRUBIN, TOTAL (test code = 0.6 MG/DL 2207) ALKALINE PHOSPHATASE (test 81 U/L code = 2204) AST (test code = 2218) 56 U/L ALT (test code = 2219) 90 U/L COMPREHENSIVE METABOLIC [id number] 00:00:00 Test Item Value Reference Range Interpretation Comments GLUCOSE (test code = 2217) 106 MG/DL BUN (test code = 2208) 11 MG/DL CREATININE (test code = 2214) 0.64 MG/DL eGFR AMER. (test code 139 ML/MIN/1.73 = 37164) eGFR NON- AMER. (test 120 ML/MIN/1.73 code = 68631) CALC BUN/CREAT (test code = 17 RATIO 2235) SODIUM (test code = 2231) 138 MEQ/L POTASSIUM (test code = 2228) 4.3 MEQ/L CHLORIDE (test code = 2215) 101 MEQ/L CARBON DIOXIDE (test code = 26 MEQ/L 2205) CALCIUM (test code = 2209) 9.7 MG/DL PROTEIN, TOTAL (test code = 7.5 G/DL 9) ALBUMIN (test code = 2201) 4.5 G/DL CALC GLOBULIN (test code = 3.0 G/DL 2240) CALC A/G RATIO (test code = 1.5 RATIO 2234) BILIRUBIN, TOTAL (test code = 0.6 MG/DL 2207) ALKALINE PHOSPHATASE (test 81 U/L code = 2204) AST (test code = 2218) 56 U/L ALT (test code = 2219) 90 U/L COMPREHENSIVE METABOLIC [id number] 00:00:00 Test Item Value Reference Range Interpretation Comments GLUCOSE (test code = 2217) 106 MG/DL BUN (test code = 2208) 11 MG/DL CREATININE (test code = 2214) 0.64 MG/DL eGFR AMER. (test code 139 ML/MIN/1.73 = 33351) eGFR NON- AMER. (test 120 ML/MIN/1.73 code = 24454) CALC BUN/CREAT (test code = 17 RATIO 2235) SODIUM (test code = 2231) 138 MEQ/L POTASSIUM (test code = 2228) 4.3 MEQ/L CHLORIDE (test code = 2215) 101 MEQ/L CARBON DIOXIDE (test code = 26 MEQ/L 220) CALCIUM (test code = 2209) 9.7 MG/DL PROTEIN, TOTAL (test code = 7.5 G/DL 2228) ALBUMIN (test code = 2201) 4.5 G/DL CALC GLOBULIN (test code = 3.0 G/DL 2240) CALC A/G RATIO (test code = 1.5 RATIO 2234) BILIRUBIN, TOTAL (test code = 0.6 MG/DL 2206) ALKALINE PHOSPHATASE (test 81 U/L code = 2204) AST (test code = 2218) 56 U/L ALT (test code = 2219) 90 U/L COMPREHENSIVE METABOLIC [id number] 00:00:00 Test Item Value Reference Range Interpretation Comments GLUCOSE (test code = 2217) 106 MG/DL BUN (test code = 2208) 11 MG/DL CREATININE (test code = 2214) 0.64 MG/DL eGFR AMER. (test code 139 ML/MIN/1.73 = 82096) eGFR NON- AMER. (test 120 ML/MIN/1.73 code = 59667) CALC BUN/CREAT (test code = 17 RATIO 2235) SODIUM (test code = 2231) 138 MEQ/L POTASSIUM (test code = 2228) 4.3 MEQ/L CHLORIDE (test code = 2215) 101 MEQ/L CARBON DIOXIDE (test code = 26 MEQ/L 2205) CALCIUM (test code = 2209) 9.7 MG/DL PROTEIN, TOTAL (test code = 7.5 G/DL 2228) ALBUMIN (test code = 2201) 4.5 G/DL CALC GLOBULIN (test code = 3.0 G/DL 2240) CALC A/G RATIO (test code = 1.5 RATIO 2234) BILIRUBIN, TOTAL (test code = 0.6 MG/DL 2206) ALKALINE PHOSPHATASE (test 81 U/L code = 2204) AST (test code = 2218) 56 U/L ALT (test code = 2219) 90 U/L COMPREHENSIVE METABOLIC [id number] 00:00:00 Test Item Value Reference Range Interpretation Comments GLUCOSE (test code = 2217) 106 MG/DL BUN (test code = 2208) 11 MG/DL CREATININE (test code = 2214) 0.64 MG/DL eGFR AMER. (test code 139 ML/MIN/1.73 = 72667) eGFR NON- AMER. (test 120 ML/MIN/1.73 code = 37065) CALC BUN/CREAT (test code = 17 RATIO 2235) SODIUM (test code = 2231) 138 MEQ/L POTASSIUM (test code = 2228) 4.3 MEQ/L CHLORIDE (test code = 2215) 101 MEQ/L CARBON DIOXIDE (test code = 26 MEQ/L 2206) CALCIUM (test code = 2209) 9.7 MG/DL PROTEIN, TOTAL (test code = 7.5 G/DL 2228) ALBUMIN (test code = 2201) 4.5 G/DL CALC GLOBULIN (test code = 3.0 G/DL 2240) CALC A/G RATIO (test code = 1.5 RATIO 2234) BILIRUBIN, TOTAL (test code = 0.6 MG/DL 2206) ALKALINE PHOSPHATASE (test 81 U/L code = 2204) AST (test code = 2218) 56 U/L ALT (test code = 2219) 90 U/L COMPREHENSIVE METABOLIC [id number] 00:00:00 Test Item Value Reference Range Interpretation Comments GLUCOSE (test code = 2217) 106 MG/DL BUN (test code = 2208) 11 MG/DL CREATININE (test code = 2214) 0.64 MG/DL eGFR AMER. (test code 139 ML/MIN/1.73 = 44413) eGFR NON- AMER. (test 120 ML/MIN/1.73 code = 94275) CALC BUN/CREAT (test code = 17 RATIO 2235) SODIUM (test code = 2231) 138 MEQ/L POTASSIUM (test code = 2228) 4.3 MEQ/L CHLORIDE (test code = 2215) 101 MEQ/L CARBON DIOXIDE (test code = 26 MEQ/L 2206) CALCIUM (test code = 2209) 9.7 MG/DL PROTEIN, TOTAL (test code = 7.5 G/DL 2228) ALBUMIN (test code = 2201) 4.5 G/DL CALC GLOBULIN (test code = 3.0 G/DL 2240) CALC A/G RATIO (test code = 1.5 RATIO 2234) BILIRUBIN, TOTAL (test code = 0.6 MG/DL 2206) ALKALINE PHOSPHATASE (test 81 U/L code = 2204) AST (test code = 2218) 56 U/L ALT (test code = 2219) 90 U/L COMPREHENSIVE METABOLIC [id number] 00:00:00 Test Item Value Reference Range Interpretation Comments GLUCOSE (test code = 2217) 106 MG/DL BUN (test code = 2208) 11 MG/DL CREATININE (test code = 2214) 0.64 MG/DL eGFR AMER. (test code 139 ML/MIN/1.73 = 49305) eGFR NON- AMER. (test 120 ML/MIN/1.73 code = 67002) CALC BUN/CREAT (test code = 17 RATIO 2235) SODIUM (test code = 2231) 138 MEQ/L POTASSIUM (test code = 2228) 4.3 MEQ/L CHLORIDE (test code = 2215) 101 MEQ/L CARBON DIOXIDE (test code = 26 MEQ/L 2206) CALCIUM (test code = 2209) 9.7 MG/DL PROTEIN, TOTAL (test code = 7.5 G/DL 2228) ALBUMIN (test code = 2201) 4.5 G/DL CALC GLOBULIN (test code = 3.0 G/DL 2240) CALC A/G RATIO (test code = 1.5 RATIO 2234) BILIRUBIN, TOTAL (test code = 0.6 MG/DL 2206) ALKALINE PHOSPHATASE (test 81 U/L code = 2204) AST (test code = 2218) 56 U/L ALT (test code = 2219) 90 U/L COMPREHENSIVE METABOLIC [id number] 00:00:00 Test Item Value Reference Range Interpretation Comments GLUCOSE (test code = 2217) 106 MG/DL BUN (test code = 2208) 11 MG/DL CREATININE (test code = 2214) 0.64 MG/DL eGFR AMER. (test code 139 ML/MIN/1.73 = 74329) eGFR NON- AMER. (test 120 ML/MIN/1.73 code = 39911) CALC BUN/CREAT (test code = 17 RATIO 2235) SODIUM (test code = 2231) 138 MEQ/L POTASSIUM (test code = 2228) 4.3 MEQ/L CHLORIDE (test code = 2215) 101 MEQ/L CARBON DIOXIDE (test code = 26 MEQ/L 2206) CALCIUM (test code = 2209) 9.7 MG/DL PROTEIN, TOTAL (test code = 7.5 G/DL 222) ALBUMIN (test code = 2201) 4.5 G/DL CALC GLOBULIN (test code = 3.0 G/DL 2240) CALC A/G RATIO (test code = 1.5 RATIO 2234) BILIRUBIN, TOTAL (test code = 0.6 MG/DL 220) ALKALINE PHOSPHATASE (test 81 U/L code = 2204) AST (test code = 2218) 56 U/L ALT (test code = 2219) 90 U/L COMPREHENSIVE METABOLIC [id number] 00:00:00 Test Item Value Reference Range Interpretation Comments GLUCOSE (test code = 2217) 106 MG/DL BUN (test code = 2208) 11 MG/DL CREATININE (test code = 2214) 0.64 MG/DL eGFR AMER. (test code 139 ML/MIN/1.73 = 76793) eGFR NON- AMER. (test 120 ML/MIN/1.73 code = 57314) CALC BUN/CREAT (test code = 17 RATIO 2235) SODIUM (test code = 2231) 138 MEQ/L POTASSIUM (test code = 2228) 4.3 MEQ/L CHLORIDE (test code = 2215) 101 MEQ/L CARBON DIOXIDE (test code = 26 MEQ/L 2205) CALCIUM (test code = 2209) 9.7 MG/DL PROTEIN, TOTAL (test code = 7.5 G/DL 2228) ALBUMIN (test code = 2201) 4.5 G/DL CALC GLOBULIN (test code = 3.0 G/DL 2240) CALC A/G RATIO (test code = 1.5 RATIO 2234) BILIRUBIN, TOTAL (test code = 0.6 MG/DL 2207) ALKALINE PHOSPHATASE (test 81 U/L code = 2204) AST (test code = 2218) 56 U/L ALT (test code = 2219) 90 U/L LIPID [id number] 00:00:00 Test Item Value Reference Range Interpretation Comments CHOLESTEROL (test code = 2210) 163 MG/DL TRIGLYCERIDES (test code = 2232) 124 MG/DL HDL CHOLESTEROL (test code = 2220) 54 MG/DL CALC LDL CHOL (test code = 2237) 84 MG/DL RISK RATIO LDL/HDL (test code = 1.56 RATIO 2238) LIPID [id number] 00:00:00 Test Item Value Reference Range Interpretation Comments CHOLESTEROL (test code = 2210) 163 MG/DL TRIGLYCERIDES (test code = 2232) 124 MG/DL HDL CHOLESTEROL (test code = 2220) 54 MG/DL CALC LDL CHOL (test code = 2237) 84 MG/DL RISK RATIO LDL/HDL (test code = 1.56 RATIO 2238) COMPREHENSIVE METABOLIC [id number] 00:00:00 Test Item Value Reference Range Interpretation Comments GLUCOSE (test code = 2217) 98 MG/DL BUN (test code = 2208) 11 MG/DL CREATININE (test code = 2214) 0.57 MG/DL eGFR AMER. (test code 144 ML/MIN/1.73 = 05662) eGFR NON- AMER. (test 124 ML/MIN/1.73 code = 33256) CALC BUN/CREAT (test code = 19 RATIO 2235) SODIUM (test code = 2231) 138 MEQ/L POTASSIUM (test code = 2228) 4.9 MEQ/L CHLORIDE (test code = 2215) 101 MEQ/L CARBON DIOXIDE (test code = 26 MEQ/L 2206) CALCIUM (test code = 2209) 9.7 MG/DL PROTEIN, TOTAL (test code = 7.6 G/DL 2228) ALBUMIN (test code = 2201) 4.7 G/DL CALC GLOBULIN (test code = 2.9 G/DL 2240) CALC A/G RATIO (test code = 1.6 RATIO 2234) BILIRUBIN, TOTAL (test code = 0.4 MG/DL 2206) ALKALINE PHOSPHATASE (test 91 U/L code = 2204) AST (test code = 2218) 72 U/L ALT (test code = 2219) 115 U/L COMPREHENSIVE METABOLIC [id number] 00:00:00 Test Item Value Reference Range Interpretation Comments GLUCOSE (test code = 2217) 98 MG/DL BUN (test code = 2208) 11 MG/DL CREATININE (test code = 2214) 0.57 MG/DL eGFR AMER. (test code 144 ML/MIN/1.73 = 43780) eGFR NON- AMER. (test 124 ML/MIN/1.73 code = 05233) CALC BUN/CREAT (test code = 19 RATIO 2235) SODIUM (test code = 2231) 138 MEQ/L POTASSIUM (test code = 2228) 4.9 MEQ/L CHLORIDE (test code = 2215) 101 MEQ/L CARBON DIOXIDE (test code = 26 MEQ/L 2205) CALCIUM (test code = 2209) 9.7 MG/DL PROTEIN, TOTAL (test code = 7.6 G/DL 2228) ALBUMIN (test code = 2201) 4.7 G/DL CALC GLOBULIN (test code = 2.9 G/DL 2239) CALC A/G RATIO (test code = 1.6 RATIO 2233) BILIRUBIN, TOTAL (test code = 0.4 MG/DL 2206) ALKALINE PHOSPHATASE (test 91 U/L code = 2204) AST (test code = 2218) 72 U/L ALT (test code = 2219) 115 U/L [id number] 00:00:00 Test Item Value Reference Range Interpretation Comments TSH, THIRD GENERATION (test code 1.090 UIU/ML = 2821) [id number] 00:00:00 Test Item Value Reference Range Interpretation Comments TSH, THIRD GENERATION (test code 1.090 UIU/ML = 2821) [id number] 00:00:00 Test Item Value Reference Range Interpretation Comments TSH, THIRD GENERATION (test code 1.090 UIU/ML = 2821) [id number] 00:00:00 Test Item Value Reference Range Interpretation Comments GGT (test code = 2216) 46 U/L [id number] 00:00:00 Test Item Value Reference Range Interpretation Comments GGT (test code = 2216) 46 U/L LIPID [id number] 00:00:00 Test Item Value Reference Range Interpretation Comments CHOLESTEROL (test code = 2210) 163 MG/DL TRIGLYCERIDES (test code = 2232) 124 MG/DL HDL CHOLESTEROL (test code = 2220) 54 MG/DL CALC LDL CHOL (test code = 2237) 84 MG/DL RISK RATIO LDL/HDL (test code = 1.56 RATIO 2238) LIPID [id number] 00:00:00 Test Item Value Reference Range Interpretation Comments CHOLESTEROL (test code = 2210) 163 MG/DL TRIGLYCERIDES (test code = 2232) 124 MG/DL HDL CHOLESTEROL (test code = 2220) 54 MG/DL CALC LDL CHOL (test code = 2237) 84 MG/DL RISK RATIO LDL/HDL (test code = 1.56 RATIO 2238) COMPREHENSIVE METABOLIC [id number] 00:00:00 Test Item Value Reference Range Interpretation Comments GLUCOSE (test code = 2217) 98 MG/DL BUN (test code = 2208) 11 MG/DL CREATININE (test code = 2214) 0.57 MG/DL eGFR AMER. (test code 144 ML/MIN/1.73 = 08389) eGFR NON- AMER. (test 124 ML/MIN/1.73 code = 00473) CALC BUN/CREAT (test code = 19 RATIO 2235) SODIUM (test code = 2231) 138 MEQ/L POTASSIUM (test code = 2228) 4.9 MEQ/L CHLORIDE (test code = 2215) 101 MEQ/L CARBON DIOXIDE (test code = 26 MEQ/L 220) CALCIUM (test code = 2209) 9.7 MG/DL PROTEIN, TOTAL (test code = 7.6 G/DL 2228) ALBUMIN (test code = 2201) 4.7 G/DL CALC GLOBULIN (test code = 2.9 G/DL 0) CALC A/G RATIO (test code = 1.6 RATIO 4) BILIRUBIN, TOTAL (test code = 0.4 MG/DL 2206) ALKALINE PHOSPHATASE (test 91 U/L code = 2204) AST (test code = 2218) 72 U/L ALT (test code = 2219) 115 U/L COMPREHENSIVE METABOLIC [id number] 00:00:00 Test Item Value Reference Range Interpretation Comments GLUCOSE (test code = 2217) 98 MG/DL BUN (test code = 2208) 11 MG/DL CREATININE (test code = 2214) 0.57 MG/DL eGFR AMER. (test code 144 ML/MIN/1.73 = 51795) eGFR NON- AMER. (test 124 ML/MIN/1.73 code = 77805) CALC BUN/CREAT (test code = 19 RATIO 2235) SODIUM (test code = 2231) 138 MEQ/L POTASSIUM (test code = 2228) 4.9 MEQ/L CHLORIDE (test code = 2215) 101 MEQ/L CARBON DIOXIDE (test code = 26 MEQ/L 2206) CALCIUM (test code = 2209) 9.7 MG/DL PROTEIN, TOTAL (test code = 7.6 G/DL 2228) ALBUMIN (test code = 2201) 4.7 G/DL CALC GLOBULIN (test code = 2.9 G/DL 2240) CALC A/G RATIO (test code = 1.6 RATIO 2234) BILIRUBIN, TOTAL (test code = 0.4 MG/DL 2206) ALKALINE PHOSPHATASE (test 91 U/L code = 2204) AST (test code = 2218) 72 U/L ALT (test code = 2219) 115 U/L [id number] 00:00:00 Test Item Value Reference Range Interpretation Comments TSH, THIRD GENERATION (test code 1.090 UIU/ML = 2821) [id number] 00:00:00 Test Item Value Reference Range Interpretation Comments TSH, THIRD GENERATION (test code 1.090 UIU/ML = 2821) [id number] 00:00:00 Test Item Value Reference Range Interpretation Comments TSH, THIRD GENERATION (test code 1.090 UIU/ML = 2821) [id number] 00:00:00 Test Item Value Reference Range Interpretation Comments GGT (test code = 2216) 46 U/L [id number] 00:00:00 Test Item Value Reference Range Interpretation Comments GGT (test code = 2216) 46 U/L LIPID [id number] 00:00:00 Test Item Value Reference Range Interpretation Comments CHOLESTEROL (test code = 2210) 163 MG/DL TRIGLYCERIDES (test code = 2232) 124 MG/DL HDL CHOLESTEROL (test code = 2220) 54 MG/DL CALC LDL CHOL (test code = 2237) 84 MG/DL RISK RATIO LDL/HDL (test code = 1.56 RATIO 2238) LIPID [id number] 00:00:00 Test Item Value Reference Range Interpretation Comments CHOLESTEROL (test code = 2210) 163 MG/DL TRIGLYCERIDES (test code = 2232) 124 MG/DL HDL CHOLESTEROL (test code = 2220) 54 MG/DL CALC LDL CHOL (test code = 2237) 84 MG/DL RISK RATIO LDL/HDL (test code = 1.56 RATIO 2238) COMPREHENSIVE METABOLIC [id number] 00:00:00 Test Item Value Reference Range Interpretation Comments GLUCOSE (test code = 2217) 98 MG/DL BUN (test code = 2208) 11 MG/DL CREATININE (test code = 2214) 0.57 MG/DL eGFR AMER. (test code 144 ML/MIN/1.73 = 14463) eGFR NON- AMER. (test 124 ML/MIN/1.73 code = 44640) CALC BUN/CREAT (test code = 19 RATIO 2235) SODIUM (test code = 2231) 138 MEQ/L POTASSIUM (test code = 2228) 4.9 MEQ/L CHLORIDE (test code = 2215) 101 MEQ/L CARBON DIOXIDE (test code = 26 MEQ/L 220) CALCIUM (test code = 2209) 9.7 MG/DL PROTEIN, TOTAL (test code = 7.6 G/DL 2228) ALBUMIN (test code = 2201) 4.7 G/DL CALC GLOBULIN (test code = 2.9 G/DL 2240) CALC A/G RATIO (test code = 1.6 RATIO 2234) BILIRUBIN, TOTAL (test code = 0.4 MG/DL 2206) ALKALINE PHOSPHATASE (test 91 U/L code = 2204) AST (test code = 2218) 72 U/L ALT (test code = 2219) 115 U/L COMPREHENSIVE METABOLIC [id number] 00:00:00 Test Item Value Reference Range Interpretation Comments GLUCOSE (test code = 2217) 98 MG/DL BUN (test code = 2208) 11 MG/DL CREATININE (test code = 2214) 0.57 MG/DL eGFR AMER. (test code 144 ML/MIN/1.73 = 08684) eGFR NON- AMER. (test 124 ML/MIN/1.73 code = 84861) CALC BUN/CREAT (test code = 19 RATIO 2235) SODIUM (test code = 2231) 138 MEQ/L POTASSIUM (test code = 2228) 4.9 MEQ/L CHLORIDE (test code = 2215) 101 MEQ/L CARBON DIOXIDE (test code = 26 MEQ/L 2206) CALCIUM (test code = 2209) 9.7 MG/DL PROTEIN, TOTAL (test code = 7.6 G/DL 2228) ALBUMIN (test code = 2201) 4.7 G/DL CALC GLOBULIN (test code = 2.9 G/DL 2240) CALC A/G RATIO (test code = 1.6 RATIO 2234) BILIRUBIN, TOTAL (test code = 0.4 MG/DL 2206) ALKALINE PHOSPHATASE (test 91 U/L code = 2204) AST (test code = 2218) 72 U/L ALT (test code = 2219) 115 U/L [id number] 00:00:00 Test Item Value Reference Range Interpretation Comments TSH, THIRD GENERATION (test code 1.090 UIU/ML = 2821) LIPID [id number] 00:00:00 Test Item Value Reference Range Interpretation Comments CHOLESTEROL (test code = 2210) 163 MG/DL TRIGLYCERIDES (test code = 2232) 124 MG/DL HDL CHOLESTEROL (test code = 2220) 54 MG/DL CALC LDL CHOL (test code = 2237) 84 MG/DL RISK RATIO LDL/HDL (test code = 1.56 RATIO 2238) [id number] 00:00:00 Test Item Value Reference Range Interpretation Comments TSH, THIRD GENERATION (test code 1.090 UIU/ML = 2821) [id number] 00:00:00 Test Item Value Reference Range Interpretation Comments TSH, THIRD GENERATION (test code 1.090 UIU/ML = 2821) [id number] 00:00:00 Test Item Value Reference Range Interpretation Comments GGT (test code = 2216) 46 U/L [id number] 00:00:00 Test Item Value Reference Range Interpretation Comments GGT (test code = 2216) 46 U/L COMPREHENSIVE METABOLIC [id number] 00:00:00 Test Item Value Reference Range Interpretation Comments GLUCOSE (test code = 2217) 98 MG/DL BUN (test code = 2208) 11 MG/DL CREATININE (test code = 2214) 0.57 MG/DL eGFR AMER. (test code 144 ML/MIN/1.73 = 59814) eGFR NON- AMER. (test 124 ML/MIN/1.73 code = 98236) CALC BUN/CREAT (test code = 19 RATIO 2235) SODIUM (test code = 2231) 138 MEQ/L POTASSIUM (test code = 2228) 4.9 MEQ/L CHLORIDE (test code = 2215) 101 MEQ/L CARBON DIOXIDE (test code = 26 MEQ/L 2205) CALCIUM (test code = 2209) 9.7 MG/DL PROTEIN, TOTAL (test code = 7.6 G/DL 2228) ALBUMIN (test code = 2201) 4.7 G/DL CALC GLOBULIN (test code = 2.9 G/DL 224) CALC A/G RATIO (test code = 1.6 RATIO 2234) BILIRUBIN, TOTAL (test code = 0.4 MG/DL 2206) ALKALINE PHOSPHATASE (test 91 U/L code = 2204) AST (test code = 2218) 72 U/L ALT (test code = 2219) 115 U/L [id number] 00:00:00 Test Item Value Reference Range Interpretation Comments TSH, THIRD GENERATION (test code 1.090 UIU/ML = 2821) [id number] 00:00:00 Test Item Value Reference Range Interpretation Comments TSH, THIRD GENERATION (test code 1.090 UIU/ML = 2821) [id number] 00:00:00 Test Item Value Reference Range Interpretation Comments GGT (test code = 2216) 46 U/L LIPID [id number] 00:00:00 Test Item Value Reference Range Interpretation Comments CHOLESTEROL (test code = 2210) 163 MG/DL TRIGLYCERIDES (test code = 2232) 124 MG/DL HDL CHOLESTEROL (test code = 2220) 54 MG/DL CALC LDL CHOL (test code = 2237) 84 MG/DL RISK RATIO LDL/HDL (test code = 1.56 RATIO 2238) LIPID [id number] 00:00:00 Test Item Value Reference Range Interpretation Comments CHOLESTEROL (test code = 2210) 163 MG/DL TRIGLYCERIDES (test code = 2232) 124 MG/DL HDL CHOLESTEROL (test code = 2220) 54 MG/DL CALC LDL CHOL (test code = 2237) 84 MG/DL RISK RATIO LDL/HDL (test code = 1.56 RATIO 2238) COMPREHENSIVE METABOLIC [id number] 00:00:00 Test Item Value Reference Range Interpretation Comments GLUCOSE (test code = 2217) 98 MG/DL BUN (test code = 2208) 11 MG/DL CREATININE (test code = 2214) 0.57 MG/DL eGFR AMER. (test code 144 ML/MIN/1.73 = 42430) eGFR NON- AMER. (test 124 ML/MIN/1.73 code = 64237) CALC BUN/CREAT (test code = 19 RATIO 2235) SODIUM (test code = 2231) 138 MEQ/L POTASSIUM (test code = 2228) 4.9 MEQ/L CHLORIDE (test code = 2215) 101 MEQ/L CARBON DIOXIDE (test code = 26 MEQ/L 220) CALCIUM (test code = 2209) 9.7 MG/DL PROTEIN, TOTAL (test code = 7.6 G/DL 222) ALBUMIN (test code = 2201) 4.7 G/DL CALC GLOBULIN (test code = 2.9 G/DL 2240) CALC A/G RATIO (test code = 1.6 RATIO 2234) BILIRUBIN, TOTAL (test code = 0.4 MG/DL 2206) ALKALINE PHOSPHATASE (test 91 U/L code = 2204) AST (test code = 2218) 72 U/L ALT (test code = 2219) 115 U/L COMPREHENSIVE METABOLIC [id number] 00:00:00 Test Item Value Reference Range Interpretation Comments GLUCOSE (test code = 2217) 98 MG/DL BUN (test code = 2208) 11 MG/DL CREATININE (test code = 2214) 0.57 MG/DL eGFR AMER. (test code 144 ML/MIN/1.73 = 20745) eGFR NON- AMER. (test 124 ML/MIN/1.73 code = 19788) CALC BUN/CREAT (test code = 19 RATIO 2235) SODIUM (test code = 2231) 138 MEQ/L POTASSIUM (test code = 2228) 4.9 MEQ/L CHLORIDE (test code = 2215) 101 MEQ/L CARBON DIOXIDE (test code = 26 MEQ/L 2205) CALCIUM (test code = 2209) 9.7 MG/DL PROTEIN, TOTAL (test code = 7.6 G/DL 2228) ALBUMIN (test code = 2201) 4.7 G/DL CALC GLOBULIN (test code = 2.9 G/DL 2240) CALC A/G RATIO (test code = 1.6 RATIO 2234) BILIRUBIN, TOTAL (test code = 0.4 MG/DL 2206) ALKALINE PHOSPHATASE (test 91 U/L code = 2204) AST (test code = 2218) 72 U/L ALT (test code = 2219) 115 U/L [id number] 00:00:00 Test Item Value Reference Range Interpretation Comments TSH, THIRD GENERATION (test code 1.090 UIU/ML = 2821) [id number] 00:00:00 Test Item Value Reference Range Interpretation Comments TSH, THIRD GENERATION (test code 1.090 UIU/ML = 2821) [id number] 00:00:00 Test Item Value Reference Range Interpretation Comments TSH, THIRD GENERATION (test code 1.090 UIU/ML = 2821) [id number] 00:00:00 Test Item Value Reference Range Interpretation Comments GGT (test code = 2216) 46 U/L [id number] 00:00:00 Test Item Value Reference Range Interpretation Comments GGT (test code = 2216) 46 U/L [id number] 00:00:00 Test Item Value Reference Range Interpretation Comments GGT (test code = 2216) 64 U/L [id number] 00:00:00 Test Item Value Reference Range Interpretation Comments GGT (test code = 2216) 64 U/L ACUTE HEPATITIS [id number] 00:00:00 Test Item Value Reference Range Interpretation Comments HEPATITIS A IgM (test code = NON-REACTIVE 46658) HEPATITIS B CORE IgM (test code NON-REACTIVE = 4644) HEPATITIS B SURF AG (test code = NON-REACTIVE 2739) HEPATITIS C ANTIBODY (test code NON-REACTIVE = 4675) HCV INDEX (test code = 32956) 0.12 INTERPRETATION HEPATITIS A: (NOTE) (test code = 2552) INTERPRETATION HEPATITIS B: (NOTE) (test code = 49561) INTERPRETATION HEPATITIS C: (NOTE) (test code = 19562) ACUTE HEPATITIS [id number] 00:00:00 Test Item Value Reference Range Interpretation Comments HEPATITIS A IgM (test code = NON-REACTIVE 33612) HEPATITIS B CORE IgM (test code NON-REACTIVE = 4644) HEPATITIS B SURF AG (test code = NON-REACTIVE 2739) HEPATITIS C ANTIBODY (test code NON-REACTIVE = 4675) HCV INDEX (test code = 47200) 0.12 INTERPRETATION HEPATITIS A: (NOTE) (test code = 2552) INTERPRETATION HEPATITIS B: (NOTE) (test code = 34472) INTERPRETATION HEPATITIS C: (NOTE) (test code = 83789) COMPREHENSIVE METABOLIC [id number] 00:00:00 Test Item Value Reference Range Interpretation Comments GLUCOSE (test code = 2217) 109 MG/DL BUN (test code = 2208) 10 MG/DL CREATININE (test code = 2214) 0.63 MG/DL eGFR AMER. (test code 140 ML/MIN/1.73 = 02280) eGFR NON- AMER. (test 120 ML/MIN/1.73 code = 64600) CALC BUN/CREAT (test code = 16 RATIO 2235) SODIUM (test code = 2231) 140 MEQ/L POTASSIUM (test code = 2228) 4.4 MEQ/L CHLORIDE (test code = 2215) 101 MEQ/L CARBON DIOXIDE (test code = 27 MEQ/L 220) CALCIUM (test code = 2209) 9.8 MG/DL PROTEIN, TOTAL (test code = 7.7 G/DL 2228) ALBUMIN (test code = 2201) 4.5 G/DL CALC GLOBULIN (test code = 3.2 G/DL 2240) CALC A/G RATIO (test code = 1.4 RATIO 223) BILIRUBIN, TOTAL (test code = 0.5 MG/DL 2206) ALKALINE PHOSPHATASE (test 87 U/L code = 2204) AST (test code = 2218) 97 U/L ALT (test code = 2219) 134 U/L COMPREHENSIVE METABOLIC [id number] 00:00:00 Test Item Value Reference Range Interpretation Comments GLUCOSE (test code = 2217) 109 MG/DL BUN (test code = 2208) 10 MG/DL CREATININE (test code = 2214) 0.63 MG/DL eGFR AMER. (test code 140 ML/MIN/1.73 = 20119) eGFR NON- AMER. (test 120 ML/MIN/1.73 code = 02496) CALC BUN/CREAT (test code = 16 RATIO 2235) SODIUM (test code = 2231) 140 MEQ/L POTASSIUM (test code = 2228) 4.4 MEQ/L CHLORIDE (test code = 2215) 101 MEQ/L CARBON DIOXIDE (test code = 27 MEQ/L 2206) CALCIUM (test code = 2209) 9.8 MG/DL PROTEIN, TOTAL (test code = 7.7 G/DL 222) ALBUMIN (test code = 2201) 4.5 G/DL CALC GLOBULIN (test code = 3.2 G/DL 2240) CALC A/G RATIO (test code = 1.4 RATIO 2234) BILIRUBIN, TOTAL (test code = 0.5 MG/DL 2207) ALKALINE PHOSPHATASE (test 87 U/L code = 2204) AST (test code = 2218) 97 U/L ALT (test code = 2219) 134 U/L CBC W/AUTO [id number] 00:00:00 Test Item Value Reference Range Interpretation Comments WBC (test code = 1001) 6.2 K/UL RBC (test code = 1002) 4.26 M/UL HEMOGLOBIN (test code = 1003) 13.0 G/DL HEMATOCRIT (test code = 1004) 37.9 % MCV (test code = 1005) 89.0 fL MCH (test code = 1006) 30.5 PG MCHC (test code = 1007) 34.3 G/DL RDW (test code = 1038) 12.7 % NEUTROPHILS (test code = 1008) 64.6 % LYMPHOCYTES (test code = 1010) 26.5 % MONOCYTES (test code = 1011) 6.6 % EOSINOPHILS (test code = 1012) 1.8 % BASOPHILS (test code = 1013) 0.5 % PLATELET COUNT (test code = 1015) 307 K/UL CBC W/AUTO [id number] 00:00:00 Test Item Value Reference Range Interpretation Comments WBC (test code = 1001) 6.2 K/UL RBC (test code = 1002) 4.26 M/UL HEMOGLOBIN (test code = 1003) 13.0 G/DL HEMATOCRIT (test code = 1004) 37.9 % MCV (test code = 1005) 89.0 fL MCH (test code = 1006) 30.5 PG MCHC (test code = 1007) 34.3 G/DL RDW (test code = 1038) 12.7 % NEUTROPHILS (test code = 1008) 64.6 % LYMPHOCYTES (test code = 1010) 26.5 % MONOCYTES (test code = 1011) 6.6 % EOSINOPHILS (test code = 1012) 1.8 % BASOPHILS (test code = 1013) 0.5 % PLATELET COUNT (test code = 1015) 307 K/UL CBC W/AUTO [id number] 00:00:00 Test Item Value Reference Range Interpretation Comments WBC (test code = 1001) 6.2 K/UL RBC (test code = 1002) 4.26 M/UL HEMOGLOBIN (test code = 1003) 13.0 G/DL HEMATOCRIT (test code = 1004) 37.9 % MCV (test code = 1005) 89.0 fL MCH (test code = 1006) 30.5 PG MCHC (test code = 1007) 34.3 G/DL RDW (test code = 1038) 12.7 % NEUTROPHILS (test code = 1008) 64.6 % LYMPHOCYTES (test code = 1010) 26.5 % MONOCYTES (test code = 1011) 6.6 % EOSINOPHILS (test code = 1012) 1.8 % BASOPHILS (test code = 1013) 0.5 % PLATELET COUNT (test code = 1015) 307 K/UL [id number] 00:00:00 Test Item Value Reference Range Interpretation Comments GGT (test code = 2216) 64 U/L [id number] 00:00:00 Test Item Value Reference Range Interpretation Comments GGT (test code = 2216) 64 U/L ACUTE HEPATITIS [id number] 00:00:00 Test Item Value Reference Range Interpretation Comments HEPATITIS A IgM (test code = NON-REACTIVE 72868) HEPATITIS B CORE IgM (test code NON-REACTIVE = 4644) HEPATITIS B SURF AG (test code = NON-REACTIVE 2739) HEPATITIS C ANTIBODY (test code NON-REACTIVE = 4675) HCV INDEX (test code = 64917) 0.12 INTERPRETATION HEPATITIS A: (NOTE) (test code = 2552) INTERPRETATION HEPATITIS B: (NOTE) (test code = 13596) INTERPRETATION HEPATITIS C: (NOTE) (test code = 66796) ACUTE HEPATITIS [id number] 00:00:00 Test Item Value Reference Range Interpretation Comments HEPATITIS A IgM (test code = NON-REACTIVE 97096) HEPATITIS B CORE IgM (test code NON-REACTIVE = 4644) HEPATITIS B SURF AG (test code = NON-REACTIVE 2739) HEPATITIS C ANTIBODY (test code NON-REACTIVE = 4675) HCV INDEX (test code = 46062) 0.12 INTERPRETATION HEPATITIS A: (NOTE) (test code = 2552) INTERPRETATION HEPATITIS B: (NOTE) (test code = 87052) INTERPRETATION HEPATITIS C: (NOTE) (test code = 63821) COMPREHENSIVE METABOLIC [id number] 00:00:00 Test Item Value Reference Range Interpretation Comments GLUCOSE (test code = 2217) 109 MG/DL BUN (test code = 2208) 10 MG/DL CREATININE (test code = 2214) 0.63 MG/DL eGFR AMER. (test code 140 ML/MIN/1.73 = 45182) eGFR NON- AMER. (test 120 ML/MIN/1.73 code = 80946) CALC BUN/CREAT (test code = 16 RATIO 2235) SODIUM (test code = 2231) 140 MEQ/L POTASSIUM (test code = 2228) 4.4 MEQ/L CHLORIDE (test code = 2215) 101 MEQ/L CARBON DIOXIDE (test code = 27 MEQ/L 220) CALCIUM (test code = 2209) 9.8 MG/DL PROTEIN, TOTAL (test code = 7.7 G/DL 2228) ALBUMIN (test code = 2201) 4.5 G/DL CALC GLOBULIN (test code = 3.2 G/DL 2240) CALC A/G RATIO (test code = 1.4 RATIO 2234) BILIRUBIN, TOTAL (test code = 0.5 MG/DL 2206) ALKALINE PHOSPHATASE (test 87 U/L code = 2204) AST (test code = 2218) 97 U/L ALT (test code = 2219) 134 U/L COMPREHENSIVE METABOLIC [id number] 00:00:00 Test Item Value Reference Range Interpretation Comments GLUCOSE (test code = 2217) 109 MG/DL BUN (test code = 2208) 10 MG/DL CREATININE (test code = 2214) 0.63 MG/DL eGFR AMER. (test code 140 ML/MIN/1.73 = 61213) eGFR NON- AMER. (test 120 ML/MIN/1.73 code = 10366) CALC BUN/CREAT (test code = 16 RATIO 2235) SODIUM (test code = 2231) 140 MEQ/L POTASSIUM (test code = 2228) 4.4 MEQ/L CHLORIDE (test code = 2215) 101 MEQ/L CARBON DIOXIDE (test code = 27 MEQ/L 2206) CALCIUM (test code = 2209) 9.8 MG/DL PROTEIN, TOTAL (test code = 7.7 G/DL 2228) ALBUMIN (test code = 2201) 4.5 G/DL CALC GLOBULIN (test code = 3.2 G/DL 2240) CALC A/G RATIO (test code = 1.4 RATIO 2234) BILIRUBIN, TOTAL (test code = 0.5 MG/DL 2206) ALKALINE PHOSPHATASE (test 87 U/L code = 2204) AST (test code = 2218) 97 U/L ALT (test code = 2219) 134 U/L CBC W/AUTO [id number] 00:00:00 Test Item Value Reference Range Interpretation Comments WBC (test code = 1001) 6.2 K/UL RBC (test code = 1002) 4.26 M/UL HEMOGLOBIN (test code = 1003) 13.0 G/DL HEMATOCRIT (test code = 1004) 37.9 % MCV (test code = 1005) 89.0 fL MCH (test code = 1006) 30.5 PG MCHC (test code = 1007) 34.3 G/DL RDW (test code = 1038) 12.7 % NEUTROPHILS (test code = 1008) 64.6 % LYMPHOCYTES (test code = 1010) 26.5 % MONOCYTES (test code = 1011) 6.6 % EOSINOPHILS (test code = 1012) 1.8 % BASOPHILS (test code = 1013) 0.5 % PLATELET COUNT (test code = 1015) 307 K/UL CBC W/AUTO [id number] 00:00:00 Test Item Value Reference Range Interpretation Comments WBC (test code = 1001) 6.2 K/UL RBC (test code = 1002) 4.26 M/UL HEMOGLOBIN (test code = 1003) 13.0 G/DL HEMATOCRIT (test code = 1004) 37.9 % MCV (test code = 1005) 89.0 fL MCH (test code = 1006) 30.5 PG MCHC (test code = 1007) 34.3 G/DL RDW (test code = 1038) 12.7 % NEUTROPHILS (test code = 1008) 64.6 % LYMPHOCYTES (test code = 1010) 26.5 % MONOCYTES (test code = 1011) 6.6 % EOSINOPHILS (test code = 1012) 1.8 % BASOPHILS (test code = 1013) 0.5 % PLATELET COUNT (test code = 1015) 307 K/UL CBC W/AUTO [id number] 00:00:00 Test Item Value Reference Range Interpretation Comments WBC (test code = 1001) 6.2 K/UL RBC (test code = 1002) 4.26 M/UL HEMOGLOBIN (test code = 1003) 13.0 G/DL HEMATOCRIT (test code = 1004) 37.9 % MCV (test code = 1005) 89.0 fL MCH (test code = 1006) 30.5 PG MCHC (test code = 1007) 34.3 G/DL RDW (test code = 1038) 12.7 % NEUTROPHILS (test code = 1008) 64.6 % LYMPHOCYTES (test code = 1010) 26.5 % MONOCYTES (test code = 1011) 6.6 % EOSINOPHILS (test code = 1012) 1.8 % BASOPHILS (test code = 1013) 0.5 % PLATELET COUNT (test code = 1015) 307 K/UL [id number] 00:00:00 Test Item Value Reference Range Interpretation Comments GGT (test code = 2216) 64 U/L [id number] 00:00:00 Test Item Value Reference Range Interpretation Comments GGT (test code = 2216) 64 U/L ACUTE HEPATITIS [id number] 00:00:00 Test Item Value Reference Range Interpretation Comments HEPATITIS A IgM (test code = NON-REACTIVE 43372) HEPATITIS B CORE IgM (test code NON-REACTIVE = 4644) HEPATITIS B SURF AG (test code = NON-REACTIVE 2739) HEPATITIS C ANTIBODY (test code NON-REACTIVE = 4675) HCV INDEX (test code = 96232) 0.12 INTERPRETATION HEPATITIS A: (NOTE) (test code = 2552) INTERPRETATION HEPATITIS B: (NOTE) (test code = 91682) INTERPRETATION HEPATITIS C: (NOTE) (test code = 22180) ACUTE HEPATITIS [id number] 00:00:00 Test Item Value Reference Range Interpretation Comments HEPATITIS A IgM (test code = NON-REACTIVE 06595) HEPATITIS B CORE IgM (test code NON-REACTIVE = 4644) HEPATITIS B SURF AG (test code = NON-REACTIVE 2739) HEPATITIS C ANTIBODY (test code NON-REACTIVE = 4675) HCV INDEX (test code = 81220) 0.12 INTERPRETATION HEPATITIS A: (NOTE) (test code = 2552) INTERPRETATION HEPATITIS B: (NOTE) (test code = 01370) INTERPRETATION HEPATITIS C: (NOTE) (test code = 51847) COMPREHENSIVE METABOLIC [id number] 00:00:00 Test Item Value Reference Range Interpretation Comments GLUCOSE (test code = 2217) 109 MG/DL BUN (test code = 2208) 10 MG/DL CREATININE (test code = 2214) 0.63 MG/DL eGFR AMER. (test code 140 ML/MIN/1.73 = 46591) eGFR NON- AMER. (test 120 ML/MIN/1.73 code = 44134) CALC BUN/CREAT (test code = 16 RATIO 2235) SODIUM (test code = 2231) 140 MEQ/L POTASSIUM (test code = 2228) 4.4 MEQ/L CHLORIDE (test code = 2215) 101 MEQ/L CARBON DIOXIDE (test code = 27 MEQ/L 220) CALCIUM (test code = 2209) 9.8 MG/DL PROTEIN, TOTAL (test code = 7.7 G/DL 2228) ALBUMIN (test code = 2201) 4.5 G/DL CALC GLOBULIN (test code = 3.2 G/DL 2239) CALC A/G RATIO (test code = 1.4 RATIO 2234) BILIRUBIN, TOTAL (test code = 0.5 MG/DL 2206) ALKALINE PHOSPHATASE (test 87 U/L code = 2204) AST (test code = 2218) 97 U/L ALT (test code = 2219) 134 U/L COMPREHENSIVE METABOLIC [id number] 00:00:00 Test Item Value Reference Range Interpretation Comments GLUCOSE (test code = 2217) 109 MG/DL BUN (test code = 2208) 10 MG/DL CREATININE (test code = 2214) 0.63 MG/DL eGFR AMER. (test code 140 ML/MIN/1.73 = 32399) eGFR NON- AMER. (test 120 ML/MIN/1.73 code = 25405) CALC BUN/CREAT (test code = 16 RATIO 2235) SODIUM (test code = 2231) 140 MEQ/L POTASSIUM (test code = 2228) 4.4 MEQ/L CHLORIDE (test code = 2215) 101 MEQ/L CARBON DIOXIDE (test code = 27 MEQ/L 2206) CALCIUM (test code = 2209) 9.8 MG/DL PROTEIN, TOTAL (test code = 7.7 G/DL 2228) ALBUMIN (test code = 2201) 4.5 G/DL CALC GLOBULIN (test code = 3.2 G/DL 2240) CALC A/G RATIO (test code = 1.4 RATIO 2234) BILIRUBIN, TOTAL (test code = 0.5 MG/DL 2207) ALKALINE PHOSPHATASE (test 87 U/L code = 2204) AST (test code = 2218) 97 U/L ALT (test code = 2219) 134 U/L CBC W/AUTO [id number] 00:00:00 Test Item Value Reference Range Interpretation Comments WBC (test code = 1001) 6.2 K/UL RBC (test code = 1002) 4.26 M/UL HEMOGLOBIN (test code = 1003) 13.0 G/DL HEMATOCRIT (test code = 1004) 37.9 % MCV (test code = 1005) 89.0 fL MCH (test code = 1006) 30.5 PG MCHC (test code = 1007) 34.3 G/DL RDW (test code = 1038) 12.7 % NEUTROPHILS (test code = 1008) 64.6 % LYMPHOCYTES (test code = 1010) 26.5 % MONOCYTES (test code = 1011) 6.6 % EOSINOPHILS (test code = 1012) 1.8 % BASOPHILS (test code = 1013) 0.5 % PLATELET COUNT (test code = 1015) 307 K/UL CBC W/AUTO [id number] 00:00:00 Test Item Value Reference Range Interpretation Comments WBC (test code = 1001) 6.2 K/UL RBC (test code = 1002) 4.26 M/UL HEMOGLOBIN (test code = 1003) 13.0 G/DL HEMATOCRIT (test code = 1004) 37.9 % MCV (test code = 1005) 89.0 fL MCH (test code = 1006) 30.5 PG MCHC (test code = 1007) 34.3 G/DL RDW (test code = 1038) 12.7 % NEUTROPHILS (test code = 1008) 64.6 % LYMPHOCYTES (test code = 1010) 26.5 % MONOCYTES (test code = 1011) 6.6 % EOSINOPHILS (test code = 1012) 1.8 % BASOPHILS (test code = 1013) 0.5 % PLATELET COUNT (test code = 1015) 307 K/UL CBC W/AUTO [id number] 00:00:00 Test Item Value Reference Range Interpretation Comments WBC (test code = 1001) 6.2 K/UL RBC (test code = 1002) 4.26 M/UL HEMOGLOBIN (test code = 1003) 13.0 G/DL HEMATOCRIT (test code = 1004) 37.9 % MCV (test code = 1005) 89.0 fL MCH (test code = 1006) 30.5 PG MCHC (test code = 1007) 34.3 G/DL RDW (test code = 1038) 12.7 % NEUTROPHILS (test code = 1008) 64.6 % LYMPHOCYTES (test code = 1010) 26.5 % MONOCYTES (test code = 1011) 6.6 % EOSINOPHILS (test code = 1012) 1.8 % BASOPHILS (test code = 1013) 0.5 % PLATELET COUNT (test code = 1015) 307 K/UL [id number] 00:00:00 Test Item Value Reference Range Interpretation Comments GGT (test code = 2216) 64 U/L ACUTE HEPATITIS [id number] 00:00:00 Test Item Value Reference Range Interpretation Comments HEPATITIS A IgM (test code = NON-REACTIVE 67971) HEPATITIS B CORE IgM (test code NON-REACTIVE = 4644) HEPATITIS B SURF AG (test code = NON-REACTIVE 6929) HEPATITIS C ANTIBODY (test code NON-REACTIVE = 4675) HCV INDEX (test code = 26662) 0.12 INTERPRETATION HEPATITIS A: (NOTE) (test code = 2552) INTERPRETATION HEPATITIS B: (NOTE) (test code = 02096) INTERPRETATION HEPATITIS C: (NOTE) (test code = 43535) COMPREHENSIVE METABOLIC [id number] 00:00:00 Test Item Value Reference Range Interpretation Comments GLUCOSE (test code = 2217) 109 MG/DL BUN (test code = 2208) 10 MG/DL CREATININE (test code = 2214) 0.63 MG/DL eGFR AMER. (test code 140 ML/MIN/1.73 = 49249) eGFR NON- AMER. (test 120 ML/MIN/1.73 code = 09374) CALC BUN/CREAT (test code = 16 RATIO 2235) SODIUM (test code = 2231) 140 MEQ/L POTASSIUM (test code = 2228) 4.4 MEQ/L CHLORIDE (test code = 2215) 101 MEQ/L CARBON DIOXIDE (test code = 27 MEQ/L 2205) CALCIUM (test code = 2209) 9.8 MG/DL PROTEIN, TOTAL (test code = 7.7 G/DL 2228) ALBUMIN (test code = 2201) 4.5 G/DL CALC GLOBULIN (test code = 3.2 G/DL 2239) CALC A/G RATIO (test code = 1.4 RATIO 2233) BILIRUBIN, TOTAL (test code = 0.5 MG/DL 2206) ALKALINE PHOSPHATASE (test 87 U/L code = 2204) AST (test code = 2218) 97 U/L ALT (test code = 2219) 134 U/L CBC W/AUTO [id number] 00:00:00 Test Item Value Reference Range Interpretation Comments WBC (test code = 1001) 6.2 K/UL RBC (test code = 1002) 4.26 M/UL HEMOGLOBIN (test code = 1003) 13.0 G/DL HEMATOCRIT (test code = 1004) 37.9 % MCV (test code = 1005) 89.0 fL MCH (test code = 1006) 30.5 PG MCHC (test code = 1007) 34.3 G/DL RDW (test code = 1038) 12.7 % NEUTROPHILS (test code = 1008) 64.6 % LYMPHOCYTES (test code = 1010) 26.5 % MONOCYTES (test code = 1011) 6.6 % EOSINOPHILS (test code = 1012) 1.8 % BASOPHILS (test code = 1013) 0.5 % PLATELET COUNT (test code = 1015) 307 K/UL CBC W/AUTO [id number] 00:00:00 Test Item Value Reference Range Interpretation Comments WBC (test code = 1001) 6.2 K/UL RBC (test code = 1002) 4.26 M/UL HEMOGLOBIN (test code = 1003) 13.0 G/DL HEMATOCRIT (test code = 1004) 37.9 % MCV (test code = 1005) 89.0 fL MCH (test code = 1006) 30.5 PG MCHC (test code = 1007) 34.3 G/DL RDW (test code = 1038) 12.7 % NEUTROPHILS (test code = 1008) 64.6 % LYMPHOCYTES (test code = 1010) 26.5 % MONOCYTES (test code = 1011) 6.6 % EOSINOPHILS (test code = 1012) 1.8 % BASOPHILS (test code = 1013) 0.5 % PLATELET COUNT (test code = 1015) 307 K/UL [id number] 00:00:00 Test Item Value Reference Range Interpretation Comments GGT (test code = 2216) 64 U/L [id number] 00:00:00 Test Item Value Reference Range Interpretation Comments GGT (test code = 2216) 64 U/L ACUTE HEPATITIS [id number] 00:00:00 Test Item Value Reference Range Interpretation Comments HEPATITIS A IgM (test code = NON-REACTIVE 13576) HEPATITIS B CORE IgM (test code NON-REACTIVE = 4644) HEPATITIS B SURF AG (test code = NON-REACTIVE 2739) HEPATITIS C ANTIBODY (test code NON-REACTIVE = 4675) HCV INDEX (test code = 34100) 0.12 INTERPRETATION HEPATITIS A: (NOTE) (test code = 2552) INTERPRETATION HEPATITIS B: (NOTE) (test code = 56007) INTERPRETATION HEPATITIS C: (NOTE) (test code = 01266) ACUTE HEPATITIS [id number] 00:00:00 Test Item Value Reference Range Interpretation Comments HEPATITIS A IgM (test code = NON-REACTIVE 80610) HEPATITIS B CORE IgM (test code NON-REACTIVE = 4644) HEPATITIS B SURF AG (test code = NON-REACTIVE 2739) HEPATITIS C ANTIBODY (test code NON-REACTIVE = 4675) HCV INDEX (test code = 20930) 0.12 INTERPRETATION HEPATITIS A: (NOTE) (test code = 2552) INTERPRETATION HEPATITIS B: (NOTE) (test code = 92750) INTERPRETATION HEPATITIS C: (NOTE) (test code = 95055) COMPREHENSIVE METABOLIC [id number] 00:00:00 Test Item Value Reference Range Interpretation Comments GLUCOSE (test code = 2217) 109 MG/DL BUN (test code = 2208) 10 MG/DL CREATININE (test code = 2214) 0.63 MG/DL eGFR AMER. (test code 140 ML/MIN/1.73 = 80136) eGFR NON- AMER. (test 120 ML/MIN/1.73 code = 78267) CALC BUN/CREAT (test code = 16 RATIO 2235) SODIUM (test code = 2231) 140 MEQ/L POTASSIUM (test code = 2228) 4.4 MEQ/L CHLORIDE (test code = 2215) 101 MEQ/L CARBON DIOXIDE (test code = 27 MEQ/L 220) CALCIUM (test code = 2209) 9.8 MG/DL PROTEIN, TOTAL (test code = 7.7 G/DL 2228) ALBUMIN (test code = 2201) 4.5 G/DL CALC GLOBULIN (test code = 3.2 G/DL 2240) CALC A/G RATIO (test code = 1.4 RATIO 2234) BILIRUBIN, TOTAL (test code = 0.5 MG/DL 2206) ALKALINE PHOSPHATASE (test 87 U/L code = 2204) AST (test code = 2218) 97 U/L ALT (test code = 2219) 134 U/L COMPREHENSIVE METABOLIC [id number] 00:00:00 Test Item Value Reference Range Interpretation Comments GLUCOSE (test code = 2217) 109 MG/DL BUN (test code = 2208) 10 MG/DL CREATININE (test code = 2214) 0.63 MG/DL eGFR AMER. (test code 140 ML/MIN/1.73 = 41393) eGFR NON- AMER. (test 120 ML/MIN/1.73 code = 97771) CALC BUN/CREAT (test code = 16 RATIO 2235) SODIUM (test code = 2231) 140 MEQ/L POTASSIUM (test code = 2228) 4.4 MEQ/L CHLORIDE (test code = 2215) 101 MEQ/L CARBON DIOXIDE (test code = 27 MEQ/L 2205) CALCIUM (test code = 2209) 9.8 MG/DL PROTEIN, TOTAL (test code = 7.7 G/DL 2228) ALBUMIN (test code = 2201) 4.5 G/DL CALC GLOBULIN (test code = 3.2 G/DL 2240) CALC A/G RATIO (test code = 1.4 RATIO 2234) BILIRUBIN, TOTAL (test code = 0.5 MG/DL 2206) ALKALINE PHOSPHATASE (test 87 U/L code = 2204) AST (test code = 2218) 97 U/L ALT (test code = 2219) 134 U/L CBC W/AUTO [id number] 00:00:00 Test Item Value Reference Range Interpretation Comments WBC (test code = 1001) 6.2 K/UL RBC (test code = 1002) 4.26 M/UL HEMOGLOBIN (test code = 1003) 13.0 G/DL HEMATOCRIT (test code = 1004) 37.9 % MCV (test code = 1005) 89.0 fL MCH (test code = 1006) 30.5 PG MCHC (test code = 1007) 34.3 G/DL RDW (test code = 1038) 12.7 % NEUTROPHILS (test code = 1008) 64.6 % LYMPHOCYTES (test code = 1010) 26.5 % MONOCYTES (test code = 1011) 6.6 % EOSINOPHILS (test code = 1012) 1.8 % BASOPHILS (test code = 1013) 0.5 % PLATELET COUNT (test code = 1015) 307 K/UL CBC W/AUTO [id number] 00:00:00 Test Item Value Reference Range Interpretation Comments WBC (test code = 1001) 6.2 K/UL RBC (test code = 1002) 4.26 M/UL HEMOGLOBIN (test code = 1003) 13.0 G/DL HEMATOCRIT (test code = 1004) 37.9 % MCV (test code = 1005) 89.0 fL MCH (test code = 1006) 30.5 PG MCHC (test code = 1007) 34.3 G/DL RDW (test code = 1038) 12.7 % NEUTROPHILS (test code = 1008) 64.6 % LYMPHOCYTES (test code = 1010) 26.5 % MONOCYTES (test code = 1011) 6.6 % EOSINOPHILS (test code = 1012) 1.8 % BASOPHILS (test code = 1013) 0.5 % PLATELET COUNT (test code = 1015) 307 K/UL CBC W/AUTO [id number] 00:00:00 Test Item Value Reference Range Interpretation Comments WBC (test code = 1001) 6.2 K/UL RBC (test code = 1002) 4.26 M/UL HEMOGLOBIN (test code = 1003) 13.0 G/DL HEMATOCRIT (test code = 1004) 37.9 % MCV (test code = 1005) 89.0 fL MCH (test code = 1006) 30.5 PG MCHC (test code = 1007) 34.3 G/DL RDW (test code = 1038) 12.7 % NEUTROPHILS (test code = 1008) 64.6 % LYMPHOCYTES (test code = 1010) 26.5 % MONOCYTES (test code = 1011) 6.6 % EOSINOPHILS (test code = 1012) 1.8 % BASOPHILS (test code = 1013) 0.5 % PLATELET COUNT (test code = 1015) 307 K/UL URINALYSIS W/REFLEX [id number] 00:00:00 Test Item Value Reference Range Interpretation Comments COLOR (test code = 1501) YELLOW APPEARANCE (test code = 1502) TURBID SPECIFIC GRAVITY (test code = 1.025 1503) LEUKOCYTE ESTERASE (test code = NEGATIVE 1504) NITRITE (test code = 1505) NEGATIVE pH (test code = 1506) 5.0 PROTEIN (test code = 1507) NEGATIVE GLUCOSE (test code = 1508) NEGATIVE KETONES (test code = 1509) NEGATIVE UROBILINOGEN (test code = 1510) <2.0 MG/DL BILIRUBIN (test code = 1511) NEGATIVE OCCULT BLOOD (test code = 1512) TRACE WHITE BLOOD CELLS (test code = /HPF 1513) RED BLOOD CELLS (test code = 1514) 0-2 /HPF EPITHELIAL CELLS (test code = 0-5 /HPF 94204) URINALYSIS W/REFLEX [id number] 00:00:00 Test Item Value Reference Range Interpretation Comments COLOR (test code = 1501) YELLOW APPEARANCE (test code = 1502) TURBID SPECIFIC GRAVITY (test code = 1.025 1503) LEUKOCYTE ESTERASE (test code = NEGATIVE 1504) NITRITE (test code = 1505) NEGATIVE pH (test code = 1506) 5.0 PROTEIN (test code = 1507) NEGATIVE GLUCOSE (test code = 1508) NEGATIVE KETONES (test code = 1509) NEGATIVE UROBILINOGEN (test code = 1510) <2.0 MG/DL BILIRUBIN (test code = 1511) NEGATIVE OCCULT BLOOD (test code = 1512) TRACE WHITE BLOOD CELLS (test code = /HPF 1513) RED BLOOD CELLS (test code = 1514) 0-2 /HPF EPITHELIAL CELLS (test code = 0-5 /HPF 87276) URINALYSIS W/REFLEX [id number] 00:00:00 Test Item Value Reference Range Interpretation Comments COLOR (test code = 1501) YELLOW APPEARANCE (test code = 1502) TURBID SPECIFIC GRAVITY (test code = 1.025 1503) LEUKOCYTE ESTERASE (test code = NEGATIVE 1504) NITRITE (test code = 1505) NEGATIVE pH (test code = 1506) 5.0 PROTEIN (test code = 1507) NEGATIVE GLUCOSE (test code = 1508) NEGATIVE KETONES (test code = 1509) NEGATIVE UROBILINOGEN (test code = 1510) <2.0 MG/DL BILIRUBIN (test code = 1511) NEGATIVE OCCULT BLOOD (test code = 1512) TRACE WHITE BLOOD CELLS (test code = /HPF 1513) RED BLOOD CELLS (test code = 1514) 0-2 /HPF EPITHELIAL CELLS (test code = 0-5 /HPF 60380) URINALYSIS W/REFLEX [id number] 00:00:00 Test Item Value Reference Range Interpretation Comments COLOR (test code = 1501) YELLOW APPEARANCE (test code = 1502) TURBID SPECIFIC GRAVITY (test code = 1.025 1503) LEUKOCYTE ESTERASE (test code = NEGATIVE 1504) NITRITE (test code = 1505) NEGATIVE pH (test code = 1506) 5.0 PROTEIN (test code = 1507) NEGATIVE GLUCOSE (test code = 1508) NEGATIVE KETONES (test code = 1509) NEGATIVE UROBILINOGEN (test code = 1510) <2.0 MG/DL BILIRUBIN (test code = 1511) NEGATIVE OCCULT BLOOD (test code = 1512) TRACE WHITE BLOOD CELLS (test code = /HPF 1513) RED BLOOD CELLS (test code = 1514) 0-2 /HPF EPITHELIAL CELLS (test code = 0-5 /HPF 74083) URINALYSIS W/REFLEX [id number] 00:00:00 Test Item Value Reference Range Interpretation Comments COLOR (test code = 1501) YELLOW APPEARANCE (test code = 1502) TURBID SPECIFIC GRAVITY (test code = 1.025 1503) LEUKOCYTE ESTERASE (test code = NEGATIVE 1504) NITRITE (test code = 1505) NEGATIVE pH (test code = 1506) 5.0 PROTEIN (test code = 1507) NEGATIVE GLUCOSE (test code = 1508) NEGATIVE KETONES (test code = 1509) NEGATIVE UROBILINOGEN (test code = 1510) <2.0 MG/DL BILIRUBIN (test code = 1511) NEGATIVE OCCULT BLOOD (test code = 1512) TRACE WHITE BLOOD CELLS (test code = /HPF 1513) RED BLOOD CELLS (test code = 1514) 0-2 /HPF EPITHELIAL CELLS (test code = 0-5 /HPF 45881) URINALYSIS W/REFLEX [id number] 00:00:00 Test Item Value Reference Range Interpretation Comments COLOR (test code = 1501) YELLOW APPEARANCE (test code = 1502) TURBID SPECIFIC GRAVITY (test code = 1.025 1503) LEUKOCYTE ESTERASE (test code = NEGATIVE 1504) NITRITE (test code = 1505) NEGATIVE pH (test code = 1506) 5.0 PROTEIN (test code = 1507) NEGATIVE GLUCOSE (test code = 1508) NEGATIVE KETONES (test code = 1509) NEGATIVE UROBILINOGEN (test code = 1510) <2.0 MG/DL BILIRUBIN (test code = 1511) NEGATIVE OCCULT BLOOD (test code = 1512) TRACE WHITE BLOOD CELLS (test code = /HPF 1513) RED BLOOD CELLS (test code = 1514) 0-2 /HPF EPITHELIAL CELLS (test code = 0-5 /HPF 99815) URINALYSIS W/REFLEX [id number] 00:00:00 Test Item Value Reference Range Interpretation Comments COLOR (test code = 1501) YELLOW APPEARANCE (test code = 1502) TURBID SPECIFIC GRAVITY (test code = 1.025 1503) LEUKOCYTE ESTERASE (test code = NEGATIVE 1504) NITRITE (test code = 1505) NEGATIVE pH (test code = 1506) 5.0 PROTEIN (test code = 1507) NEGATIVE GLUCOSE (test code = 1508) NEGATIVE KETONES (test code = 1509) NEGATIVE UROBILINOGEN (test code = 1510) <2.0 MG/DL BILIRUBIN (test code = 1511) NEGATIVE OCCULT BLOOD (test code = 1512) TRACE WHITE BLOOD CELLS (test code = /HPF 1513) RED BLOOD CELLS (test code = 1514) 0-2 /HPF EPITHELIAL CELLS (test code = 0-5 /HPF [id number]) URINALYSIS W/REFLEX [id number] 00:00:00 Test Item Value Reference Range Interpretation Comments COLOR (test code = 1501) YELLOW APPEARANCE (test code = 1502) TURBID SPECIFIC GRAVITY (test code = 1.025 1503) LEUKOCYTE ESTERASE (test code = NEGATIVE 1504) NITRITE (test code = 1505) NEGATIVE pH (test code = 1506) 5.0 PROTEIN (test code = 1507) NEGATIVE GLUCOSE (test code = 1508) NEGATIVE KETONES (test code = 1509) NEGATIVE UROBILINOGEN (test code = 1510) <2.0 MG/DL BILIRUBIN (test code = 1511) NEGATIVE OCCULT BLOOD (test code = 1512) TRACE WHITE BLOOD CELLS (test code = /HPF 1513) RED BLOOD CELLS (test code = 1514) 0-2 /HPF EPITHELIAL CELLS (test code = 0-5 /HPF [id number]) URINALYSIS W/REFLEX [id number] 00:00:00 Test Item Value Reference Range Interpretation Comments COLOR (test code = 1501) YELLOW APPEARANCE (test code = 1502) TURBID SPECIFIC GRAVITY (test code = 1.025 1503) LEUKOCYTE ESTERASE (test code = NEGATIVE 1504) NITRITE (test code = 1505) NEGATIVE pH (test code = 1506) 5.0 PROTEIN (test code = 1507) NEGATIVE GLUCOSE (test code = 1508) NEGATIVE KETONES (test code = 1509) NEGATIVE UROBILINOGEN (test code = 1510) <2.0 MG/DL BILIRUBIN (test code = 1511) NEGATIVE OCCULT BLOOD (test code = 1512) TRACE WHITE BLOOD CELLS (test code = /HPF 1513) RED BLOOD CELLS (test code = 1514) 0-2 /HPF EPITHELIAL CELLS (test code = 0-5 /HPF 53556) CBC W/AUTO [id number] 00:00:00 Test Item Value Reference Range Interpretation Comments WBC (test code = 1001) 10.3 K/UL RBC (test code = 1002) 4.22 M/UL HEMOGLOBIN (test code = 1003) 13.2 G/DL HEMATOCRIT (test code = 1004) 37.5 % MCV (test code = 1005) 88.9 fL MCH (test code = 1006) 31.3 PG MCHC (test code = 1007) 35.2 G/DL RDW (test code = 1038) 12.9 % NEUTROPHILS (test code = 1008) 64.9 % LYMPHOCYTES (test code = 1010) 25.8 % MONOCYTES (test code = 1011) 7.8 % EOSINOPHILS (test code = 1012) 1.0 % BASOPHILS (test code = 1013) 0.5 % PLATELET COUNT (test code = 1015) 329 K/UL CBC W/AUTO [id number] 00:00:00 Test Item Value Reference Range Interpretation Comments WBC (test code = 1001) 10.3 K/UL RBC (test code = 1002) 4.22 M/UL HEMOGLOBIN (test code = 1003) 13.2 G/DL HEMATOCRIT (test code = 1004) 37.5 % MCV (test code = 1005) 88.9 fL MCH (test code = 1006) 31.3 PG MCHC (test code = 1007) 35.2 G/DL RDW (test code = 1038) 12.9 % NEUTROPHILS (test code = 1008) 64.9 % LYMPHOCYTES (test code = 1010) 25.8 % MONOCYTES (test code = 1011) 7.8 % EOSINOPHILS (test code = 1012) 1.0 % BASOPHILS (test code = 1013) 0.5 % PLATELET COUNT (test code = 1015) 329 K/UL CBC W/AUTO [id number] 00:00:00 Test Item Value Reference Range Interpretation Comments WBC (test code = 1001) 10.3 K/UL RBC (test code = 1002) 4.22 M/UL HEMOGLOBIN (test code = 1003) 13.2 G/DL HEMATOCRIT (test code = 1004) 37.5 % MCV (test code = 1005) 88.9 fL MCH (test code = 1006) 31.3 PG MCHC (test code = 1007) 35.2 G/DL RDW (test code = 1038) 12.9 % NEUTROPHILS (test code = 1008) 64.9 % LYMPHOCYTES (test code = 1010) 25.8 % MONOCYTES (test code = 1011) 7.8 % EOSINOPHILS (test code = 1012) 1.0 % BASOPHILS (test code = 1013) 0.5 % PLATELET COUNT (test code = 1015) 329 K/UL COMPREHENSIVE METABOLIC [id number] 00:00:00 Test Item Value Reference Range Interpretation Comments GLUCOSE (test code = 2217) 85 MG/DL BUN (test code = 2208) 9 MG/DL CREATININE (test code = 2214) 0.57 MG/DL eGFR AMER. (test code 144 ML/MIN/1.73 = 51487) eGFR NON- AMER. (test 124 ML/MIN/1.73 code = 39611) CALC BUN/CREAT (test code = 16 RATIO 2235) SODIUM (test code = 2231) 141 MEQ/L POTASSIUM (test code = 2228) 4.7 MEQ/L CHLORIDE (test code = 2215) 104 MEQ/L CARBON DIOXIDE (test code = 22 MEQ/L 220) CALCIUM (test code = 2209) 9.8 MG/DL PROTEIN, TOTAL (test code = 7.8 G/DL 2228) ALBUMIN (test code = 2201) 4.7 G/DL CALC GLOBULIN (test code = 3.1 G/DL 2240) CALC A/G RATIO (test code = 1.5 RATIO 2234) BILIRUBIN, TOTAL (test code = 0.3 MG/DL 2206) ALKALINE PHOSPHATASE (test 106 U/L code = 2204) AST (test code = 2218) 100 U/L ALT (test code = 2219) 135 U/L COMPREHENSIVE METABOLIC [id number] 00:00:00 Test Item Value Reference Range Interpretation Comments GLUCOSE (test code = 2217) 85 MG/DL BUN (test code = 2208) 9 MG/DL CREATININE (test code = 2214) 0.57 MG/DL eGFR AMER. (test code 144 ML/MIN/1.73 = 86427) eGFR NON- AMER. (test 124 ML/MIN/1.73 code = 27133) CALC BUN/CREAT (test code = 16 RATIO 2235) SODIUM (test code = 2231) 141 MEQ/L POTASSIUM (test code = 2228) 4.7 MEQ/L CHLORIDE (test code = 2215) 104 MEQ/L CARBON DIOXIDE (test code = 22 MEQ/L 2205) CALCIUM (test code = 2209) 9.8 MG/DL PROTEIN, TOTAL (test code = 7.8 G/DL 2228) ALBUMIN (test code = 2201) 4.7 G/DL CALC GLOBULIN (test code = 3.1 G/DL 2240) CALC A/G RATIO (test code = 1.5 RATIO 2234) BILIRUBIN, TOTAL (test code = 0.3 MG/DL 2206) ALKALINE PHOSPHATASE (test 106 U/L code = 2204) AST (test code = 2218) 100 U/L ALT (test code = 2219) 135 U/L [id number] 00:00:00 Test Item Value Reference Range Interpretation Comments AMYLASE (test code = 2205) 47 U/L [id number] 00:00:00 Test Item Value Reference Range Interpretation Comments AMYLASE (test code = 2205) 47 U/L [id number] 00:00:00 Test Item Value Reference Range Interpretation Comments LIPASE (test code = 2057) 33 U/L [id number] 00:00:00 Test Item Value Reference Range Interpretation Comments LIPASE (test code = 2057) 33 U/L [id number] 00:00:00 Test Item Value Reference Range Interpretation Comments LIPASE (test code = 2057) 33 U/L CBC W/AUTO [id number] 00:00:00 Test Item Value Reference Range Interpretation Comments WBC (test code = 1001) 10.3 K/UL RBC (test code = 1002) 4.22 M/UL HEMOGLOBIN (test code = 1003) 13.2 G/DL HEMATOCRIT (test code = 1004) 37.5 % MCV (test code = 1005) 88.9 fL MCH (test code = 1006) 31.3 PG MCHC (test code = 1007) 35.2 G/DL RDW (test code = 1038) 12.9 % NEUTROPHILS (test code = 1008) 64.9 % LYMPHOCYTES (test code = 1010) 25.8 % MONOCYTES (test code = 1011) 7.8 % EOSINOPHILS (test code = 1012) 1.0 % BASOPHILS (test code = 1013) 0.5 % PLATELET COUNT (test code = 1015) 329 K/UL CBC W/AUTO [id number] 00:00:00 Test Item Value Reference Range Interpretation Comments WBC (test code = 1001) 10.3 K/UL RBC (test code = 1002) 4.22 M/UL HEMOGLOBIN (test code = 1003) 13.2 G/DL HEMATOCRIT (test code = 1004) 37.5 % MCV (test code = 1005) 88.9 fL MCH (test code = 1006) 31.3 PG MCHC (test code = 1007) 35.2 G/DL RDW (test code = 1038) 12.9 % NEUTROPHILS (test code = 1008) 64.9 % LYMPHOCYTES (test code = 1010) 25.8 % MONOCYTES (test code = 1011) 7.8 % EOSINOPHILS (test code = 1012) 1.0 % BASOPHILS (test code = 1013) 0.5 % PLATELET COUNT (test code = 1015) 329 K/UL CBC W/AUTO [id number] 00:00:00 Test Item Value Reference Range Interpretation Comments WBC (test code = 1001) 10.3 K/UL RBC (test code = 1002) 4.22 M/UL HEMOGLOBIN (test code = 1003) 13.2 G/DL HEMATOCRIT (test code = 1004) 37.5 % MCV (test code = 1005) 88.9 fL MCH (test code = 1006) 31.3 PG MCHC (test code = 1007) 35.2 G/DL RDW (test code = 1038) 12.9 % NEUTROPHILS (test code = 1008) 64.9 % LYMPHOCYTES (test code = 1010) 25.8 % MONOCYTES (test code = 1011) 7.8 % EOSINOPHILS (test code = 1012) 1.0 % BASOPHILS (test code = 1013) 0.5 % PLATELET COUNT (test code = 1015) 329 K/UL COMPREHENSIVE METABOLIC [id number] 00:00:00 Test Item Value Reference Range Interpretation Comments GLUCOSE (test code = 2217) 85 MG/DL BUN (test code = 2208) 9 MG/DL CREATININE (test code = 2214) 0.57 MG/DL eGFR AMER. (test code 144 ML/MIN/1.73 = 45725) eGFR NON- AMER. (test 124 ML/MIN/1.73 code = 78026) CALC BUN/CREAT (test code = 16 RATIO 2235) SODIUM (test code = 2231) 141 MEQ/L POTASSIUM (test code = 2228) 4.7 MEQ/L CHLORIDE (test code = 2215) 104 MEQ/L CARBON DIOXIDE (test code = 22 MEQ/L 2205) CALCIUM (test code = 2209) 9.8 MG/DL PROTEIN, TOTAL (test code = 7.8 G/DL 2228) ALBUMIN (test code = 2201) 4.7 G/DL CALC GLOBULIN (test code = 3.1 G/DL 2240) CALC A/G RATIO (test code = 1.5 RATIO 2234) BILIRUBIN, TOTAL (test code = 0.3 MG/DL 2206) ALKALINE PHOSPHATASE (test 106 U/L code = 2204) AST (test code = 2218) 100 U/L ALT (test code = 2219) 135 U/L COMPREHENSIVE METABOLIC [id number] 00:00:00 Test Item Value Reference Range Interpretation Comments GLUCOSE (test code = 2217) 85 MG/DL BUN (test code = 2208) 9 MG/DL CREATININE (test code = 2214) 0.57 MG/DL eGFR AMER. (test code 144 ML/MIN/1.73 = 89499) eGFR NON- AMER. (test 124 ML/MIN/1.73 code = 81377) CALC BUN/CREAT (test code = 16 RATIO 2235) SODIUM (test code = 2231) 141 MEQ/L POTASSIUM (test code = 2228) 4.7 MEQ/L CHLORIDE (test code = 2215) 104 MEQ/L CARBON DIOXIDE (test code = 22 MEQ/L 2205) CALCIUM (test code = 2209) 9.8 MG/DL PROTEIN, TOTAL (test code = 7.8 G/DL 2228) ALBUMIN (test code = 2201) 4.7 G/DL CALC GLOBULIN (test code = 3.1 G/DL 2239) CALC A/G RATIO (test code = 1.5 RATIO 2233) BILIRUBIN, TOTAL (test code = 0.3 MG/DL 2206) ALKALINE PHOSPHATASE (test 106 U/L code = 2204) AST (test code = 2218) 100 U/L ALT (test code = 2219) 135 U/L [id number] 00:00:00 Test Item Value Reference Range Interpretation Comments AMYLASE (test code = 2205) 47 U/L [id number] 00:00:00 Test Item Value Reference Range Interpretation Comments AMYLASE (test code = 2205) 47 U/L [id number] 00:00:00 Test Item Value Reference Range Interpretation Comments LIPASE (test code = 2057) 33 U/L [id number] 00:00:00 Test Item Value Reference Range Interpretation Comments LIPASE (test code = 2057) 33 U/L [id number] 00:00:00 Test Item Value Reference Range Interpretation Comments LIPASE (test code = 2057) 33 U/L CBC W/AUTO [id number] 00:00:00 Test Item Value Reference Range Interpretation Comments WBC (test code = 1001) 10.3 K/UL RBC (test code = 1002) 4.22 M/UL HEMOGLOBIN (test code = 1003) 13.2 G/DL HEMATOCRIT (test code = 1004) 37.5 % MCV (test code = 1005) 88.9 fL MCH (test code = 1006) 31.3 PG MCHC (test code = 1007) 35.2 G/DL RDW (test code = 1038) 12.9 % NEUTROPHILS (test code = 1008) 64.9 % LYMPHOCYTES (test code = 1010) 25.8 % MONOCYTES (test code = 1011) 7.8 % EOSINOPHILS (test code = 1012) 1.0 % BASOPHILS (test code = 1013) 0.5 % PLATELET COUNT (test code = 1015) 329 K/UL CBC W/AUTO [id number] 00:00:00 Test Item Value Reference Range Interpretation Comments WBC (test code = 1001) 10.3 K/UL RBC (test code = 1002) 4.22 M/UL HEMOGLOBIN (test code = 1003) 13.2 G/DL HEMATOCRIT (test code = 1004) 37.5 % MCV (test code = 1005) 88.9 fL MCH (test code = 1006) 31.3 PG MCHC (test code = 1007) 35.2 G/DL RDW (test code = 1038) 12.9 % NEUTROPHILS (test code = 1008) 64.9 % LYMPHOCYTES (test code = 1010) 25.8 % MONOCYTES (test code = 1011) 7.8 % EOSINOPHILS (test code = 1012) 1.0 % BASOPHILS (test code = 1013) 0.5 % PLATELET COUNT (test code = 1015) 329 K/UL CBC W/AUTO [id number] 00:00:00 Test Item Value Reference Range Interpretation Comments WBC (test code = 1001) 10.3 K/UL RBC (test code = 1002) 4.22 M/UL HEMOGLOBIN (test code = 1003) 13.2 G/DL HEMATOCRIT (test code = 1004) 37.5 % MCV (test code = 1005) 88.9 fL MCH (test code = 1006) 31.3 PG MCHC (test code = 1007) 35.2 G/DL RDW (test code = 1038) 12.9 % NEUTROPHILS (test code = 1008) 64.9 % LYMPHOCYTES (test code = 1010) 25.8 % MONOCYTES (test code = 1011) 7.8 % EOSINOPHILS (test code = 1012) 1.0 % BASOPHILS (test code = 1013) 0.5 % PLATELET COUNT (test code = 1015) 329 K/UL COMPREHENSIVE METABOLIC [id number] 00:00:00 Test Item Value Reference Range Interpretation Comments GLUCOSE (test code = 2217) 85 MG/DL BUN (test code = 2208) 9 MG/DL CREATININE (test code = 2214) 0.57 MG/DL eGFR AMER. (test code 144 ML/MIN/1.73 = 62534) eGFR NON- AMER. (test 124 ML/MIN/1.73 code = 89962) CALC BUN/CREAT (test code = 16 RATIO 2235) SODIUM (test code = 2231) 141 MEQ/L POTASSIUM (test code = 2228) 4.7 MEQ/L CHLORIDE (test code = 2215) 104 MEQ/L CARBON DIOXIDE (test code = 22 MEQ/L 2206) CALCIUM (test code = 2209) 9.8 MG/DL PROTEIN, TOTAL (test code = 7.8 G/DL 2228) ALBUMIN (test code = 2201) 4.7 G/DL CALC GLOBULIN (test code = 3.1 G/DL 2240) CALC A/G RATIO (test code = 1.5 RATIO 4) BILIRUBIN, TOTAL (test code = 0.3 MG/DL 2206) ALKALINE PHOSPHATASE (test 106 U/L code = 2204) AST (test code = 2218) 100 U/L ALT (test code = 2219) 135 U/L COMPREHENSIVE METABOLIC [id number] 00:00:00 Test Item Value Reference Range Interpretation Comments GLUCOSE (test code = 2217) 85 MG/DL BUN (test code = 2208) 9 MG/DL CREATININE (test code = 2214) 0.57 MG/DL eGFR AMER. (test code 144 ML/MIN/1.73 = 86069) eGFR NON- AMER. (test 124 ML/MIN/1.73 code = 31646) CALC BUN/CREAT (test code = 16 RATIO 2235) SODIUM (test code = 2231) 141 MEQ/L POTASSIUM (test code = 2228) 4.7 MEQ/L CHLORIDE (test code = 2215) 104 MEQ/L CARBON DIOXIDE (test code = 22 MEQ/L 2205) CALCIUM (test code = 2209) 9.8 MG/DL PROTEIN, TOTAL (test code = 7.8 G/DL 2228) ALBUMIN (test code = 2201) 4.7 G/DL CALC GLOBULIN (test code = 3.1 G/DL 2239) CALC A/G RATIO (test code = 1.5 RATIO 2233) BILIRUBIN, TOTAL (test code = 0.3 MG/DL 2206) ALKALINE PHOSPHATASE (test 106 U/L code = 2204) AST (test code = 2218) 100 U/L ALT (test code = 2219) 135 U/L [id number] 00:00:00 Test Item Value Reference Range Interpretation Comments AMYLASE (test code = 2205) 47 U/L [id number] 00:00:00 Test Item Value Reference Range Interpretation Comments AMYLASE (test code = 2204) 47 U/L [id number] 00:00:00 Test Item Value Reference Range Interpretation Comments LIPASE (test code = 2057) 33 U/L [id number] 00:00:00 Test Item Value Reference Range Interpretation Comments LIPASE (test code = 2057) 33 U/L [id number] 00:00:00 Test Item Value Reference Range Interpretation Comments LIPASE (test code = 2057) 33 U/L CBC W/AUTO [id number] 00:00:00 Test Item Value Reference Range Interpretation Comments WBC (test code = 1001) 10.3 K/UL RBC (test code = 1002) 4.22 M/UL HEMOGLOBIN (test code = 1003) 13.2 G/DL HEMATOCRIT (test code = 1004) 37.5 % MCV (test code = 1005) 88.9 fL MCH (test code = 1006) 31.3 PG MCHC (test code = 1007) 35.2 G/DL RDW (test code = 1038) 12.9 % NEUTROPHILS (test code = 1008) 64.9 % LYMPHOCYTES (test code = 1010) 25.8 % MONOCYTES (test code = 1011) 7.8 % EOSINOPHILS (test code = 1012) 1.0 % BASOPHILS (test code = 1013) 0.5 % PLATELET COUNT (test code = 1015) 329 K/UL CBC W/AUTO [id number] 00:00:00 Test Item Value Reference Range Interpretation Comments WBC (test code = 1001) 10.3 K/UL RBC (test code = 1002) 4.22 M/UL HEMOGLOBIN (test code = 1003) 13.2 G/DL HEMATOCRIT (test code = 1004) 37.5 % MCV (test code = 1005) 88.9 fL MCH (test code = 1006) 31.3 PG MCHC (test code = 1007) 35.2 G/DL RDW (test code = 1038) 12.9 % NEUTROPHILS (test code = 1008) 64.9 % LYMPHOCYTES (test code = 1010) 25.8 % MONOCYTES (test code = 1011) 7.8 % EOSINOPHILS (test code = 1012) 1.0 % BASOPHILS (test code = 1013) 0.5 % PLATELET COUNT (test code = 1015) 329 K/UL COMPREHENSIVE METABOLIC [id number] 00:00:00 Test Item Value Reference Range Interpretation Comments GLUCOSE (test code = 2217) 85 MG/DL BUN (test code = 2208) 9 MG/DL CREATININE (test code = 2214) 0.57 MG/DL eGFR AMER. (test code 144 ML/MIN/1.73 = 52997) eGFR NON- AMER. (test 124 ML/MIN/1.73 code = 99550) CALC BUN/CREAT (test code = 16 RATIO 2235) SODIUM (test code = 2231) 141 MEQ/L POTASSIUM (test code = 2228) 4.7 MEQ/L CHLORIDE (test code = 2215) 104 MEQ/L CARBON DIOXIDE (test code = 22 MEQ/L 2205) CALCIUM (test code = 2209) 9.8 MG/DL PROTEIN, TOTAL (test code = 7.8 G/DL 2228) ALBUMIN (test code = 2201) 4.7 G/DL CALC GLOBULIN (test code = 3.1 G/DL 2240) CALC A/G RATIO (test code = 1.5 RATIO 2234) BILIRUBIN, TOTAL (test code = 0.3 MG/DL 2206) ALKALINE PHOSPHATASE (test 106 U/L code = 2204) AST (test code = 2218) 100 U/L ALT (test code = 2219) 135 U/L [id number] 00:00:00 Test Item Value Reference Range Interpretation Comments AMYLASE (test code = 2205) 47 U/L [id number] 00:00:00 Test Item Value Reference Range Interpretation Comments LIPASE (test code = 2057) 33 U/L [id number] 00:00:00 Test Item Value Reference Range Interpretation Comments LIPASE (test code = 2057) 33 U/L CBC W/AUTO [id number] 00:00:00 Test Item Value Reference Range Interpretation Comments WBC (test code = 1001) 10.3 K/UL RBC (test code = 1002) 4.22 M/UL HEMOGLOBIN (test code = 1003) 13.2 G/DL HEMATOCRIT (test code = 1004) 37.5 % MCV (test code = 1005) 88.9 fL MCH (test code = 1006) 31.3 PG MCHC (test code = 1007) 35.2 G/DL RDW (test code = 1038) 12.9 % NEUTROPHILS (test code = 1008) 64.9 % LYMPHOCYTES (test code = 1010) 25.8 % MONOCYTES (test code = 1011) 7.8 % EOSINOPHILS (test code = 1012) 1.0 % BASOPHILS (test code = 1013) 0.5 % PLATELET COUNT (test code = 1015) 329 K/UL CBC W/AUTO [id number] 00:00:00 Test Item Value Reference Range Interpretation Comments WBC (test code = 1001) 10.3 K/UL RBC (test code = 1002) 4.22 M/UL HEMOGLOBIN (test code = 1003) 13.2 G/DL HEMATOCRIT (test code = 1004) 37.5 % MCV (test code = 1005) 88.9 fL MCH (test code = 1006) 31.3 PG MCHC (test code = 1007) 35.2 G/DL RDW (test code = 1038) 12.9 % NEUTROPHILS (test code = 1008) 64.9 % LYMPHOCYTES (test code = 1010) 25.8 % MONOCYTES (test code = 1011) 7.8 % EOSINOPHILS (test code = 1012) 1.0 % BASOPHILS (test code = 1013) 0.5 % PLATELET COUNT (test code = 1015) 329 K/UL CBC W/AUTO [id number] 00:00:00 Test Item Value Reference Range Interpretation Comments WBC (test code = 1001) 10.3 K/UL RBC (test code = 1002) 4.22 M/UL HEMOGLOBIN (test code = 1003) 13.2 G/DL HEMATOCRIT (test code = 1004) 37.5 % MCV (test code = 1005) 88.9 fL MCH (test code = 1006) 31.3 PG MCHC (test code = 1007) 35.2 G/DL RDW (test code = 1038) 12.9 % NEUTROPHILS (test code = 1008) 64.9 % LYMPHOCYTES (test code = 1010) 25.8 % MONOCYTES (test code = 1011) 7.8 % EOSINOPHILS (test code = 1012) 1.0 % BASOPHILS (test code = 1013) 0.5 % PLATELET COUNT (test code = 1015) 329 K/UL COMPREHENSIVE METABOLIC [id number] 00:00:00 Test Item Value Reference Range Interpretation Comments GLUCOSE (test code = 2217) 85 MG/DL BUN (test code = 2208) 9 MG/DL CREATININE (test code = 2214) 0.57 MG/DL eGFR AMER. (test code 144 ML/MIN/1.73 = 53104) eGFR NON- AMER. (test 124 ML/MIN/1.73 code = 24896) CALC BUN/CREAT (test code = 16 RATIO 2235) SODIUM (test code = 2231) 141 MEQ/L POTASSIUM (test code = 2228) 4.7 MEQ/L CHLORIDE (test code = 2215) 104 MEQ/L CARBON DIOXIDE (test code = 22 MEQ/L 220) CALCIUM (test code = 2209) 9.8 MG/DL PROTEIN, TOTAL (test code = 7.8 G/DL 2228) ALBUMIN (test code = 2201) 4.7 G/DL CALC GLOBULIN (test code = 3.1 G/DL 2240) CALC A/G RATIO (test code = 1.5 RATIO 2234) BILIRUBIN, TOTAL (test code = 0.3 MG/DL 2206) ALKALINE PHOSPHATASE (test 106 U/L code = 2204) AST (test code = 2218) 100 U/L ALT (test code = 2219) 135 U/L COMPREHENSIVE METABOLIC [id number] 00:00:00 Test Item Value Reference Range Interpretation Comments GLUCOSE (test code = 2217) 85 MG/DL BUN (test code = 2208) 9 MG/DL CREATININE (test code = 2214) 0.57 MG/DL eGFR AMER. (test code 144 ML/MIN/1.73 = 70150) eGFR NON- AMER. (test 124 ML/MIN/1.73 code = 04861) CALC BUN/CREAT (test code = 16 RATIO 2235) SODIUM (test code = 2231) 141 MEQ/L POTASSIUM (test code = 2228) 4.7 MEQ/L CHLORIDE (test code = 2215) 104 MEQ/L CARBON DIOXIDE (test code = 22 MEQ/L 2205) CALCIUM (test code = 2209) 9.8 MG/DL PROTEIN, TOTAL (test code = 7.8 G/DL 2228) ALBUMIN (test code = 2201) 4.7 G/DL CALC GLOBULIN (test code = 3.1 G/DL 2239) CALC A/G RATIO (test code = 1.5 RATIO 2233) BILIRUBIN, TOTAL (test code = 0.3 MG/DL 2206) ALKALINE PHOSPHATASE (test 106 U/L code = 2204) AST (test code = 2218) 100 U/L ALT (test code = 2219) 135 U/L [id number] 00:00:00 Test Item Value Reference Range Interpretation Comments AMYLASE (test code = 2205) 47 U/L [id number] 00:00:00 Test Item Value Reference Range Interpretation Comments AMYLASE (test code = 2205) 47 U/L [id number] 00:00:00 Test Item Value Reference Range Interpretation Comments LIPASE (test code = 2057) 33 U/L [id number] 00:00:00 Test Item Value Reference Range Interpretation Comments LIPASE (test code = 8) 33 U/L [id number] 00:00:00 Test Item Value Reference Range Interpretation Comments LIPASE (test code = 8) 33 U/L PAP TEST, THINPREP, [id number] 00:00:00 Test Item Value Reference Range Interpretation Comments SOURCE: (test code = Cervical/Endocervical 8001) SLIDES: (test code = 1 8011) LMP: (test code = 2018-09-02 8021) SPECIMEN ADEQUACY: (NOTE) (test code = 83744) INTERPRETATION: (test NO EPITHELIAL code = 87392) ABNORMALITY SEE BELOW BURRER MARKER AXLE: Daria Donahue, (test code = 8101) CT(ASCP) LOCATION: (test code (NOTE) = 33091) CPT: (test code = (NOTE) 8140) PAP TEST, THINPREP, [id number] 00:00:00 Test Item Value Reference Range Interpretation Comments SOURCE: (test code = Cervical/Endocervical 8001) SLIDES: (test code = 1 8011) LMP: (test code = 2018-09-02 8021) SPECIMEN ADEQUACY: (NOTE) (test code = 73314) INTERPRETATION: (test NO EPITHELIAL code = 18299) ABNORMALITY SEE BELOW BURRER MARKER AXLE: Daria Donahue, (test code = 8101) CT(ASCP) LOCATION: (test code (NOTE) = 99906) CPT: (test code = (NOTE) 8140) HPV HIGH RISK WITH GENOTYPE, [id number] 00:00:00 Test Item Value Reference Range Interpretation Comments HPV HIGH RISK INTERP (test code = NEGATIVE 76824) HPV 16 (test code = 46688) NEGATIVE HPV 18 (test code = 45463) NEGATIVE HPV, HR, OTHER GENOTYPES (test code NEGATIVE = 26342) HPV HIGH RISK WITH GENOTYPE, [id number] 00:00:00 Test Item Value Reference Range Interpretation Comments HPV HIGH RISK INTERP (test code = NEGATIVE 73868) HPV 16 (test code = 25301) NEGATIVE HPV 18 (test code = 93246) NEGATIVE HPV, HR, OTHER GENOTYPES (test code NEGATIVE = 32635) PAP TEST, THINPREP, [id number] 00:00:00 Test Item Value Reference Range Interpretation Comments SOURCE: (test code = Cervical/Endocervical 8001) SLIDES: (test code = 1 8011) LMP: (test code = 2018-09-02 8021) SPECIMEN ADEQUACY: (NOTE) (test code = 24422) INTERPRETATION: (test NO EPITHELIAL code = 89933) ABNORMALITY SEE BELOW BURRER MARKER AXLE: Daria Donahue, (test code = 8101) CT(ASCP) LOCATION: (test code (NOTE) = 85206) CPT: (test code = (NOTE) 8140) PAP TEST, THINPREP, [id number] 00:00:00 Test Item Value Reference Range Interpretation Comments SOURCE: (test code = Cervical/Endocervical 8001) SLIDES: (test code = 1 8011) LMP: (test code = 2018-09-02 8021) SPECIMEN ADEQUACY: (NOTE) (test code = 78722) INTERPRETATION: (test NO EPITHELIAL code = 57085) ABNORMALITY SEE BELOW BURRER MARKER AXLE: Daria Donahue, (test code = 8101) CT(ASCP) LOCATION: (test code (NOTE) = 87917) CPT: (test code = (NOTE) 8140) HPV HIGH RISK WITH GENOTYPE, [id number] 00:00:00 Test Item Value Reference Range Interpretation Comments HPV HIGH RISK INTERP (test code = NEGATIVE 15267) HPV 16 (test code = 63529) NEGATIVE HPV 18 (test code = 81882) NEGATIVE HPV, HR, OTHER GENOTYPES (test code NEGATIVE = 84746) HPV HIGH RISK WITH GENOTYPE, [id number] 00:00:00 Test Item Value Reference Range Interpretation Comments HPV HIGH RISK INTERP (test code = NEGATIVE 93747) HPV 16 (test code = 36345) NEGATIVE HPV 18 (test code = 18724) NEGATIVE HPV, HR, OTHER GENOTYPES (test code NEGATIVE = 62157) PAP TEST, THINPREP, [id number] 00:00:00 Test Item Value Reference Range Interpretation Comments SOURCE: (test code = Cervical/Endocervical 8001) SLIDES: (test code = 1 8011) LMP: (test code = 2018-09-02 8021) SPECIMEN ADEQUACY: (NOTE) (test code = 89667) INTERPRETATION: (test NO EPITHELIAL code = 17434) ABNORMALITY SEE BELOW BURRER MARKER AXLE: Daria Donahue, (test code = 8101) CT(ASCP) LOCATION: (test code (NOTE) = 27234) CPT: (test code = (NOTE) 8140) PAP TEST, THINPREP, [id number] 00:00:00 Test Item Value Reference Range Interpretation Comments SOURCE: (test code = Cervical/Endocervical 8001) SLIDES: (test code = 1 8011) LMP: (test code = 2018-09-02 80) SPECIMEN ADEQUACY: (NOTE) (test code = 35002) INTERPRETATION: (test NO EPITHELIAL code = 13195) ABNORMALITY SEE BELOW BURRER MARKER AXLE: Daria Donahue, (test code = 8101) CT(ASCP) LOCATION: (test code (NOTE) = 04396) CPT: (test code = (NOTE) 8140) HPV HIGH RISK WITH GENOTYPE, [id number] 00:00:00 Test Item Value Reference Range Interpretation Comments HPV HIGH RISK INTERP (test code = NEGATIVE 14495) HPV 16 (test code = 83421) NEGATIVE HPV 18 (test code = 33663) NEGATIVE HPV, HR, OTHER GENOTYPES (test code NEGATIVE = 82914) HPV HIGH RISK WITH GENOTYPE, [id number] 00:00:00 Test Item Value Reference Range Interpretation Comments HPV HIGH RISK INTERP (test code = NEGATIVE 48866) HPV 16 (test code = 26266) NEGATIVE HPV 18 (test code = 81307) NEGATIVE HPV, HR, OTHER GENOTYPES (test code NEGATIVE = 69961) PAP TEST, THINPREP, [id number] 00:00:00 Test Item Value Reference Range Interpretation Comments SOURCE: (test code = Cervical/Endocervical 8001) SLIDES: (test code = 1 8011) LMP: (test code = 2018-09-02 80) SPECIMEN ADEQUACY: (NOTE) (test code = 12983) INTERPRETATION: (test NO EPITHELIAL code = 10774) ABNORMALITY SEE BELOW BURRER MARKER AXLE: Daria Donahue, (test code = 8101) CT(ASCP) LOCATION: (test code (NOTE) = 79402) CPT: (test code = (NOTE) 8140) HPV HIGH RISK WITH GENOTYPE, [id number] 00:00:00 Test Item Value Reference Range Interpretation Comments HPV HIGH RISK INTERP (test code = NEGATIVE 78542) HPV 16 (test code = 41796) NEGATIVE HPV 18 (test code = 05676) NEGATIVE HPV, HR, OTHER GENOTYPES (test code NEGATIVE = 13611) PAP TEST, THINPREP, [id number] 00:00:00 Test Item Value Reference Range Interpretation Comments SOURCE: (test code = Cervical/Endocervical 8001) SLIDES: (test code = 1 8011) LMP: (test code = 2018-09-02 80) SPECIMEN ADEQUACY: (NOTE) (test code = 86092) INTERPRETATION: (test NO EPITHELIAL code = 98652) ABNORMALITY SEE BELOW BURRER MARKER AXLE: Daria Donahue, (test code = 8101) CT(ASCP) LOCATION: (test code (NOTE) = 70672) CPT: (test code = (NOTE) 8140) PAP TEST, THINPREP, [id number] 00:00:00 Test Item Value Reference Range Interpretation Comments SOURCE: (test code = Cervical/Endocervical 8001) SLIDES: (test code = 1 8011) LMP: (test code = 2018-09-02 8021) SPECIMEN ADEQUACY: (NOTE) (test code = 50952) INTERPRETATION: (test NO EPITHELIAL code = 43948) ABNORMALITY SEE BELOW BURRER MARKER AXLE: Daria Donahue, (test code = 8101) CT(ASCP) LOCATION: (test code (NOTE) = 53825) CPT: (test code = (NOTE) 8140) HPV HIGH RISK WITH GENOTYPE, [id number] 00:00:00 Test Item Value Reference Range Interpretation Comments HPV HIGH RISK INTERP (test code = NEGATIVE 89293) HPV 16 (test code = 84236) NEGATIVE HPV 18 (test code = 46696) NEGATIVE HPV, HR, OTHER GENOTYPES (test code NEGATIVE = 26600) HPV HIGH RISK WITH GENOTYPE, [id number] 00:00:00 Test Item Value Reference Range Interpretation Comments HPV HIGH RISK INTERP (test code = NEGATIVE 47699) HPV 16 (test code = 96175) NEGATIVE HPV 18 (test code = 56158) NEGATIVE HPV, HR, OTHER GENOTYPES (test code NEGATIVE = 79634) GC AND CHLAMYDIA AMPLIFIED, [id number] 00:00:00 Test Item Value Reference Range Interpretation Comments GONORRHEA, TMA (test code = 83157) NEGATIVE CHLAMYDIA, TMA (test code = 26127) NEGATIVE GC AND CHLAMYDIA AMPLIFIED, [id number] 00:00:00 Test Item Value Reference Range Interpretation Comments GONORRHEA, TMA (test code = 22784) NEGATIVE CHLAMYDIA, TMA (test code = 67768) NEGATIVE GC AND CHLAMYDIA AMPLIFIED, [id number] 00:00:00 Test Item Value Reference Range Interpretation Comments GONORRHEA, TMA (test code = 39529) NEGATIVE CHLAMYDIA, TMA (test code = 70020) NEGATIVE GC AND CHLAMYDIA AMPLIFIED, [id number] 00:00:00 Test Item Value Reference Range Interpretation Comments GONORRHEA, TMA (test code = 69830) NEGATIVE CHLAMYDIA, TMA (test code = 51075) NEGATIVE GC AND CHLAMYDIA AMPLIFIED, [id number] 00:00:00 Test Item Value Reference Range Interpretation Comments GONORRHEA, TMA (test code = 47218) NEGATIVE CHLAMYDIA, TMA (test code = 90462) NEGATIVE GC AND CHLAMYDIA AMPLIFIED, [id number] 00:00:00 Test Item Value Reference Range Interpretation Comments GONORRHEA, TMA (test code = 16357) NEGATIVE CHLAMYDIA, TMA (test code = 73868) NEGATIVE GC AND CHLAMYDIA AMPLIFIED, [id number] 00:00:00 Test Item Value Reference Range Interpretation Comments GONORRHEA, TMA (test code = 54659) NEGATIVE CHLAMYDIA, TMA (test code = 14740) NEGATIVE GC AND CHLAMYDIA AMPLIFIED, [id number] 00:00:00 Test Item Value Reference Range Interpretation Comments GONORRHEA, TMA (test code = 34543) NEGATIVE CHLAMYDIA, TMA (test code = 67336) NEGATIVE GC AND CHLAMYDIA AMPLIFIED, [id number] 00:00:00 Test Item Value Reference Range Interpretation Comments GONORRHEA, TMA (test code = 61147) NEGATIVE CHLAMYDIA, TMA (test code = 45584) NEGATIVE HIV AB/AG COMBO RFLX [id number] 00:00:00 Test Item Value Reference Range Interpretation Comments HIV 1/2 4TH GEN, RFLX CONF (test NON-REACTIVE code = 3514) HIV AB/AG COMBO RFLX [id number] 00:00:00 Test Item Value Reference Range Interpretation Comments HIV 1/2 4TH GEN, RFLX CONF (test NON-REACTIVE code = 3514) [id number] 00:00:00 Test Item Value Reference Range Interpretation Comments RPR RESULT (test code = NON-REACTIVE 3501) RPR TITER (test code = 3500) NOT INDIC. TITER [id number] 00:00:00 Test Item Value Reference Range Interpretation Comments RPR RESULT (test code = NON-REACTIVE 3501) RPR TITER (test code = 3500) NOT INDIC. TITER [id number] 00:00:00 Test Item Value Reference Range Interpretation Comments RPR RESULT (test code = NON-REACTIVE 3501) RPR TITER (test code = 3500) NOT INDIC. TITER ACUTE HEPATITIS [id number] 00:00:00 Test Item Value Reference Range Interpretation Comments HEPATITIS A IgM (test code = NON-REACTIVE 17602) HEPATITIS B CORE IgM (test code NON-REACTIVE = 4644) HEPATITIS B SURF AG (test code = NON-REACTIVE 2739) HEPATITIS C ANTIBODY (test code NON-REACTIVE = 4675) INTERPRETATION HEPATITIS A: (NOTE) (test code = 2552) INTERPRETATION HEPATITIS B: (NOTE) (test code = 78315) INTERPRETATION HEPATITIS C: (NOTE) (test code = 63829) ACUTE HEPATITIS [id number] 00:00:00 Test Item Value Reference Range Interpretation Comments HEPATITIS A IgM (test code = NON-REACTIVE 23482) HEPATITIS B CORE IgM (test code NON-REACTIVE = 4644) HEPATITIS B SURF AG (test code = NON-REACTIVE 2739) HEPATITIS C ANTIBODY (test code NON-REACTIVE = 4675) INTERPRETATION HEPATITIS A: (NOTE) (test code = 2552) INTERPRETATION HEPATITIS B: (NOTE) (test code = 70132) INTERPRETATION HEPATITIS C: (NOTE) (test code = 24127) HIV AB/AG COMBO RFLX [id number] 00:00:00 Test Item Value Reference Range Interpretation Comments HIV 1/2 4TH GEN, RFLX CONF (test NON-REACTIVE code = 3514) HIV AB/AG COMBO RFLX [id number] 00:00:00 Test Item Value Reference Range Interpretation Comments HIV 1/2 4TH GEN, RFLX CONF (test NON-REACTIVE code = 3514) [id number] 00:00:00 Test Item Value Reference Range Interpretation Comments RPR RESULT (test code = NON-REACTIVE 3501) RPR TITER (test code = 3500) NOT INDIC. TITER [id number] 00:00:00 Test Item Value Reference Range Interpretation Comments RPR RESULT (test code = NON-REACTIVE 3501) RPR TITER (test code = 3500) NOT INDIC. TITER [id number] 00:00:00 Test Item Value Reference Range Interpretation Comments RPR RESULT (test code = NON-REACTIVE 3501) RPR TITER (test code = 3500) NOT INDIC. TITER ACUTE HEPATITIS [id number] 00:00:00 Test Item Value Reference Range Interpretation Comments HEPATITIS A IgM (test code = NON-REACTIVE 10451) HEPATITIS B CORE IgM (test code NON-REACTIVE = 4644) HEPATITIS B SURF AG (test code = NON-REACTIVE 2739) HEPATITIS C ANTIBODY (test code NON-REACTIVE = 4675) INTERPRETATION HEPATITIS A: (NOTE) (test code = 2552) INTERPRETATION HEPATITIS B: (NOTE) (test code = 41979) INTERPRETATION HEPATITIS C: (NOTE) (test code = 47452) ACUTE HEPATITIS [id number] 00:00:00 Test Item Value Reference Range Interpretation Comments HEPATITIS A IgM (test code = NON-REACTIVE 43917) HEPATITIS B CORE IgM (test code NON-REACTIVE = 4644) HEPATITIS B SURF AG (test code = NON-REACTIVE 2739) HEPATITIS C ANTIBODY (test code NON-REACTIVE = 4675) INTERPRETATION HEPATITIS A: (NOTE) (test code = 2552) INTERPRETATION HEPATITIS B: (NOTE) (test code = 35064) INTERPRETATION HEPATITIS C: (NOTE) (test code = 05994) HIV AB/AG COMBO RFLX [id number] 00:00:00 Test Item Value Reference Range Interpretation Comments HIV 1/2 4TH GEN, RFLX CONF (test NON-REACTIVE code = 3514) HIV AB/AG COMBO RFLX [id number] 00:00:00 Test Item Value Reference Range Interpretation Comments HIV 1/2 4TH GEN, RFLX CONF (test NON-REACTIVE code = 3514) [id number] 00:00:00 Test Item Value Reference Range Interpretation Comments RPR RESULT (test code = NON-REACTIVE 3501) RPR TITER (test code = 3500) NOT INDIC. TITER [id number] 00:00:00 Test Item Value Reference Range Interpretation Comments RPR RESULT (test code = NON-REACTIVE 3501) RPR TITER (test code = 3500) NOT INDIC. TITER [id number] 00:00:00 Test Item Value Reference Range Interpretation Comments RPR RESULT (test code = NON-REACTIVE 3501) RPR TITER (test code = 3500) NOT INDIC. TITER ACUTE HEPATITIS [id number] 00:00:00 Test Item Value Reference Range Interpretation Comments HEPATITIS A IgM (test code = NON-REACTIVE 74369) HEPATITIS B CORE IgM (test code NON-REACTIVE = 4644) HEPATITIS B SURF AG (test code = NON-REACTIVE 2739) HEPATITIS C ANTIBODY (test code NON-REACTIVE = 4675) INTERPRETATION HEPATITIS A: (NOTE) (test code = 2552) INTERPRETATION HEPATITIS B: (NOTE) (test code = 94072) INTERPRETATION HEPATITIS C: (NOTE) (test code = 11522) ACUTE HEPATITIS [id number] 00:00:00 Test Item Value Reference Range Interpretation Comments HEPATITIS A IgM (test code = NON-REACTIVE 16051) HEPATITIS B CORE IgM (test code NON-REACTIVE = 4644) HEPATITIS B SURF AG (test code = NON-REACTIVE 2739) HEPATITIS C ANTIBODY (test code NON-REACTIVE = 4675) INTERPRETATION HEPATITIS A: (NOTE) (test code = 2552) INTERPRETATION HEPATITIS B: (NOTE) (test code = 57301) INTERPRETATION HEPATITIS C: (NOTE) (test code = 63241) HIV AB/AG COMBO RFLX [id number] 00:00:00 Test Item Value Reference Range Interpretation Comments HIV 1/2 4TH GEN, RFLX CONF (test NON-REACTIVE code = 3514) [id number] 00:00:00 Test Item Value Reference Range Interpretation Comments RPR RESULT (test code = NON-REACTIVE 3501) RPR TITER (test code = 3500) NOT INDIC. TITER [id number] 00:00:00 Test Item Value Reference Range Interpretation Comments RPR RESULT (test code = NON-REACTIVE 3501) RPR TITER (test code = 3500) NOT INDIC. TITER ACUTE HEPATITIS [id number] 00:00:00 Test Item Value Reference Range Interpretation Comments HEPATITIS A IgM (test code = NON-REACTIVE 87086) HEPATITIS B CORE IgM (test code NON-REACTIVE = 4644) HEPATITIS B SURF AG (test code = NON-REACTIVE 2739) HEPATITIS C ANTIBODY (test code NON-REACTIVE = 4675) INTERPRETATION HEPATITIS A: (NOTE) (test code = 2552) INTERPRETATION HEPATITIS B: (NOTE) (test code = 19769) INTERPRETATION HEPATITIS C: (NOTE) (test code = 92321) HIV AB/AG COMBO RFLX [id number] 00:00:00 Test Item Value Reference Range Interpretation Comments HIV 1/2 4TH GEN, RFLX CONF (test NON-REACTIVE code = 3514) HIV AB/AG COMBO RFLX [id number] 00:00:00 Test Item Value Reference Range Interpretation Comments HIV 1/2 4TH GEN, RFLX CONF (test NON-REACTIVE code = 3514) [id number] 00:00:00 Test Item Value Reference Range Interpretation Comments RPR RESULT (test code = NON-REACTIVE 3501) RPR TITER (test code = 3500) NOT INDIC. TITER [id number] 00:00:00 Test Item Value Reference Range Interpretation Comments RPR RESULT (test code = NON-REACTIVE 3501) RPR TITER (test code = 3500) NOT INDIC. TITER [id number] 00:00:00 Test Item Value Reference Range Interpretation Comments RPR RESULT (test code = NON-REACTIVE 3501) RPR TITER (test code = 3500) NOT INDIC. TITER ACUTE HEPATITIS [id number] 00:00:00 Test Item Value Reference Range Interpretation Comments HEPATITIS A IgM (test code = NON-REACTIVE 93683) HEPATITIS B CORE IgM (test code NON-REACTIVE = 4644) HEPATITIS B SURF AG (test code = NON-REACTIVE 2739) HEPATITIS C ANTIBODY (test code NON-REACTIVE = 4675) INTERPRETATION HEPATITIS A: (NOTE) (test code = 2552) INTERPRETATION HEPATITIS B: (NOTE) (test code = 33237) INTERPRETATION HEPATITIS C: (NOTE) (test code = 42031) ACUTE HEPATITIS [id number] 00:00:00 Test Item Value Reference Range Interpretation Comments HEPATITIS A IgM (test code = NON-REACTIVE 61494) HEPATITIS B CORE IgM (test code NON-REACTIVE = 4644) HEPATITIS B SURF AG (test code = NON-REACTIVE 2739) HEPATITIS C ANTIBODY (test code NON-REACTIVE = 4675) INTERPRETATION HEPATITIS A: (NOTE) (test code = 2552) INTERPRETATION HEPATITIS B: (NOTE) (test code = 22191) INTERPRETATION HEPATITIS C: (NOTE) (test code = 92974) Procedure Notes Date/Time Note Provider Source 2023-05-24 11:02:14 [id number]:02:14Formatting of -[facility] this note might be different GYNECOLOGY from the original.ECV PROCEDURE NOTEDate of procedure: 05/24/23Faculty Surgeon(s): Dr. Cj LeoneResident Surgeon(s): Dr. Wolfgang Brown and Dr. Maggie Molina Op Diagnosis: malpresentation- rula breechPost Op Diagnosis: malpresentationPlanned Procedure: 1. External Cephalic Version Actual Procedure: 1. External Cephalic VersionAnesthesia: none Narrative: Informed written and verbal consent was given, for the above procedure for above indications. Prior to procedure monitoring was performed: FHR 130s, moderate variability, +accels, no decels. An ultrasound was used to confirm position. The fetus was found to be rula breech. Placenta was found to be fundal, SANYA 7.1 cm. Pt counseled and strongly desired ECV despite low SANYA. Terbutaline x1 SQ given prior to procedure. The surgeons hands were placed on the maternal abdomen and the position was palpated. Under ultrasound guidance, the fetus was lifted out of the maternal pelvis and version was performed by providing gentle downward pressure on the head towards the pelvis, while stabilizing the back, and elevating the presenting parts. US was used during the procedure to assess position and well-being. This was unsuccessful with 3 attempt.Pt prepped for primary LTCS. See separate op note. Maggie Ferrari MDOB-SHEEP KILLER PGY-2 ssociated attestation - Cj Leone DO - 05/24/2023 12:02 PM CDT Attending addendum:I was present for the procedure and I agree with the operative note.Cj Leone [id number] [id number], Corey1.2.840.766856.1.13.104.2.7 .2.594895BrqtyrvzTslmuAX5507-14- 18T12:02:48Procedure noteTXT1.2.840.885867.1.13.104.2 .7.2.836241|[id number] e for patient careOG-OBSTETRICS & GYNECOLOGYOG-OBSTETRICS & GYNECOLOGY[address] Vd[id number] 4667XNWXCQCRDJLPIVSAUKLBRE5414-0 05-24T12:02:481.2.840.943428.1.72 .3.15|1.2.840.384556.1.13.104.2. 7.2.727879_[id number] 2023-05-24 10:15:04 7414-10-47E19:15:04Associated AN-ANESTHESIOL [facility] Order(s): Central Neuraxial Block Central Neuraxial Block Date/Time: 05/24/2023 8:07 AMPerformed by: Yo Ott MDAuthorized by: Yudelka Campo MD Patient Location: [facility] Time: 05/24/2023 10:15 AMReason for Block: OB request, Patient request and Surgical anesthesiaStaff: Anesthesiologist: Yudelka Campo MD Resident/BODY SHOP MECHANIC: Yo Ott MD Performed by: resident/CRNAPreanesthetic Checklist: patient identified, risks and benefits explained, monitors and equipment checked, timeout performed, IV checked, anesthesia consent, pre-op evaluation, surgical consent and site markedProcedure: Type of Neuraxial: CSE Sedation Level no sedation Patient Position: sitting Prep: Betadine Monitoring: heart rate, continuous pulse ox, heart rate / toco and NIBP Location: lumbar (1-5) Approach: midline Technique: JONATHAN saline Guidance with: landmark technique}Epidural/Spinal [place] and/or Catheter: Epidural/Spinal Kit: Brodie Needle Type: Tuohy Needle Gauge: 17 G Needle Length: 3.5 in (8.89 cm) Needle Insertion Depth: 5.5 Catheter Type: multiport Catheter Size: 19 G Catheter at Skin Depth: 11 Number of Attempts: 2 Test Dose: no test dose Catheter Securement Method: surgical tape and liquid medical adhesiveAssessment: Sensory Level: above T10 Block Outcome: patient comfortable and successful block Procedure Assessment: patient tolerated procedure well with no complicationsNotes: Smooth and atraumatic, (+) Local, (+) STF 32966-1Pawjlpyelutbmy procedure jrloWM2701-65-06Y86:18:07Anesthe siology procedure noteTXT1.2.840.567969.1.13.104.2 .7.2.948160|[id number] e for patient mzct20415-7Jabanzzw operation dvazQIRI-VCHRDPDIVWWIIWQA-OOSIVS ESIOLOGYUT[address] StreetTXTX[address] 9284RWRXGHMBBALBVMXIBHKZIQ0950-7 05-24T10:18:071.2.840.129940.1.72 .3.15|1.2.840.324207.1.13.104.2. 7.2.727879_[id number] Notes Date/Time Note Provider Source 2023-05-24 0296-58-16W20:26:32Formatting of Cherelle Martinez [facility] - 20:26:32 this note might be different from Health the original.Problem: Discharge Planning - PostpartumGoal: Adequate for dischargeOutcome: Progressing as expectedGoal: Mood stableOutcome: Progressing as expected Problem: Infection RiskGoal: Absence of infectionOutcome: Progressing as expected Problem: Falls, Risk ofGoal: Absence of fallsOutcome: Progressing as expected Problem: Breast-feeding - IneffectiveGoal: Effective breast-feedingOutcome: Progressing as expected Problem: PainGoal: Control of pain at or below patient's documented comfort goalOutcome: Progressing as expectedGoal: Reduction in pain sensationOutcome: Progressing as expected Problem: Bleeding, Risk ofGoal: Absence of impaired coagulation signs and symptomsOutcome: Progressing as expectedGoal: Absence of active bleedingOutcome: Progressing as expected 15527-0Viws of care fbykJS4378-03-33P54:26:41Plan of care noteTXT1.2.840.295304.1.13.104.2.7. 2.491281|[id number] for patient [id number] J York RNUT[id number] 0NLSYWCATMIXKRLWUTRWZQP8479-78-50G8 0:26:411.2.840.956539.1.72.3.15|1.2 .840.292067.1.13.104.2.7.2.727879_1 [id number] 2023-05-24 1325-78-01K45:24:45Formatting of Marietta Juarez RN [facility] - 15:24:45 this note might be different from Health the original.Problem: Discharge Planning - PostpartumGoal: Adequate for discharge05/24/2023 1524 by Marietta Juarez RNOutcome: Progressing as expected05/24/2023 1524 by Marietta Juarez RNOutcome: Progressing as expectedGoal: Mood stable05/24/2023 1524 by Marietta Juarez RNOutcome: Progressing as expected05/24/2023 1524 by Marietta Juarez RNOutcome: Progressing as expected Problem: Infection RiskGoal: Absence of infection05/24/2023 1524 by Marietta Juarez RNOutcome: Progressing as expected05/24/2023 1524 by Marietta Juarez RNOutcome: Progressing as expected Problem: Falls, Risk ofGoal: Absence of falls05/24/2023 1524 by Marietta Juarez RNOutcome: Progressing as expected05/24/2023 1524 by Marietta Juarez RNOutcome: Progressing as expected Problem: Breast-feeding - IneffectiveGoal: Effective breast-feeding05/24/2023 1524 by Marietta Juarez RNOutcome: Progressing as expected05/24/2023 1524 by Marietta Juarez RNOutcome: Progressing as expected 82968-1Gqjq of care zhbyGE1852-58-02G53:25:15Plan of care noteTXT1.2.840.159377.1.13.104.2.7. 2.744335|[id number] for patient [id number] H Dinh RNUTMBUTMB - [address] Gb[id number] 5LLFUELXXCUWFCSOYAQKHSJ1518-06-19G4 5:25:151.2.840.088228.1.72.3.15|1.2 .840.159629.1.13.104.2.7.2.727879_1 [id number] 2023-05-24 2438-10-55C59:59:18Formatting of AN[facility]IOLO [facility] - 10:59:18 this note is different from the ANESTHESIOLOGIST Health original.Patient: Patricio Concepcion Procedure Summary Date: 05/24/23 Room / Location: [place] [address] / [facility] Anesthesia Start: 813 Anesthesia Stop: 957 Procedures: EXTERNAL CEPHALIC VERSION (Abdomen) SECTION (Abdomen) TUBAL LIGATION (Abdomen) Diagnosis: (32 y.o. sp failed ECV converted to c/s with BTL, MPDPS) Surgeons: Cj Leone DO Responsible Provider: Yudelka Campo MD Anesthesia Type: CSE ASA Status: 2 Anesthesia Type: CSELast vitalsBP 122/53 (05/24/23 1057) Temp 36.5 ?C (97.7 ?F) (05/24/23 1057) Pulse 84 (05/24/23 1057) Resp 18 (05/24/23 1057) SpO2 100 % (05/24/23 1057) There were no known notable events for this encounter.Anesthesia Post EvaluationPatient location during evaluation: PACUPatient participation: complete - patient participatedLevel of consciousness: awake and alertPain management: satisfactory to patientAirway patency: patentCardiovascular status: acceptable and blood pressure returned to baselineRespiratory status: acceptableHydration status: acceptable 04814-6Rtiklpbzpifsrz Postoperative evaluation and management wfdfSD9356-58-71Q46:59:27Anesthesio logy Postoperative evaluation and management noteTXT1.2.840.430568.1.13.104.2.7. 2.687601|[id number] for patient usqc47277-6Fkbplbqj operation noteLNAN-ANESTHESIOLOGY ANESTHESIOLOGISTAN-ANESTHESIOLOGY ANESTHESIOLOGISTUTSAN [facility] - [address] An[id number] 2LFCVZBEWXIUZFYZHIWVFIH6188-07-26O2 0:59:271.2.840.735316.1.72.3.15|1.2 .840.155524.1.13.104.2.7.2.727879_1 [id number] 2023-05-24 7584-74-67R87:18:16Formatting of [facility] - :18:16 this note is different from the [facility] original.Delivery Date: 05/24/2023 Delivery Time: 9:10 AM DELIVERY BY SECTIONDate of Service: : 05/24/2023 at 9:10 AM Admitted for: IOL with failed ECV, Primary Lower uterine tranverse section with no extension, BTL, Pfannenstiel, Closed with sutures, EBL 400 cc, No complications, Findings: normal appearing bilateral ovaries and tubes.Delivery Summary Gary Sex: male Gary Weight: 3230 g 1 Minute 5 Minute 10 Minute Totals: 8 9 Primary Indication:The patient was taken to the operating room for a primary section due to: Malpresentation - Breech - rula at 39w0d weeks.Procedures:Primary Lower uterine tranverse section with no extension Modified [place] bilateral tubal ligationSpecimens Removed: PlacentaClinical Trials: noneSurgeon: Maggie Ferrari MD Strategic Sourcing Specialist Surgeon: Wolfgang Brown MD and Dr. Rojelio Concepcion Faculty: Cj Leone DOReport:Prophylactic antibiotic, Clindamycin was given. After arrival to the operating room patient was placed in the supine position with left lateral tilt after administration of combined spinal epidural anesthesia. Unsuccessful ECV attempted.LaparotomyA pfannenstiel incision was made through the anterior abdominal wall with #10 scalpel. The incision was extended sharply with the #10 scalpel through the subcutaneous tissue to the level of fascia. The fascia was entered sharply with a #10 scalpel then extended superiorly and inferiorly with digits using Misgav Ladach technique . The rectus muscles were in the midline bluntly with digits. The peritoneum was then entered bluntly. The peritoneal incision was then extended superiorly and inferiorly under direct visualization with care being taken to avoid bladder and bowel. No adhesions were noted. The peritoneal incision was enlarged bluntly by lateral traction from the surgeon's and first press operator's hand.Delivery A bladder flap was not developed. A low transverse hysterotomy was made then with #10 scalpel and extended laterally and cephalad with fingers in a low transverse fashion with Manu Harrison technique with care being taken to avoid injury to the fetus. The amniotic (membranes) were then entered with spontaneous rupture of membrane, and the amniotic fluid was noted to be clear.The buttock presented into the lower uterine segment and delivered through the hysterotomy incision with aid of surgeon's hand and aid of fundal pressure applied by the assistant professor of music surgeon. Airport Refueling Handler's index fingers were placed in the groin of the fetus for gentle traction. When the knees were delivered beyond the hysterotomy, pressure was applied on the thigh to flex the knee and delivered the foot. The procedure was repeated for the other leg. A blue towel was placed across the pelvis and surgeon's hands were applied over the pelvis with the thumb on the sacrum and fingers on the anterior iliac crests. Continuous downward traction with gentle side to side rotation was applied until the body was delivered to the level of the scapula. The body was rotated until one of the shoulders was just below the hysterotomy.Exam revealed arms across the chest. The anterior arm was delivered by splinting the humerus with glass washer and carrier's fingers with downward sweeping motion. The body was rotated clockwise / counterclockwise until the shoulder came to anterior position. The above procedure was repeated for delivery of the other arm . The body was rotated to position with back in anterior position. Ck antoine was performed - glass washer and carrier's index and middle fingers of inferior hand were placed over maxilla and two fingers of the other hand were hooked over the neck. Gentle downward traction along with assistant professor of music applying fundal pressure for the flexion and delivery of the head . With delivery the baby, no extension was noted. Placenta was delivered spontaneously with steady traction on cord and manual separation of placenta from uterine wall.ClosureUterine cavity was cleaned after placental delivery with lap sponge x 2. The hysterotomy was closed in one layer with stitches using 0 chromic with continuous locking stitches. Hemostasis was achieved as needed with electrocautery and 0 figure eight suture ligation. The ovaries/tubes/uterine surface were evaluated. They were found to be normal.PROCEDURE - BILATERAL TUBAL LIGATIONThe right fallopian tube was grasped at midportion with Wainwright forceps and followed out to distal end until the fimbria was visualized. The fallopian tube was ligated and resected with Modified [place] technique - Jacqueline clamp was placed on fallopian tube and placed on gentle traction. The avascular portion of mesosalpinx was bluntly perforated with bovie. Four 0-plaingut sutures were passed through the window and the proximal and distal portion of the tube was ligated. Metzebaum scissor was used to transect the intervening segment of tube individually next to each ligating sutures. . The transected ends of fallopian tube were examined to insuring the presence of fallopian lumen and good hemeostasis. The left fallopian tube was grasped at midportion with Wainwright forceps and followed out to distal end until the fimbria was visualized. The fallopian ligated with 0-plain guts sutures with Modified [place] technique - Wainwright clamp was placed on fallopian tube and placed on gentle traction. The avascular portion of mesosalpinx was bluntly perforated with bovie. Four 0-plaingut sutures were passed through the window and the proximal and distal portion of the tube was ligated. Metzebaum scissor was used to transect the intervening segment of tube individually next to each ligating sutures. After insuring good hemeostatis of the transected ends and the presence of fallopian lumens, the fallopian tube was replaced into abdomen.Fascia was closed with running stitches using 0 vicryl. Hemostasis was checked for and found to be adequate. The subcutaneous tissue was irrigated and hemostasis was achieved where needed with electrocautery. Subcutaneous layer was closed with vicryl. The skin was then closed with subcutaneous stitches using 2-0 vicryl sutures. The incision was cleaned and covered with a compression bandage and the procedure considered to be complete at this time.Intraoperative Complications: noneEBL: 400 Uterotonics: 30 U pitocinDisposition:The patient tolerated the procedure well. She was recovered in Obstetric PACU for close monitoring in stable condition, with a contracted uterus and normal transvaginal bleeding. The was sent to moms bedside. A segment of the cord was obtained for umbilical cord gases. Cord blood gas was not available at time of operative note entered. Please see [facility] for update. The placenta was not sent to pathology.ANASTASIA Mccracken-SHEEP KILLER PGY-2 ssociated attestation - Cj Leone DO - 05/24/2023 12:00 PM CDT Attending addendum:I was present for the procedure and I agree with the operative note. I personally attempted ECV without success. Counseled for primary and patient agreeable.Cj Leone [id number] and delivery summary [id number], [id number]. [id number]4U41: 00:05Labor and delivery summary [id number]. [id number] for patient [address] Iw[id number] 1EQORJIQPRODVBPMLJHDBEW8504-92-58I8 2:00:051.2.840.444829.1.72.3.15|1.2 .840.390397.1.13.104.2.7.2.727879_1 [id number] 2023-05-24 9768-41-43P19:06:13Formatting of [facility]ESTHESIN[facility] - 08:06:13 this note is different from the ANESTHESIOLOGIST [facility] original.Name/ MRN / Age / Gender:Patricio Humphreys Jose, [id number] year old female BMI:Estimated body mass index is 32.56 kg/m? as calculated from the following: Height as of an earlier encounter on 05/24/23: 1.575 m (5' 2"). Weight as of an earlier encounter on 05/24/23: 80.7 kg (178 lb). Allergies:Rocephin [ceftriaxone] Last Vitals:BP Readings from Last 1 Encounters: 05/24/23 113/61 Pulse Readings from Last 1 Encounters: 05/24/23 71 SpO2 Readings from Last 1 Encounters: 05/24/23 95% Date of Surgery: 05/24/2023Surgeon: * No surgeons listed *Procedure: EXTERNAL CEPHALIC VERSION (Abdomen) SECTION (Abdomen)TUBAL LIGATION (Abdomen)OR Location: LABOR AND DELIVERY OR LOCATION-JOHNAnesthesia Preop Eval (physical exam) Anesthesia Preop: Chart Review and Sfdf-ac-EnjeHFGD Communication: Pt for ECVNPO Status VerifiedClear Liquids: > 2 HoursSolid Food/Non-Clear Liquids: > 8 HoursPONV Risk Factors: femaleAnesthesia HistoryAnesthesia History NegativePrevious Anesthetics/AirwaysCardiovascularME TS: 5-6 PulmonaryNegative Pulmonary ROS Neuro/MusculoskeletalNegative Neuro/Musculosketal ROS(+) Anxiety GI/HepaticNegative GI/Hepatic ROS HematologyNegative Hematology ROSComments: HGB Date Value 05/24/2023 9.6 g/dL (L) 05/22/2013 12.9 G/DL 05/24/23 0339 PLT 237 ABO & RH (no units) Date Value 05/24/2023 B POSITIVE ANTIBODY SCREEN (no units) Date Value 04/18/2013 NEGATIVE (+) Anemia RenalNegative Renal ROSComments: K Date Value 12/07/2022 4.7 mmol/L 04/08/2006 3.2 MMOL/L (L) CREATININE Date Value 12/07/2022 0.48 mg/dL (L) 04/09/2006 0.61 MG/DL (L) Skin(+) Current IV access Endo/Other Negative Endo/Other ROSComments: No results found for: "POCTGLUA" Other OB/GYNComments: 32 year old at 39w0d by LMP who presents for contractions.?Primary due to breech presentation- Contractions began 3 days ago- Denies vb, lof, decreased movement- Rula breech presentation upon arrival today- Discussed option of ECV but due to low SANYA and cervical dilation, ECV not advisable- Pt last ate at 2200 on 05/23 - SVE: 4 / 50 % / -3 - [place]: irritable- Plan: terbutaline and primary section at 0600 unless SROM or increased cervical dilation?GBS (+)-?Urine culture (+) 04/12/2023- PCN intrapartum?H/o of PreE in prior -?Pt reports a h/o PreE during her first but not in any of her subsequent pregnancies- No baseline labs- Did not take ASA during - BP during : 90's-110's/ 50's-75's- Denies PIH symptoms on admission- BP on admission: 115/74 ?DPS- Consents signed on 02/18/2023- H/o cholecystectomy in 2012 and gastric sleeve in 2019- Pt wt 178lbs?Anemia of - Did not take iron due to constipation- H/H: 9.9 / 31.7 on 05/04/2023?Antepartum course reviewed- 1 h 175, 3 h 224 / 101 / 50 , sero negative, Rimmune, VZVimmune, HPV not immune, B positive/IAT negative, GBS positive, Pap None since 2015- H/H, plt: 9.9 / 31.7, 238 on 05/04/2023- PP control plan: BTL PP- [place] [facility]?Fetus- Presentation on admission: rula or footling breech - posterior fundal placenta - EFW: 3674 g, 70%tile- SANYA: 7- FHT reactive and reassuring- Normal anatomy scan?Placenta Accreta ScreeningPrior ? : NoPrior Uterine Surgery?: NoPlacenta low lying/previa in current ? : NoUltrasound suspicion of PASD in current ?: NoScreening outcome:A positive screening outcome indicates a history of prior delivery or prior uterine surgery, AND the presence of either a placenta low lying/previa or ultrasound suspicion of PASD in the current . Negative screening.P: 3Gestational Age: 39W PediatricPediatric N/A NeonatalNeonatal N/A Preoperative Medication InstructionsContinue taking all prescribed medications except:GORAN inhibitors, ARBs, diuretics, all oral diabetes medicationsAnticoagulant Therapy: Defer to surgeonsInsulin: Take 1/2 dose the night prior to surgery. Hold on DOS. Phentermine: Alert [facility] anesthesiologistSGLT2 Inhibitors: "gliflozins" to be held for 3 days prior to elective surgeries MAC Cases: Continue taking GORAN inhibitors and ARBs ASA ClassificationASA: 2 Current Medications:No outpatient medications have been marked as taking for the 05/24/23 encounter (Anesthesia Event) with Yo Ott MD. Previous Surgeries: Past Surgical History: Procedure Laterality Date CHOLECYSTECTOMY CONTRACTN STRESS TEST 04/19/2013 INJECT EPIDURAL ANEST,LUMB,CONTINOUS 013 LAPAROSCOPIC GASTRIC SLEEVE (SHX) 2019 OBSTE CARE,VAG DELIV+ 04/19/2013 Anesthesia Physical ExamGeneralalert and oriented x 3 Neuro/Psychneurological Dentalno notable dental hx Abdominal (+) gravid Airway Mallampati score:IITM distance:> 5 cmNeck ROM: fullMouth opening:normal Extremity Normal extremity Pulmonarypulmonary exam normal Other Cardiovascularcardiovascular exam normal Anesthesia Plan ASA Status: 2 Plan discussed during pre-op evaluation: General, Epidural, Spinal and CSEAnesthetic plan on DOS: CSEAnesthesia plan discussed with: patient or representativePost-Operative Analgesia: routine analgesia & antiemeticsRecovery Plan: PACUAdditional comments: [id number] Preoperative evaluation and management xsjhER9514-03-84Z27:08:26Anesthesio logy Preoperative evaluation and management [id number]. [id number] for patient [id number] operation noteLNAN-ANESTHESIOLOGY ANESTHESIOLOGISTAN-ANESTHESIOLOGY ANESTHESIOLOGIST[address] Yc[id number] 8NMDSWAEIQSGWQMGKFGIQDY7541-56-66M8 8:08:261.2.840.177142.1.72.3.15|1.2 .840.326671.1.13.104.2.7.2.727879_1 [id number] 2023-05-24 1088-32-36O96:42:04Formatting of AN-[facility] - 07:42:04 this note is different from the Health original.Name/ MRN / Age / Gender:Patricio Concepcion, [id number] year old female BMI:Estimated body mass index is 32.56 kg/m? as calculated from the following: Height as of an earlier encounter on 05/24/23: 1.575 m (5' 2"). Weight as of an earlier encounter on 05/24/23: 80.7 kg (178 lb). Allergies:Rocephin [ceftriaxone] Last Vitals:BP Readings from Last 1 Encounters: 05/24/23 111/55 Pulse Readings from Last 1 Encounters: 05/24/23 76 SpO2 Readings from Last 1 Encounters: 05/24/23 98% Date of Surgery: 05/24/2023Surgeon: * No surgeons listed *Procedure: CENTRAL NEURAXIAL BLOCKOR Location: [place] ANESTHESIA OUT OF OR - OR LOCATIONAnesthesia Preop Eval (physical exam) Anesthesia Preop: Chart Review and Gtqu-fy-IudyCBNZ Communication: Pt for ECVNPO Status VerifiedClear Liquids: > 2 HoursSolid Food/Non-Clear Liquids: > 8 HoursPONV Risk Factors: femaleAnesthesia HistoryAnesthesia History NegativePrevious Anesthetics/AirwaysCardiovascularME TS: 5-6 PulmonaryNegative Pulmonary ROS Neuro/MusculoskeletalNegative Neuro/Musculosketal ROS(+) Anxiety GI/HepaticNegative GI/Hepatic ROS HematologyNegative Hematology ROSComments: HGB Date Value 05/24/2023 9.6 g/dL (L) 05/22/2013 12.9 G/DL 05/24/23 0339 PLT 237 ABO & RH (no units) Date Value 05/24/2023 B POSITIVE ANTIBODY SCREEN (no units) Date Value 04/18/2013 NEGATIVE (+) Anemia RenalNegative Renal ROSComments: K Date Value 12/07/2022 4.7 mmol/L 04/08/2006 3.2 MMOL/L (L) CREATININE Date Value 12/07/2022 0.48 mg/dL (L) 04/09/2006 0.61 MG/DL (L) Skin(+) Current IV access Endo/Other Negative Endo/Other ROSComments: No results found for: "POCTGLUA" Other OB/GYNComments: 32 year old at 39w0d by LMP who presents for contractions.?Primary due to breech presentation- Contractions began 3 days ago- Denies vb, lof, decreased movement- Rula breech presentation upon arrival today- Discussed option of ECV but due to low SANYA and cervical dilation, ECV not advisable- Pt last ate at 2200 on 05/23 - SVE: 4 / 50 % / -3 - [place]: irritable- Plan: terbutaline and primary section at 0600 unless SROM or increased cervical dilation?GBS (+)-?Urine culture (+) 04/12/2023- PCN intrapartum?H/o of PreE in prior -?Pt reports a h/o PreE during her first but not in any of her subsequent pregnancies- No baseline labs- Did not take ASA during - BP during : 90's-110's/ 50's-75's- Denies PIH symptoms on admission- BP on admission: 115/74 ?DPS- Consents signed on 02/18/2023- H/o cholecystectomy in 2012 and gastric sleeve in 2019- Pt wt 178lbs?Anemia of - Did not take iron due to constipation- H/H: 9.9 / 31.7 on 05/04/2023?Antepartum course reviewed- 1 h 175, 3 h 224 / 101 / 50 , sero negative, Rimmune, VZVimmune, HPV not immune, B positive/IAT negative, GBS positive, Pap None since 2015- H/H, plt: 9.9 / 31.7, 238 on 05/04/2023- PP control plan: BTL PP- [place] [facility]?Fetus- Presentation on admission: rula or footling breech - posterior fundal placenta - EFW: 3674 g, 70%tile- SANYA: 7- FHT reactive and reassuring- Normal anatomy scan?Placenta Accreta ScreeningPrior ? : NoPrior Uterine Surgery?: NoPlacenta low lying/previa in current ? : NoUltrasound suspicion of PASD in current ?: NoScreening outcome:A positive screening outcome indicates a history of prior delivery or prior uterine surgery, AND the presence of either a placenta low lying/previa or ultrasound suspicion of PASD in the current . Negative screening.P: 3Gestational Age: 39W PediatricPediatric N/A NeonatalNeonatal N/A Preoperative Medication InstructionsContinue taking all prescribed medications except:GORAN inhibitors, ARBs, diuretics, all oral diabetes medicationsAnticoagulant Therapy: Defer to surgeonsInsulin: Take 1/2 dose the night prior to surgery. Hold on DOS. Phentermine: Alert [facility] anesthesiologistSGLT2 Inhibitors: "gliflozins" to be held for 3 days prior to elective surgeries MAC Cases: Continue taking GORAN inhibitors and ARBs ASA ClassificationASA: 2 Current Medications:No outpatient medications have been marked as taking for the 05/24/23 encounter (Anesthesia Event) with Nhi Chew MD. Previous Surgeries: Past Surgical History: Procedure Laterality Date CHOLECYSTECTOMY CONTRACTN STRESS TEST 04/19/2013 INJECT EPIDURAL ANEST,LUMB,CONTINOUS 013 LAPAROSCOPIC GASTRIC SLEEVE (SHX) 2019 OBSTE CARE,VAG DELIV+ 04/19/2013 Anesthesia Physical ExamGeneralalert and oriented x 3 Neuro/Psychneurological Dentalno notable dental hx Abdominal (+) gravid Airway Mallampati score:IITM distance:> 5 cmNeck ROM: fullMouth opening:normal Extremity Normal extremity Pulmonarypulmonary exam normal Other Cardiovascularcardiovascular exam normal Anesthesia Plan ASA Status: 2 Plan discussed during pre-op evaluation: General, Epidural, Spinal and CSEAnesthetic plan on DOS: CSEAnesthesia plan discussed with: patient or representativePost-Operative Analgesia: routine analgesia & antiemeticsRecovery Plan: PACUAdditional comments: [id number] Preoperative evaluation and management cbiyGQ4359-10-82U20:45:38Anesthesio logy Preoperative evaluation and management [id number]. [id number] for patient vjutSW-LIVVMYMPLYOELYXA-PBKGVRHVBIB [address] [id number] 0WCGEEFRDSPAFUTYNAMPYER1549-46-44D6 7:45:381.2.840.921407.1.72.3.15|1.2 .840.228969.1.13.104.2.7.2.727879_1 [id number] 2023-05-24 2999-71-90I33:33:22Formatting of AN-[facility] - 07:33:22 this note is different from the Health original.Name/ MRN / Age / Gender:Patricio Concepcion, [id number] year old female BMI:Estimated body mass index is 32.56 kg/m? as calculated from the following: Height as of this encounter: 1.575 m (5' 2"). Weight as of this encounter: 80.7 kg (178 lb). Allergies:Rocephin [ceftriaxone] Last Vitals:BP Readings from Last 1 Encounters: 05/24/23 111/55 Pulse Readings from Last 1 Encounters: 05/24/23 79 SpO2 Readings from Last 1 Encounters: 05/24/23 98% Date of Surgery: 05/24/2023Surgeon: * No surgeons listed *Procedure: LABOR CONSULTOR Location: [place] ANESTHESIA OUT OF OR - OR LOCATIONAnesthesia Preop Eval (physical exam) Anesthesia Preop: Chart Review and Uoxm-yj-JwpbQOG Status VerifiedClear Liquids: > 2 HoursSolid Food/Non-Clear Liquids: > 8 HoursPONV Risk Factors: femaleAnesthesia HistoryAnesthesia History NegativePrevious Anesthetics/AirwaysCardiovascularME TS: 5-6 PulmonaryNegative Pulmonary ROS Neuro/MusculoskeletalNegative Neuro/Musculosketal ROS GI/HepaticNegative GI/Hepatic ROS HematologyNegative Hematology ROSComments: HGB Date Value 05/24/2023 9.6 g/dL (L) 05/22/2013 12.9 G/DL 05/24/23 0339 PLT 237 ABO & RH (no units) Date Value 05/24/2023 B POSITIVE ANTIBODY SCREEN (no units) Date Value 04/18/2013 NEGATIVE RenalNegative Renal ROSComments: K Date Value 12/07/2022 4.7 mmol/L 04/08/2006 3.2 MMOL/L (L) CREATININE Date Value 12/07/2022 0.48 mg/dL (L) 04/09/2006 0.61 MG/DL (L) Skin(+) Current IV access Endo/Other Negative Endo/Other ROSComments: No results found for: "POCTGLUA" Other OB/GYNComments: 32 year old at 39w0d by LMP who presents for contractions.?Primary due to breech presentation- Contractions began 3 days ago- Denies vb, lof, decreased movement- Rula breech presentation upon arrival today- Discussed option of ECV but due to low SANYA and cervical dilation, ECV not advisable- Pt last ate at 2200 on 05/23 - SVE: 4 / 50 % / -3 - [place]: irritable- Plan: terbutaline and primary section at 0600 unless SROM or increased cervical dilation?GBS (+)-?Urine culture (+) 04/12/2023- PCN intrapartum?H/o of PreE in prior -?Pt reports a h/o PreE during her first but not in any of her subsequent pregnancies- No baseline labs- Did not take ASA during - BP during : 90's-110's/ 50's-75's- Denies PIH symptoms on admission- BP on admission: 115/74 ?DPS- Consents signed on 02/18/2023- H/o cholecystectomy in 2012 and gastric sleeve in 2019- Pt wt 178lbs?Anemia of - Did not take iron due to constipation- H/H: 9.9 / 31.7 on 05/04/2023?Antepartum course reviewed- 1 h 175, 3 h 224 / 101 / 50 , sero negative, Rimmune, VZVimmune, HPV not immune, B positive/IAT negative, GBS positive, Pap None since 2015- H/H, plt: 9.9 / 31.7, 238 on 05/04/2023- PP control plan: BTL PP- [place] [facility]?Fetus- Presentation on admission: rula or footling breech - posterior fundal placenta - EFW: 3674 g, 70%tile- SANYA: 7- FHT reactive and reassuring- Normal anatomy scan?Placenta Accreta ScreeningPrior ? : NoPrior Uterine Surgery?: NoPlacenta low lying/previa in current ? : NoUltrasound suspicion of PASD in current ?: NoScreening outcome:A positive screening outcome indicates a history of prior delivery or prior uterine surgery, AND the presence of either a placenta low lying/previa or ultrasound suspicion of PASD in the current . Negative screening.P: 3Gestational Age: 39W PediatricPediatric N/A NeonatalNeonatal N/A Preoperative Medication InstructionsContinue taking all prescribed medications except:GORAN inhibitors, ARBs, diuretics, all oral diabetes medicationsAnticoagulant Therapy: Defer to surgeonsInsulin: Take 1/2 dose the night prior to surgery. Hold on DOS. Phentermine: Alert [facility] anesthesiologistSGLT2 Inhibitors: "gliflozins" to be held for 3 days prior to elective surgeries MAC Cases: Continue taking GORAN inhibitors and ARBs ASA ClassificationASA: 2 Current Medications:No outpatient medications have been marked as taking for the 05/23/23 encounter (Hospital Encounter). Previous Surgeries: Past Surgical History: Procedure Laterality Date CHOLECYSTECTOMY CONTRACTN STRESS TEST 04/19/2013 INJECT EPIDURAL ANEST,LUMB,CONTINOUS 013 LAPAROSCOPIC GASTRIC SLEEVE (SHX) 2019 OBSTE CARE,VAG DELIV+ 04/19/2013 Anesthesia Physical ExamGeneralalert and oriented x 3 Neuro/Psychneurological Dentalno notable dental hx Abdominal GI exam normal (+) gravid Airway Mallampati score:IITM distance:> 5 cmNeck ROM: fullMouth opening:normal Extremity Normal extremity Pulmonarypulmonary exam normal Other Cardiovascularcardiovascular exam normal Anesthesia Plan ASA Status: 2 Plan discussed during pre-op evaluation: General, Epidural, Spinal and CSEPost-Operative Analgesia:Recovery Plan: LDRAdditional comments: [id number] Preoperative evaluation and management iyvfGD9295-34-09Z86:36:18Anesthesio logy Preoperative evaluation and management [id number]. [id number] for patient bkkhSA-ZQNAGUTBMRQHYIIU-PNGWWILCVBZ [address] Cv[id number] 8TGFMMPXLLARBZYGWSRGIZP8046-05-13M6 7:36:181.2.840.410774.1.72.3.15|1.2 .840.298339.1.13.104.2.7.2.727879_1 [id number]
--- NOTE | 2023-10-09 23:24 | EDPHYS ---
Physician Documentation [facility] Name: Bren Garcia Age: 32 yrs Sex: Female : 1990 Arrival Date: 10/09/2023 Time: 22:31 Bed 7 Private MD: ED Physician Deepak Lord HPI: 10/09 23:12 This 32 yrs old Female presents to ER via Ambulatory with complaints of Flu Symptoms. kb 23:21 Patient is a 32-year-old female with no medical history who presents for cough, kb congestion, left ear pain, sinus pressure and headache that started 2 weeks ago. Denies fever.. 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 - Social history:: Smoking status: Patient denies any tobacco usage or history of. ROS: 23:21 Constitutional: Negative for fever, chills, and weight loss, kb 23:21 ENT: Positive for ear pain, sinus congestion, sinus pain, 23:21 Respiratory: Positive for cough, 23:21 Neuro: Positive for headache, 23:21 All other systems are negative, Exam: 23:22 Constitutional: This is a well developed, well nourished patient who is awake, alert, kb and in no acute distress. Head/Face: Normocephalic, atraumatic. ENT: Moist Mucous membranes Cardiovascular: Regular rate Respiratory: Respirations even and unlabored. No increased work of breathing. Talking in full sentences Abdomen/GI: Soft, non-tender. No distention Skin: Warm, dry with normal turgor. Normal color. MS/ Extremity: Pulses equal, no cyanosis. Neurovascular intact. Full, normal range of motion. Neuro: Awake and alert, GCS 15, oriented to person, place, time, and situation. Moves all extremities. Normal gait. Vital Signs: 22:33 BP 113 / 54; Pulse 63; Resp 18; Temp 98.6(O); Pulse Ox 99% on R/A; Weight 72.57 kg; kl Height 5 ft. 2 in. ; Pain 9/10; 23:24 BP 107 / 62; Pulse 64; Resp 16 S; Pulse Ox 100% on R/A; jw7 22:33 Body Mass Index 29.26 (72.57 kg, 157.48 cm) kl 22:33 Pain Scale: Adult kl MDM: 22:34 Patient medically screened. kb 23:22 Differential Diagnosis: Bronchitis Pneumonia Other Flu, COVID, URI, sinusitis. Data kb reviewed: vital signs, nurses notes. Test considered but Not performed: Labs: Flu and COVID test considered but results would not change plan of care.. X-ray: Chest x-ray considered but lungs clear bilaterally, respirations even and unlabored, oxygen saturation 99% on room air. Counseling: I had a detailed discussion with the patient and/or guardian regarding the historical points, exam findings, and any diagnostic results supporting the discharge/admit diagnosis, the need for outpatient follow up, a family practitioner, to return to the emergency department if symptoms worsen or persist or if there are any questions or concerns that arise at home. 10/09 22:42 Order name: PO challenge; Complete Time: 23:22 kb Administered Medications: 23:21 Drug: Ondansetron Oral Disintegrating Tablet Oral Disintegrating Tablet 4 mg PO once jw7 Route: PO; 23:35 Follow up: Response: No adverse reaction as6 23:21 Drug: Ketorolac IM 30 mg IM once Route: IM; Site: right deltoid; jw7 23:35 Follow up: Response: No adverse reaction as6 23:21 Drug: Amoxicillin-Clavulanate PO 875 mg PO once Route: PO; jw7 23:35 Follow up: Response: No adverse reaction as6 Disposition: 23:30 I was immediately available on-site in the Emergency Department for consultation in the ms3 care of the patient. Disposition Summary: 10/09/23 23:24 Discharge Ordered Notes: Location: Home kb Condition: Stable kb Diagnosis - Acute sinusitis, unspecified kb Followup: kb - With: Emergency Department - When: As needed - Reason: Worsening of condition Followup: kb - With: Private Physician - When: 2 - 3 days - Reason: Recheck today's complaints, Continuance of care, Re-evaluation by your physician Discharge Instructions: - Discharge Summary Sheet kb - Sinusitis, Adult, Fdsa-hk-Cyin kb Forms: - Medication Reconciliation Form kb - Thank You Letter kb - Antibiotic Education kb - Prescription Opioid Use kb - Patient Portal Instructions kb - Leadership Thank You Letter kb Prescriptions: - Augmentin 875-125 mg Oral Tablet - take 1 tablet ORAL route every 12 hours for 10 days; 20 tablet; Refills: 0, kb Product Selection Permitted Signatures: Dispatcher [employer] EDVeronica Herrera, ISSA LUTZ-Nilsa Armstrong RN RN kl Deepak Lord DO DO ms3 Debo Briscoe RN RN jw7 Franki Le RN as6
--- NOTE | 2023-10-09 23:24 | ER ---
Nurse's Notes [facility] Name: Bren Garcia Age: 32 yrs Sex: Female : 1990 Arrival Date: 10/09/2023 Time: 22:31 Bed 7 Private MD: Diagnosis: Acute sinusitis, unspecified Presentation: 10/09 22:33 Chief complaint: Patient states: head ear congestion cough no sense of smell or taste x kl 2 weeks reports negative Covid test at home 3 days ago. Coronavirus screen: Vaccine status: Patient reports receiving the 2nd dose of the covid vaccine. Ebola Screen: Patient negative for fever greater than or equal to 101.5 degrees Fahrenheit, and additional compatible Ebola Virus Disease symptoms. Initial Sepsis Screen: Does the patient meet any 2 criteria? No. Patient's initial sepsis screen is negative. Does the patient have a suspected source of infection? No. Patient's initial sepsis screen is negative. Risk Assessment: Do you want to hurt yourself or someone else? Patient reports no desire to harm self or others. 22:33 Method Of Arrival: Ambulatory 22:33 Acuity: ERIN 4 kl 23:25 Onset of symptoms was September 25, 2023. jw7 Triage Assessment: 22:38 General: Appears uncomfortable, Behavior is calm, cooperative. Pain: Complains of pain kl in left ear and left adventist Pain currently is 9 out of 10 on a pain scale. EENT: Reports nasal congestion pain. Neuro: No deficits noted. Cardiovascular: No deficits noted. Respiratory: Airway is patent Trachea midline Respiratory effort is even, unlabored, Respiratory pattern is regular, symmetrical. GI: Reports nausea, vomiting. : No deficits noted. No signs and/or symptoms were reported regarding the genitourinary system. Derm: No deficits noted. No signs and/or symptoms reported regarding the dermatologic system. 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 - Social history:: Smoking status: Patient denies any tobacco usage or history of. Screenin:50 [facility] ED Fall Risk Assessment (Adult) History of falling in the last 3 months, jw7 including since admission No falls in past 3 months (0 pts) Score/Fall Risk Level 0 - 2 = Low Risk Oriented to surroundings, Maintained a safe environment. Abuse screen: Denies threats or abuse. Denies injuries from another. Nutritional screening: No deficits noted. Tuberculosis screening: No symptoms or risk factors identified. Assessment: 22:40 General: see triage assessment. jw7 Vital Signs: 22:33 BP 113 / 54; Pulse 63; Resp 18; Temp 98.6(O); Pulse Ox 99% on R/A; Weight 72.57 kg; kl Height 5 ft. 2 in. ; Pain 9/10; 23:24 BP 107 / 62; Pulse 64; Resp 16 S; Pulse Ox 100% on R/A; jw7 22:33 Body Mass Index 29.26 (72.57 kg, 157.48 cm) kl 22:33 Pain Scale: Adult ED Course: 22:32 Patient arrived in ED. ag3 22:34 Veronica Kapoor FNP-C is PHCP. kb 22:34 Deepak Lord DO is Attending Physician. kb 22:38 Triage completed. kl 22:50 Patient has correct armband on for positive identification. Bed in low position. Call jw7 light in reach. 23:26 Arm band placed on. jw7 23:35 No provider procedures requiring assistance completed. Patient did not have IV access as6 during this emergency room visit. 23:36 Provided Education on: abx teaching. follow up. as6 Administered Medications: 23:21 Drug: Ondansetron Oral Disintegrating Tablet Oral Disintegrating Tablet 4 mg PO once jw7 Route: PO; 23:35 Follow up: Response: No adverse reaction as6 23:21 Drug: Ketorolac IM 30 mg IM once Route: IM; Site: right deltoid; jw7 23:35 Follow up: Response: No adverse reaction as6 23:21 Drug: Amoxicillin-Clavulanate PO 875 mg PO once Route: PO; jw7 23:35 Follow up: Response: No adverse reaction as6 Medication: 22:50 VIS not applicable for this client. jw7 Outcome: 23:24 Discharge ordered by kb 23:35 Discharged to home ambulatory, with family, as6 23:35 Condition: stable 23:35 Discharge instructions given to patient, Instructed on discharge instructions, follow up and referral plans. medication usage, Demonstrated understanding of instructions, follow-up care, medications, Prescriptions given X 1, 23:36 Patient left the ED. as6 Signatures: Veronica Kapoor, FIREWORKS INSPECTOR-C FIREWORKS INSPECTOR-Ckb Nilsa Zamora, RN Julienne Peters Ashby, RN RN as6 Debo Briscoe RN RN jw7
[2023-10-09] MEDS ORDERED: KETOROLAC 30 MG/ML INJ ONE (23:29)
[2023-10-09] MEDS ORDERED: AMOX/K CLAV 875 MG TAB ONE (23:29)
[2023-10-09] MEDS ORDERED: ONDANSETRON 4 MG (ODT) TAB ONE (23:30)
[2023-10-10 01:51] VITALS: TEMP 98.6
[2023-10-10 01:52] VITALS: BP 107/62; O2SAT 100
== END 2023-10-09 23:36 | disposition home or self-care (01) ==
LOC: ER 22:31
DX: J01.90 Acute sinusitis, unspecified (principal)
CPT/HCPCS: 96372; 99284; Q0162